=== PATIENT | female | born 1950 | race Caucasian/White ===

== ENCOUNTER 2017-03-19 13:00 | Inpatient (IN) | payer OTHER ==
--- NOTE | 2017-03-11 21:19 | HP ---
HISTORY AND PHYSICAL: DATE OF SURGERY: 03/21/17 PROCEDURE: Left total knee arthroplasty. CHIEF COMPLAINT: Left knee pain. HISTORY OF PRESENT ILLNESS: Ms. Torres is a 66-year-old female with complaints of left knee pain. She has failed conservative management and has elected to proceed with a left total knee arthroplasty. The surgery is scheduled for 03/21/[address] Mead. PAST MEDICAL HISTORY: 1. Hypothyroidism. 2. Asthma. 3. Rheumatoid arthritis. 4. Sleep apnea. 5. Depression. PAST SURGICAL HISTORY: 1. Cardiac ablation. 2. Bladder suspension. 3. Bilateral total hip arthroplasties. 4. Bunionectomy. 5. Hammer toe repair. 6. Tonsillectomy. 7. Adenoidectomy. 8. Left ankle ORIF. 9. Varicose vein surgery of the bilateral lower extremities. CURRENT MEDICATIONS: 1. Iron. 2. Advair. 3. Levothyroxine. 4. Lexapro. 5. Calcium. 6. Vitamin D. 7. Melatonin. 8. Multivitamin. 9. [place]-3. ALLERGIES: SULFA, CIPRO and EFFEXOR. FAMILY HISTORY: Diabetes, heart disease, liver cancer and asthma. SOCIAL HISTORY: She is a 66-year-old female. She lives with her partner. She is a former smoker. She denies use of drugs. REVIEW OF SYSTEMS: A complete 14-point review of systems was reviewed with the patient. All is negative or noncontributory. PHYSICAL EXAMINATION GENERAL: She is well developed, well nourished. She is in no acute distress. VITAL SIGNS: She stands 5 feet 10 inches tall, weighs 230 pounds. Her blood pressure is 110/64, heart rate of 68. HEENT: She is normocephalic and atraumatic. NECK: Supple. No palpable lymph nodes. Trachea is midline. CARDIO: Regular rate and rhythm. Strong S1 and S2. No murmurs, gallops, or rubs. No peripheral edema. PULMONARY: Clear to auscultation bilaterally. ABDOMEN: Soft, nontender and nondistended. NEUROLOGICAL: She is alert and oriented x3. MUSCULOSKELETAL: Left lower extremity, skin is intact. There is a mild to moderate joint effusion. She has tenderness over the medial and lateral joint line. Her lower extremity muscle group strengths are intact at 5/5. She has 2 + dorsalis pedis pulses. She walks with a slightly antalgic type gait favoring her left leg. IMPRESSION: Ms. Torres is a 66-year-old female with complaints of left knee pain secondary to advanced osteoarthritis. She has failed conservative management and has elected to proceed with a left total knee arthroplasty which is scheduled for 03/21/[address] Mead discussed the risks and the benefits of the surgery at today's visit and all of her questions were answered. Coumadin, Percocet as well as Senna Plus were sent to her pharmacy for postoperative pain control and DVT prophylaxis. She will see Dr. Mead back 10 to 14 days after the surgery. ANNIE SOLORIO [id number]/CPS #: [id number] MTDD
[2017-03-21] MEDS ORDERED: fentaNYL* 50 MCG/ML 2 ML VIAL (100 MCG VIAL) IV PRN (05:39)
[2017-03-21] MEDS ORDERED: PROCHLORPERAZINE INJ 5 MG/ML 2 ML VIAL IV PRN (05:39)
[2017-03-21] MEDS ORDERED: Buffered Lidocaine 1% SYR 3ML* 3 ML/SYR SYRINGE INTRADERM ONE (06:00)
[2017-03-21] MEDS ORDERED: Scopolamine 1.5 mg* PATCH TRANSDERM ONE (06:00)
[2017-03-21] MEDS ORDERED: Famotidine IV* 10 MG/ML 2 ML (20 mg) IV ONE (06:00)
[2017-03-21] MEDS ORDERED: Gabapentin CAP(*) 300 MG PO ONE (06:00)
[2017-03-21] MEDS ORDERED: Scopolamine 1.5 mg* PATCH ONE (07:25)
[2017-03-21] MEDS ORDERED: Famotidine IV* 10 MG/ML 2 ML (20 mg) ONE (07:25)
[2017-03-21] MEDS ORDERED: ceFAZolin 2 GM PREMIX(*) 2 GM/50 ML BAG IVPB ONE (07:25)
[2017-03-21] MEDS ORDERED: Gabapentin CAP(*) 300 MG ONE (07:25)
[2017-03-21] MEDS ORDERED: fentaNYL* 50 MCG/ML 2 ML VIAL (100 MCG VIAL) ONE (08:08)
[2017-03-21] MEDS ORDERED: Midazolam* 1 MG/ML 5 ML VIAL (5 MG) ONE ×2 (08:09→08:48)
[2017-03-21] MEDS ORDERED: KETAMINE HCL* 50 MG/ML 10 ML VIAL ONE (08:09)
[2017-03-21] MEDS ORDERED: Morphine INJ* 10 MG/ML 1 ML SYRINGE ONE ×3 (09:28→11:48)
[2017-03-21] MEDS ORDERED: Bupivacaine 0.5% SDV PF* 30 ML VIAL ONE ×2 (10:37→10:57)
[2017-03-21] MEDS ORDERED: Propofol* 500 MG/50 ML BTL ONE (10:57)
[2017-03-21] MEDS ORDERED: Dexamethasone IV* 4 MG/ML 1 ML (4 MG) ONE (10:57)
[2017-03-21] MEDS ORDERED: Ondansetron INJ* 2 MG/ML VIAL ONE (10:57)
[2017-03-21] MEDS ORDERED: Lidocaine 2% PF * 5 ML VIAL ONE (10:57)
[2017-03-21] MEDS ORDERED: Phenylephrine INJ* 10 MG/ML 1 ML VIAL (10 MG) ONE (10:57)
[2017-03-21] MEDS ORDERED: Propofol* 10 MG/ML 20 ML BTL IV PUSH ONE (10:57)
[2017-03-21] MEDS ORDERED: Acetaminophen TAB* 325 MG PO PRN (11:29)
[2017-03-21] MEDS ORDERED: oxyCODONE/Acetamin 5/325 MG* TAB PO PRN (11:29)
[2017-03-21] MEDS ORDERED: Morphine INJ* 2 MG/ML 1 ML SYRINGE IV PRN (11:29)
[2017-03-21] MEDS ORDERED: diPHENhydraMINE IV* 50 MG/ML 1 ml VIAL (BENADRYL) IV PRN (11:29)
[2017-03-21] MEDS ORDERED: Bisacodyl SUPP* 10 MG SUPP PR PRN (11:29)
[2017-03-21] MEDS ORDERED: Ondansetron TAB* 4 MG PO PRN (11:29)
[2017-03-21] MEDS ORDERED: Polyethylene Glycol 3350* 17 GM PACKET PO PRN (11:29)
[2017-03-21] MEDS ORDERED: Albuterol 2.5 MG/3 ML NEB.SOL* (0.083%) INH PRN (11:48)
[2017-03-21] MEDS: Morphine INJ* 2 MG/ML 1 ML SYRINGE IV PRN ×4 (11:50→12:45)
--- NOTE | 2017-03-21 13:22 | CONS ---
CONSULTATION REPORT: DATE OF CONSULT: 03/21/17 PRIMARY CARE PROVIDER: Dr. Campbell. ATTENDING PHYSICIAN WHILE IN THE HOSPITAL: Tha Church MD (report dictated by Trung Spencer NP). REQUESTING PHYSICIAN FOR CONSULT: Dr. Mead. REASON FOR MEDICAL CONSULTATION: Medical management of comorbid medical problems. HISTORY OF PRESENT ILLNESS: I refer you to Dr. Mead's H and P for further details. In short, Ms. Torres is a 66-year-old female patient who presents with history of hypothyroidism, asthma, rheumatoid arthritis, GERARDO, and depression. She has been dealing with left knee pain for some time failing conservative therapy, she elected to proceed with left total knee arthroplasty which she underwent today. She was evaluated in the PACU. She said she is feeling well. She says she is having a fair amount of pain in her left knee. She denies having any chest pain or any shortness of breath. She denies having any abdominal pain. She denies having any shortness of breath. She says she feels tired and drowsy but denies having any lightheadedness or any feelings she is going to pass out. She again carries a history of the asthma, GERARDO, rheumatoid arthritis, hypothyroidism, depression. We were asked to evaluate in consult. PAST MEDICAL HISTORY: Significant for: 1. Hypothyroidism. 2. Asthma. 3. Rheumatoid arthritis. 4. GERARDO. 5. Depression. SURGICAL HISTORY: 1. She has had a cardiac ablation for PVC in 2016. 2. Bladder suspension. 3. Bilateral total hip arthroplasty. 4. Bunionectomy. 5. Hammer toe repair. 6. Tonsillectomy. 7. Left ankle ORIF. 8. Varicose vein stripping. HOME MEDICATIONS: According to the preop list include: 1. Percocet 1 tablet every 3 hours as needed. 2. Multivitamin 1 tablet daily. 3. Myrbetriq 1 tablet p.o. q. p.m. 4. Meloxicam 1 tablet p.o. b.i.d. 5. Melatonin 30 mg at bedtime. 6. Synthroid 100 mcg at bedtime. 7. Lactobacillus 1 capsule p.o. b.i.d. 8. Advair 1 puff inhaled b.i.d. 9. Ferrous sulfate 1 tablet p.o. b.i.d. 10. Lexapro 20 mg p.o. q.p.m. 11. Gravel Switch-3 complex 1 capsule p.o. q.p.m. 12. Calcium with vitamin D 1 tablet p.o. q.a.m. 13. Aspirin 81 mg daily. ALLERGIES TO MEDICATIONS: Include SULFA, CIPRO, and EFFEXOR. FAMILY HISTORY: Reviewed, essentially noncontributory. SOCIAL HISTORY: She does not smoke. She does not drink. She lives alone. Surrogate decision maker is her partner and . REVIEW OF SYSTEMS: There is no documented fever. She denied having any significant weight change. There is no double vision. She denies having any ear discharge. There was no rhinorrhea. No sore throat. No thyroid enlargement. Denies having any chest pain. There is no orthopnea. There is no nocturnal dyspnea. No abdominal pain. No nausea. No vomiting. No dysuria. No frequency. No seizure. No loss of consciousness. No pruritus. No skin ulcerations. Review of 14 systems completed, all others negative. PHYSICAL EXAMINATION: Vital Signs: Blood pressure 109/59 with a pulse of 69, respirations 16, O2 sat 92% on 4 L, temperature was 97.9. General: At this time, Ms. Torres is a 66-year-old female patient. She was evaluated in the PACU. She appears to be well-nourished, well-developed. She does not appear to be in any acute distress. HEENT: Head is atraumatic, normocephalic. Eyes: EOMs are intact. Sclerae were anicteric. Neck supple. Pupils reactive to light. Throat: Oral mucosa appeared to be moist. No oropharyngeal erythema. Heart: Sounds S1 and S2. Regular rate and rhythm. No murmurs, rubs, or gallops. Lungs: Clear to auscultation bilaterally. No wheezes, rales, or rhonchi. Abdomen: Soft, flat and nontender. Bowel sounds are hypoactive. Extremities: Pulses are 2+ throughout. Distal CSM checks were intact. She moves the upper extremities with 5/5 strength. The left lower extremity is Baljeet bandaged. There is Hemovac intact. She has limited range of motion since this is the operative leg. Neurologically, she is drowsy on exam but she awakens to her name. She follows commands. Her lead recreation assistant are equal. Tongue is midline. No facial drooping. Her speech is clear. No gross focal deficits. Her skin is intact with the exception of left knee. She has an incision covered with an Baljeet dressing. Hemovac intact with no drainage noted. DIAGNOSTIC STUDIES/LAB DATA: The labs preoperatively reveal WBC 6.3, RBC of 4.62, hemoglobin 12.6, hematocrit 38, platelet count of 253. INR was 1.01. Sodium was 136, potassium 4.4, chloride 101, CO2 30, BUN 18, creatinine 0.69, glucose 86. Urine obtained preop showed positive nitrites, 2+ leukocyte esterase , 2+ WBC. Microbiology grew out Klebsiella pneumoniae. Old medical records were reviewed. There was a preop EKG which shows a normal sinus rhythm at a rate of 68. No ST elevation or T-wave inversions. Chest x-ray back in October which showed no active cardiopulmonary disease. ASSESSMENT AND PLAN: Ms. Torres is a 66-year-old female patient coming into the orthopedic services today for an elective left total knee. The hospitalist service was asked to evaluate in consult for medical management of her medical problems. Recommendation at this point are: 1. Status post left total knee replacement. I will defer the management of this to Dr. Mead and her team. 2. Hypothyroidism. Continue Synthroid. 3. Asthma. Continue her Advair p.r.n. Nebulizers have been ordered. 4. Obstructive sleep apnea. Reported 24-hour continuous pulse ox after surgery and then we will continue her BiPAP. 5. Depression. Continue meds as described. 6. Rheumatoid arthritis. Follow with her outpatient provider and Dr. Flores. 7. DVT prophylaxis per the primary team. 8. Preoperative abnormal UA. She did not give any symptoms to report dysuria or frequency. We can monitor for any of these symptoms while she is here postop. If she develops any we could obviously start her on antibiotics, but at this point we will just monitor her. 9. Code status. Full code. 10. Fluids, electrolytes and nutrition. I would recommend a regular diet. TIME SPENT: Time spent on this consult was 60 minutes, greater than half time spent with [id number] with the patient obtaining my history and physical, the other half of the time spent going over the plan of care with the patient and implementing the plan of care. I discussed the plan of care with my attending, Dr. Church, who is in agreement. TRUNG SPENCER NP CC: Dr. Campbell; Dr. Mead * [id number]/CPS #: [id number] [facility]ITAL[facility]
[2017-03-21] MEDS ORDERED: Morphine INJ* 4 MG/ML 1 ML SYRINGE ONE (13:50)
[2017-03-21] MEDS: oxyCODONE/Acetamin 5/325 MG* TAB PO PRN ×2 (14:56→19:30)
[2017-03-21] MEDS ORDERED: Warfarin TAB(*) 6 MG PO ONE (17:00)
[2017-03-21] MEDS: PTO: Mirabegron (NF) 50 MG TAB PO SCH (17:45)
[2017-03-21] MEDS: ceFAZolin 1 GM in Dextrose (*) 1 GM/50 ML BAG IVPB SCH (17:45)
[2017-03-21] MEDS: CMC:Escitalopram (NF) 10 MG TAB PO SCH (17:46)
[2017-03-21] MEDS ORDERED: Ferrous Sulfate TAB* 325 MG PO SCH (21:00)
[2017-03-21] MEDS: Magnesium Hydroxide LIQ* 30 ML UDC PO PRN (21:20)
[2017-03-21] MEDS: Docusate CAP* 100 MG PO SCH (21:20)
[2017-03-21] MEDS: SALMET INH SCH (21:27)
[2017-03-21] MEDS: FLUTICAS INH SCH (21:27)
[2017-03-21] MEDS: MDI INH SCH (21:27)
[2017-03-21] MEDS: oxyCODONE TAB* 5 MG TAB PO PRN (22:32)
--- NOTE | 2017-03-22 00:48 | OP ---
DATE OF OPERATION: 03/21/17 - ROOM #342 DATE OF : 54 SURGEON: Rachel Mead MD. ACCOUNTS PAYABLE REPRESENTATIVE: ANNIE Headley. Ms. Brown was present throughout the entire procedure and was utilized throughout the entire procedure for preparation, retraction, manipulation of the leg, and wound closure. ANESTHESIOLOGIST: Dr. Borrero. ANESTHESIA: Spinal with adductor nerve block. PRE-OP DIAGNOSIS: Severe end-stage degenerative osteoarthritis of the left knee joint with valgus deformity. POST-OP DIAGNOSIS: Severe end-stage degenerative osteoarthritis of the left knee joint with valgus deformity. OPERATIVE PROCEDURE: Left total knee arthroplasty. TOURNIQUET TIME: 48 minutes. COMPLICATIONS: None. ESTIMATED BLOOD LOSS: 200 cc. SPECIMEN: Bone and cartilage from the left knee joint, sent to pathology. HARDWARE USED: This is Epps [employer] Nephew cemented total knee hardware. Two packages of Simplex bone cement were used. For the femur, a size 7 left femoral component. For the tibia, a size 5 tibial base plate, a 9-mm posterior stabilized articular insert size 5-6, and a 35-mm 3-peg all-poly patella. BRIEF HISTORY/INDICATION: Ms. Torres is a 66-year-old female with 6 months of increasingly severe left knee pain. She failed conservative treatment with antiinflammatories, pain medications, brace wear and intraarticular steroid injections. Radiographs showed severe end-stage arthritis with valgus deformity and [id number] contact in the lateral compartment. Due to failure of conservative treatment, the patient elected to have left total knee arthroplasty. Informed consent was obtained from the patient. She understood the risks of the procedure included, but were not limited to bleeding, infection, damage to nearby structures, continued pain, need for further surgery, intraoperative fracture, nerve palsy, hardware failure or loosening, stiffness or loss of motion, stroke, heart attack, blood clot, and . She wished to proceed. INTRAOPERATIVE FINDINGS: The patient was noted to have complete loss of cartilage in the lateral and patellofemoral compartments. She had a severely hypoplastic lateral femoral condyle. Preop valgus alignment was approaching 15 degrees. Postoperatively, this was corrected at 3 to 5 degrees of anatomic valgus. DESCRIPTION OF PROCEDURE: Ms. Torres was identified in the preanesthesia unit. Her left lower extremity was marked as the correct operative site. Informed consent was signed and placed in the chart. The patient was taken to the operating room and placed under spinal anesthesia with an adductor nerve block. A Shah catheter was placed. The tourniquet was placed on the left thigh. Left lower extremity was prepped and draped in the usual sterile fashion. Appropriate preoperative time-out was made to correctly identify the patient's side and site. Appropriate perioperative antibiotics were given within 1 hour of incision. Tourniquet was inflated and total tourniquet time for this procedure was 48 minutes. A 14 cm midline incision was made with a 10-blade and carried down to the extensor mechanism. A new 10 blade was used to make a standard medial parapatellar arthrotomy. The patella was subluxed laterally. Electrocautery was used to subperiosteally elevate soft tissue off the superomedial tibia to the mid sagittal plane. The medial osteophytes were carefully removed. The tibia was flexed up. Anterior horn of the lateral meniscus and ACL was sharply released. A drill was used to enter the distal femur. Intramedullary distal femoral cutting guide was pinned on the distal femur. Lateral femoral condylar hypoplasia was noted and accounted for. Oscillating saw was used to make the distal femoral cut. Next the external rotation guide was carefully pinned on the distal femur. The distal femur was sized to a size 7. Size 7 multi- cutting jig was pinned on the distal femur. The oscillating saw to used to make the appropriate 4 chamfer cuts. Any bony fragments were carefully removed. The PCL was completely released. Tibia was subluxed anteriorly and the extramedullary tibial cutting guide was pinned on the proximal tibia. Oscillating saw was used to make the appropriate proximal tibial cut perpendicular to the mechanical axis of the tibia. The tibial bone was carefully removed. The knee was brought out into full extension. The spacer block had excellent fit. Medial and lateral ligaments were well balanced. Flexion and extension gaps were well balanced. The knee was flexed up. The lamina child psychiatrist was placed both medially and laterally. Any remaining meniscus was carefully removed using electrocautery. Any posterior osteophytes were removed using a curved osteotome and curette. Tibial tray and drop krissy were placed to once again confirm a satisfactory proximal tibial cut. This was confirmed. A size 7 left femoral trial was impacted on to the distal femur and noted to have good fit. The box for the posterior stabilized implant was prepared using a reamer and box cut osteotome. Trial size 5 tibial base plate and 9 mm insert trial were placed. The knee was taken through range of motion and noted to have full extension to 125 degrees of flexion. There was good patellofemoral tracking. The patella was everted. A 7 mm of patellar bone and cartilage was carefully removed from the patella. The patella was sized to a size 35. A size 35 patellar guide was used to drill the 3 peg holes. A size 35, 7.5 thickness trial was placed and the knee was taken through a range of motion. There was satisfactory patellofemoral tracking. All trials were carefully removed. The tibia was subluxed anteriorly and sized to a size 5. Proximal tibia was prepared using a size 5 keel punch. All bony cut surfaces were copiously irrigated with sterile saline and dried. The final implants were cemented into place starting with the tibia followed by the femur and last the patella. A 9 mm insert trial was placed while the knee was brought out into full extension. The cement was allowed to slowly cure and tourniquet was turned down at 48 minutes. The knee was copiously irrigated with sterile saline. Once the cement had fully cured, the insert trial was removed. Any excess cement was carefully removed from around the implants and capsule. Electrocautery was used to obtain meticulous hemostasis. The knee was once again copiously irrigated with sterile saline. The extensor mechanism was closed using interrupted #1 Vicryl over a medium Hemovac drain. The rest of the incision was closed in a layered fashion using 0 and 2-0 Vicryl. Skin was closed using running 3-0 nylon suture. Sterile Xeroform, 4x4' s, and Webril were used to cover the incision. Baljeet wrap and cold packs were placed over this. The patient's anesthesia was reversed without difficulty. She was taken to the PACU in stable condition. Intended weightbearing will be weightbearing as tolerated. Intended DVT prophylaxis will be Coumadin with a Lovenox bridge. [id number]/[facility] #: [id number] SONDRA
[2017-03-22] MEDS: ceFAZolin 1 GM in Dextrose (*) 1 GM/50 ML BAG IVPB SCH ×2 (02:03→08:49)
[2017-03-22] MEDS: oxyCODONE/Acetamin 5/325 MG* TAB PO PRN ×5 (04:07→18:45)
[2017-03-22] MEDS: Levothyroxine TAB* 100 MCG TAB PO SCH (05:24)
[2017-03-22 06:00] LABS: Hematocrit 30 % (35-47); Hemoglobin 9.7 g/dl (12.0-16.0)
[2017-03-22 06:14] LABS: BUN/Creatinine Ratio 18.3 (8-20); Calcium 8.9 mg/dL (8.6-10.3); EGFR African American 129.4 (>60); EGFR Non-African American 100.6 (>60); Potassium 4.1 mmol/L (3.5-5.0)
[2017-03-22] MEDS: oxyCODONE SR TAB(*) 10 MG TAB.SR PO SCH ×2 (08:09→21:40)
[2017-03-22] MEDS: Docusate CAP* 100 MG PO SCH ×2 (08:09→21:41)
[2017-03-22] MEDS: Enoxaparin(*) 30 MG/0.3 ML SYR SUBCUT SCH (08:10)
[2017-03-22] MEDS: FLUTICAS INH SCH ×2 (08:11→21:42)
[2017-03-22] MEDS: MDI INH SCH ×2 (08:11→21:42)
[2017-03-22] MEDS: SALMET INH SCH ×2 (08:11→21:42)
--- NOTE | 2017-03-22 09:22 | RAD ---
Indication: Left total knee replacement 2 views of left knee demonstrates bipolar knee replacement in place. The components appear to be in satisfactory alignment. Drainage catheter in place. IMPRESSION: Left knee replacement in satisfactory position.
--- NOTE | 2017-03-22 09:54 | PN ---
Progress Note - Progress Note SOAP: Subjective: 66 y/o female s/p L TKA by DR. Mead 03/22/2017. Patient reports feeling well overall, working with PT, very motivated. Pain controlled with medications, feeling light headed intermittently. VSS, afebrile. Objective: General- Well appearing, NAD AO MSK- SUrg dressing intact, hemovac removed by Dr. Mead this AM, + DF/PF L LE, PT 2+, minimal edema L LE. intact to light touch Assessment: 66 y/o female s/p L TKA by DR. Mead 03/22/2017. Plan: - Continue current pain regimen - Continue PT/ OT - Lovenox, coumadin- 8mg tonight Vital Signs Temp 98.2 F 03/22/17 07:37 Pulse 76 03/22/17 07:37 Resp 16 03/22/17 08:56 BP 130/58 03/22/17 07:37 Pulse Ox 100 03/22/17 08:56 Intake & Output 03/21/17 03/22/17 03/22/17 18:59 06:59 18:59 Intake Total 1730 1433 Output Total 1275 2150 Balance 455 -717 Weight 235 lb Intake: IV Fluids 1250 908 LR 1200 908 NS 50ML, Cefazolin 2G 50 Oral 480 525 Output: Urine 0 Shah 1275 2150 Other: Estimated Blood Loss <100 ML Comment Laboratory Results - last 24 hr 03/22/17 03/22/17 03/22/17 05:47 05:47 05:47 Hgb 9.7 L Hct 30 L INR (Anticoag Therapy) 1.08 Sodium 134 Potassium 4.1 Chloride 100 L Carbon Dioxide 31 Anion Gap 3 BUN 11 Creatinine 0.60 Est GFR ( Amer) 129.4 Est GFR (Non-Af Amer) 100.6 BUN/Creatinine Ratio 18.3 Glucose 130 H Calcium 8.9 Active Medications Generic Name Dose Route Start Last Admin Trade Name Freq PRN Reason Stop Dose Admin Acetaminophen 650 mg 03/21/17 11:29 Tylenol Tab* PO Q4H PRN PAIN OR TEMPERATURE Albuterol 2.5 mg 03/21/17 11:48 Ventolin 2.5 Mg/3 Ml Neb.Trish* INH Q2H PRN SOB/WHEEZING Bisacodyl 10 mg 03/21/17 11:29 Dulcolax Supp* [place] DAILY PRN constipation Diphenhydramine HCl 12.5 mg 03/21/17 11:29 Benadryl Iv* IV Q6H PRN PRURITIS Docusate Sodium 100 mg 03/21/17 21:00 03/22/17 08:09 Colace Cap* PO 100 mg BID MAGGI Administration Enoxaparin Sodium 30 mg 03/22/17 08:00 03/22/17 08:10 Lovenox(*) SUBCUT 30 mg Q24H MAGGI Administration Escitalopram Oxalate 20 mg 03/21/17 18:00 03/21/17 17:46 Lexapro (Nf) PO 20 mg QPM MAGGI Administration Lactated Ringer's 1,000 mls @ 100 mls/hr 03/21/17 12:00 03/21/17 23:06 Lactated Ringers 1000 Ml Bag* IV 100 mls/hr PER RATE MAGGI Administration Lactulose 30 ml 03/21/17 11:29 Lactulose* PO Q6H PRN constipation Levothyroxine Sodium 100 mcg 03/22/17 06:00 03/22/17 05:24 Synthroid Tab* PO 100 mcg 0600 MAGGI Administration Magnesium Hydroxide 30 ml 03/21/17 11:29 03/21/17 21:20 Milk Of Magnesia Liq* PO 30 ml Q6H PRN Administration constipation Mirabegron 50 mg 03/21/17 18:00 03/21/17 17:45 Myrbetriq (Nf) PO 50 mg QPM MAGGI Administration Morphine Sulfate 2 mg 03/21/17 11:29 Morphine Inj (Syringe)* IV Q2H PRN PAIN Ondansetron HCl 4 mg 03/21/17 11:29 Zofran Tab* PO Q6H PRN NAUSEA Oxycodone HCl 10 mg 03/21/17 11:29 03/21/17 22:32 Roxycodone Tab* PO 10 mg Q4H PRN Administration SEVERE PAIN Oxycodone HCl 10 mg 03/22/17 09:00 03/22/17 08:09 Oxycontin(*) PO 10 mg Q12HR MAGGI Administration Oxycodone/Acetaminophen 1 tab 03/21/17 11:29 Percocet 5/325 Tab* PO Q3H PRN PAIN - MODERATE Oxycodone/Acetaminophen 2 tab 03/21/17 11:29 03/22/17 08:09 Percocet 5/325 Tab* PO 2 tab Q3H PRN Administration PAIN - MODERATE Pharmacy Profile Note 1 note 03/24/17 06:00 Scopolomine Patch Remove* PATCH OFF 03/24/17 06:01 ONCE ONE Polyethylene Glycol/Electrolytes 17 gm 03/21/17 11:29 Miralax* PO DAILY PRN Constipation Fluticasone/Salmeterol 1 puff 03/21/17 21:00 03/22/17 08:11 Advair Hfa 115/21 (Nf) INH 1 puff BID MAGGI Administration Protocol Warfarin Sodium 8 mg 03/22/17 17:00 Coumadin Tab(*) PO 03/22/17 17:01 ONCE@1700 ONE Protocol -
--- NOTE | 2017-03-22 11:48 | PN ---
Subjective Date of Service: 03/22/17 Interval History: This is a 66 yo female with asthma, RA, hypothyroidism, GERARDO and depression who is s/p L TKA by Dr Mead yesterday. Hospitalists are co-managing. Patient offers no acute complaints this am. No SOB, slight cough. No abd pain, n/v. Pain is well controlled. Objective Active Medications: Acetaminophen (Tylenol Tab*) 650 mg PO Q4H PRN PRN Reason: PAIN OR TEMPERATURE Albuterol (Ventolin 2.5 Mg/3 Ml Neb.Trish*) 2.5 mg INH Q2H PRN PRN Reason: SOB/WHEEZING Bisacodyl (Dulcolax Supp*) 10 mg ME DAILY PRN PRN Reason: constipation Diphenhydramine HCl (Benadryl Iv*) 12.5 mg IV Q6H PRN PRN Reason: PRURITIS Docusate Sodium (Colace Cap*) 100 mg PO BID [facility] Last Admin: 03/22/17 08:09 Dose: 100 mg Enoxaparin Sodium (Lovenox(*)) 30 mg SUBCUT Q24H [facility] Last Admin: 03/22/17 08:10 Dose: 30 mg Escitalopram Oxalate (Lexapro (Nf)) 20 mg PO QPM [facility] Last Admin: 03/21/17 17:46 Dose: 20 mg Lactated Ringer's (Lactated Ringers 1000 Ml Bag*) 1,000 mls @ 100 mls/hr IV PER RATE [facility] Last Admin: 03/21/17 23:06 Dose: 100 mls/hr Lactulose (Lactulose*) 30 ml PO Q6H PRN PRN Reason: constipation Levothyroxine Sodium (Synthroid Tab*) 100 mcg PO 0600 [facility] Last Admin: 03/22/17 05:24 Dose: 100 mcg Magnesium Hydroxide (Milk Of Magnesia Liq*) 30 ml PO Q6H PRN PRN Reason: constipation Last Admin: 03/21/17 21:20 Dose: 30 ml Mirabegron (Myrbetriq (Nf)) 50 mg PO QPM [facility] Last Admin: 03/21/17 17:45 Dose: 50 mg Morphine Sulfate (Morphine Inj (Syringe)*) 2 mg IV Q2H PRN PRN Reason: PAIN Ondansetron HCl (Zofran Tab*) 4 mg PO Q6H PRN PRN Reason: NAUSEA Oxycodone HCl (Roxycodone Tab*) 10 mg PO Q4H PRN PRN Reason: SEVERE PAIN Last Admin: 03/21/17 22:32 Dose: 10 mg Oxycodone HCl (Oxycontin(*)) 10 mg PO Q12HR [facility] Last Admin: 03/22/17 08:09 Dose: 10 mg Oxycodone/Acetaminophen (Percocet 5/325 Tab*) 1 tab PO Q3H PRN PRN Reason: PAIN - MODERATE Oxycodone/Acetaminophen (Percocet 5/325 Tab*) 2 tab PO Q3H PRN PRN Reason: PAIN - MODERATE Last Admin: 03/22/17 11:10 Dose: 2 tab Pharmacy Profile Note (Scopolomine Patch Remove*) 1 note PATCH OFF ONCE ONE Stop: 03/24/17 06:01 Polyethylene Glycol/Electrolytes (Miralax*) 17 gm PO DAILY PRN PRN Reason: Constipation Fluticasone/Salmeterol (Advair Hfa 115/21 (Nf)) 1 puff INH BID [facility] PRN Reason: Protocol Last Admin: 03/22/17 08:11 Dose: 1 puff Warfarin Sodium (Coumadin Tab(*)) 8 mg PO ONCE@1700 ONE PRN Reason: Protocol Stop: 03/22/17 17:01 Vital Signs: Temp Pulse Resp BP Pulse Ox 98.2 F 76 16 130/58 100 03/22/17 07:37 03/22/17 07:37 03/22/17 11:10 03/22/17 07:37 03/22/17 08:56 Oxygen Devices in Use Now: None Appearance: Well appearing female in NAD Respiratory: Symmetrical Chest Expansion and Respiratory Effort, - - few rales at L lung base Cardiovascular: NL Sounds; No Murmurs; No JVD, RRR Abdominal: NL Sounds; No Tenderness; No Distention Extremities: No Edema Skin: No Rash or Ulcers Neurological: Alert and Oriented x 3 Result Diagrams: 03/22/17 05:47 03/22/17 05:47 Assess/Plan/Problems-Billing Assessment: This is a 66 yo female with asthma, alpha 1 antitripsyn deficiency and associated bronchiectasis, hypothyroidism, RA, GERARDO and depression who is s/p elective L TKA. Hospitalist group co-managing - Patient Problems (1) Status post total left knee replacement Comment: POD #1 Management per ortho (2) Asthma Comment: No acute exacerbation With chronic bronchiectasis and alpha 1 antitrypsin deficiency Cont home inhaled meds (3) Rheumatoid arthritis Comment: No chronic immunomodulatory meds (4) GERARDO (obstructive sleep apnea) Comment: Compliant with BiPAP (5) Depression Comment: Cont lexapro Stable (6) Hypothyroidism Comment: Cont levothyroxine (7) Full code status (8) DVT prophylaxis Comment: Lovenox bridge to Coumadin per ortho Status and Disposition: Inpatient. Dispo per ortho. Hospitalist will cont to follow along
[2017-03-22] MEDS ORDERED: Warfarin TAB(*) 4 MG PO ONE (17:00)
[2017-03-22] MEDS: CMC:Escitalopram (NF) 10 MG TAB PO SCH (18:15)
[2017-03-22] MEDS: PTO: Mirabegron (NF) 50 MG TAB PO SCH (18:17)
[2017-03-22] MEDS: Magnesium Hydroxide LIQ* 30 ML UDC PO PRN (21:44)
[2017-03-23] MEDS: oxyCODONE/Acetamin 5/325 MG* TAB PO PRN ×5 (03:46→18:24)
[2017-03-23] MEDS: Levothyroxine TAB* 100 MCG TAB PO SCH (05:39)
[2017-03-23 05:56] LABS: Hematocrit 28 % (35-47); Hemoglobin 8.9 g/dl (12.0-16.0); Mean Platelet Volume 8 um3 (7.4-10.4)
[2017-03-23] MEDS: oxyCODONE SR TAB(*) 10 MG TAB.SR PO SCH ×2 (08:00→21:06)
[2017-03-23] MEDS: Docusate CAP* 100 MG PO SCH ×2 (08:00→21:07)
[2017-03-23] MEDS: FLUTICAS INH SCH ×2 (08:00→21:09)
[2017-03-23] MEDS: SALMET INH SCH ×2 (08:00→21:09)
[2017-03-23] MEDS: MDI INH SCH ×2 (08:00→21:09)
[2017-03-23] MEDS: Enoxaparin(*) 30 MG/0.3 ML SYR SUBCUT SCH (08:01)
--- NOTE | 2017-03-23 09:04 | PN ---
Progress Note - Progress Note SOAP: Subjective: Pt. is alert, twisted her knee last night and has increased pain today. Objective: LLE - dressing changed, inc c/d/i. distally nvi. min swelling. Vital Signs: Temp Pulse Resp BP Pulse Ox 98.3 F 88 16 123/59 99 03/23/17 07:54 03/23/17 07:54 03/23/17 08:10 03/23/17 07:54 03/23/17 08:10 Laboratory Results - last 24 hr 03/23/17 03/23/17 05:14 05:14 Hgb 8.9 L Hct 28 L Plt Count 192 MPV 8 INR (Anticoag Therapy) 1.33 H Assessment: 66 yo F pod 2 s/p LTKA Plan: wbat lle pt/ot 8 mg coumadin with lovenox bridge plan d/c to home tomorrow am with vns
--- NOTE | 2017-03-23 13:29 | PN ---
Subjective Date of Service: 03/23/17 Interval History: Patient twisted her knee yesterday and has been having increased pain since that time. She reports no dyspnea or cough. No CP or abd pain, n/v. Objective Active Medications: Acetaminophen (Tylenol Tab*) 650 mg PO Q4H PRN PRN Reason: PAIN OR TEMPERATURE Albuterol (Ventolin 2.5 Mg/3 Ml Neb.Trish*) 2.5 mg INH Q2H PRN PRN Reason: SOB/WHEEZING Bisacodyl (Dulcolax Supp*) 10 mg [place] DAILY PRN PRN Reason: constipation Diphenhydramine HCl (Benadryl Iv*) 12.5 mg IV Q6H PRN PRN Reason: PRURITIS Docusate Sodium (Colace Cap*) 100 mg PO BID [facility] Last Admin: 03/23/17 08:00 Dose: 100 mg Enoxaparin Sodium (Lovenox(*)) 30 mg SUBCUT Q24H [facility] Last Admin: 03/23/17 08:01 Dose: 30 mg Escitalopram Oxalate (Lexapro (Nf)) 20 mg PO QPM [facility] Last Admin: 03/22/17 18:15 Dose: 20 mg Lactated Ringer's (Lactated Ringers 1000 Ml Bag*) 1,000 mls @ 100 mls/hr IV PER RATE [facility] Last Admin: 03/21/17 23:06 Dose: 100 mls/hr Lactulose (Lactulose*) 30 ml PO Q6H PRN PRN Reason: constipation Levothyroxine Sodium (Synthroid Tab*) 100 mcg PO 0600 [facility] Last Admin: 03/23/17 05:39 Dose: 100 mcg Magnesium Hydroxide (Milk Of Magnesia Liq*) 30 ml PO Q6H PRN PRN Reason: constipation Last Admin: 03/22/17 21:44 Dose: 30 ml Mirabegron (Myrbetriq (Nf)) 50 mg PO QPM [facility] Last Admin: 03/22/17 18:17 Dose: 50 mg Morphine Sulfate (Morphine Inj (Syringe)*) 2 mg IV Q2H PRN PRN Reason: PAIN Last Admin: 03/22/17 16:40 Dose: 2 mg Ondansetron HCl (Zofran Tab*) 4 mg PO Q6H PRN PRN Reason: NAUSEA Oxycodone HCl (Roxycodone Tab*) 10 mg PO Q4H PRN PRN Reason: SEVERE PAIN Last Admin: 03/21/17 22:32 Dose: 10 mg Oxycodone HCl (Oxycontin(*)) 10 mg PO Q12HR [facility] Last Admin: 03/23/17 08:00 Dose: 10 mg Oxycodone/Acetaminophen (Percocet 5/325 Tab*) 1 tab PO Q3H PRN PRN Reason: PAIN - MODERATE Oxycodone/Acetaminophen (Percocet 5/325 Tab*) 2 tab PO Q3H PRN PRN Reason: PAIN - MODERATE Last Admin: 03/23/17 11:03 Dose: 2 tab Pharmacy Profile Note (Scopolomine Patch Remove*) 1 note PATCH OFF ONCE ONE Stop: 03/24/17 06:01 Polyethylene Glycol/Electrolytes (Miralax*) 17 gm PO DAILY PRN PRN Reason: Constipation Fluticasone/Salmeterol (Advair Hfa 115/21 (Nf)) 1 puff INH BID [facility] PRN Reason: Protocol Last Admin: 03/23/17 08:00 Dose: 1 puff Warfarin Sodium (Coumadin Tab(*)) 8 mg PO ONCE@1700 ONE PRN Reason: Protocol Stop: 03/23/17 17:01 Vital Signs: Temp Pulse Resp BP Pulse Ox 98.2 F 91 16 106/53 93 03/23/17 12:12 03/23/17 12:12 03/23/17 12:12 03/23/17 12:12 03/23/17 12:12 Oxygen Devices in Use Now: None Appearance: Well appearing, sitting, eating lunch. In NAD Neurological: Alert and Oriented x 3 Result Diagrams: 03/23/17 05:14 03/22/17 05:47 Assess/Plan/Problems-Billing Assessment: This is a 66 yo female with asthma, alpha 1 antitripsyn deficiency and associated bronchiectasis, hypothyroidism, RA, GERARDO and depression who is s/p elective L TKA. Hospitalist group co-managing - Patient Problems (1) Status post total left knee replacement Comment: POD #2 Management per ortho (2) Asthma Comment: No acute exacerbation With chronic bronchiectasis and alpha 1 antitrypsin deficiency Cont home inhaled meds (3) Rheumatoid arthritis Comment: No chronic immunomodulatory meds (4) GERARDO (obstructive sleep apnea) Comment: Compliant with BiPAP (5) Depression Comment: Cont lexapro Stable (6) Hypothyroidism Comment: Cont levothyroxine (7) Full code status (8) DVT prophylaxis Comment: Lovenox bridge to Coumadin per ortho Status and Disposition: Inpatient. Dispo per ortho. Hospitalist will cont to follow along
[2017-03-23] MEDS ORDERED: Warfarin TAB(*) 4 MG PO ONE (17:00)
[2017-03-23] MEDS: CMC:Escitalopram (NF) 10 MG TAB PO SCH (18:23)
[2017-03-23] MEDS: PTO: Mirabegron (NF) 50 MG TAB PO SCH (18:23)
[2017-03-23] MEDS: guaiFENesin ER TAB 600 MG PO SCH (21:07)
[2017-03-23] MEDS: oxyCODONE TAB* 5 MG TAB PO PRN (23:02)
[2017-03-24] MEDS: Levothyroxine TAB* 100 MCG TAB PO SCH (05:48)
[2017-03-24] MEDS: oxyCODONE/Acetamin 5/325 MG* TAB PO PRN ×2 (05:48→10:40)
[2017-03-24 05:57] LABS: Hematocrit 25 % (35-47); Hemoglobin 8.2 g/dl (12.0-16.0)
[2017-03-24] MEDS ORDERED: Scopolomine PATCH Remove* 1 NOTE MISC PATCH OFF ONE (06:00)
[2017-03-24] MEDS: Docusate CAP* 100 MG PO SCH (08:37)
[2017-03-24] MEDS: guaiFENesin ER TAB 600 MG PO SCH (08:38)
[2017-03-24] MEDS: oxyCODONE TAB* 5 MG TAB PO PRN ×2 (08:38→13:08)
[2017-03-24] MEDS: oxyCODONE SR TAB(*) 10 MG TAB.SR PO SCH (08:39)
[2017-03-24] MEDS: FLUTICAS INH SCH (08:40)
[2017-03-24] MEDS: MDI INH SCH (08:40)
[2017-03-24] MEDS: SALMET INH SCH (08:40)
[2017-03-24] MEDS: Enoxaparin(*) 30 MG/0.3 ML SYR SUBCUT SCH (08:41)
--- NOTE | 2017-03-24 09:12 | PN ---
Progress Note - Progress Note SOAP: Subjective: Pt is doing well with therapy. Pain is controlled with oxycontin and percocet. Has had a BM. Denies CP, SOB, F/C or N/T. VSS overnight. Objective: PE- 66 y/o F NAD, A&O x 3 LLE- dressing changed, inc c/d/i no signs of infection, +PF/DF ankle, calf soft nontender, +2 DP pulse, sensation intact Vital Signs Temp Pulse Resp BP Pulse Ox 98.3 F 81 16 122/58 100 03/24/17 07:32 03/24/17 07:32 03/24/17 08:39 03/24/17 07:32 03/24/17 07:32 Laboratory Results - last 24 hr 03/24/17 03/24/17 05:34 05:34 Hgb 8.2 L Hct 25 L INR (Anticoag Therapy) 2.04 H Assessment: POD 3 Left TKA Plan: DC to home with VNS today WBAT LLE- Cont PT Cont Coumadin, colace, oxycontin and percocet F/U 10-14 days post op
[2017-03-24 12:11] VITALS: BP 143/62
--- NOTE | 2017-03-24 14:04 | PN ---
Subjective Date of Service: 03/24/17 Interval History: Patient is being discharged to home today. She offers no acute complaints. She developed a cough yesterday, but it has improved today with a couple doses of Mucinex. Objective Active Medications: Acetaminophen (Tylenol Tab*) 650 mg PO Q4H PRN PRN Reason: PAIN OR TEMPERATURE Albuterol (Ventolin 2.5 Mg/3 Ml Neb.Trish*) 2.5 mg INH Q2H PRN PRN Reason: SOB/WHEEZING Bisacodyl (Dulcolax Supp*) 10 mg [place] DAILY PRN PRN Reason: constipation Diphenhydramine HCl (Benadryl Iv*) 12.5 mg IV Q6H PRN PRN Reason: PRURITIS Docusate Sodium (Colace Cap*) 100 mg PO BID [facility] Last Admin: 03/24/17 08:37 Dose: 100 mg Enoxaparin Sodium (Lovenox(*)) 30 mg SUBCUT Q24H [facility] Last Admin: 03/24/17 08:41 Dose: 30 mg Escitalopram Oxalate (Lexapro (Nf)) 20 mg PO QPM [facility] Last Admin: 03/23/17 18:23 Dose: 20 mg Guaifenesin (Mucinex*) 1,200 mg PO BID [facility] Last Admin: 03/24/17 08:38 Dose: 1,200 mg Lactulose (Lactulose*) 30 ml PO Q6H PRN PRN Reason: constipation Levothyroxine Sodium (Synthroid Tab*) 100 mcg PO 0600 [facility] Last Admin: 03/24/17 05:48 Dose: 100 mcg Magnesium Hydroxide (Milk Of Magnesia Liq*) 30 ml PO Q6H PRN PRN Reason: constipation Last Admin: 03/22/17 21:44 Dose: 30 ml Mirabegron (Myrbetriq (Nf)) 50 mg PO QPM [facility] Last Admin: 03/23/17 18:23 Dose: 50 mg Morphine Sulfate (Morphine Inj (Syringe)*) 2 mg IV Q2H PRN PRN Reason: PAIN Last Admin: 03/22/17 16:40 Dose: 2 mg Ondansetron HCl (Zofran Tab*) 4 mg PO Q6H PRN PRN Reason: NAUSEA Oxycodone HCl (Roxycodone Tab*) 10 mg PO Q4H PRN PRN Reason: SEVERE PAIN Last Admin: 03/24/17 13:08 Dose: 10 mg Oxycodone HCl (Oxycontin(*)) 10 mg PO Q12HR [facility] Last Admin: 03/24/17 08:39 Dose: 10 mg Oxycodone/Acetaminophen (Percocet 5/325 Tab*) 1 tab PO Q3H PRN PRN Reason: PAIN - MODERATE Oxycodone/Acetaminophen (Percocet 5/325 Tab*) 2 tab PO Q3H PRN PRN Reason: PAIN - MODERATE Last Admin: 03/24/17 10:40 Dose: 2 tab Polyethylene Glycol/Electrolytes (Miralax*) 17 gm PO DAILY PRN PRN Reason: Constipation Fluticasone/Salmeterol (Advair Hfa 115/21 (Nf)) 1 puff INH BID [facility] PRN Reason: Protocol Last Admin: 03/24/17 08:40 Dose: 1 puff Vital Signs: Temp Pulse Resp BP Pulse Ox 98.6 F 75 16 143/62 91 03/24/17 12:03 03/24/17 12:03 03/24/17 13:08 03/24/17 12:03 03/24/17 12:03 Oxygen Devices in Use Now: None Appearance: Well appearing in NAD Respiratory: Symmetrical Chest Expansion and Respiratory Effort, - - few crackles in L lung base, unchanged from prior Cardiovascular: RRR Extremities: No Edema Skin: No Rash or Ulcers Neurological: Alert and Oriented x 3 Result Diagrams: 03/24/17 05:34 03/22/17 05:47 Assess/Plan/Problems-Billing Assessment: This is a 66 yo female with asthma, alpha 1 antitripsyn deficiency and associated bronchiectasis, hypothyroidism, RA, GERARDO and depression who is s/p elective L TKA. Hospitalist group co-managing - Patient Problems (1) Status post total left knee replacement Comment: POD #3 Discharge per ortho (2) Asthma Comment: No acute exacerbation With chronic bronchiectasis and alpha 1 antitrypsin deficiency Cont home inhaled meds (3) Rheumatoid arthritis Comment: No chronic immunomodulatory meds (4) GERARDO (obstructive sleep apnea) Comment: Compliant with BiPAP (5) Depression Comment: Cont lexapro Stable (6) Hypothyroidism Comment: Cont levothyroxine (7) Full code status (8) DVT prophylaxis Comment: Coumadin, INR therapeutic Status and Disposition: Discharge per ortho today. No acute medical concerns during hospital stay, resume typical home medications
--- NOTE | 2017-03-24 21:44 | DS ---
DISCHARGE SUMMARY: DATE OF ADMISSION: 03/21/17 DATE OF DISCHARGE: 03/24/17 ATTENDING PROVIDER: Rachel Mead MD (DICTATED BY ANNIE FOSTER) ADMITTING DIAGNOSIS: Status post left total knee arthroplasty due to left knee severe osteoarthritis. SECONDARY DIAGNOSES: 1. Hypothyroidism. 2. Asthma. 3. Rheumatoid arthritis. 4. Sleep apnea. 5. Depression. CONSULTATIONS: 1. Medicine. 2. Physical Therapy. 3. Occupational Therapy. HISTORY OF PRESENT ILLNESS: Ms. Torres is a 66-year-old female with ongoing left knee pain due to severe osteoarthritis. She has failed conservative measures, and therefore elected to go a left total knee arthroplasty with Dr. Mead on 03/21/17. HOSPITAL COURSE: Ms. Torres was admitted to [facility] on . She underwent a left total knee arthroplasty. Postoperatively, she recovered on the short-stay surgical unit. Postop day 1, the Shah was removed , she was able to urinate on her own. She was advanced to a regular diet without difficulty and pain was controlled with oral Percocet and she was restarted on her home medications. Labs and vitals remained stable. She was able to bear weight as tolerated on the left lower extremity. She advanced appropriately with physical therapy and occupational therapy. Her DVT prophylaxis was managed with Lovenox and Coumadin until she reached a therapeutic INR. INR on 03/22/17 was 1.08, on 03/23/17 was 1.33, and on was 2.04. She was given 6 mg of warfarin on 03/21/17, 8 mg on 03/22/17, and 8 mg on 03/23/17. By postop day 3, she was orthopedically and medically stable for discharge to home with VNS services. PHYSICAL EXAMINATION: General: A 66-year-old well-developed, well-nourished female, in no acute distress. Alert and oriented x3. Appropriate mood and affect. Left lower extremity dressing was changed. The incision was clean, dry , and intact with no signs of infection. She is able to dorsiflex and plantarflex at the ankle. Calves soft and nontender. +2 dorsalis pedis pulse. Sensation is intact to light touch distally. DISCHARGE CONDITION: Stable. DISCHARGE MEDICATIONS: Home medications continued on discharge to include: 1. Multivitamin 1 tab by mouth every morning. 2. Levothyroxine 100 mcg 1 by mouth at bedtime. 3. Melatonin 10 mg to 30 mg by mouth at bedtime. 4. Advair HFA 115/21 one puff by mouth twice a day. 5. Lexapro 20 mg by mouth every evening. 6. [place]-3 complex 1 cap by mouth daily. 7. Percocet 1 tab by mouth every 3 hours as needed for pain. 8. Myrbetriq 50 mg 1 tab by mouth every night. 9. Meloxicam 7.5 mg 1 tab by mouth twice a day. 10. Ferrous sulfate 325 mg 1 tab by mouth twice a day. 11. Calcium with vitamin D 600/200 one tab by mouth every morning. 12. Aspirin 81 mg 1 by mouth every morning. 13. Lactobacillus 1 cap by mouth twice a day. 14. Docusate 100 mg cap by mouth 2 to 3 times a day. New medications on discharge to include: 1. Colace 100 mg by mouth 2 to 3 times a day for constipation. 2. Coumadin 2 mg tablet, take as directed. 3. OxyContin 10 mg by mouth every 12 hours. 4. Percocet 5/325 one to two tabs every 4 to 6 hours as needed for pain. DISCHARGE INSTRUCTIONS: The patient should eat a diet high in fiber to prevent constipation and drink a lot of fluids. She may shower 4 days after surgery. She should not submerge the wound in water. She should keep the sutures intact until postop visit. She may be dressed with gauze and an Baljeet bandage. She is weightbearing as tolerated on the left lower extremity. She will continue physical therapy. Visiting home nurses will do wound check. She should continue Coumadin for 1 month. Coumadin dose on 03/24/17, hold and redraw on . She will continue Percocet and OxyContin for the pain. She should not take aspirin, naproxen, meloxicam, or ibuprofen while on the Coumadin. She will require antibiotics prior to any dental work in the future. She should call the office if she develops chest pain, fever greater than 101.5, shortness of breath, or calf pain or tenderness. She will follow up with Dr. Mead 10 to 14 days after surgery. TONYA STARK, ANNIE [id number]/[facility] #: [id number] [facility] HOSPITALRema
== END 2017-03-24 14:15 | disposition home health service (06) | DRG 302 ==
LOC: AA 03-21 06:59 → SSU 03-21 11:29
PROVIDERS: ADMIT Orthopaedic Surgery Adult Reconstructive Orthopaedic Surgery; ATTEND Orthopaedic Surgery Adult Reconstructive Orthopaedic Surgery
PROC: 0SRD0J9 Replacement of Left Knee Joint with Synthetic Substitute, Cemented, Open Approach (ICD-10-PCS; principal; 2017-03-21 08:15)
DX: M17.12 Unilateral primary osteoarthritis, left knee (principal); M06.9 Rheumatoid arthritis, unspecified; F32.9 Major depressive disorder, single episode, unspecified; E03.9 Hypothyroidism, unspecified; G47.33 Obstructive sleep apnea (adult) (pediatric); J45.909 Unspecified asthma, uncomplicated; M25.762 Osteophyte, left knee; Z96.643 Presence of artificial hip joint, bilateral; Z79.899 Other long term (current) drug therapy; Z88.2 Allergy status to sulfonamides; Z88.8 Allergy status to other drugs, medicaments and biological substances; Z83.3 Family history of diabetes mellitus; Z82.49 Family history of ischemic heart disease and other diseases of the circulatory system; Z80.0 Family history of malignant neoplasm of digestive organs; Z82.5 Family history of asthma and other chronic lower respiratory diseases; Z87.891 Personal history of nicotine dependence
CPT/HCPCS: 36415; 80048; 85014; 85018; 85049; 85610; 88305; 88311; 94760; A9270-GY; C1776; J0690; J1100; J1650; J2250; J2270; J2405; J2704; J3010

== ENCOUNTER 2017-09-01 17:09 | Emergency (ER) | payer OTHER ==
[2017-09-01 17:46] VITALS: BP 126/68
[2017-09-01] MEDS ORDERED: DOXYcycline CAP(*) 100 MG PO ONE (17:53)
[2017-09-01] MEDS ORDERED: Tetan/Diph/Pertus SYR(Tdap)* 0.5 ML SYR(BOOSTRIX) use SYR IM ONE (17:53)
[2017-09-01] MEDS ORDERED: Benzoin Compound STICK TOPICAL ONE (17:54)
--- NOTE | 2017-09-01 18:28 | UC ---
General HPI - HPI Summary HPI Summary: 1) TICK FOUND ON RIGHT NECK, REMOVED PRIOR TO ARRIVAL. 2) YESTERDAY HAD LACERATION OF LEFT SECOND FINGER, CUT WITH KNIFE WHILE COOKING. PUT ON PRESSURE DRESSING. BLEEDING CONTROLLED PRIOR TO ARRIVAL. WOULD LIKE TETANUS SHOT. - History of Current Complaint Chief Complaint: SHOAIBkin Stated Complaint: TICK BITE Time Seen by Provider: 09/01/17 17:25 Hx Obtained From: Patient Onset/Duration: Sudden Onset, Lasting Days Onset Severity: Mild Current Severity: Mild Associated Signs & Symptoms: Negative: Dizziness, Fever, Headache, Syncope - Allergy/Home Medications Allergies/Adverse Reactions: Allergies Allergy/AdvReac Type Severity Reaction Status Date / Time Venlafaxine [From Effexor] Allergy Severe suicidal Verified 09/01/17 17:32 Ciprofloxacin Allergy Unknown oral rash, Verified 09/01/17 17:32 shortness of breath Sulfa Antibiotics Allergy Hives, Verified 09/01/17 17:32 shortness of breath seasonal Allergy Mild Congestion Uncoded 09/01/17 17:32 Home Medications: Home Medications Escitalopram (NF) [Lexapro 20 mg (NF)] 1 tab PO BEDTIME 09/01/17 [History Confirmed 09/01/17] Fluticas/Salmet 115/21 HFA(NF) [Advair HFA 115/21 (NF)] 1 puff BOTH NARES BID [History Confirmed 09/01/17] Guaifenesin [Eql Mucus-ER Maximum Stre] 1 tab PO BID PRN 09/01/17 [History Confirmed 09/01/17] Hydroxychloroquine TAB* [Plaquenil TAB*] 1 tab PO BEDTIME 09/01/17 [History Confirmed 09/01/17] Oxybutynin XL TAB* [Ditropan XL TAB*] 3 tab PO QPM 09/01/17 [History Confirmed 09/01/17] PMH/Surg Hx/FS Hx/Imm Hx Previously Healthy: Yes - Surgical History Surgical History: Yes Surgery Procedure, Year, and Place: RIGHT HIP REPLACEMENT. LEFT ANKLE ORIF. T& A - Family History Known Family History: Negative: Blood Disorder - Social History Occupation: Retired Lives: With Family Alcohol Use: Occasionally Alcohol Amount: 1-2 DRINKS A MONTH AT MOST Substance Use Type: None Smoking Status (MU): Former Smoker Amount Used/How Often: 1PPD FOR SEVEN YEARS Have You Smoked in the Last Year: No When Did the Patient Quit Smoking/Using Tobacco: 30 YRS AGO - Immunization History Most Recent Influenza Vaccination: 08/18/15 Most Recent Tetanus Shot: Unknown Most Recent Pneumonia Vaccination: 2010 Review of Systems Constitutional: Negative Skin: Rash - RIGHT NECK ERYTHEMA, Other - LACERATION LEFT SECOND FINGER Eyes: Negative ENT: Negative Respiratory: Negative Cardiovascular: Negative Gastrointestinal: Negative Genitourinary: Negative Motor: Negative Neurovascular: Negative Musculoskeletal: Negative Neurological: Negative Psychological: Negative Is Patient Immunocompromised?: No All Other Systems Reviewed And Are Negative: Yes Physical Exam Triage Information Reviewed: Yes Appearance: Well-Appearing, No Pain Distress, Well-Nourished Vital Signs: Initial Vital Signs Temp 98.4 F 09/01/17 17:40 Pulse 80 09/01/17 17:40 Resp 16 09/01/17 17:40 BP 126/68 09/01/17 17:40 Pulse Ox 97 09/01/17 17:40 Vital Signs Reviewed: Yes Eye Exam: Normal ENT Exam: Normal ENT: Positive: Normal ENT inspection Dental Exam: Normal Neck exam: Normal Neck: Positive: Supple, Nontender, No Lymphadenopathy Respiratory Exam: Normal Respiratory: Positive: Chest non-tender, Lungs clear, Normal breath sounds, No respiratory distress Cardiovascular Exam: Normal Cardiovascular: Positive: RRR, No Murmur, Pulses Normal, Brisk Capillary Refill Musculoskeletal Exam: Normal Musculoskeletal: Positive: Strength Intact, ROM Intact Neurological Exam: Normal Psychological Exam: Normal Skin: Positive: rashes - 0.3 CM X 0.3 CM ERYTHEMATOUS AREA RIGHT POSTERIOR SUPERIOR NECK, Other - LACERATION >24HOURS OLD DISTAL LEFT SECOND FINGER 1CM X 0.5 CM REPAIRED WITH STERISTRIPS Course/Dx - Differential Dx - Multi-Symptom Differential Diagnoses: Metabolic Abnormality, Sepsis Provider Diagnoses: TICK BITE PROPHYLAXIS; LACERATION >24 HOURS LEFT DISTAL SECOND FINGER, NO CLOSURE Discharge - Discharge Plan Condition: Stable Disposition: HOME Patient Education Materials: Tick Bite (ED), Steristrips (ED), Laceration Without Closure (ED) Referrals: Lew Campbell MD [Primary Care Provider] - Additional Instructions: TETANUS SHOT (TdAP) GIVEN 09/01/17 Images Front/Back of Body, Lg ([place]): 1 - 0.3 CM X 0.3 CM ERYTHEMATOUS AREA RIGHT POSTERIOR SUPERIOR NECK
== END 2017-09-01 18:35 | disposition home or self-care (01) ==
LOC: UCEAST 17:09
DX: S61.211A Laceration without foreign body of left index finger without damage to nail, initial encounter (principal); Y92.9 Unspecified place or not applicable; W26.0XXA Contact with knife, initial encounter; Y93.G3 Activity, cooking and baking; Z87.891 Personal history of nicotine dependence
CPT/HCPCS: 90471; 90715; 99212; A9270-GY; G0463

== ENCOUNTER 2017-10-17 14:24 | Inpatient (IN) | payer MEDICARE, OTHER ==
[2017-10-17 18:06] LABS: ABS Basophils 0 10^3/ul (0-0.2); ABS Eosinophils 0 10^3/ul (0-0.6); ABS Lymphocytes 0.8 10^3/ul (1.0-4.8); ABS Monocytes 0.4 10^3/ul (0-0.8); ABS Neutrophils 8.9 10^3/ul (1.5-7.7); ABS Nucleated RBC 0 10^3/ul; Eosinophil % 0.2 % (0-6); Hematocrit 37 % (35-47); Hemoglobin 11.9 g/dl (12.0-16.0); Lymphocyte % 8.2 % (25-47); Mean Corpuscular HGB Conc 33 g/dl (31-36); Mean Corpuscular Hemoglobin 27 pg (27-31); Mean Corpuscular Volume 84 fL (80-97); Mean Platelet Volume 8 um3 (7.4-10.4); Nucleated Red Blood Cells % 0; Platelet Count 292 10^3/ul (150-450); Red Blood Count 4.34 10^6/ul (4.0-5.4); Red Cell Distribution Width 18 % (10.5-15); White Blood Count 10.2 10^3/ul (3.5-10.8)
--- NOTE | 2017-10-17 18:10 | RAD ---
INDICATION: Cough COMPARISON: None TECHNIQUE: PA and lateral dual-energy views were obtained. FINDINGS: Bones/Soft Tissues: There are no acute bony findings. Cardiomediastinal: The cardiomediastinal silhouette is normal. Lungs: There is a small left basilar infiltrate. The remaining lung singh are clear. Pleura: There are no pleural effusions. Other: None IMPRESSION: SMALL LEFT BASILAR INFILTRATE.
[2017-10-17 18:24] LABS: EGFR Non-African American 66.2 (>60)
[2017-10-17] MEDS ORDERED: Meropenem 1 GM PREMIX(*) 1 GM/50 ML BAG IV ONE (19:40)
[2017-10-17] MEDS ORDERED: Albuterol/Ipratropium NEB.SOL* Albuterol 2.5 MG/Ipratropium 0.5 MG 3 ML INH ONE (19:41)
[2017-10-17] MEDS ORDERED: methylPREDNISolone 125 MG* 2 ML VIAL IV ONE (19:42)
[2017-10-17 19:44] LABS: Urine Appearance Cloudy; Urine Blood 1+ (Negative); Urine Color Yellow; Urine Ketones Negative (Negative); Urine Protein Negative (Negative); Urine Specific Gravity 1.005 (1.010-1.030); Urine Urobilinogen Negative (Negative)
[2017-10-17] MEDS ORDERED: Iodixanol* (CONTRAST) 320 MG/ML 100 ML SDV IV ONE (20:22)
[2017-10-17] MEDS ORDERED: Acetaminophen TAB* 325 MG PO PRN (20:39)
[2017-10-17] MEDS ORDERED: guaiFENesin ER TAB 600 MG PO PRN (20:44)
[2017-10-17] MEDS ORDERED: NS 0.9% 1000 ML* 1,000 ML IV SCH (20:45)
[2017-10-17] MEDS ORDERED: Mometasone/Formoter 200/5 MDI INH SCH (21:00)
--- NOTE | 2017-10-17 21:03 | RAD ---
INDICATION: Chest pain. Short of breath. Evaluate for pulmonary embolus. COMPARISON: Chest x-ray same date; CTA chest August 19, 2015 TECHNIQUE: Axial source images were obtained from the thoracic inlet to the hemidiaphragms following administration of 79 mL [address] angiographic technique was utilized. Coronal and sagittal reconstructed images were acquired. CHEST FINDINGS: Neck/thyroid: The visualized neck to include the thyroid appear normal. Chest wall: There are no acute abnormalities of the bony thorax or chest wall. There is spondylitic change of the thoracic spine with a lower thoracic compression deformity which appears unchanged. There is no supraclavicular, infraclavicular, or axillary lymphadenopathy. Lungs : There is a new, 1 cm left upper lobe nodule. The nodule is mildly irregular and is suspicious for bronchogenic carcinoma there are no additional discrete parenchymal nodules There there are emphysematous changes with bronchiectasis in left lung base now with extensive consolidative change. The chronicity is uncertain but this is progressive relative to the 2015 CT study. There are no endobronchial lesions. Cardiomediastinal structures: There is no CT evidence of acute pulmonary embolic disease. The heart is normal in size. There is no pericardial effusion. There is no evidence of aortic aneurysm or dissection. There is no mediastinal or hilar adenopathy. The esophagus appears normal. Pleura : There are no pleural-based masses or effusions. Other: None. IMPRESSION: 1. No CT evidence of acute pulmonary embolic disease. 2. Progressive interstitial fibrosis left lung base now with increased consolidation. Suggest follow-up. 3. New, 1 cm left upper lobe nodule worrisome for bronchogenic carcinoma.
[2017-10-18] MEDS: Oxybutynin XL TAB* 5 MG PO SCH ×2 (00:17→21:51)
[2017-10-18] MEDS: Hydroxychloroquine TAB* 200 MG PO SCH ×3 (00:17→21:50)
[2017-10-18] MEDS: CMCS:Meloxicam(NF) 7.5 MG TAB PO SCH ×3 (00:17→21:49)
[2017-10-18] MEDS: clonazePAM TAB(*) 0.5 MG PO PRN ×2 (00:18→22:00)
[2017-10-18] MEDS: Levothyroxine TAB* 100 MCG TAB PO SCH ×2 (00:18→21:48)
[2017-10-18] MEDS: CMCS:Escitalopram (NF) 10 MG TAB PO SCH ×2 (00:18→21:48)
[2017-10-18] MEDS: Heparin VIAL(*) 5000 UNITS/ML VIAL (FIVE THOUSAND) SUBCUT SCH ×4 (00:22→21:53)
--- NOTE | 2017-10-18 00:29 | HP ---
Cc: Dr. Campbell; Dr. Flores; Dr. Ocampo; Dr. Jacinto * HISTORY AND PHYSICAL: DATE OF ADMISSION: 10/17/17 PRIMARY CARE PROVIDER: Dr. Campbell. SOUNDING DEVICE OPERATOR: Dr. Flores. FLIGHT MECHANIC: Dr. Jacinto. HOOP PUNCH OPERATOR HELPER: Dr. Ocampo. CHIEF COMPLAINT: Coughing up green. HISTORY OF PRESENT ILLNESS: Carlee Torres is a 67-year-old female with history of recently diagnosed bronchiectasis, but longstanding history of asthma as well as rheumatoid arthritis who had been under the care of Dr. Ocampo for her bronchiectasis exacerbation for the past 6 weeks. The patient stated that she was on 3 antibiotics overall in the past 6 weeks. Originally she was on Levaquin for a couple of weeks, then on another antibiotic the name she forgot, and then, she was even just on doxycycline 4 days ago. Despite all the antibiotics, she continues to have progressive green sputum production. She stated that she got 250 mL in 24 hours yesterday. She also had been coughing very frequently, has generalized fatigue and malaise. She also stated that her exercise tolerance had been decreasing dramatically due to not feeling well. After discussing it with Dr. Ocampo on 10/14/17 during a followup visit, the patient was advised to come to the emergency department today if her symptoms continued to progress, which she did. Dr. Ocampo discussed the case with Dr. Montoya from the emergency department and recommended for the patient to be admitted to the hospital and treated with IV meropenem, Solu-Medrol, and hypertonic saline nebulizers. PAST MEDICAL HISTORY: 1. History of rheumatoid arthritis. The patient had been on meloxicam for a long period of time and just within the past 6 weeks she was started on Plaquenil by Dr. Flores. 2. History of obstructive sleep apnea, on BiPAP, but not oxygen. 3. History of COPD, not oxygen dependent. 4. History of autoimmune hepatitis. 5. History of atrial fibrillation, status post ablation with no recurrence. 6. History of recent diagnosis of bronchiectasis with bronchiectasis exacerbation. 7. History of hypothyroidism. 8. History of asthma. 9. History of obesity. 10. History of rotator cuff problems in one of her shoulders. 11. History of depression. 12. 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 13. History of rib fractures. 14. History of status post knee replacement on the left and bilateral hip replacements. 15. History of left ankle ORIF. 16. History of cardiac ablation as mentioned above for atrial fibrillation. 17. History of bunionectomy. 18. History of hammertoe repair. 19. History of tonsillectomy. 20. Varicose vein stripping. MEDICATIONS: Include: 1. Ditropan XL 15 mg daily. 2. Levothyroxine 100 mcg daily. 3. Probiotic 1 capsule b.i.d. 4. [employer] nutritional supplements 1 kit b.i.d. 5. Calcium carbonate with vitamin D 1200 mg 1 chewable b.i.d. 6. Lexapro 20 mg daily. 7. Multivitamin 1 tablet daily. 8. Melatonin 16 mg at bedtime. 9. [place]-3 fatty acids 1 capsule daily. 10. Aspirin 81 mg daily. 11. Meloxicam 7.5 mg b.i.d. 12. Plaquenil 200 mg b.i.d. 13. Amoxicillin 2 g once prior to dental procedures. 14. Guaifenesin ER 1200 mg b.i.d. and 400 mg b.i.d. p.r.n. 15. Advair 230/21 one puff inhalation b.i.d. 16. Albuterol inhaler 1 inhalation every 6 hours p.r.n. 17. Sodium chloride, hypertonic 3.5% b.i.d. via nebulizer. 18. Doxycycline 100 mg b.i.d. 19. Prednisone 10 mg daily, which was started 4 days ago. ALLERGIES: SULFA, CIPRO, EFFEXOR. FAMILY HISTORY: Positive for father with history of CVA, due to sudden cardiac . Mother with history of rheumatoid arthritis, due to sudden cardiac . One sister with diabetes. SOCIAL HISTORY: The patient lives with her . Her is also her healthcare proxy. 's name is Rema Castañeda. The patient has history of smoking for 8 years less than 1 pack per day and quit smoking over 25 years ago. She drinks alcohol rarely. She denies any drug use. REVIEW OF SYSTEMS: Please see history of present illness. The patient stated that she used to work out on a daily basis, but for the past couple of weeks, it had been difficult for her. She had been working in her backyard but that has been limited due to her exercise tolerance in the past week. She had been coughing green sputum for the past 6 weeks and had gotten more pronounced recently. She also complains of generalized weakness. Her appetite had been good though. She denies any fevers. She has not had any problems with her bowel or bladder. All the remaining 14 systems were reviewed with the patient and were otherwise negative. PHYSICAL EXAMINATION GENERAL: The patient is a 67-year-old female who is in no acute distress. Alert and awake and oriented x3. VITAL SIGNS: Blood pressure of 119/64, heart rate of 68 and regular, respiratory rate 16, oxygen saturation 99% on room air. Temperature of 97.0. HEENT: Head: Atraumatic, normocephalic. Eyes: Pupils equal, round, and reactive to light and accommodation. Oropharynx clear. Mucosa moist. NECK: Supple. No JVD. No bruits bilaterally. RESPIRATORY: The patient has coarse breath sounds about all bases with crackles at right lung. CARDIOVASCULAR: Regular rate and rhythm. No murmur. ABDOMEN: Soft and nontender. Bowel sounds present in all 4 quadrants. EXTREMITIES: There is no edema. Pulses +2 bilaterally. There is no clubbing, cyanosis. NEUROLOGIC: Speech clear. Cranial nerves II through XII grossly intact. Motor strength is 5/5 bilaterally. SKIN: On evaluation of the skin, no ecchymotic area of rashes noted. Varicosities noted in bilateral lower extremities. PSYCHIATRIC EVALUATION: Pleasant, cooperative with the evaluation, oriented x3 with no evidence of anxiety and depression. LABORATORY DATA AND DIAGNOSTIC STUDIES: The patient's CT angiogram of the chest obtained today showed no CT evidence of acute pulmonary embolism disease, progressive interstitial fibrosis at the left lung base, now with increased consolidation, suggest followup. New 1 cm left upper lobe nodule, "worrisome for bronchogenic carcinoma." The patient's laboratory values showed a white blood cell count of 10.2, hemoglobin 11.9, hematocrit 37, platelets 292. D-dimer was 494. PTT of 31, INR of 1.0. Sodium was 136, potassium 4.4, chloride 102, carbon dioxide 28, BUN is 18, creatinine is 0.86. Liver function tests were unremarkable. Alkaline phosphatase elevated at 185, which is chronic in this patient. C-reactive protein 8.6. TSH 1.26. The patient's EKG showed normal sinus rhythm with a heart rate of 64 beats per minute with normal axis. ASSESSMENT AND PLAN: 1. Bronchiectasis exacerbation. The patient is going to be placed on meropenem. Cultures are going to be obtained of patient's sputum. Patient is also going to be placed on hypertonic saline and Solu-Medrol. Dr. Ocampo will see patient in consultation. That was requested by the ED physician. 2. In regards to the patient's chronic obstructive pulmonary disease, it does not appear to be in exacerbation at this point. I will continue DuoNeb on a p.r.n. basis as well as patient's Advair from home. 3. For depression, her Lexapro is going to be continued. 4. Patient's elevated D-dimer is most likely due to ongoing infection. She also appears to have progressive interstitial fibrosis in left lung base with increased consolidation due to likely community-acquired pneumonia. The patient has history of pseudomonas infections in the past and she is going to be treated with meropenem as mentioned above. CT angiogram was negative for PE , was positive for 1 cm left upper lobe nodule "worrisome for bronchogenic carcinoma" and the patient is going to be notified about that finding and Dr. Ocampo will see patient for followup in regards to that. 5. For her rheumatoid arthritis, for the time being, Plaquenil is going to be continued. The patient does not really see positive effects from Plaquenil and it could cause the patient to be susceptible for more infections at this point. I will not stop Plaquenil at this point, but it may be considered in the future by Dr. Ocampo to do so. 6. For patient's obstructive sleep apnea, patient's BiPAP is going to be continued from home. 7. For DVT prophylaxis, she is going to be placed on heparin subcutaneously. 8. The patient's code status is full and her healthcare proxy is her . TIME SPENT: Approximately 72 minutes was spent on admission of this patient, more than half that time was spent [id number] with the patient doing the interview and physical exam. [id number]/[facility] #: [id number] SONDRA
[2017-10-18] MEDS: Sodium Chloride(INHALANT) 3%* 4 ML NEB.SOLN INH SCH ×4 (01:17→21:11)
[2017-10-18] MEDS: methylPREDNISolone SOD 40 MG* 1 ML VIAL IV SCH ×2 (03:58→12:32)
--- NOTE | 2017-10-18 08:38 | PN ---
Progress Note - Progress Note Date of Service: 10/18/17 Note: Feels better, less sputum. No chills or sweats.
[2017-10-18] MEDS: Aspirin EC Low Dose* 81 MG TAB.EC PO SCH (08:41)
[2017-10-18] MEDS: Meropenem(*) 2 GM in NS 0.9% 100 ML* 100 ML IVPB SCH ×2 (08:41→20:20)
--- NOTE | 2017-10-18 08:46 | PN ---
Subjective Date of Service: 10/18/17 Interval History: Feels better, less sputum. No chills or sweats. Objective Active Medications: Acetaminophen (Tylenol Tab*) 650 mg PO Q4H PRN PRN Reason: FEVER/PAIN Albuterol (Ventolin 2.5 Mg/3 Ml Neb.Trish*) 2.5 mg INH Q4H PRN PRN Reason: sob/wheezing Aspirin (Aspirin Ec Low Dose*) 81 mg PO QAM [facility] Clonazepam (Klonopin Tab(*)) 0.5 mg PO TID PRN PRN Reason: ANXIETY Last Admin: 10/18/17 00:18 Dose: 0.5 mg Escitalopram Oxalate (Lexapro (Nf)) 20 mg PO BEDTIME [facility] Last Admin: 10/18/17 00:18 Dose: 20 mg Guaifenesin (Mucinex*) 1,200 mg PO BID PRN PRN Reason: CONGESTION Heparin Sodium (Porcine) (Heparin Vial(*)) 5,000 units SUBCUT Q8HR [facility] Last Admin: 10/18/17 05:44 Dose: 5,000 units Hydroxychloroquine Sulfate (Plaquenil Tab*) 200 mg PO BID [facility] Last Admin: 10/18/17 00:17 Dose: Not Given Meropenem 2 gm/ Sodium (Chloride) 140 mls @ 280 mls/hr IVPB Q12H [facility] Levothyroxine Sodium (Synthroid Tab*) 100 mcg PO BEDTIME [facility] Last Admin: 10/18/17 00:18 Dose: 100 mcg Meloxicam (Mobic(Nf)) 7.5 mg PO BID [facility] Last Admin: 10/18/17 00:17 Dose: 7.5 mg Methylprednisolone Sodium Succinate (Solu-Medrol 40 Mg) 40 mg IV Q8H [facility] Stop: 10/18/17 14:00 Last Admin: 10/18/17 03:58 Dose: 40 mg Oxybutynin Chloride (Ditropan Xl Tab*) 15 mg PO BEDTIME [facility] Last Admin: 10/18/17 00:17 Dose: 15 mg Prednisone (Deltasone Tab*) 60 mg PO DAILY [facility] Fluticasone/Salmeterol (Advair Hfa 23o/21 (Nf)) 1 puff INH BID [facility] PRN Reason: Protocol Sodium Chloride (Sodium Chloride(Inhalant) 3%*) 3 ml INH [id number] AWAKE [facility] Last Admin: 10/18/17 01:17 Dose: Not Given Vital Signs 10/17/17 10/17/17 10/17/17 20:00 20:07 20:21 Temperature Pulse Rate 73 64 68 Respiratory 16 Rate Blood Pressure 119/64 (mmHg) O2 Sat by Pulse 94 95 99 Oximetry 10/17/17 10/17/17 10/17/17 20:30 21:33 21:43 Temperature 97.5 F 97.5 F Pulse Rate 71 70 72 Respiratory 16 Rate Blood Pressure 129/62 135/64 135/64 (mmHg) O2 Sat by Pulse 93 99 99 Oximetry 10/17/17 10/18/17 10/18/17 23:35 00:18 03:44 Temperature Pulse Rate 77 Respiratory 16 16 16 Rate Blood Pressure 120/68 (mmHg) O2 Sat by Pulse 94 Oximetry 10/18/17 04:22 Temperature 97.2 F Pulse Rate 62 Respiratory 16 Rate Blood Pressure 121/65 (mmHg) O2 Sat by Pulse 99 Oximetry Oxygen Devices in Use Now: None Appearance: Alert, sitting on the edge of her bed. In good spirits. Looks comfortable. Eyes: No Scleral Icterus Neck: NL Appearance and Movements; NL JVP, No Thyroid Enlargement, Masses Respiratory: Symmetrical Chest Expansion and Respiratory Effort, Clear to Percussion, - - Sl reduced air movement BL. No rales or rhonchi. Cardiovascular: NL Sounds; No Murmurs; No JVD, RRR, No Edema, - Extremities: No Edema, No Clubbing, Cyanosis, - Skin: No Rash or Ulcers, No Nodules or Sclerosis, - Neurological: Alert and Oriented x 3, NL Sensation Result Diagrams: 10/17/17 17:52 10/17/17 17:52 Assess/Plan/Problems-Billing Assessment: - Patient Problems (1) Bronchiectasis Current Visit: Yes Status: Acute Code(s): J47.9 - BRONCHIECTASIS, UNCOMPLICATED SNOMED Code(s): 55918470 Comment: LL base with consolidation, noted on CTA 10/17/17. Continue meropenem. Prednisone taper, start 10/19. (2) Lung nodule Current Visit: Yes Status: Acute Code(s): R91.1 - SOLITARY PULMONARY NODULE SNOMED Code(s): 335748863 Comment: NALDO [address] Ocampo to evaluate. (3) Rheumatoid arthritis Current Visit: No Status: Acute Code(s): M06.9 - RHEUMATOID ARTHRITIS, UNSPECIFIED SNOMED Code(s): 26057837 Comment: Continue hydroxychloroquine. (4) Hypothyroidism Current Visit: No Status: Chronic Code(s): E03.9 - HYPOTHYROIDISM, UNSPECIFIED SNOMED Code(s): 61089875 Comment: TSH wnl 10/17/17. Cont levothyroxine.
[2017-10-18] MEDS: PTO:Fluticas/Salmet 230/21 HFA(NF) MDI INH SCH ×2 (08:47→21:09)
[2017-10-18] MEDS ORDERED: LACTOBACILLUS PO SCH (21:00)
--- NOTE | 2017-10-18 21:38 | CONS ---
PULMONARY CONSULTATION REPORT: DATE OF CONSULT: 10/18/17 REQUESTING PHYSICIAN: Dr. Michelle Ma. REASON FOR CONSULT: Evaluation of bronchiectasis exacerbation. HISTORY OF PRESENT ILLNESS: The patient is a 67-year-old female known to me from recent outpatient evaluation. She has history of bronchiectasis, rheumatoid arthritis, IgG deficiency. The patient has been having recurrent episodes of bronchitis exacerbation in the past. The patient recently was treated with outpatient antibiotics, was treated with Levaquin followed by doxycycline. The patient had sputum cultures that grew pseudomonas. Chest x- ray as outpatient did not reveal any pneumonia. The patient's symptoms failed to improve with outpatient antibiotics and she presented to the emergency room for further evaluation. The patient reports significant amounts of green phlegm. The patient denies hemoptysis. The patient reports shortness of breath and wheezing. The patient denies fevers or chills. She was recently started on hydroxychloroquine for her rheumatoid arthritis. The patient was found to have left shift on lab analysis. The patient's sputum culture was sent. The patient was hemodynamically stable. She was admitted for IV antibiotic administration. The patient was started on IV meropenem, Solu-Medrol , hypertonic saline, and bronchodilators. The patient seen and examined at bedside this morning. The patient reports slight improvement in cough and sputum production; however, still continues to have the green sticky phlegm. PAST MEDICAL/SURGICAL HISTORY: 1. Rheumatoid arthritis, on Plaquenil. 2. Obstructive sleep apnea, on BiPAP. 3. COPD. 4. Bronchiectasis. 5. Autoimmune hepatitis. 6. Atrial fibrillation, status post ablation. 7. Hypothyroidism. 8. Asthma. 9. Obesity. 10. Rotator cuff problem. 11. Depression. 12. 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 13. Rib fractures. 14. Status post right knee replacement and bilateral hip replacement. 15. Left ankle ORIF. 16. Cardiac ablation for atrial fibrillation. 17. Bunionectomy. 18. Hammertoe repair. 19. Tonsillectomy. 20. Varicose vein stripping. MEDICATIONS: At home: 1. Ditropan. 2. Levothyroxine. 3. Probiotic. 4. Calcium carbonate. 5. Lexapro. 6. Multivitamin. 7. Melatonin. 8. [place]-3. 9. Aspirin. 10. Meloxicam. 11. Plaquenil. 12. Amoxicillin. 13. Guaifenesin. 14. Advair. 15. Albuterol. 16. Sodium chloride. 17. Doxycycline. 18. Prednisone. ALLERGIES: SULFA, CIPRO, EFFEXOR. FAMILY HISTORY: Father with CVA, with sudden cardiac and mother with rheumatoid arthritis. SOCIAL HISTORY: The patient lives at home with her . The patient is a former smoker, smoked for 8 years, less than 1 pack per day, quit 25 years ago. Drinks alcohol rarely. Denies drug abuse. REVIEW OF SYSTEMS: All 14 systems reviewed and as per HPI. PHYSICAL EXAM: The patient in bed, in no apparent distress. Vital Signs: Temperature 97.2, pulse 62 beats per minute, respiratory rate 16 per minute, O2 sat 99% on room air, blood pressure 121/65. HEENT: Pupils equal, reactive to light, mucous membranes moist. Respiratory: Good air entry bilaterally, crackles at bases, left greater than right. Cardiovascular: S1, S2 present, regular. Abdomen: Soft, nontender, nondistended, bowel sounds present. Extremities: Normal range of motion. Neurologic: No focal deficits. Skin: No rash or bruises. DIAGNOSTIC STUDIES/LAB DATA: WBC count of 10.2, hemoglobin 11.9, hematocrit 37 , platelet count 292. Sodium 136, potassium 4.4, chloride 102, bicarb 28, BUN 18, creatinine 0.86, glucose 180, lactic acid 0.7. CRP slightly elevated at 8.62. BNP within normal limits. UA is positive. Chest x-ray was personally reviewed by me. Evidence of left lower lobe airspace disease. CTA of the chest was personally reviewed by me - no evidence of filling defects of pulmonary arteries. The patient noted to have left lower lobe bronchiectasis and consolidation consistent with pneumonia. The patient also noted to have 1-cm nodule in left upper lobe, which was not seen on prior CT from 2015. IMPRESSION AND RECOMMENDATIONS: 67-year-old female with history of bronchiectasis, chronic obstructive pulmonary disease with rheumatoid arthritis , immunodeficiency with recurrent infections, recently being treated for urinary tract infection with acute bronchiectasis exacerbation and Pseudomonas pneumonia. 1. Acute bronchiectasis exacerbation. 2. Pseudomonas pneumonia, multidrug resistance. The patient started on meropenem. Recent sputum culture shows susceptibility to meropenem. Will continue with hypertonic saline nebulizations and also continue with bronchodilators. Continue with Advair. Continue with steroids to lower the inflammation. Will probably discontinue Plaquenil as she is already on prednisone for coverage for rheumatoid arthritis. New left upper lobe nodule, malignant versus inflammatory versus infectious. Given recurrent infectious and underlying inflammatory process, will monitor with repeat CT scan in 6 weeks. If nodule persists or increases in size, will schedule for CT-guided biopsy. The patient was counseled regarding findings and sputum results. Will continue with meropenem for next 3 to 4 days and we will probably discharge the patient on Levaquin. She was previously treated with Levaquin without improvement. [id number]/[facility] #: [id number] MTDD
[2017-10-18] MEDS: Lactobacillus Acidophilu (GG)* 1 CAP CAP PO SCH (21:51)
[2017-10-19] MEDS: Albuterol 2.5 MG/3 ML NEB.SOL* (0.083%) INH PRN ×2 (02:54→13:27)
[2017-10-19] MEDS: Sodium Chloride(INHALANT) 3%* 4 ML NEB.SOLN INH SCH ×4 (03:12→19:55)
[2017-10-19] MEDS: Heparin VIAL(*) 5000 UNITS/ML VIAL (FIVE THOUSAND) SUBCUT SCH ×3 (06:15→20:32)
[2017-10-19] MEDS: Hydroxychloroquine TAB* 200 MG PO SCH ×2 (08:22→20:36)
[2017-10-19] MEDS: Meropenem(*) 2 GM in NS 0.9% 100 ML* 100 ML IVPB SCH ×2 (08:24→20:26)
[2017-10-19] MEDS: PTO:Fluticas/Salmet 230/21 HFA(NF) MDI INH SCH ×2 (08:39→20:01)
[2017-10-19] MEDS ORDERED: predniSONE TAB* 20 MG PO SCH (09:00)
[2017-10-19] MEDS: Aspirin EC Low Dose* 81 MG TAB.EC PO SCH (09:12)
[2017-10-19] MEDS: CMCS:Meloxicam(NF) 7.5 MG TAB PO SCH ×2 (09:13→20:33)
[2017-10-19] MEDS: Lactobacillus Acidophilu (GG)* 1 CAP CAP PO SCH ×2 (09:13→20:34)
--- NOTE | 2017-10-19 11:16 | PN ---
Subjective Date of Service: 10/19/17 Interval History: Still some thick green sputum. Less SOB. No bowel c/o. Good appetite. Objective Active Medications: Acetaminophen (Tylenol Tab*) 650 mg PO Q4H PRN PRN Reason: FEVER/PAIN Albuterol (Ventolin 2.5 Mg/3 Ml Neb.Trish*) 2.5 mg INH Q4H PRN PRN Reason: sob/wheezing Last Admin: 10/19/17 02:54 Dose: 2.5 mg Albuterol (Ventolin 2.5 Mg/3 Ml Neb.Trish*) 2.5 mg INH Q6H PRN PRN Reason: SOB/WHEEZING Aspirin (Aspirin Ec Low Dose*) 81 mg PO QAM [facility] Last Admin: 10/19/17 09:12 Dose: 81 mg Clonazepam (Klonopin Tab(*)) 0.5 mg PO TID PRN PRN Reason: ANXIETY Last Admin: 10/18/17 22:00 Dose: 0.5 mg Escitalopram Oxalate (Lexapro (Nf)) 20 mg PO BEDTIME [facility] Last Admin: 10/18/17 21:48 Dose: 20 mg Guaifenesin (Mucinex*) 1,200 mg PO BID [facility] Heparin Sodium (Porcine) (Heparin Vial(*)) 5,000 units SUBCUT Q8HR [facility] Last Admin: 10/19/17 06:15 Dose: 5,000 units Hydroxychloroquine Sulfate (Plaquenil Tab*) 200 mg PO BID [facility] Last Admin: 10/19/17 08:22 Dose: Not Given Meropenem 2 gm/ Sodium (Chloride) 140 mls @ 280 mls/hr IVPB Q12H [facility] Last Admin: 10/19/17 08:24 Dose: 280 mls/hr Lactobacillus Rhamnosus (Culturelle*) 1 cap PO BID [facility] Last Admin: 10/19/17 09:13 Dose: 1 cap Levothyroxine Sodium (Synthroid Tab*) 100 mcg PO BEDTIME [facility] Last Admin: 10/18/17 21:48 Dose: 100 mcg Meloxicam (Mobic(Nf)) 7.5 mg PO BID [facility] Last Admin: 10/19/17 09:13 Dose: 7.5 mg Oxybutynin Chloride (Ditropan Xl Tab*) 15 mg PO BEDTIME [facility] Last Admin: 10/18/17 21:51 Dose: 15 mg Prednisone (Deltasone Tab*) 60 mg PO DAILY [facility] Last Admin: 10/19/17 09:12 Dose: 60 mg Fluticasone/Salmeterol (Advair Hfa 23o/21 (Nf)) 1 puff INH BID [facility] PRN Reason: Protocol Last Admin: 10/19/17 08:39 Dose: 1 puff Sodium Chloride (Sodium Chloride(Inhalant) 3%*) 3 ml INH [id number] AWAKE [facility] Last Admin: 10/19/17 08:40 Dose: 1 % Vital Signs 10/18/17 10/18/17 10/18/17 13:32 15:33 19:38 Temperature 97.4 F 98.0 F Pulse Rate 80 74 77 Respiratory 17 17 Rate Blood Pressure 131/58 136/67 (mmHg) O2 Sat by Pulse 99 97 Oximetry 10/18/17 10/18/17 10/18/17 20:25 22:00 23:34 Temperature Pulse Rate 70 Respiratory 20 20 16 Rate Blood Pressure 102/54 (mmHg) O2 Sat by Pulse 98 Oximetry 10/19/17 10/19/17 10/19/17 03:53 03:58 07:39 Temperature 97.5 F Pulse Rate 72 70 Respiratory 16 16 18 Rate Blood Pressure 111/51 113/60 (mmHg) O2 Sat by Pulse 95 99 Oximetry 10/19/17 08:00 Temperature Pulse Rate Respiratory 18 Rate Blood Pressure (mmHg) O2 Sat by Pulse Oximetry Oxygen Devices in Use Now: None Appearance: Alert, in a chair. In good spirits, Looks comfortable. Eyes: No Scleral Icterus Respiratory: Symmetrical Chest Expansion and Respiratory Effort, Clear to Auscultation, Clear to Percussion Cardiovascular: NL Sounds; No Murmurs; No JVD, RRR, No Edema, - Extremities: No Edema, No Clubbing, Cyanosis, - Skin: No Rash or Ulcers, No Nodules or Sclerosis, - Neurological: Alert and Oriented x 3, NL Sensation Result Diagrams: 10/17/17 17:52 10/17/17 17:52 Assess/Plan/Problems-Billing Assessment: - Patient Problems (1) Bronchiectasis Current Visit: Yes Status: Acute Code(s): J47.9 - BRONCHIECTASIS, UNCOMPLICATED SNOMED Code(s): 37235933 Comment: LL base with consolidation, noted on CTA 10/17/17. Continue meropenem. Prednisone taper, started 10/19. Change guaifenesin ER to scheduled. (2) Lung nodule Current Visit: Yes Status: Acute Code(s): R91.1 - SOLITARY PULMONARY NODULE SNOMED Code(s): 109293766 Comment: NALDO [address] Ocampo recommends repeat CT in 6 weeks. (3) Rheumatoid arthritis Current Visit: No Status: Acute Code(s): M06.9 - RHEUMATOID ARTHRITIS, UNSPECIFIED SNOMED Code(s): 59974591 Comment: Continue hydroxychloroquine. (4) Hypothyroidism Current Visit: No Status: Chronic Code(s): E03.9 - HYPOTHYROIDISM, UNSPECIFIED SNOMED Code(s): 56221466 Comment: TSH wnl 10/17/17. Cont levothyroxine.
[2017-10-19] MEDS ORDERED: guaiFENesin ER TAB 600 MG ONE (15:15)
[2017-10-19] MEDS: guaiFENesin ER TAB 600 MG PO SCH ×2 (15:19→20:34)
[2017-10-19] MEDS ORDERED: guaiFENesin ER TAB 600 MG PO ONE (16:00)
[2017-10-19] MEDS: Oxybutynin XL TAB* 5 MG PO SCH (20:33)
[2017-10-19] MEDS: Levothyroxine TAB* 100 MCG TAB PO SCH (20:34)
[2017-10-19] MEDS: CMCS:Escitalopram (NF) 10 MG TAB PO SCH (20:34)
[2017-10-20] MEDS: Albuterol 2.5 MG/3 ML NEB.SOL* (0.083%) INH PRN ×2 (00:23→13:28)
[2017-10-20] MEDS: Sodium Chloride(INHALANT) 3%* 4 ML NEB.SOLN INH SCH ×4 (00:25→19:23)
[2017-10-20] MEDS: Heparin VIAL(*) 5000 UNITS/ML VIAL (FIVE THOUSAND) SUBCUT SCH ×3 (05:33→21:55)
[2017-10-20] MEDS: clonazePAM TAB(*) 0.5 MG PO PRN ×2 (05:40→21:57)
[2017-10-20] MEDS: PTO:Fluticas/Salmet 230/21 HFA(NF) MDI INH SCH ×2 (07:38→19:24)
[2017-10-20] MEDS: Meropenem(*) 2 GM in NS 0.9% 100 ML* 100 ML IVPB SCH ×2 (08:21→19:53)
[2017-10-20] MEDS: Hydroxychloroquine TAB* 200 MG PO SCH (08:43)
[2017-10-20] MEDS ORDERED: predniSONE TAB* 50 MG PO SCH (09:00)
[2017-10-20] MEDS: guaiFENesin ER TAB 600 MG PO SCH ×2 (09:12→21:57)
[2017-10-20] MEDS: CMCS:Meloxicam(NF) 7.5 MG TAB PO SCH ×2 (09:13→21:56)
[2017-10-20] MEDS: Aspirin EC Low Dose* 81 MG TAB.EC PO SCH (09:13)
[2017-10-20] MEDS: Lactobacillus Acidophilu (GG)* 1 CAP CAP PO SCH ×2 (09:13→21:56)
--- NOTE | 2017-10-20 13:52 | PN ---
Subjective Date of Service: 10/20/17 Interval History: Slowly improving. Less cough, less SOB. Still some green sputum but amount slowly decreasing. No bowel c/o. Appetite OK. Objective Active Medications: Acetaminophen (Tylenol Tab*) 650 mg PO Q4H PRN PRN Reason: FEVER/PAIN Albuterol (Ventolin 2.5 Mg/3 Ml Neb.Trish*) 2.5 mg INH Q4H PRN PRN Reason: sob/wheezing Last Admin: 10/20/17 13:28 Dose: 2.5 mg Albuterol (Ventolin 2.5 Mg/3 Ml Neb.Trish*) 2.5 mg INH Q6H PRN PRN Reason: SOB/WHEEZING Aspirin (Aspirin Ec Low Dose*) 81 mg PO QAM [facility] Last Admin: 10/20/17 09:13 Dose: 81 mg Clonazepam (Klonopin Tab(*)) 0.5 mg PO TID PRN PRN Reason: ANXIETY Last Admin: 10/20/17 05:40 Dose: 0.5 mg Escitalopram Oxalate (Lexapro (Nf)) 20 mg PO BEDTIME [facility] Last Admin: 10/19/17 20:34 Dose: 20 mg Guaifenesin (Mucinex*) 1,200 mg PO BID [facility] Last Admin: 10/20/17 09:12 Dose: 1,200 mg Heparin Sodium (Porcine) (Heparin Vial(*)) 5,000 units SUBCUT Q8HR [facility] Last Admin: 10/20/17 05:33 Dose: 5,000 units Hydroxychloroquine Sulfate (Plaquenil Tab*) 200 mg PO BID [facility] Last Admin: 10/20/17 08:43 Dose: Not Given Meropenem 2 gm/ Sodium (Chloride) 140 mls @ 280 mls/hr IVPB Q12H [facility] Last Admin: 10/20/17 08:21 Dose: 280 mls/hr Lactobacillus Rhamnosus (Culturelle*) 1 cap PO BID [facility] Last Admin: 10/20/17 09:13 Dose: 1 cap Levothyroxine Sodium (Synthroid Tab*) 100 mcg PO BEDTIME [facility] Last Admin: 10/19/17 20:34 Dose: 100 mcg Meloxicam (Mobic(Nf)) 7.5 mg PO BID [facility] Last Admin: 10/20/17 09:13 Dose: 7.5 mg Oxybutynin Chloride (Ditropan Xl Tab*) 15 mg PO BEDTIME [facility] Last Admin: 10/19/17 20:33 Dose: 15 mg Prednisone (Deltasone Tab*) 40 mg PO DAILY [facility] Fluticasone/Salmeterol (Advair Hfa o/21 (Nf)) 1 puff INH BID [facility] PRN Reason: Protocol Last Admin: 10/20/17 07:38 Dose: 1 puff Sodium Chloride (Sodium Chloride(Inhalant) 3%*) 3 ml INH [id number] AWAKE [facility] Last Admin: 10/20/17 13:29 Dose: Not Given Vital Signs 10/19/17 10/19/17 10/19/17 16:06 19:57 20:00 Temperature 97.4 F Pulse Rate 73 63 Respiratory 18 18 18 Rate Blood Pressure 113/54 (mmHg) O2 Sat by Pulse 96 99 Oximetry 10/19/17 10/20/17 10/20/17 20:17 00:25 00:27 Temperature 98.5 F 97.7 F Pulse Rate 62 65 84 Respiratory 18 18 18 Rate Blood Pressure 135/58 112/57 (mmHg) O2 Sat by Pulse 91 96 96 Oximetry 10/20/17 10/20/17 10/20/17 05:40 07:38 07:41 Temperature 97.7 F Pulse Rate 68 78 Respiratory 16 18 14 Rate Blood Pressure 133/70 (mmHg) O2 Sat by Pulse 100 98 Oximetry 10/20/17 10/20/17 10/20/17 08:00 08:25 13:30 Temperature Pulse Rate 86 Respiratory 16 18 14 Rate Blood Pressure (mmHg) O2 Sat by Pulse 97 Oximetry Oxygen Devices in Use Now: Nasal Cannula Appearance: Alert, sitting up in bed. In good spirits. One short spell of nonproductive cough during my visit, otherwise looks comfortable. Eyes: No Scleral Icterus Neck: NL Appearance and Movements; NL JVP, No Thyroid Enlargement, Masses Respiratory: Symmetrical Chest Expansion and Respiratory Effort, Clear to Auscultation, Clear to Percussion Cardiovascular: NL Sounds; No Murmurs; No JVD, RRR, No Edema, - Extremities: No Edema, No Clubbing, Cyanosis, - Skin: No Rash or Ulcers, No Nodules or Sclerosis, - Neurological: Alert and Oriented x 3, NL Sensation Result Diagrams: 10/17/17 17:52 10/17/17 17:52 Assess/Plan/Problems-Billing Assessment: - Patient Problems (1) Bronchiectasis Current Visit: Yes Status: Acute Code(s): J47.9 - BRONCHIECTASIS, UNCOMPLICATED SNOMED Code(s): 26870747 Comment: LL base with consolidation, noted on CTA 10/17/17. Continue meropenem. Prednisone taper, started 10/19. Change guaifenesin ER to scheduled. Note both urine and sputum P. aeruginosa are sens to meropenem. (2) Lung nodule Current Visit: Yes Status: Acute Code(s): R91.1 - SOLITARY PULMONARY NODULE SNOMED Code(s): 876094921 Comment: NALDO 1 cm nodule, ? infectious vs neoplastic. Dr. Ocampo recommends repeat CT in 6 weeks. (3) Rheumatoid arthritis Current Visit: No Status: Acute Code(s): M06.9 - RHEUMATOID ARTHRITIS, UNSPECIFIED SNOMED Code(s): 32470379 Comment: Continue hydroxychloroquine. (4) Hypothyroidism Current Visit: No Status: Chronic Code(s): E03.9 - HYPOTHYROIDISM, UNSPECIFIED SNOMED Code(s): 22810375 Comment: TSH wnl 10/17/17. Cont levothyroxine.
[2017-10-20] MEDS: CMCS:Escitalopram (NF) 10 MG TAB PO SCH (21:56)
[2017-10-20] MEDS: Oxybutynin XL TAB* 5 MG PO SCH (21:56)
[2017-10-20] MEDS: Levothyroxine TAB* 100 MCG TAB PO SCH (21:58)
[2017-10-21] MEDS: Sodium Chloride(INHALANT) 3%* 4 ML NEB.SOLN INH SCH ×4 (01:44→20:09)
[2017-10-21] MEDS: Heparin VIAL(*) 5000 UNITS/ML VIAL (FIVE THOUSAND) SUBCUT SCH ×3 (07:22→21:18)
[2017-10-21] MEDS: Albuterol 2.5 MG/3 ML NEB.SOL* (0.083%) INH PRN ×2 (08:03→20:32)
[2017-10-21] MEDS: PTO:Fluticas/Salmet 230/21 HFA(NF) MDI INH SCH ×2 (08:06→20:37)
[2017-10-21] MEDS: CMCS:Meloxicam(NF) 7.5 MG TAB PO SCH ×2 (08:34→21:17)
[2017-10-21] MEDS: predniSONE TAB* 20 MG PO SCH (08:34)
[2017-10-21] MEDS: Meropenem(*) 2 GM in NS 0.9% 100 ML* 100 ML IVPB SCH ×2 (08:34→20:33)
[2017-10-21] MEDS: Lactobacillus Acidophilu (GG)* 1 CAP CAP PO SCH ×2 (08:34→21:17)
[2017-10-21] MEDS: Aspirin EC Low Dose* 81 MG TAB.EC PO SCH (08:34)
[2017-10-21] MEDS: guaiFENesin ER TAB 600 MG PO SCH ×2 (08:34→21:17)
--- NOTE | 2017-10-21 19:33 | PN ---
Progress Note - Progress Note Date of Service: 10/21/17 - Pulm f/u note Note: Pt seen and examined at bedside. Pt reports slight improvement in cough. Cough didnot wake her up at night. Active Medications Generic Name Dose Route Start Last Admin Trade Name Freq PRN Reason Stop Dose Admin Acetaminophen 650 mg 10/17/17 20:39 Tylenol Tab* PO Q4H PRN FEVER/PAIN Albuterol 2.5 mg 10/17/17 20:39 10/21/17 08:03 Ventolin 2.5 Mg/3 Ml Neb.Trish* INH 2.5 mg Q4H PRN Administration sob/wheezing Albuterol 2.5 mg 10/18/17 15:15 Ventolin 2.5 Mg/3 Ml Neb.Trish* INH Q6H PRN SOB/WHEEZING Aspirin 81 mg 10/18/17 09:00 10/21/17 08:34 Aspirin Ec Low Dose* PO 81 mg QAM [facility] Administration Clonazepam 0.5 mg 10/17/17 21:03 10/20/17 21:57 Klonopin Tab(*) PO 0.5 mg TID PRN Administration ANXIETY Escitalopram Oxalate 20 mg 10/17/17 23:45 10/20/17 21:56 Lexapro (Nf) PO 20 mg BEDTIME [facility] Administration Guaifenesin 1,200 mg 10/19/17 21:00 10/21/17 08:34 Mucinex* PO 1,200 mg BID [facility] Administration Heparin Sodium (Porcine) 5,000 units 10/17/17 22:00 10/21/17 14:53 Heparin Vial(*) SUBCUT 5,000 units Q8HR [facility] Administration Meropenem 2 gm/ Sodium 140 mls @ 280 mls/hr 10/18/17 08:00 10/21/17 08:34 Chloride IVPB 280 mls/hr Q12H [facility] Administration Lactobacillus Rhamnosus 1 cap 10/18/17 21:00 10/21/17 08:34 Culturelle* PO 1 cap BID [facility] Administration Levothyroxine Sodium 100 mcg 10/17/17 21:00 10/20/17 21:58 Synthroid Tab* PO 100 mcg BEDTIME [facility] Administration Meloxicam 7.5 mg 10/17/17 21:00 10/21/17 08:34 Mobic(Nf) PO 7.5 mg BID [facility] Administration Oxybutynin Chloride 15 mg 10/17/17 23:45 10/20/17 21:56 Ditropan Xl Tab* PO 15 mg BEDTIME [facility] Administration Prednisone 40 mg 10/20/17 13:35 10/21/17 08:34 Deltasone Tab* PO 40 mg DAILY [facility] Administration Fluticasone/Salmeterol 1 puff 10/18/17 01:08 10/21/17 08:06 Advair Hfa 23o/21 (Nf) INH 1 puff BID [facility] Administration Protocol Sodium Chloride 3 ml 10/18/17 01:00 10/21/17 13:40 Sodium Chloride(Inhalant) 3%* INH 3 % [id number] AWAKE [facility] Administration Vital Signs Temp Pulse Resp BP Pulse Ox 99.0 F 77 16 118/68 94 10/21/17 15:26 10/21/17 15:26 10/21/17 15:26 10/21/17 15:26 10/21/17 15:26 O/E: Pt in NAD, alert, awake HEENT: PERRLA, No JVD Lungs: Good a/e b/l, crackles at bases CVS: S1, S2+ Abd: Sof, BS+ Ext: NO edema Skin: NO rash or bruise Neuro: No focal defecits Sputum cx: Pseudomonas aeurugnosa CT chest: Air space opacities with dense consolidations in LL, nodular opacity in NALDO, new compared to prior CT chest from 2014, no signficant lymphadenopathy , bronchectasis at bases, Left >Rt I/R: 67 y o f with RA, bronchiectaiss, frequent bronchitis, IgG def a/w worsening SOB, cough productive of green phleghm after failing out pt therapy for Pseumnas PNA currently on Meropenem with improvement in sx Will c/w IV abx as pt has few allergies to abx and failed out pt therapy Pt also with UTI sec to Pseudomonas c/w Meropenem atleast to complete 7 day course, if improved clincally by then willl d/c to complete another 7 days of Levaquin c/w bronchodilators, nebulized salne, flutter valve
--- NOTE | 2017-10-21 19:46 | PN ---
Subjective Date of Service: 10/21/17 Interval History: Patient without complaints today Objective Active Medications: Acetaminophen (Tylenol Tab*) 650 mg PO Q4H PRN PRN Reason: FEVER/PAIN Albuterol (Ventolin 2.5 Mg/3 Ml Neb.Trish*) 2.5 mg INH Q4H PRN PRN Reason: sob/wheezing Last Admin: 10/21/17 08:03 Dose: 2.5 mg Albuterol (Ventolin 2.5 Mg/3 Ml Neb.Trish*) 2.5 mg INH Q6H PRN PRN Reason: SOB/WHEEZING Aspirin (Aspirin Ec Low Dose*) 81 mg PO QAM [facility] Last Admin: 10/21/17 08:34 Dose: 81 mg Clonazepam (Klonopin Tab(*)) 0.5 mg PO TID PRN PRN Reason: ANXIETY Last Admin: 10/20/17 21:57 Dose: 0.5 mg Escitalopram Oxalate (Lexapro (Nf)) 20 mg PO BEDTIME [facility] Last Admin: 10/20/17 21:56 Dose: 20 mg Guaifenesin (Mucinex*) 1,200 mg PO BID [facility] Last Admin: 10/21/17 08:34 Dose: 1,200 mg Heparin Sodium (Porcine) (Heparin Vial(*)) 5,000 units SUBCUT Q8HR [facility] Last Admin: 10/21/17 14:53 Dose: 5,000 units Meropenem 2 gm/ Sodium (Chloride) 140 mls @ 280 mls/hr IVPB Q12H [facility] Last Admin: 10/21/17 08:34 Dose: 280 mls/hr Lactobacillus Rhamnosus (Culturelle*) 1 cap PO BID [facility] Last Admin: 10/21/17 08:34 Dose: 1 cap Levothyroxine Sodium (Synthroid Tab*) 100 mcg PO BEDTIME [facility] Last Admin: 10/20/17 21:58 Dose: 100 mcg Meloxicam (Mobic(Nf)) 7.5 mg PO BID [facility] Last Admin: 10/21/17 08:34 Dose: 7.5 mg Oxybutynin Chloride (Ditropan Xl Tab*) 15 mg PO BEDTIME [facility] Last Admin: 10/20/17 21:56 Dose: 15 mg Prednisone (Deltasone Tab*) 40 mg PO DAILY [facility] Last Admin: 10/21/17 08:34 Dose: 40 mg Fluticasone/Salmeterol (Advair Hfa 23o/21 (Nf)) 1 puff INH BID [facility] PRN Reason: Protocol Last Admin: 10/21/17 08:06 Dose: 1 puff Sodium Chloride (Sodium Chloride(Inhalant) 3%*) 3 ml INH [id number] AWAKE [facility] Last Admin: 10/21/17 13:40 Dose: 3 % Vital Signs 10/20/17 10/20/17 10/20/17 19:59 21:57 21:59 Temperature 97.7 F Pulse Rate 75 Respiratory 16 16 Rate Blood Pressure 98/46 127/61 (mmHg) O2 Sat by Pulse 95 Oximetry 10/20/17 10/20/17 10/21/17 22:49 22:50 01:03 Temperature Pulse Rate 53 Respiratory 16 16 17 Rate Blood Pressure 146/84 (mmHg) O2 Sat by Pulse 99 Oximetry 10/21/17 10/21/17 10/21/17 03:43 07:22 08:00 Temperature 97.3 F Pulse Rate 59 Respiratory 18 16 Rate Blood Pressure 130/74 (mmHg) O2 Sat by Pulse 100 Oximetry 10/21/17 10/21/17 10/21/17 08:10 11:43 13:42 Temperature 98.7 F Pulse Rate 61 62 76 Respiratory 16 16 Rate Blood Pressure 115/52 (mmHg) O2 Sat by Pulse 98 95 95 Oximetry 10/21/17 15:26 Temperature 99.0 F Pulse Rate 77 Respiratory 16 Rate Blood Pressure 118/68 (mmHg) O2 Sat by Pulse 94 Oximetry Oxygen Devices in Use Now: None Appearance: WD/WN woman sitting up in bed in NAD Ears/Nose/Mouth/Throat: NL Teeth, Lips, Gums Neck: No Thyroid Enlargement, Masses Respiratory: Clear to Auscultation Cardiovascular: - - S1S2 edwin Abdominal: NL Sounds; No Tenderness; No Distention, No Hepatosplenomegaly Lymphatic: No Cervical Adenopathy Skin: No Rash or Ulcers Neurological: Alert and Oriented x 3 Result Diagrams: 10/17/17 17:52 10/17/17 17:52 Assess/Plan/Problems-Billing Assessment: - Patient Problems (1) Pseudomonas pneumonia Current Visit: Yes Status: Acute Comment: Doing better. Needs 7 days of meropenem. Finish on . (2) Lung nodule Current Visit: Yes Status: Acute Code(s): R91.1 - SOLITARY PULMONARY NODULE SNOMED Code(s): 148679758 Comment: NALDO 1 cm nodule, ? infectious vs neoplastic. Dr. Ocampo recommends repeat CT in 6 weeks. (3) Rheumatoid arthritis Current Visit: No Status: Acute Code(s): M06.9 - RHEUMATOID ARTHRITIS, UNSPECIFIED SNOMED Code(s): 04054843 Comment: No current issuesl. Continue hydroxychloroquine. (4) Hypothyroidism Current Visit: No Status: Chronic Code(s): E03.9 - HYPOTHYROIDISM, UNSPECIFIED SNOMED Code(s): 83032441 Comment: Stable. Cont levothyroxine. (5) DVT prophylaxis Current Visit: Yes Status: Acute Code(s): RHI1762 - SNOMED Code(s): 749005808 Comment: Heparin sub q
[2017-10-21] MEDS: Oxybutynin XL TAB* 5 MG PO SCH (21:16)
[2017-10-21] MEDS: Levothyroxine TAB* 100 MCG TAB PO SCH (21:17)
[2017-10-21] MEDS: CMCS:Escitalopram (NF) 10 MG TAB PO SCH (21:17)
[2017-10-21] MEDS: clonazePAM TAB(*) 0.5 MG PO PRN (21:18)
[2017-10-22] MEDS: Sodium Chloride(INHALANT) 3%* 4 ML NEB.SOLN INH SCH ×4 (01:07→21:54)
[2017-10-22] MEDS: Heparin VIAL(*) 5000 UNITS/ML VIAL (FIVE THOUSAND) SUBCUT SCH ×3 (07:18→21:28)
[2017-10-22] MEDS: PTO:Fluticas/Salmet 230/21 HFA(NF) MDI INH SCH ×2 (08:12→21:06)
[2017-10-22] MEDS: CMCS:Meloxicam(NF) 7.5 MG TAB PO SCH ×2 (08:39→21:27)
[2017-10-22] MEDS: Meropenem(*) 2 GM in NS 0.9% 100 ML* 100 ML IVPB SCH ×2 (08:39→20:17)
[2017-10-22] MEDS: Lactobacillus Acidophilu (GG)* 1 CAP CAP PO SCH ×2 (08:39→21:28)
[2017-10-22] MEDS: predniSONE TAB* 20 MG PO SCH (08:39)
[2017-10-22] MEDS: Aspirin EC Low Dose* 81 MG TAB.EC PO SCH (08:39)
[2017-10-22] MEDS: guaiFENesin ER TAB 600 MG PO SCH ×2 (08:39→21:28)
[2017-10-22] MEDS: Albuterol 2.5 MG/3 ML NEB.SOL* (0.083%) INH PRN ×2 (12:26→21:02)
--- NOTE | 2017-10-22 16:18 | PN ---
Subjective Date of Service: 10/22/17 Interval History: Patient without complaints today. Objective Active Medications: Acetaminophen (Tylenol Tab*) 650 mg PO Q4H PRN PRN Reason: FEVER/PAIN Albuterol (Ventolin 2.5 Mg/3 Ml Neb.Trish*) 2.5 mg INH Q4H PRN PRN Reason: sob/wheezing Last Admin: 10/22/17 12:26 Dose: 2.5 mg Albuterol (Ventolin 2.5 Mg/3 Ml Neb.Trish*) 2.5 mg INH Q6H PRN PRN Reason: SOB/WHEEZING Aspirin (Aspirin Ec Low Dose*) 81 mg PO QAM [facility] Last Admin: 10/22/17 08:39 Dose: 81 mg Clonazepam (Klonopin Tab(*)) 0.5 mg PO TID PRN PRN Reason: ANXIETY Last Admin: 10/21/17 21:18 Dose: 0.5 mg Escitalopram Oxalate (Lexapro (Nf)) 20 mg PO BEDTIME [facility] Last Admin: 10/21/17 21:17 Dose: 20 mg Guaifenesin (Mucinex*) 1,200 mg PO BID [facility] Last Admin: 10/22/17 08:39 Dose: 1,200 mg Heparin Sodium (Porcine) (Heparin Vial(*)) 5,000 units SUBCUT Q8HR [facility] Last Admin: 10/22/17 15:24 Dose: 5,000 units Meropenem 2 gm/ Sodium (Chloride) 140 mls @ 280 mls/hr IVPB Q12H [facility] Last Admin: 10/22/17 08:39 Dose: 280 mls/hr Lactobacillus Rhamnosus (Culturelle*) 1 cap PO BID [facility] Last Admin: 10/22/17 08:39 Dose: 1 cap Levothyroxine Sodium (Synthroid Tab*) 100 mcg PO BEDTIME [facility] Last Admin: 10/21/17 21:17 Dose: 100 mcg Meloxicam (Mobic(Nf)) 7.5 mg PO BID [facility] Last Admin: 10/22/17 08:39 Dose: 7.5 mg Oxybutynin Chloride (Ditropan Xl Tab*) 15 mg PO BEDTIME [facility] Last Admin: 10/21/17 21:16 Dose: 15 mg Prednisone (Deltasone Tab*) 40 mg PO DAILY [facility] Last Admin: 10/22/17 08:39 Dose: 40 mg Fluticasone/Salmeterol (Advair Hfa 23o/21 (Nf)) 1 puff INH BID [facility] PRN Reason: Protocol Last Admin: 10/22/17 08:12 Dose: 1 puff Sodium Chloride (Sodium Chloride(Inhalant) 3%*) 3 ml INH [id number] AWAKE [facility] Last Admin: 10/22/17 12:20 Dose: Not Given Vital Signs - 8 hr 10/22/17 10/22/17 10/22/17 08:17 08:49 11:54 Temperature 98.8 F 98.5 F Pulse Rate 67 78 72 Respiratory 14 16 16 Rate Blood Pressure 132/67 121/57 (mmHg) O2 Sat by Pulse 98 95 96 Oximetry Oxygen Devices in Use Now: None Appearance: WD/WN woman sitting up in her bed in NAD Eyes: No Scleral Icterus Ears/Nose/Mouth/Throat: Clear Oropharnyx, Mucous Membranes Moist Neck: No Thyroid Enlargement, Masses Respiratory: Clear to Auscultation Cardiovascular: - - S1S2 edwin Abdominal: NL Sounds; No Tenderness; No Distention, No Hepatosplenomegaly Lymphatic: No Cervical Adenopathy Extremities: No Clubbing, Cyanosis Skin: No Rash or Ulcers Neurological: Alert and Oriented x 3 Result Diagrams: 10/17/17 17:52 10/17/17 17:52 Assess/Plan/Problems-Billing Assessment: - Patient Problems (1) Pseudomonas pneumonia Current Visit: Yes Status: Acute Comment: Doing better. Day 5/7 of meropenem. Finish on . (2) Lung nodule Current Visit: Yes Status: Acute Code(s): R91.1 - SOLITARY PULMONARY NODULE SNOMED Code(s): 706225907 Comment: NALDO 1 cm nodule, uncertain etiology. Dr. Ocampo recommends repeat CT in 6 weeks. (3) Rheumatoid arthritis Current Visit: No Status: Acute Code(s): M06.9 - RHEUMATOID ARTHRITIS, UNSPECIFIED SNOMED Code(s): 00682203 Comment: No current issues. No complaints. Continue hydroxychloroquine. (4) Hypothyroidism Current Visit: No Status: Chronic Code(s): E03.9 - HYPOTHYROIDISM, UNSPECIFIED SNOMED Code(s): 86942962 Comment: Stable. Cont levothyroxine. (5) DVT prophylaxis Current Visit: Yes Status: Acute Code(s): LVN5056 - SNOMED Code(s): 730189470 Comment: Heparin sub q
--- NOTE | 2017-10-22 19:15 | PN ---
Progress Note - Progress Note Date of Service: 10/22/17 - Pulm f/u note Note: Pt seen and examined at bedside. Pt reports improvement in cough and phleghm. Phleghm is still green, less in amounts Active Medications Generic Name Dose Route Start Last Admin Trade Name Freq PRN Reason Stop Dose Admin Acetaminophen 650 mg 10/17/17 20:39 Tylenol Tab* PO Q4H PRN FEVER/PAIN Albuterol 2.5 mg 10/17/17 20:39 10/22/17 12:26 Ventolin 2.5 Mg/3 Ml Neb.Trish* INH 2.5 mg Q4H PRN Administration sob/wheezing Albuterol 2.5 mg 10/18/17 15:15 Ventolin 2.5 Mg/3 Ml Neb.Trish* INH Q6H PRN SOB/WHEEZING Aspirin 81 mg 10/18/17 09:00 10/22/17 08:39 Aspirin Ec Low Dose* PO 81 mg QAM [facility] Administration Clonazepam 0.5 mg 10/17/17 21:03 10/21/17 21:18 Klonopin Tab(*) PO 0.5 mg TID PRN Administration ANXIETY Escitalopram Oxalate 20 mg 10/17/17 23:45 10/21/17 21:17 Lexapro (Nf) PO 20 mg BEDTIME [facility] Administration Guaifenesin 1,200 mg 10/19/17 21:00 10/22/17 08:39 Mucinex* PO 1,200 mg BID [facility] Administration Heparin Sodium (Porcine) 5,000 units 10/17/17 22:00 10/22/17 15:24 Heparin Vial(*) SUBCUT 5,000 units Q8HR [facility] Administration Meropenem 2 gm/ Sodium 140 mls @ 280 mls/hr 10/18/17 08:00 10/22/17 08:39 Chloride IVPB 280 mls/hr Q12H [facility] Administration Lactobacillus Rhamnosus 1 cap 10/18/17 21:00 10/22/17 08:39 Culturelle* PO 1 cap BID [facility] Administration Levothyroxine Sodium 100 mcg 10/17/17 21:00 10/21/17 21:17 Synthroid Tab* PO 100 mcg BEDTIME [facility] Administration Meloxicam 7.5 mg 10/17/17 21:00 10/22/17 08:39 Mobic(Nf) PO 7.5 mg BID [facility] Administration Oxybutynin Chloride 15 mg 10/17/17 23:45 10/21/17 21:16 Ditropan Xl Tab* PO 15 mg BEDTIME [facility] Administration Prednisone 40 mg 10/20/17 13:35 10/22/17 08:39 Deltasone Tab* PO 40 mg DAILY [facility] Administration Fluticasone/Salmeterol 1 puff 10/18/17 01:08 10/22/17 08:12 Advair Hfa 23o/21 (Nf) INH 1 puff BID [facility] Administration Protocol Sodium Chloride 3 ml 10/18/17 01:00 10/22/17 12:20 Sodium Chloride(Inhalant) 3%* INH Not Given [id number] AWAKE [facility] Vital Signs Temp Pulse Resp BP Pulse Ox 98.1 F 80 16 121/67 97 10/22/17 15:37 10/22/17 15:37 10/22/17 15:37 10/22/17 15:37 10/22/17 15:37 O/E: Pt in NAD, alert, awake, orientedx3 HEENT: PERRLA, No JVD Lungs: Good a/e b/l, crackles at bases, no wheeze CVS: S1, S2+, regular Abd: Sof, BS+, NT, ND Ext: NO edema, Normal ROM Skin: NO rash or bruise Neuro: No focal defecits Labs: No new labs Sputum cx: Pseudomonas aeurugnosa Urine cx: Pseudomonas aeurugnosa CT chest: Air space opacities with dense consolidations in LL, nodular opacity in NALDO, new compared to prior CT chest from 2015, no signficant lymphadenopathy , bronchectasis at bases, Left >Rt I/R: 67 y o f with RA, bronchiectaiss, frequent bronchitis, IgG def a/w worsening SOB, cough productive of green phleghm after failing out pt therapy for Pseumnas PNA currently on Meropenem with improvement in sx Will c/w IV abx as pt has few allergies to abx and failed out pt therapy Pt also with UTI sec to Pseudomonas c/w Meropenem atleast to complete 7 day course, will complete by , if improved clincally by then willl d/c to complete another 7 days of Levaquin Probiotics while on abx c/w bronchodilators, nebulized salne Pt compliant with flutter valve
[2017-10-22] MEDS: Levothyroxine TAB* 100 MCG TAB PO SCH (21:27)
[2017-10-22] MEDS: CMCS:Escitalopram (NF) 10 MG TAB PO SCH (21:27)
[2017-10-22] MEDS: Oxybutynin XL TAB* 5 MG PO SCH (21:28)
[2017-10-22] MEDS: clonazePAM TAB(*) 0.5 MG PO PRN (21:28)
[2017-10-23] MEDS: Sodium Chloride(INHALANT) 3%* 4 ML NEB.SOLN INH SCH ×4 (00:48→20:34)
[2017-10-23] MEDS: Heparin VIAL(*) 5000 UNITS/ML VIAL (FIVE THOUSAND) SUBCUT SCH ×3 (06:26→22:04)
[2017-10-23] MEDS: Albuterol 2.5 MG/3 ML NEB.SOL* (0.083%) INH PRN ×3 (07:24→20:32)
[2017-10-23] MEDS: PTO:Fluticas/Salmet 230/21 HFA(NF) MDI INH SCH ×2 (07:24→20:34)
[2017-10-23] MEDS: Meropenem(*) 2 GM in NS 0.9% 100 ML* 100 ML IVPB SCH ×2 (09:02→20:19)
[2017-10-23] MEDS: Lactobacillus Acidophilu (GG)* 1 CAP CAP PO SCH ×2 (09:03→20:18)
[2017-10-23] MEDS: predniSONE TAB* 20 MG PO SCH (09:03)
[2017-10-23] MEDS: Aspirin EC Low Dose* 81 MG TAB.EC PO SCH (09:03)
[2017-10-23] MEDS: CMCS:Meloxicam(NF) 7.5 MG TAB PO SCH ×2 (09:04→20:18)
[2017-10-23] MEDS: guaiFENesin ER TAB 600 MG PO SCH ×2 (09:06→20:18)
[2017-10-23 12:17] LABS: ABS Basophils 0 10^3/ul (0-0.2); ABS Eosinophils 0 10^3/ul (0-0.6); ABS Lymphocytes 1.1 10^3/ul (1.0-4.8); ABS Monocytes 0.3 10^3/ul (0-0.8); ABS Neutrophils 11.6 10^3/ul (1.5-7.7); ABS Nucleated RBC 0 10^3/ul; Eosinophil % 0.3 % (0-6); Hematocrit 37 % (35-47); Hemoglobin 11.7 g/dl (12.0-16.0); Lymphocyte % 8.3 % (25-47); Mean Corpuscular HGB Conc 31 g/dl (31-36); Mean Corpuscular Hemoglobin 27 pg (27-31); Mean Corpuscular Volume 85 fL (80-97); Mean Platelet Volume 8 um3 (7.4-10.4); Nucleated Red Blood Cells % 0; Platelet Count 307 10^3/ul (150-450); Red Cell Distribution Width 18 % (10.5-15); White Blood Count 13.1 10^3/ul (3.5-10.8)
[2017-10-23 12:28] LABS: EGFR Non-African American 67.1 (>60)
--- NOTE | 2017-10-23 14:11 | PN ---
Progress Note - Progress Note Date of Service: 10/23/17 - Pulm f/u note Note: Pt seen and examined at bedside. Pt rpeorts cough and phleghm is less in amounts however still feels tired and run down. She is also concerned that phleghm is still green and thick. Using flutter device and is able to expectorate the phleghm. Active Medications Generic Name Dose Route Start Last Admin Trade Name Freq PRN Reason Stop Dose Admin Acetaminophen 650 mg 10/17/17 20:39 Tylenol Tab* PO Q4H PRN FEVER/PAIN Acetylcysteine 400 mg 10/23/17 13:12 Mucomyst Inhalation Trish* INH Q4H PRN CONGESTION Albuterol 2.5 mg 10/18/17 15:15 Ventolin 2.5 Mg/3 Ml Neb.Trish* INH Q6H PRN SOB/WHEEZING Aspirin 81 mg 10/18/17 09:00 10/23/17 09:03 Aspirin Ec Low Dose* PO 81 mg QAM [facility] Administration Clonazepam 0.5 mg 10/17/17 21:03 10/22/17 21:28 Klonopin Tab(*) PO 0.5 mg TID PRN Administration ANXIETY Escitalopram Oxalate 20 mg 10/17/17 23:45 10/22/17 21:27 Lexapro (Nf) PO 20 mg BEDTIME [facility] Administration Guaifenesin 1,200 mg 10/19/17 21:00 10/23/17 09:06 Mucinex* PO 1,200 mg BID [facility] Administration Heparin Sodium (Porcine) 5,000 units 10/17/17 22:00 10/23/17 06:26 Heparin Vial(*) SUBCUT 5,000 units Q8HR [facility] Administration Meropenem 2 gm/ Sodium 140 mls @ 280 mls/hr 10/18/17 08:00 10/23/17 09:02 Chloride IVPB 280 mls/hr Q12H [facility] Administration Lactobacillus Rhamnosus 1 cap 10/18/17 21:00 10/23/17 09:03 Culturelle* PO 1 cap BID [facility] Administration Levothyroxine Sodium 100 mcg 10/17/17 21:00 10/22/17 21:27 Synthroid Tab* PO 100 mcg BEDTIME [facility] Administration Meloxicam 7.5 mg 10/17/17 21:00 10/23/17 09:04 Mobic(Nf) PO 7.5 mg BID [facility] Administration Oxybutynin Chloride 15 mg 10/17/17 23:45 10/22/17 21:28 Ditropan Xl Tab* PO 15 mg BEDTIME [facility] Administration Prednisone 40 mg 10/20/17 13:35 10/23/17 09:03 Deltasone Tab* PO 40 mg DAILY [facility] Administration Fluticasone/Salmeterol 1 puff 10/18/17 01:08 10/23/17 07:24 Advair Hfa 23o/21 (Nf) INH 1 puff BID [facility] Administration Protocol Sodium Chloride 3 ml 10/18/17 01:00 10/23/17 12:16 Sodium Chloride(Inhalant) 3%* INH 3 % [id number] AWAKE [facility] Administration Vital Signs Temp Pulse Resp BP Pulse Ox 98.0 F 80 16 134/65 99 10/23/17 08:02 10/23/17 08:02 10/23/17 08:02 10/23/17 08:02 10/23/17 08:02 O/E: Pt in NAD, alert, awake, orientedx3 HEENT: PERRLA, No JVD Lungs: Good a/e b/l, crackles at bases, no wheeze CVS: S1, S2+, regular Abd: Sof, BS+, NT, ND Ext: NO edema, Normal ROM Skin: NO rash or bruise Neuro: No focal defecits Laboratory Results - last 24 hr 10/23/17 10/23/17 12:01 12:01 WBC 13.1 H RBC 4.40 Hgb 11.7 L Hct 37 MCV 85 MCH 27 MCHC 31 RDW 18 H Plt Count 307 MPV 8 Neut % (Auto) 88.5 H Lymph % (Auto) 8.3 L Chase % (Auto) 2.7 Eos % (Auto) 0.3 Baso % (Auto) 0.2 Absolute Neuts (auto) 11.6 H Absolute Lymphs (auto) 1.1 Absolute Monos (auto) 0.3 Absolute Eos (auto) 0 Absolute Basos (auto) 0 Absolute Nucleated RBC 0 Nucleated RBC % 0 Sodium 135 Potassium 4.5 Chloride 102 Carbon Dioxide 29 Anion Gap 4 BUN 21 Creatinine 0.85 Est GFR ( Amer) 86.3 Est GFR (Non-Af Amer) 67.1 BUN/Creatinine Ratio 24.7 H Glucose 120 H Calcium 10.0 C-React Prot High Sens 1.16 Sputum cx: Pseudomonas aeurugnosa Urine cx: Pseudomonas aeurugnosa CT chest: Air space opacities with dense consolidations in LL, nodular opacity in NALDO, new compared to prior CT chest from 2015, no signficant lymphadenopathy , bronchectasis at bases, Left >Rt I/R: 67 y o f with RA, bronchiectaiss, frequent bronchitis, IgG def a/w worsening SOB, cough productive of green phleghm after failing out pt therapy for Pse[place] PNA currently on Meropenem with slow improvement in sx Will c/w IV abx as pt has few allergies to abx and failed out pt therapy Pt also with UTI sec to Pseudomonas She has h/o recurrent UTIs has been on multiple courses of antibiotics c/w Meropenem atleast to complete 7 day course, will complete by , if improved clincally by then willl d/c to complete another 7 days of Levaquin Probiotics while on abx Recommend ID consultation given recurrent UTI, PNA/bronchiectasis c/w bronchodilators, nebulized salne Can try mucomyst if phleghm continues to remain thick Pt compliant with flutter valve D/w Delbert José
[2017-10-23] MEDS ORDERED: Senna TAB PO PRN (16:37)
[2017-10-23] MEDS: Acetylcysteine INHALATION SOL* 200 MG/ML NEB.SOLN 10 ML INH PRN ×2 (16:38→20:34)
--- NOTE | 2017-10-23 17:55 | PN ---
Subjective Date of Service: 10/23/17 Interval History: Patient complains of general malaise and continued cough with production of thick green sputum. Patient complains of moderate difficulty with constipation. No SOB, CP, N/V, Abdominal pain, Diarrhea, dysuria, dizziness, SUMNER or other pain. Patient wants to "try everything" while in the hospital to help her get better faster. Family History: Unchanged from Admission Social History: Unchanged from Admission Past Medical History: Unchanged from Admission Objective Active Medications: Acetaminophen (Tylenol Tab*) 650 mg PO Q4H PRN PRN Reason: FEVER/PAIN Acetylcysteine (Mucomyst Inhalation Trish*) 400 mg INH Q4H PRN PRN Reason: CONGESTION Last Admin: 10/23/17 16:38 Dose: 400 mg Albuterol (Ventolin 2.5 Mg/3 Ml Neb.Trish*) 2.5 mg INH Q6H PRN PRN Reason: SOB/WHEEZING Last Admin: 10/23/17 16:38 Dose: 2.5 mg Aspirin (Aspirin Ec Low Dose*) 81 mg PO QAM [facility] Last Admin: 10/23/17 09:03 Dose: 81 mg Clonazepam (Klonopin Tab(*)) 0.5 mg PO TID PRN PRN Reason: ANXIETY Last Admin: 10/22/17 21:28 Dose: 0.5 mg Docusate Sodium (Colace Cap*) 100 mg PO BID PRN PRN Reason: CONSTIPATION Escitalopram Oxalate (Lexapro (Nf)) 20 mg PO BEDTIME [facility] Last Admin: 10/22/17 21:27 Dose: 20 mg Guaifenesin (Mucinex*) 1,200 mg PO BID [facility] Last Admin: 10/23/17 09:06 Dose: 1,200 mg Heparin Sodium (Porcine) (Heparin Vial(*)) 5,000 units SUBCUT Q8HR [facility] Last Admin: 10/23/17 14:31 Dose: 5,000 units Meropenem 2 gm/ Sodium (Chloride) 140 mls @ 280 mls/hr IVPB Q12H [facility] Last Admin: 10/23/17 09:02 Dose: 280 mls/hr Lactobacillus Rhamnosus (Culturelle*) 1 cap PO BID [facility] Last Admin: 10/23/17 09:03 Dose: 1 cap Levothyroxine Sodium (Synthroid Tab*) 100 mcg PO BEDTIME [facility] Last Admin: 10/22/17 21:27 Dose: 100 mcg Meloxicam (Mobic(Nf)) 7.5 mg PO BID [facility] Last Admin: 10/23/17 09:04 Dose: 7.5 mg Oxybutynin Chloride (Ditropan Xl Tab*) 15 mg PO BEDTIME MAGGI Last Admin: 10/22/17 21:28 Dose: 15 mg Prednisone (Deltasone Tab*) 40 mg PO DAILY [facility] Last Admin: 10/23/17 09:03 Dose: 40 mg Fluticasone/Salmeterol (Advair Hfa o (Nf)) 1 puff INH BID MAGGI PRN Reason: Protocol Last Admin: 10/23/17 07:24 Dose: 1 puff Senna (Senokot Tab*) 1 tab PO DAILY PRN PRN Reason: CONSTIPATION Sodium Chloride (Sodium Chloride(Inhalant) 3%*) 3 ml INH [id number] AWAKE [facility] Last Admin: 10/23/17 12:16 Dose: 3 % Vital Signs - 8 hr 10/23/17 10/23/17 15:58 16:42 Temperature 99 F Pulse Rate 74 71 Respiratory 16 16 Rate Blood Pressure 116/61 (mmHg) O2 Sat by Pulse 94 98 Oximetry Oxygen Devices in Use Now: None Appearance: Patient is a 67yo female who appears stated age and is sitting in the bed in [facility]. Eyes: No Scleral Icterus, PERRLA Ears/Nose/Mouth/Throat: NL Teeth, Lips, Gums, Clear Oropharnyx, Mucous Membranes Moist Neck: NL Appearance and Movements; NL JVP, Trachea Midline Respiratory: Symmetrical Chest Expansion and Respiratory Effort, - - Very course rhonchi in all lung singh. Cardiovascular: NL Sounds; No Murmurs; No JVD, RRR, No Edema Abdominal: NL Sounds; No Tenderness; No Distention, No Hepatosplenomegaly Lymphatic: No Cervical Adenopathy Extremities: No Edema, No Clubbing, Cyanosis Skin: No Rash or Ulcers, No Nodules or Sclerosis Neurological: Alert and Oriented x 3, NL Sensation, NL Gait, NL Muscle Strength and Tone, - - CN II-XII Result Diagrams: 10/23/17 12:01 10/23/17 12:01 Assess/Plan/Problems-Billing Assessment: Patient is a 67yo female with a PMH significant for COPD, Bronchiectasis, Recurrent UTI, Quiescent RA and autoimmune hepatitis who presents with bronchiectasis exacerbation due to pseudomonas and a pseudomonas UTI. Patient is admitted in [facility] on day 6. - Patient Problems (1) Bronchiectasis Current Visit: Yes Status: Acute Code(s): J47.9 - BRONCHIECTASIS, UNCOMPLICATED SNOMED Code(s): 60710903 Comment: Appreciate pulmonology consult. LL base with consolidation, noted on CTA 10/17/17. Continue meropenem day 04/24. Prednisone taper, started 10/19. Guaifenisin, albuterol, hypertonic saline and mucomyst inhaled ordered. Both urine and lung pseudomonas sensitive to meropenum and levaquin. PLan for D/C on levaquin after 7 days of meropenum. On probiotic (2) History of chronic urinary tract infection Current Visit: No Status: Chronic Code(s): Z87.440 - PERSONAL HISTORY OF URINARY (TRACT) INFECTIONS SNOMED Code(s): 015682359 Comment: History of multiple UTIs, previously on suppressive therapy. ID consult pending. Current pseudomonas UTI sensitive to meropenum and levaquin. (3) COPD (chronic obstructive pulmonary disease) Current Visit: No Status: Chronic Code(s): J44.9 - CHRONIC OBSTRUCTIVE PULMONARY DISEASE, UNSPECIFIED SNOMED Code(s): 30876682 Comment: stable. follows with Dr. Ocampo as outpt. continue mucinex, home inhalers (4) GERARDO (obstructive sleep apnea) Current Visit: No Status: Acute Code(s): G47.33 - OBSTRUCTIVE SLEEP APNEA ( ADULT) (PEDIATRIC) SNOMED Code(s): 18299942 Comment: Compliant with BiPAP (5) Lung nodule Current Visit: Yes Status: Acute Code(s): R91.1 - SOLITARY PULMONARY NODULE SNOMED Code(s): 048336554 Comment: NALDO 1 cm nodule, uncertain etiology. Dr. Ocampo recommends repeat CT in 6 weeks. (6) Rheumatoid arthritis Current Visit: No Status: Acute Code(s): M06.9 - RHEUMATOID ARTHRITIS, UNSPECIFIED SNOMED Code(s): 88210352 Comment: Held plaquenil due to concerns for exacerbation of bronchiectasis. On no other DMARD. Pain controlled with Mobic. Follow up with rhematology outpatient. (7) Depression Current Visit: No Status: Acute Code(s): F32.9 - MAJOR DEPRESSIVE DISORDER, SINGLE EPISODE, UNSPECIFIED SNOMED Code(s): 21299607 Comment: Cont lexapro Stable (8) DVT prophylaxis Current Visit: Yes Status: Acute Code(s): QET2524 - SNOMED Code(s): 477923445 Comment: Heparin sub q (9) Full code status Current Visit: No Status: Acute Code(s): Z78.9 - OTHER SPECIFIED HEALTH STATUS SNOMED Code(s): 626246775 Status and Disposition: Patient is admitted inpatient and will hopefully be D/C'd tomorrow after last dose of meropenum.
[2017-10-23] MEDS: CMCS:Escitalopram (NF) 10 MG TAB PO SCH (20:17)
[2017-10-23] MEDS: Docusate CAP* 100 MG PO PRN (20:17)
[2017-10-23] MEDS: Oxybutynin XL TAB* 5 MG PO SCH (20:18)
[2017-10-23] MEDS: Levothyroxine TAB* 100 MCG TAB PO SCH (20:18)
[2017-10-23] MEDS: clonazePAM TAB(*) 0.5 MG PO PRN (20:19)
[2017-10-24] MEDS: Acetylcysteine INHALATION SOL* 200 MG/ML NEB.SOLN 10 ML INH PRN ×4 (01:40→20:49)
[2017-10-24] MEDS: Albuterol 2.5 MG/3 ML NEB.SOL* (0.083%) INH PRN ×4 (01:40→20:05)
[2017-10-24] MEDS: Sodium Chloride(INHALANT) 3%* 4 ML NEB.SOLN INH SCH ×4 (01:40→20:49)
[2017-10-24] MEDS: clonazePAM TAB(*) 0.5 MG PO PRN ×2 (02:27→21:13)
[2017-10-24] MEDS: Heparin VIAL(*) 5000 UNITS/ML VIAL (FIVE THOUSAND) SUBCUT SCH ×3 (05:44→21:19)
[2017-10-24] MEDS: PTO:Fluticas/Salmet 230/21 HFA(NF) MDI INH SCH ×2 (07:55→19:59)
--- NOTE | 2017-10-24 08:52 | PN ---
Subjective Date of Service: 10/24/17 Interval History: Patient states that the Mucomyst helped significantly with clearing sputum. Sputum still green without improvement. Patient has once episode of dizziness while walking around for a while. O2 sat normal, BP not checked. Patient denies F/C, Abdominal pain, diarrhea, constipation, N/V, Dysuria, or other pain. Family History: Unchanged from Admission Social History: Unchanged from Admission Past Medical History: Findings - Patient is heterozygous for alpha-antitrypsin deficiency. Objective Active Medications: Acetaminophen (Tylenol Tab*) 650 mg PO Q4H PRN PRN Reason: FEVER/PAIN Acetylcysteine (Mucomyst Inhalation Trish*) 400 mg INH Q4H PRN PRN Reason: CONGESTION Last Admin: 10/24/17 07:54 Dose: 400 mg Albuterol (Ventolin 2.5 Mg/3 Ml Neb.Trish*) 2.5 mg INH Q6H PRN PRN Reason: SOB/WHEEZING Last Admin: 10/24/17 07:54 Dose: 2.5 mg Aspirin (Aspirin Ec Low Dose*) 81 mg PO QAM [facility] Last Admin: 10/23/17 09:03 Dose: 81 mg Clonazepam (Klonopin Tab(*)) 0.5 mg PO TID PRN PRN Reason: ANXIETY Last Admin: 10/24/17 02:27 Dose: 0.5 mg Docusate Sodium (Colace Cap*) 100 mg PO BID PRN PRN Reason: CONSTIPATION Last Admin: 10/23/17 20:17 Dose: 100 mg Escitalopram Oxalate (Lexapro (Nf)) 20 mg PO BEDTIME [facility] Last Admin: 10/23/17 20:17 Dose: 20 mg Guaifenesin (Mucinex*) 1,200 mg PO BID [facility] Last Admin: 10/23/17 20:18 Dose: 1,200 mg Heparin Sodium (Porcine) (Heparin Vial(*)) 5,000 units SUBCUT Q8HR [facility] Last Admin: 10/24/17 05:44 Dose: 5,000 units Meropenem 2 gm/ Sodium (Chloride) 140 mls @ 280 mls/hr IVPB Q12H [facility] Last Admin: 10/23/17 20:19 Dose: 280 mls/hr Lactobacillus Rhamnosus (Culturelle*) 1 cap PO BID [facility] Last Admin: 12/06/17 20:18 Dose: 1 cap Levothyroxine Sodium (Synthroid Tab*) 100 mcg PO BEDTIME [facility] Last Admin: 10/23/17 20:18 Dose: 100 mcg Meloxicam (Mobic(Nf)) 7.5 mg PO BID [facility] Last Admin: 10/23/17 20:18 Dose: 7.5 mg Oxybutynin Chloride (Ditropan Xl Tab*) 15 mg PO BEDTIME MAGGI Last Admin: 10/23/17 20:18 Dose: 15 mg Prednisone (Deltasone Tab*) 40 mg PO DAILY [facility] Last Admin: 10/23/17 09:03 Dose: 40 mg Fluticasone/Salmeterol (Advair Hfa 23o/21 (Nf)) 1 puff INH BID [facility] PRN Reason: Protocol Last Admin: 10/24/17 07:55 Dose: 1 puff Senna (Senokot Tab*) 1 tab PO DAILY PRN PRN Reason: CONSTIPATION Sodium Chloride (Sodium Chloride(Inhalant) 3%*) 3 ml INH [id number] AWAKE [facility] Last Admin: 10/24/17 07:57 Dose: Not Given Vital Signs - 8 hr 10/24/17 10/24/17 10/24/17 01:41 02:27 03:23 Pulse Rate 70 78 Respiratory 16 18 16 Rate Blood Pressure 109/56 (mmHg) O2 Sat by Pulse 99 99 Oximetry 10/24/17 10/24/17 05:46 07:58 Pulse Rate 76 Respiratory 16 14 Rate Blood Pressure (mmHg) O2 Sat by Pulse 98 Oximetry Oxygen Devices in Use Now: None Appearance: Patient is a 67yo female who appears stated age and is sitting in the bed in [facility]. Eyes: No Scleral Icterus, PERRLA Ears/Nose/Mouth/Throat: NL Teeth, Lips, Gums, Clear Oropharnyx, Mucous Membranes Moist, - - Patient had plaques on roof of mouth yesterday that have resolved today. Neck: NL Appearance and Movements; NL JVP, Trachea Midline Respiratory: Symmetrical Chest Expansion and Respiratory Effort, - - Course rhonchi, improved from previous exam. Cardiovascular: NL Sounds; No Murmurs; No JVD, RRR, No Edema Abdominal: NL Sounds; No Tenderness; No Distention, No Hepatosplenomegaly Lymphatic: No Cervical Adenopathy Extremities: No Edema, No Clubbing, Cyanosis Skin: No Rash or Ulcers, No Nodules or Sclerosis Neurological: Alert and Oriented x 3, NL Sensation, NL Gait, NL Muscle Strength and Tone Result Diagrams: 10/23/17 12:01 10/23/17 12:01 Assess/Plan/Problems-Billing Assessment: Patient is a 67yo female with a PMH significant for COPD, Bronchiectasis, Recurrent UTI, Quiescent RA and autoimmune hepatitis who presents with bronchiectasis exacerbation due to pseudomonas and a pseudomonas UTI. [facility]. - Patient Problems (1) Bronchiectasis Current Visit: Yes Status: Acute Code(s): J47.9 - BRONCHIECTASIS, UNCOMPLICATED SNOMED Code(s): 44728397 Comment: Appreciate pulmonology and ID consult. LL base with consolidation, noted on CTA 10/17/17. Continue meropenem day 05/24. Prednisone taper decreased to 20mg PO daily started 10/19. Guaifenisin, albuterol, hypertonic saline and mucomyst inhaled ordered. with good effect. Concern for allergic bronchopulmonary aspergillosis. Started on empiric voriconazole 400mg Q12Hx2 and 200mg Q12H afterwards. Testing pending. Both urine and lung pseudomonas sensitive to meropenum and levaquin. PLan for D/C on levaquin after 7 days of meropenum. On probiotic (2) History of chronic urinary tract infection Current Visit: No Status: Chronic Code(s): Z87.440 - PERSONAL HISTORY OF URINARY (TRACT) INFECTIONS SNOMED Code(s): 284273764 Comment: History of multiple UTIs, previously on suppressive therapy. Current pseudomonas UTI sensitive to meropenum and levaquin. (3) COPD (chronic obstructive pulmonary disease) Current Visit: No Status: Chronic Code(s): J44.9 - CHRONIC OBSTRUCTIVE PULMONARY DISEASE, UNSPECIFIED SNOMED Code(s): 65146246 Comment: stable. follows with Dr. Ocampo as outpt. continue mucinex, home inhalers (4) GERARDO (obstructive sleep apnea) Current Visit: No Status: Acute Code(s): G47.33 - OBSTRUCTIVE SLEEP APNEA ( ADULT) (PEDIATRIC) SNOMED Code(s): 14584734 Comment: Compliant with BiPAP (5) Lung nodule Current Visit: Yes Status: Acute Code(s): R91.1 - SOLITARY PULMONARY NODULE SNOMED Code(s): 089388869 Comment: NALDO 1 cm nodule, uncertain etiology. Dr. Ocampo recommends repeat CT in 6 weeks. Could be due to fungal infection per ID. (6) Rheumatoid arthritis Current Visit: No Status: Acute Code(s): M06.9 - RHEUMATOID ARTHRITIS, UNSPECIFIED SNOMED Code(s): 56502227 Comment: Held plaquenil due to concerns for exacerbation of bronchiectasis. On no other DMARD. Pain controlled with Mobic. Follow up with rhematology outpatient. (7) Depression Current Visit: No Status: Acute Code(s): F32.9 - MAJOR DEPRESSIVE DISORDER, SINGLE EPISODE, UNSPECIFIED SNOMED Code(s): 29904968 Comment: Cont lexapro Stable (8) DVT prophylaxis Current Visit: Yes Status: Acute Code(s): [id number] - SNOMED Code(s): 655499102 Comment: Heparin sub q (9) Full code status Current Visit: No Status: Acute Code(s): Z78.9 - OTHER SPECIFIED HEALTH STATUS SNOMED Code(s): 919403016 Status and Disposition: Patient is admitted inpatient. Since no improvement, will continue to with inpatient treatment at this time.
[2017-10-24] MEDS: Meropenem(*) 2 GM in NS 0.9% 100 ML* 100 ML IVPB SCH ×2 (09:01→21:15)
[2017-10-24] MEDS: predniSONE TAB* 20 MG PO SCH (09:27)
[2017-10-24] MEDS: Lactobacillus Acidophilu (GG)* 1 CAP CAP PO SCH ×2 (09:28→21:08)
[2017-10-24] MEDS: guaiFENesin ER TAB 600 MG PO SCH ×2 (09:28→21:05)
[2017-10-24] MEDS: CMCS:Meloxicam(NF) 7.5 MG TAB PO SCH ×2 (09:28→21:06)
[2017-10-24] MEDS: Docusate CAP* 100 MG PO PRN (09:29)
[2017-10-24] MEDS: Aspirin EC Low Dose* 81 MG TAB.EC PO SCH (09:29)
--- NOTE | 2017-10-24 11:46 | CONS ---
CONSULTATION NOTE: DATE OF CONSULT: 10/24/17 REQUESTING PROVIDER: ANNIE Qureshi CONSULTING SERVICE: Infectious Disease. REASON FOR CONSULTATION: Productive cough, bronchiectasis. IMPRESSION: 1. Six to eight weeks of productive cough in the setting of recent diagnosis of bronchiectasis. Sputum samples 09/20/17 grew Aspergillus fumigatus, grew pseudomonas and 10/17/17 grew pseudomonas. She has had a week of meropenem without significant improvement in the cough symptoms. She has occasional wheeze given the presence of aspergillus, though I do not think she has an invasive pulmonary aspergillosis, I wonder if allergic bronchopulmonary aspergillosis may be part of the picture. I am less convinced that pseudomonas is the true pathogen for her as she has had appropriate therapy for it without significant improvement, though she may just need a longer course, which is planned with Levaquin. 2. Pulmonary nodule, question malignant versus infectious including fungal, cryptococcus or aspergillosis would be a consideration. 3. Rheumatoid arthritis. 4. Allergies to SULFA and CIPRO. 5. Chronic obstructive pulmonary disease. 6. Obstructive sleep apnea. RECOMMENDATIONS: 1. Will check an IgE level, cryptococcal antigen and procalcitonin. 2. She does not have any eosinophilia, but I will discuss the case with Dr. Ocampo and see if she would want to initiate an oral antifungal, which would be more of an empiric trial. I do not think there is an urgency to that, but if antibiotics do not improve anything, then that would be a consideration. HISTORY OF PRESENT ILLNESS: This is a 67-year-old woman with COPD, bronchiectasis, sleep apnea, admitted with cough, which has been persistent for a few weeks and is productive of greenish sputum. There is no hemoptysis. She does not have chest pain. She has some shortness of breath on exertion, not at rest. She has had a number of oral antibiotics over the last couple of weeks for various conditions including urinary tract infection and cough. She had Keflex, doxycycline, Levaquin without significant improvement, so she came to the hospital on 10/17/17 with worsening cough. She had a white count of 10, 000. Her CRP was 8. She was started on meropenem. Sputum did grow pseudomonas again which is sensitive to cefepime, Zosyn, meropenem, Levaquin, Cipro and gentamicin. She does not think she has had significant improvement despite meropenem and corticosteroids. Her CRP is decreased from 8 to 1, however, over the last week. She has had no fevers, chills, or sweats. She is eating okay and having a cinnamon roll this morning. PAST MEDICAL HISTORY: 1. COPD. 2. Bronchiectasis, recent diagnosis. 3. Atrial fibrillation. 4. Obstructive sleep apnea. 5. Rheumatoid arthritis, recent initiation of Plaquenil. 6. History of autoimmune hepatitis. 7. Atrial fibrillation. 8. Hypothyroidism. 9. Asthma. 10. Obesity. 11. Rotator cuff. 12. Depression. 13. Brendon-Schlatter. 14. Rib fracture. 15. Status post left knee arthroplasty and bilateral hip arthroplasty. 16. Status post left ankle open reduction internal fixation. 17. History of cardiac ablation for atrial fibrillation. 18. Status post bunionectomy. 19. Status post hammertoe repair. 20. Status post tonsillectomy. 21. Status post vein stripping. 22. 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 MEDICATIONS: 1. Tylenol. 2. Acetylcysteine inhalation. 3. Aspirin. 4. Clonazepam. 5. Celexa. 6. Guaifenesin. 7. Heparin subcutaneous injection. 8. Lactobacillus. 9. Levothyroxine. 10. Meloxicam. 11. Meropenem 2 g every 12 hours. 12. Oxybutynin. 13. Prednisone. 14. Senna. 15. Inhaled sodium chloride. ALLERGIES: SULFA, CIPRO, EFFEXOR. FAMILY HISTORY: Father due to cardiac arrest. Mother had rheumatoid arthritis due to cardiac arrest. Sister with diabetes. SOCIAL HISTORY: She lives with her in [place]. She is from [place], originally had lived in [place]. 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 Past smoker. REVIEW OF SYSTEMS: A 14-point review of systems was negative except as noted above. PHYSICAL EXAM: Vital Signs: Temperature 36.7, heart rate 70, respiratory rate 14, blood pressure 114/64, O2 sat 100% on room air. In general, she is awake and not in distress. Neurologic: She is oriented x3. Follows all commands. HEENT: There is no conjunctival hemorrhage. Lymph Nodes: There is no inguinal , axillary, or epitrochlear lymphadenopathy. Heart is regular rate and rhythm without murmurs, rubs, or gallops. Lungs: There are rhonchi at the left base. There is no wheeze or rale. Abdomen: Soft, nontender, nondistended. There are bowel sounds present. Skin: There are no rashes or splinter hemorrhages. Musculoskeletal: There is no spine tenderness to palpation. LABORATORY DATA: Creatinine 0.8, white blood cell count 13, hemoglobin 11, platelets 307,000. Urinalysis shows blood, leukocyte esterase. Urine culture grew pseudomonas on 10/17/17. Please see impressions and recommendations outlined above, which I have discussed with ANNIE Qureshi. Thank you for asking me to see Ms. Torres in consultation. [id number]/CPS #: [id number] MTDD
--- NOTE | 2017-10-24 12:07 | ED ---
Reza Guardado Benjamin, scribed for Delbert Montoya MD on 10/17/17 at 1932 . Respiratory - HPI Summary HPI Summary: 67yo female c/o having productive cough over 6 week period, despite trying various kinds of abx. Pt is coughing up green sputum and pt also reports fatigue and SOB. Denies any swelling in legs. Pt is currently on vibramycin and prednisone. Pt have taken Keflex and macrobid in the past for UTI, and also tried amoxicillin doxycycline, and Levaquin. Pt is still having her symptoms despite all that. Dr. Ocampo is her PCP. - History of Current Complaint Chief Complaint: EDUpperRespComplaint Stated Complaint: COUGH/SOB Time Seen by Provider: 10/17/17 17:43 Hx Obtained From: Patient Onset/Duration: Gradual Onset, Lasting Weeks - 6 weeks Timing: Constant Initial Severity: Mild Current Severity: Mild Pain Intensity: 0 Character: Cough (Productive) Sputum Amount: Large Sputum Color: Green, Rossi Aggravating Factor(s): Nothing Alleviating Factor(s): Nothing Associated Signs and Symptoms: Fever, SOB - Allergy/Home Medications Allergies/Adverse Reactions: Allergies Allergy/AdvReac Type Severity Reaction Status Date / Time Venlafaxine [From Effexor] Allergy Severe suicidal Verified 10/17/17 14:27 Ciprofloxacin Allergy Unknown oral rash, Verified 10/17/17 14:27 shortness of breath Sulfa Antibiotics Allergy Hives, Verified 10/17/17 14:27 shortness of breath seasonal Allergy Mild Congestion Uncoded 10/17/17 14:27 Home Medications: Home Medications Albuterol Sulfate 0.63 mg INH Q6HR PRN 10/17/17 [History Confirmed 10/17/17] Amoxicillin PO (*) [Amoxicillin 500 MG CAP*] 2,000 mg PO ONCE PRN 10/17/17 [ History Confirmed 10/17/17] Calcium Carbonate-Vitamin D W/ [Calcium 1200] 1 chw PO BID 10/17/17 [History Confirmed 10/17/17] DOXYcycline CAP(*) [DOXYcycline 100MG CAP(*)] 100 mg PO BID 10/17/17 [History Confirmed 10/17/17] Fluticas/Salmet 230/21 HFA(NF) [Advair HFA 23O/21 (NF)] 1 puff INH BID 10/17/17 [History Confirmed 10/17/17] Guaifenesin 400 mg PO BID PRN 10/17/17 [History Confirmed 10/17/17] Guaifenesin [Guaifenesin ER] 1,200 mg PO BID PRN 10/17/17 [History Confirmed ] Hydroxychloroquine TAB* [Plaquenil TAB*] 200 mg PO BID 10/17/17 [History Confirmed 10/17/17] Melatonin 60 mg PO BEDTIME 10/17/17 [History Confirmed 10/17/17] Meloxicam(NF) [Mobic(NF)] 7.5 mg PO BID 10/17/17 [History Confirmed 10/17/17] Nutritional Supplements [Wellness Essentials] 1 kit PO BID 10/17/17 [History Confirmed 10/17/17] [place]-3 Fatty Acids [[place] 3 500 500 mg] 1 cap PO DAILY 10/17/17 [History Confirmed 10/17/17] Oxybutynin XL TAB* [Ditropan XL TAB*] 15 mg PO DAILY 10/17/17 [History Confirmed 10/17/17] Sodium Chloride (Inhalant) [Hypersal] 3.5 % INH BID 10/17/17 [History Confirmed 10/17/17] predniSONE TAB* [Deltasone TAB*] 10 mg PO DAILY 10/17/17 [History Confirmed ] PMH/Surg Hx/FS Hx/Imm Hx Endocrine/Hematology History: Reports: Hx Thyroid Disease - HYPOTHYROIDISM Denies: Hx Diabetes, Hx Anemia Cardiovascular History: Reports: Hx Angina, Hx Peripheral Vascular Disease, Hx Syncope, Hx Valvular Heart Disease - "a couple of valve insufficiencies"., Other Cardiovascular Problems/Disorders - ablation for PVC's Denies: Hx Coronary Artery Disease, Hx Hypercholesterolemia, Hx Hypertension , Hx Myocardial Infarction Respiratory History: Reports: Hx Asthma, Hx Pneumonia, Hx Sleep Apnea, Other Respiratory Problems/Disorders - atelectasis - chronic Denies: Hx Chronic Obstructive Pulmonary Disease (COPD) GI History: Denies: Hx Jaundice, Hx Ulcer History: Reports: Other Problems/Disorders - E.COLI UTI Musculoskeletal History: Reports: Hx Arthritis - RA, OA, Other Musculoskeletal History - RIGHT HIP REPLACEMENT & ORIF LEFT ANKLE Denies: Hx Osteoporosis Sensory History: Reports: Hx Cataracts - mild, Hx Contacts or Glasses, Hx Hearing Aid - doesn't wear Denies: Hx Glaucoma Opthamlomology History: Reports: Hx Cataracts - mild, Hx Contacts or Glasses Denies: Hx Glaucoma Psychiatric History: Reports: Hx Anxiety, Hx Depression - Cancer History Hx Chemotherapy: No Hx Radiation Therapy: No - Surgical History Surgery Procedure, Year, and Place: RIGHT HIP REPLACEMENT. LEFT ANKLE ORIF. 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 NASAL SWAB Denies: Hx Clostridium Difficile, Hx Human Immunodeficiency Virus (HIV), Hx Shingles, Hx Tuberculosis, Hx Known/Suspected VRE, Hx Known/Suspected VRSA, History Other Infectious Disease, Traveled Outside the [place] in Last 30 Days - Family History Known Family History: Negative: Blood Disorder - Social History Alcohol Use: Occasionally Alcohol Amount: 1-2 DRINKS A MONTH AT MOST Substance Use Type: Reports: None Smoking Status (MU): Former Smoker Amount Used/How Often: 1PPD FOR SEVEN YEARS Have You Smoked in the Last Year: No Review of Systems Positive: Fever, Fatigue Eyes: Negative ENT: Negative Cardiovascular: Negative Positive: Shortness Of Breath, Cough - productive Gastrointestinal: Negative Genitourinary: Negative Musculoskeletal: Negative Skin: Negative Neurological: Negative Psychological: Normal All Other Systems Reviewed And Are Negative: Yes Physical Exam Triage Information Reviewed: Yes Vital Signs On Initial Exam: Initial Vitals Temp Pulse Resp BP Pulse Ox 97.4 F 79 16 127/82 95 10/17/17 14:28 10/17/17 14:28 10/17/17 14:28 10/17/17 14:28 10/17/17 14:28 Vital Signs Reviewed: Yes Appearance: Positive: Well-Appearing, Well-Nourished, Pain Distress - mild respiratory distress Skin: Positive: Warm, Skin Color Reflects Adequate Perfusion, Dry Head/Face: Positive: Normal Head/Face Inspection Eyes: Positive: EOMI, DYLAN ENT: Positive: Normal ENT inspection Neck: Positive: Supple, Nontender Respiratory/Lung Sounds: Positive: Clear to Auscultation, Breath Sounds Present , Rhonchi - bilateral Cardiovascular: Positive: RRR Abdomen Description: Positive: Nontender, Soft Bowel Sounds: Positive: Present Musculoskeletal: Positive: Strength/ROM Intact Neurological: Positive: Sensory/Motor Intact, Alert, Oriented to Person Place, Time Psychiatric: Positive: Affect/Mood Appropriate - [place] Coma Scale Coma Scale Total: 15 Diagnostics - Vital Signs Vital Signs Temp Pulse Resp BP Pulse Ox 10/17/17 18:02 67 20 96 10/17/17 18:00 129/73 10/17/17 17:55 95 10/17/17 17:30 64 11 122/80 94 10/17/17 17:22 65 94 10/17/17 17:20 119/68 10/17/17 15:54 97 F 83 18 127/65 93 10/17/17 14:28 97.4 F 79 16 127/82 95 - Laboratory Lab Results: Lab Results 10/17/17 10/17/17 10/17/17 Range/Units 17:52 17:52 17:52 WBC (3.5-10.8) 10^3/ul RBC (4.0-5.4) 10^6/ul Hgb (12.0-16.0) g/dl Hct (35-47) % MCV (80-97) fL MCH (27-31) pg MCHC (31-36) g/dl RDW (10.5-15) % Plt Count (150-450) 10^3/ul MPV (7.4-10.4) um3 Neut % (Auto) (38-83) % Lymph % (Auto) (25-47) % [place] % (Auto) (1-9) % Eos % (Auto) (0-6) % Baso % (Auto) (0-2) % Absolute Neuts (auto) (1.5-7.7) 10^3/ul Absolute Lymphs (auto) (1.0-4.8) 10^3/ul Absolute Monos (auto) (0-0.8) 10^3/ul Absolute Eos (auto) (0-0.6) 10^3/ul Absolute Basos (auto) (0-0.2) 10^3/ul Absolute Nucleated RBC 10^3/ul Nucleated RBC % INR (Anticoag Therapy) 1.00 (0.89-1.11) APTT 31.4 (26.0-36.3) seconds D-Dimer, Quantitative 494 H (Less Than 230) ng/mL Sodium 136 (133-145) mmol/L Potassium 4.4 (3.5-5.0) mmol/L Chloride 102 (101-111) mmol/L Carbon Dioxide 28 (22-32) mmol/L Anion Gap 6 (2-11) mmol/L BUN 18 (6-24) mg/dL Creatinine 0.86 (0.51-0.95) mg/dL Est GFR ( Amer) 85.2 (>60) Est GFR (Non-Af Amer) 66.2 (>60) BUN/Creatinine Ratio 20.9 H (8-20) Glucose 118 H (70-100) mg/dL Lactic Acid (0.5-2.0) mmol/L Calcium 10.0 (8.6-10.3) mg/dL Magnesium 2.1 (1.9-2.7) mg/dL Total Bilirubin 0.30 (0.2-1.0) mg/dL AST 18 (13-39) U/L ALT 19 (7-52) U/L Alkaline Phosphatase 185 H (34-104) U/L Total Creatine Kinase 44 (10-223) U/L CK-MB (CK-2) 2.0 (0.6-6.3) ng/mL Troponin I 0.01 (<0.04) ng/mL C-Reactive Protein 8.62 H (< 5.00) mg/L B-Natriuretic Peptide 50 ( - 100) pg/mL Total Protein 7.1 (6.4-8.9) g/dL Albumin 3.9 (3.2-5.2) g/dL Globulin 3.2 (2-4) g/dL Albumin/Globulin Ratio 1.2 (1-3) Lipase 26 (11.0-82.0) U/L TSH 1.26 (0.34-5.60) mcIU/mL 10/17/17 10/17/17 Range/Units 17:52 17:52 WBC 10.2 (3.5-10.8) 10^3/ul RBC 4.34 (4.0-5.4) 10^6/ul Hgb 11.9 L (12.0-16.0) g/dl Hct 37 (35-47) % MCV 84 (80-97) fL MCH 27 (27-31) pg MCHC 33 (31-36) g/dl RDW 18 H (10.5-15) % Plt Count 292 (150-450) 10^3/ul MPV 8 (7.4-10.4) um3 Neut % (Auto) 87.6 H (38-83) % Lymph % (Auto) 8.2 L (25-47) % [place] % (Auto) 3.7 (1-9) % Eos % (Auto) 0.2 (0-6) % Baso % (Auto) 0.3 (0-2) % Absolute Neuts (auto) 8.9 H (1.5-7.7) 10^3/ul Absolute Lymphs (auto) 0.8 L (1.0-4.8) 10^3/ul Absolute Monos (auto) 0.4 (0-0.8) 10^3/ul Absolute Eos (auto) 0 (0-0.6) 10^3/ul Absolute Basos (auto) 0 (0-0.2) 10^3/ul Absolute Nucleated RBC 0 10^3/ul Nucleated RBC % 0 INR (Anticoag Therapy) (0.89-1.11) APTT (26.0-36.3) seconds D-Dimer, Quantitative (Less Than 230) ng/mL Sodium (133-145) mmol/L Potassium (3.5-5.0) mmol/L Chloride (101-111) mmol/L Carbon Dioxide (22-32) mmol/L Anion Gap (2-11) mmol/L BUN (6-24) mg/dL Creatinine (0.51-0.95) mg/dL Est GFR ( Amer) (>60) Est GFR (Non-Af Amer) (>60) BUN/Creatinine Ratio (8-20) Glucose (70-100) mg/dL Lactic Acid 0.7 (0.5-2.0) mmol/L Calcium (8.6-10.3) mg/dL Magnesium (1.9-2.7) mg/dL Total Bilirubin (0.2-1.0) mg/dL AST (13-39) U/L ALT (7-52) U/L Alkaline Phosphatase (34-104) U/L Total Creatine Kinase (10-223) U/L CK-MB (CK-2) (0.6-6.3) ng/mL Troponin I (<0.04) ng/mL C-Reactive Protein (< 5.00) mg/L B-Natriuretic Peptide ( - 100) pg/mL Total Protein (6.4-8.9) g/dL Albumin (3.2-5.2) g/dL Globulin (2-4) g/dL Albumin/Globulin Ratio (1-3) Lipase (11.0-82.0) U/L TSH (0.34-5.60) mcIU/mL Result Diagrams: 10/17/17 17:52 10/17/17 17:52 Lab Statement: Any lab studies that have been ordered have been reviewed, and results considered in the medical decision making process. - Radiology CXR Xray Interpretation: Positive (See Comments) - IMPRESSION: SMALL LEFT BASILAR INFILTRATE. Radiology Interpretation Completed By: Radiologist - ED physician has reviewed this radiology report and agrees. - CT CTA Chest CT Interpretation: Positive (See Comments) - IMPRESSION: 1. No CT evidence of acute pulmonary embolic disease. 2. Progressive interstitial fibrosis left lung base now with increased consolidation. Suggest follow-up. 3. New, 1 cm left upper lobe nodule worrisome for bronchogenic carcinoma. CT Interpretation Completed By: Radiologist - ED physician has reviewed this radiology report and agrees - EKG 1999. Cardiac Rate: NL EKG Rhythm: Sinus Rhythm - 64bpm ST Segment: Normal Ectopy: None Disposition - Course Course Of Treatment: BP noted and advised to follow up with PCP. Allergies noted. Medications reviewed. Spoke to Dr. Ocampo (pt's PCP) at 1930 hour. - Diagnoses Provider Diagnoses: Pneumonia Discharge - Discharge Plan Condition: Stable Disposition: ADMITTED TO [facility] Referrals: Lew Campbell MD [Primary Care Provider] - The documentation as recorded by the Reza vasquez Benjamin accurately reflects the service I personally performed and the decisions made by me, Delbert Montoya MD.
[2017-10-24] MEDS: CMCS Voriconazole (NF) 50 MG TAB PO SCH (18:16)
--- NOTE | 2017-10-24 19:07 | PN ---
Progress Note - Progress Note Date of Service: 10/24/17 - Pulm f/u note Note: Pt seen and examined at bedside. Pt reports sputum is decreased in amounts however fatigue is not improved. Doesnot feel symptoms are returning to her baseline. Active Medications Generic Name Dose Route Start Last Admin Trade Name Freq PRN Reason Stop Dose Admin Acetaminophen 650 mg 10/17/17 20:39 Tylenol Tab* PO Q4H PRN FEVER/PAIN Acetylcysteine 400 mg 10/23/17 13:12 10/24/17 13:53 Mucomyst Inhalation Trish* INH 400 mg Q4H PRN Administration CONGESTION Albuterol 2.5 mg 10/18/17 15:15 10/24/17 13:54 Ventolin 2.5 Mg/3 Ml Neb.Trish* INH 2.5 mg Q6H PRN Administration SOB/WHEEZING Aspirin 81 mg 10/18/17 09:00 10/24/17 09:29 Aspirin Ec Low Dose* PO 81 mg QAM MAGGI Administration Clonazepam 0.5 mg 10/17/17 21:03 10/24/17 02:27 Klonopin Tab(*) PO 0.5 mg TID PRN Administration ANXIETY Docusate Sodium 100 mg 10/23/17 16:37 10/24/17 09:29 Colace Cap* PO 100 mg BID PRN Administration CONSTIPATION Escitalopram Oxalate 20 mg 10/17/17 23:45 10/23/17 20:17 Lexapro (Nf) PO 20 mg BEDTIME MAGGI Administration Guaifenesin 1,200 mg 10/19/17 21:00 10/24/17 09:28 Mucinex* PO 1,200 mg BID MAGGI Administration Heparin Sodium (Porcine) 5,000 units 10/17/17 22:00 10/24/17 15:17 Heparin Vial(*) SUBCUT 5,000 units Q8HR MAGGI Administration Meropenem 2 gm/ Sodium 140 mls @ 280 mls/hr 10/18/17 08:00 10/24/17 09:01 Chloride IVPB 10/24/17 22:00 280 mls/hr Q12H MAGGI Administration Lactobacillus Rhamnosus 1 cap 10/18/17 21:00 10/24/17 09:28 Culturelle* PO 1 cap BID MAGGI Administration Levofloxacin 750 mg 10/25/17 09:00 Levaquin Tab* PO DAILY MAGGI Levothyroxine Sodium 100 mcg 10/17/17 21:00 10/23/17 20:18 Synthroid Tab* PO 100 mcg BEDTIME MAGGI Administration Meloxicam 7.5 mg 10/17/17 21:00 10/24/17 09:28 Mobic(Nf) PO 7.5 mg BID MAGGI Administration Oxybutynin Chloride 15 mg 10/17/17 23:45 10/23/17 20:18 Ditropan Xl Tab* PO 15 mg BEDTIME MAGGI Administration Prednisone 40 mg 10/25/17 09:00 Deltasone Tab* PO DAILY [facility] Fluticasone/Salmeterol 1 puff 10/18/17 01:08 10/24/17 07:55 Advair Hfa 23o/21 (Nf) INH 1 puff BID MAGGI Administration Protocol Senna 1 tab 10/23/17 16:37 Senokot Tab* PO DAILY PRN CONSTIPATION Sodium Chloride 3 ml 10/18/17 01:00 10/24/17 13:56 Sodium Chloride(Inhalant) 3%* INH 3 % [id number] AWAKE MAGGI Administration Voriconazole 400 mg 10/24/17 18:00 10/24/17 18:16 Vfend (Nf) PO 10/25/17 06:01 400 mg Q12H MAGGI Administration Voriconazole 200 mg 10/25/17 18:00 Vfend (Nf) PO Q12H [facility]GI Vital Signs Temp Pulse Resp BP Pulse Ox 98.1 F 82 20 127/66 95 10/24/17 15:29 10/24/17 15:29 10/24/17 15:29 10/24/17 15:29 10/24/17 15:29 O/E: Pt in NAD, alert, awake, orientedx3 HEENT: PERRLA, No JVD Lungs: Good a/e b/l, crackles at bases, no wheeze CVS: S1, S2+, regular Abd: Sof, BS+, NT, ND Ext: NO edema, Normal ROM Skin: NO rash or bruise Neuro: No focal defecits Labs: No recent labs Sputum cx: Pseudomonas aeurugnosa Urine cx: Pseudomonas aeurugnosa CT chest: Air space opacities with dense consolidations in LL, nodular opacity in NALDO, new compared to prior CT chest from 2014, no signficant lymphadenopathy , bronchectasis at bases, Left >Rt I/R: 67 y o f with RA, bronchiectaiss, frequent bronchitis, IgG def a/w worsening SOB, cough productive of green phleghm after failing out pt therapy for Pseumnas PNA currently on Meropenem with slow improvement in sx Will c/w IV abx as pt has few allergies to abx and failed out pt therapy Pt also with UTI sec to Pseudomonas She has h/o recurrent UTIs has been on multiple courses of antibiotics c/w Meropenem atleast to complete 7 day course, will complete today, if improved clincally by then lisa d/c to complete another 7 days of Levaquin ID consult noted Agree with Dr Copeland recommendations- Pt has been on steroids recently, sputum recently positive for aspergillus likely airway colonization however given no signficant change in s inspite of Meropenem antifungals might be helpful c/w bronchodilators, nebulized salne Mucomyst is helping Pt compliant with flutter valve D/w Delbert José
[2017-10-24] MEDS: Levothyroxine TAB* 100 MCG TAB PO SCH (21:08)
[2017-10-24] MEDS: CMCS:Escitalopram (NF) 10 MG TAB PO SCH (21:14)
[2017-10-24] MEDS: Oxybutynin XL TAB* 5 MG PO SCH (21:39)
[2017-10-25] MEDS: Sodium Chloride(INHALANT) 3%* 4 ML NEB.SOLN INH SCH ×4 (01:34→20:33)
[2017-10-25] MEDS: Heparin VIAL(*) 5000 UNITS/ML VIAL (FIVE THOUSAND) SUBCUT SCH ×3 (06:51→22:02)
[2017-10-25] MEDS: CMCS Voriconazole (NF) 50 MG TAB PO SCH ×2 (07:12→17:20)
[2017-10-25] MEDS: Albuterol 2.5 MG/3 ML NEB.SOL* (0.083%) INH PRN ×3 (07:28→20:33)
[2017-10-25] MEDS: Acetylcysteine INHALATION SOL* 200 MG/ML NEB.SOLN 10 ML INH PRN ×2 (07:28→20:33)
[2017-10-25] MEDS: PTO:Fluticas/Salmet 230/21 HFA(NF) MDI INH SCH ×2 (07:39→20:33)
[2017-10-25] MEDS: Aspirin EC Low Dose* 81 MG TAB.EC PO SCH (08:18)
[2017-10-25] MEDS: CMCS:Meloxicam(NF) 7.5 MG TAB PO SCH ×2 (08:19→21:59)
[2017-10-25] MEDS: guaiFENesin ER TAB 600 MG PO SCH ×2 (08:19→22:00)
[2017-10-25] MEDS: predniSONE TAB* 20 MG PO SCH (08:19)
[2017-10-25] MEDS: Levofloxacin TAB* 750 MG PO SCH (08:19)
[2017-10-25] MEDS: Lactobacillus Acidophilu (GG)* 1 CAP CAP PO SCH ×2 (08:19→22:01)
[2017-10-25 08:27] LABS: ABS Basophils 0 10^3/ul (0-0.2); ABS Eosinophils 0.1 10^3/ul (0-0.6); ABS Monocytes 0.6 10^3/ul (0-0.8); ABS Neutrophils 4.8 10^3/ul (1.5-7.7); ABS Nucleated RBC 0 10^3/ul; Eosinophil % 0.9 % (0-6); Hematocrit 34 % (35-47); Hemoglobin 11.1 g/dl (12.0-16.0); Lymphocyte % 26.2 % (25-47); Mean Corpuscular HGB Conc 33 g/dl (31-36); Mean Corpuscular Hemoglobin 27 pg (27-31); Mean Corpuscular Volume 84 fL (80-97); Mean Platelet Volume 7 um3 (7.4-10.4); Nucleated Red Blood Cells % 0; Platelet Count 247 10^3/ul (150-450); Red Blood Count 4.05 10^6/ul (4.0-5.4); Red Cell Distribution Width 18 % (10.5-15); White Blood Count 7.5 10^3/ul (3.5-10.8)
[2017-10-25] MEDS ORDERED: predniSONE TAB* 20 MG PO SCH (09:00)
--- NOTE | 2017-10-25 10:04 | PN ---
Subjective Date of Service: 10/25/17 Interval History: This is a 67 yo female with bronchiectasis who has been treated for an exacerbation with corticosteroids and meropenem after Pseudomonas has been isolated from the sputum. She has completed 7d of meropenem with little improvement in symptoms. Started on voriconazole for possible aspergillosis. Yesterday, patient felt slightly lightheaded with ambulation. She has not been active yet this am. Reports mild dyspnea. Still has a productive cough, it is easier to mobilize her sputum with addition of Mucomyst. Family History: Unchanged from Admission Social History: Unchanged from Admission Past Medical History: Findings - Patient is heterozygous for alpha-antitrypsin deficiency. Objective Active Medications: Acetaminophen (Tylenol Tab*) 650 mg PO Q4H PRN PRN Reason: FEVER/PAIN Acetylcysteine (Mucomyst Inhalation Trish*) 400 mg INH Q4H PRN PRN Reason: CONGESTION Last Admin: 10/25/17 07:28 Dose: 400 mg Albuterol (Ventolin 2.5 Mg/3 Ml Neb.Trish*) 2.5 mg INH Q6H PRN PRN Reason: SOB/WHEEZING Last Admin: 10/25/17 07:28 Dose: 2.5 mg Aspirin (Aspirin Ec Low Dose*) 81 mg PO QAM MAGGI Last Admin: 10/25/17 08:18 Dose: 81 mg Clonazepam (Klonopin Tab(*)) 0.5 mg PO TID PRN PRN Reason: ANXIETY Last Admin: 10/24/17 21:13 Dose: 0.5 mg Docusate Sodium (Colace Cap*) 100 mg PO BID PRN PRN Reason: CONSTIPATION Last Admin: 10/24/17 09:29 Dose: 100 mg Escitalopram Oxalate (Lexapro (Nf)) 20 mg PO BEDTIME MAGGI Last Admin: 10/24/17 21:14 Dose: 20 mg Guaifenesin (Mucinex*) 1,200 mg PO BID [facility] Last Admin: 10/25/17 08:19 Dose: 1,200 mg Heparin Sodium (Porcine) (Heparin Vial(*)) 5,000 units SUBCUT Q8HR [facility] Last Admin: 10/25/17 06:51 Dose: 5,000 units Lactobacillus Rhamnosus (Culturelle*) 1 cap PO BID [facility] Last Admin: 10/25/17 08:19 Dose: 1 cap Levofloxacin (Levaquin Tab*) 750 mg PO DAILY [facility] Last Admin: 10/25/17 08:19 Dose: 750 mg Levothyroxine Sodium (Synthroid Tab*) 100 mcg PO BEDTIME [facility] Last Admin: 10/24/17 21:08 Dose: 100 mcg Meloxicam (Mobic(Nf)) 7.5 mg PO BID [facility] Last Admin: 10/25/17 08:19 Dose: 7.5 mg Oxybutynin Chloride (Ditropan Xl Tab*) 15 mg PO BEDTIME [facility] Last Admin: 10/24/17 21:39 Dose: 15 mg Prednisone (Deltasone Tab*) 40 mg PO DAILY [facility] Last Admin: 10/25/17 08:19 Dose: 40 mg Fluticasone/Salmeterol (Advair Hfa 23o/21 (Nf)) 1 puff INH BID [facility] PRN Reason: Protocol Last Admin: 10/25/17 07:39 Dose: 1 puff Senna (Senokot Tab*) 1 tab PO DAILY PRN PRN Reason: CONSTIPATION Sodium Chloride (Sodium Chloride(Inhalant) 3%*) 3 ml INH [id number] AWAKE [facility] Last Admin: 10/25/17 07:28 Dose: 3 % Voriconazole (Vfend (Nf)) 200 mg PO Q12H [facility] Vital Signs: Temp Pulse Resp BP Pulse Ox 98.0 F 72 14 109/45 99 10/25/17 08:26 10/25/17 08:26 10/25/17 08:26 10/25/17 08:26 10/25/17 08:26 Oxygen Devices in Use Now: None Appearance: Well appearing, in NAD Respiratory: Symmetrical Chest Expansion and Respiratory Effort, - - coarse breath sounds at lung bases bilaterally Cardiovascular: NL Sounds; No Murmurs; No JVD, RRR Abdominal: NL Sounds; No Tenderness; No Distention Extremities: No Edema Skin: No Rash or Ulcers Neurological: Alert and Oriented x 3 Result Diagrams: 10/25/17 08:13 10/25/17 08:13 Additional Lab and Data: . Assess/Plan/Problems-Billing Assessment: Patient is a 67yo female with a PMH significant for COPD, Bronchiectasis, recurrent UTI, RA and autoimmune hepatitis who presents with bronchiectasis exacerbation due to pseudomonas and a pseudomonas UTI. - Patient Problems (1) Bronchiectasis Comment: Appreciate pulmonology and ID consult. LL base with consolidation, noted on CTA 10/17/17. Completed 7 days of meropenem Started Levaquin for an additional 7d Cont prednisone 40 mg daily. 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 Started on empiric voriconazole 400mg Q12Hx2 and 200mg Q12H afterwards. Testing pending. Plan to dc to itraconazole per ID recommendations. Both urine and lung pseudomonas sensitive to meropenum and levaquin. On probiotic (2) Lung nodule Comment: NALDO 1 cm nodule, uncertain etiology. Dr. Ocampo recommends repeat CT in 6 weeks. Could be due to fungal infection per ID. (3) COPD (chronic obstructive pulmonary disease) Comment: stable. follows with Dr. Ocampo as outpt. continue mucinex, home inhalers (4) GERARDO (obstructive sleep apnea) Comment: Compliant with BiPAP (5) Rheumatoid arthritis Comment: Held plaquenil due to concerns for exacerbation of bronchiectasis. On no other DMARD. Pain controlled with Mobic. Follow up with rhematology outpatient. (6) Depression Comment: Cont lexapro Stable (7) DVT prophylaxis Comment: Heparin sub q (8) Full code status Status and Disposition: Patient is admitted inpatient. Anticipate likely dc tomorrow
--- NOTE | 2017-10-25 15:07 | PN ---
Progress Note - Progress Note Date of Service: 10/25/17 - Pulm f/u note Note: Pt seen and examined at bedside. Pt reports feeling better, mucomyst is helping to thin phleghm. Is hopeful to going home tomorrow Active Medications Generic Name Dose Route Start Last Admin Trade Name Freq PRN Reason Stop Dose Admin Acetaminophen 650 mg 10/17/17 20:39 10/25/17 10:16 Tylenol Tab* PO 650 mg Q4H PRN Administration FEVER/PAIN Acetylcysteine 400 mg 10/23/17 13:12 10/25/17 07:28 Mucomyst Inhalation Trish* INH 400 mg Q4H PRN Administration CONGESTION Albuterol 2.5 mg 10/18/17 15:15 10/25/17 13:11 Ventolin 2.5 Mg/3 Ml Neb.Trish* INH 2.5 mg Q6H PRN Administration SOB/WHEEZING Aspirin 81 mg 10/18/17 09:00 10/25/17 08:18 Aspirin Ec Low Dose* PO 81 mg QAM MAGGI Administration Clonazepam 0.5 mg 10/17/17 21:03 10/24/17 21:13 Klonopin Tab(*) PO 0.5 mg TID PRN Administration ANXIETY Docusate Sodium 100 mg 10/23/17 16:37 10/24/17 09:29 Colace Cap* PO 100 mg BID PRN Administration CONSTIPATION Escitalopram Oxalate 20 mg 10/17/17 23:45 10/24/17 21:14 Lexapro (Nf) PO 20 mg BEDTIME [facility] Administration Guaifenesin 1,200 mg 10/19/17 21:00 10/25/17 08:19 Mucinex* PO 1,200 mg BID [facility] Administration Heparin Sodium (Porcine) 5,000 units 10/17/17 22:00 10/25/17 14:08 Heparin Vial(*) SUBCUT 5,000 units Q8HR [facility] Administration Lactobacillus Rhamnosus 1 cap 10/18/17 21:00 10/25/17 08:19 Culturelle* PO 1 cap BID [facility] Administration Levofloxacin 750 mg 10/25/17 09:00 10/25/17 08:19 Levaquin Tab* PO 750 mg DAILY [facility] Administration Levothyroxine Sodium 100 mcg 10/17/17 21:00 10/24/17 21:08 Synthroid Tab* PO 100 mcg BEDTIME [facility] Administration Meloxicam 7.5 mg 10/17/17 21:00 10/25/17 08:19 Mobic(Nf) PO 7.5 mg BID [facility] Administration Oxybutynin Chloride 15 mg 10/17/17 23:45 10/24/17 21:39 Ditropan Xl Tab* PO 15 mg BEDTIME [facility]GI Administration Prednisone 40 mg 10/25/17 09:00 10/25/17 08:19 Deltasone Tab* PO 40 mg DAILY [facility] Administration Fluticasone/Salmeterol 1 puff 10/18/17 01:08 10/25/17 07:39 Advair Hfa 23o/21 (Nf) INH 1 puff BID [facility] Administration Protocol Senna 1 tab 10/23/17 16:37 Senokot Tab* PO DAILY PRN CONSTIPATION Sodium Chloride 3 ml 10/18/17 01:00 10/25/17 13:14 Sodium Chloride(Inhalant) 3%* INH 3 % [id number] AWAKE MAGGI Administration Voriconazole 200 mg 10/25/17 18:00 Vfend (Nf) PO Q12H [facility] Vital Signs Temp Pulse Resp BP Pulse Ox 98.9 F 78 16 131/61 98 10/25/17 11:54 10/25/17 13:20 10/25/17 11:54 10/25/17 11:54 10/25/17 13:20 O/E: Pt in NAD, alert, awake, orientedx3 HEENT: PERRLA, No JVD Lungs: Good a/e b/l, improved crackles at bases, no wheeze CVS: S1, S2+, regular, no murmer Abd: Sof, BS+, NT, ND Ext: NO edema, Normal ROM Skin: NO rash or bruise Neuro: No focal defecits Labs: No recent labs Sputum cx: Pseudomonas aeurugnosa Urine cx: Pseudomonas aeurugnosa CT chest: Air space opacities with dense consolidations in LL, nodular opacity in NALDO, new compared to prior CT chest from 2015, no signficant lymphadenopathy , bronchectasis at bases, Left >Rt I/R: 67 y o f with RA, bronchiectaiss, frequent bronchitis, IgG def a/w worsening SOB, cough productive of green phleghm after failing out pt therapy for Pseumnas PNA currently on Meropenem with slow improvement in sx Completed 7 day course of Meropenem and will be completing Levaquin for 7 days Started on antifungal yesterday c/w bronchodilators, nebulized salne Mucomyst is helping Pt compliant with flutter valve Lung nodule, likely inflammatory, will f/u with rpt CT chest in 6 weeks GERARDO on BiPAP, tried dream wear nasal mask last night, slept better Will f/u in 2-3 weeks in pulm clinic
[2017-10-25 17:16] LABS: Cryptococcus Antigen w/Titer Negative (Negative)
[2017-10-25] MEDS: clonazePAM TAB(*) 0.5 MG PO PRN (22:00)
[2017-10-25] MEDS: CMCS:Escitalopram (NF) 10 MG TAB PO SCH (22:00)
[2017-10-25] MEDS: Oxybutynin XL TAB* 5 MG PO SCH (22:00)
[2017-10-25] MEDS: Levothyroxine TAB* 100 MCG TAB PO SCH (22:02)
[2017-10-26] MEDS: Sodium Chloride(INHALANT) 3%* 4 ML NEB.SOLN INH SCH ×3 (00:41→13:45)
[2017-10-26] MEDS: Heparin VIAL(*) 5000 UNITS/ML VIAL (FIVE THOUSAND) SUBCUT SCH (06:50)
[2017-10-26] MEDS: CMCS Voriconazole (NF) 50 MG TAB PO SCH (06:50)
[2017-10-26] MEDS: Albuterol 2.5 MG/3 ML NEB.SOL* (0.083%) INH PRN (08:25)
[2017-10-26] MEDS: Acetylcysteine INHALATION SOL* 200 MG/ML NEB.SOLN 10 ML INH PRN (08:30)
[2017-10-26] MEDS: guaiFENesin ER TAB 600 MG PO SCH (08:49)
[2017-10-26] MEDS: Lactobacillus Acidophilu (GG)* 1 CAP CAP PO SCH (08:49)
[2017-10-26] MEDS: Aspirin EC Low Dose* 81 MG TAB.EC PO SCH (08:49)
[2017-10-26] MEDS: CMCS:Meloxicam(NF) 7.5 MG TAB PO SCH (08:49)
[2017-10-26] MEDS: Levofloxacin TAB* 750 MG PO SCH (08:50)
[2017-10-26] MEDS: predniSONE TAB* 20 MG PO SCH (08:50)
[2017-10-26] MEDS: PTO:Fluticas/Salmet 230/21 HFA(NF) MDI INH SCH (09:25)
[2017-10-26 10:50] VITALS: BP 120/57
--- NOTE | 2017-10-27 01:59 | DS ---
CC: Dr. Campbell; Dr. Ryan; Dr. Ocampo * DISCHARGE SUMMARY: DATE OF ADMISSION: 10/17/17 DATE OF DISCHARGE: 10/26/17 PRIMARY CARE PROVIDER: Dr. Campbell. PRIMARY TECHNOLOGY INTERN: Dr. Ocampo. INFECTIOUS DISEASE SPECIALIST: Dr. Ryan. DISCHARGING PROVIDER: ANNIE Martinez SUPERVISING PHYSICIAN: Dr. Digna Marrero * (DICTATED BY ANNIE MARTINEZ) PRIMARY DISCHARGE DIAGNOSES: 1. Bronchiectasis exacerbation with Pseudomonas isolated from the sputum with question of allergic bronchopulmonary aspergillosis. 2. Lung nodule - likely inflammatory in origin, but requires repeat imaging in approximately [address] scan. SECONDARY DISCHARGE DIAGNOSES: 1. Chronic obstructive pulmonary disease without acute exacerbation. 2. Obstructive sleep apnea, compliant with BiPAP. 3. Rheumatoid arthritis without active symptoms - Plaquenil held at this time. 4. Depression. DISCHARGE MEDICATIONS: 1. Mucomyst solution inhaled 400 mg every 4 hours as needed for congestion. 2. Nebulized albuterol every 6 hours as needed for shortness of breath or cough. 3. Aspirin 81 mg p.o. daily. 4. Calcium and vitamin D 1 tablet p.o. twice daily. 5. Lexapro 20 mg p.o. daily. 6. Advair 1 puff inhaled twice daily. 7. Guaifenesin 1200 mg p.o. twice daily. 8. Plaquenil - held until advised to resume by Dr. Ryan. 9. Itraconazole solution 200 mg p.o. twice daily x8 weeks. 10. Lactobacillus 1 capsule p.o. twice daily. 11. Levaquin 750 mg p.o. daily x6 days. 12. Levothyroxine 100 mcg p.o. at bedtime. 13. Melatonin 60 mg p.o. at bedtime. 14. Meloxicam 7.5 mg p.o. twice daily. 15. Multivitamin 1 tablet p.o. daily. 16. Glade-3 fatty acid 1 capsule p.o. daily. 17. Oxybutynin 15 mg p.o. daily. 18. Prednisone 40 mg daily tapering by 5 mg each week. 19. Nebulized saline twice daily. Medication changes: 1. Hold Plaquenil. 2. Start Mucomyst nebulized solution. 3. Itraconazole x8 weeks. 4. Levaquin x6 days. 5. Prednisone and a tapering dose as described above. HOSPITAL IMAGIN. Chest x-ray shows a small left basilar infiltrate. 2. CTA of the chest shows no PE. There is progressive interstitial fibrosis with increased consolidation at the left lung base. There is a new 1 cm left upper lobe nodule, which is slightly irregular in shape. HOSPITAL COURSE: This is a 67-year-old female chronically followed by Dr. Ocampo for bronchiectasis with a history of COPD, who presented to the emergency department with increased cough with purulent sputum. The patient had been on antibiotics for nearly 6 weeks prior to her hospitalization including a course of Levaquin and doxycycline without improvement at the direction of Dr. Ocampo. Her symptoms continued to progress and she subsequently presented to the emergency department for further evaluation. Dr. Ocampo suggested the time was for admission for IV meropenem. Initial chest x- ray suggested left basilar infiltrate, CTA of the chest was completed due to a mildly elevated D-dimer, which showed some interstitial fibrosis, also with increased consolidation at the left lung base and also 1 cm nodule. The patient was subsequently started on IV meropenem per Dr. Ocampo's recommendations. The patient was afebrile. No leukocytosis and her initial chemistries were really unremarkable. CRP at the time of admission was only mildly elevated at 8.6. Sputum sample isolated Pseudomonas sensitive to quinolones and meropenem. Interestingly, her urine culture also grew Pseudomonas with a similar resistance pattern. The patient completed 7 days of IV meropenem and then was transitioned to oral Levaquin with plans to complete an additional 7 days. The patient improved only slightly in terms of her sputum production and associated dyspnea. There was question as to whether she may have invasive aspergillosis. Infectious Disease specialist, Dr. Andres Ryan was consulted who felt that invasive aspergillosis was less likely, but perhaps an allergic bronchopulmonary response was possible. The patient was treated with corticosteroids, which improved her feelings of dyspnea and also empirically started on voriconazole with recommendations to transition to itraconazole liquid solution at the time of discharge for better absorption. IgE levels were within normal limits and cryptococcus antigen was also noted to be negative. At the time of discharge, the patient was still having a productive cough, mostly with purulent sputum, but introduction of Mucomyst made it easier to clear her secretions. Her dyspnea resolved and she was able to reproduce usual home activities without significant dyspnea or cough. DISPOSITION AND FOLLOWUP PLAN: The patient is being discharged to home with medication changes as outlined above. She requires follow up with her primary care provider as well as Dr. Ocampo and Dr. Ryan. The patient has a scheduled follow up with Dr. Ocampo for November 06 and needs to see Dr. Ryan in approximately 2 weeks. She requires a repeat CT scan for evaluation of a pulmonary nodule in approximately 6 weeks, which will be ordered by Dr. Ocampo. She is to complete an additional 6 days of Levaquin, continue Mucomyst as needed for congestion. She will be treated with a total of 8 weeks of itraconazole and Plaquenil continued to be held until advised to resume by Dr. Ryan. ANNIE MARTINEZ [id number]/[facility] #: [id number] [facility] HOSPITALRema
== END 2017-10-26 13:00 | disposition home or self-care (01) | DRG 196 ==
LOC: ED 14:24 → MED 19:52
PROVIDERS: ADMIT Internal Medicine; ATTEND Internal Medicine
DX: B44.81 Allergic bronchopulmonary aspergillosis (principal); J15.1 Pneumonia due to Pseudomonas; I48.91 Unspecified atrial fibrillation; D80.3 Selective deficiency of immunoglobulin G [IgG] subclasses; J47.0 Bronchiectasis with acute lower respiratory infection; N39.0 Urinary tract infection, site not specified; J47.1 Bronchiectasis with (acute) exacerbation; J44.1 Chronic obstructive pulmonary disease with (acute) exacerbation; K75.4 Autoimmune hepatitis; M06.9 Rheumatoid arthritis, unspecified; G47.33 Obstructive sleep apnea (adult) (pediatric); E03.9 Hypothyroidism, unspecified; E66.9 Obesity, unspecified; F32.9 Major depressive disorder, single episode, unspecified; Z96.643 Presence of artificial hip joint, bilateral; Z96.652 Presence of left artificial knee joint; I73.9 Peripheral vascular disease, unspecified; M19.90 Unspecified osteoarthritis, unspecified site; H26.9 Unspecified cataract; F41.9 Anxiety disorder, unspecified; R40.2412 Glasgow coma scale score 13-15, at arrival to emergency department; R91.1 Solitary pulmonary nodule; B96.5 Pseudomonas (aeruginosa) (mallei) (pseudomallei) as the cause of diseases classified elsewhere; K59.00 Constipation, unspecified; R42 Dizziness and giddiness; Z16.24 Resistance to multiple antibiotics; J84.10 Pulmonary fibrosis, unspecified; Z68.30 Body mass index [BMI] 30.0-30.9, adult; Z88.2 Allergy status to sulfonamides; Z88.1 Allergy status to other antibiotic agents; Z88.8 Allergy status to other drugs, medicaments and biological substances; Z82.3 Family history of stroke; Z82.61 Family history of arthritis; Z83.3 Family history of diabetes mellitus; Z82.49 Family history of ischemic heart disease and other diseases of the circulatory system; Z87.891 Personal history of nicotine dependence; Z87.440 Personal history of urinary (tract) infections; Z87.01 Personal history of pneumonia (recurrent); Z79.82 Long term (current) use of aspirin; R07.9 Chest pain, unspecified; R06.02 Shortness of breath; R05 Cough
CPT/HCPCS: 36415; 71020; 71275; 77067; 77080; 80048; 80053; 81003; 81015; 82550; 82553; 82785; 83605; 83690; 83735; 83880; 84443; 84484; 85025; 85379; 85610; 85730; 86140; 86141; 87040; 87070; 87077; 87086; 87186; 87205; 87899; 93005; 94640; 94660; 94760; A9270-GY; G0202; J1644; J2185; J2270; J2920; J2930; J7512; Q9967

== ENCOUNTER 2017-11-13 13:41 | Emergency (ER) | payer MEDICARE, OTHER ==
--- OUTSIDE RECORDS SUMMARY | 2017-11-13 13:53 | XMS REPORT ---
:1950 External Reference #:[id number] Author Organization [facility] Address [address] [address] Phone [phone] Care Team Providers Name Role Phone Lew Campbell MD Care Team Information Scrip Clerk Unavailable Lew Campbell MD Primary Care Physician Unavailable Payers Type Date Identification Numbers Payment Provider Subscriber Medicare Primary Policy Number: [id number] Medicare Melida Torres PayID: [id number] [address] [place] [address] Commercial Effective: 2017 Policy Number: [id number] La Vinakoko Torres Group Name: [id number] [address] PayID: [id number] [place] [address] Commercial Expires: 2017 Policy Number: Total Care/Juan Carlos Torres [id number] [facility] PayID: [id number] [address] [address] [place] [address] Problems Date Description Provider Status Onset: 02/20/2016 Obstructive sleep apnea syndrome Lisbeth Ocampo MD Active Onset: 02/20/2016 Bronchiolectasis Lisbeth Ocampo MD Active Onset: 02/20/2016 Obesity Lisbeth Ocampo MD Active Onset: 02/20/2016 Asthma without status asthmaticus Lisbeth Ocampo MD Active Onset: 04/27/2016 Acute exacerbation of bronchiectasis Lisbeth Ocampo MD Active Onset: 09/24/2016 Localized, primary osteoarthritis of the Rachel Mead M.D. Active pelvic region and thigh Onset: 01/23/2017 Localized, primary osteoarthritis Rachel Mead M.D. Active Onset: 04/05/2017 Arthroplasty of knee Rachel Boston, M.D. Active Family History Date Family Member(s) Problem(s) Comments General heart, diabetes, cancer General Depression General Hypertension General Stroke General Rheumatoid Arthritis Father due to sudden cardiac () Father Cerebrovascular Accident (CVA) Mother due to sudden cardiac () Mother Rheumatoid Arthritis Siblings 4 Siblings 1 brother- of DM, HTN, CHF (at another brother GERD 1 age 60) sister DM another sister - allergies Social History Type Date Description Comments Marital Status Significant Other Lives With other Lives With Female Partner Occupation Retired Previously worked as [employer] Cigarette Use Former Cigarette Smoker ETOH Use Drinks Alcoholic Beverages 3x per month Occasionally Smoking Patient is a former smoker smoked for 8 years less than 1PPD, quit 25yrs ago Recreational Drug Use Denies Drug Use Daily Caffeine Consumes on average 2 cups of regular coffee per day Exercise Type/Frequency Exercises regularly Exercise Type/Frequency Does aerobics 3 times a week Water aerobics 2x per week. Land aerobics 1x per week Allergies, Adverse Reactions, Alerts Date Description Reaction Status Severity Comments 03/14/2015 Sulfa Antibiotics Urticaria, throat swelling active 05/22/2016 Cipro Urticaria, throat swelling active 10/18/2016 Effexor active Medications Medication Date Status Form Strength Qnty SIG Indications Ordering Provider Itraconazole 11/07 Active Capsules 100mg 120ca 2 cap twice J47.1 Ghulam ps daily Brandon Paredes M.D. Acetylcysteine 10/31 Active Solution 200mg/ml 90ml 1 unit Lisbeth nebulizer, q Damaris, 6hrs prn Mucinex 10/28 Active Tablets ER 600mg 60tab 1200mg Lisbeth /2017 12HR s tablets twice Damaris, daily Albuterol 09/20 Active Nebulizer 0.63mg/3M 225ml 1 unit, nebl, J47.1 Lisbeth Sulfate L every 6 Damaris, hours, as MD needed Nebulizer 09/20 Active Kit 1unit 1 unit J47.1 Lisbeth Kit/Tubing/Mout /2016 s nebulization Damaris, hpiece every 4- 6 MD hours as needed Saline Flush ZR 09/20 Active Solution 0.9% 1000m 5cc flush for Lisbeth l clearance of Damaris, secretions 2 MD times a day as needed Advair HFA 09/20 Active Aerosol 230-21mcg 12uni inhale 1 puff Lisbeth /Act ts by mouth Damaris twice daily Amoxicillin 09/04 Active Capsules 500mg 4caps 4 tablets 1 hour before Boston, dental work M.D. 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 Flutter 02/20/2016 Active Device 1un use as J47 Lisbeth its instructed .9 MD Damaris twice a day Melatonin Active Tablets 30m 2 by mouth at Unknown g bedtime Multivitamins Active Capsules 1 by mouth Unknown every day Escitalopram Oxalate Active Tablets 20m 1 by mouth Unknown g every day Levothyroxine Sodium Active Solution Rec 100 once a day Unknown mcg Calcium 1200 Active Chewtabs 120 1/2 half tab Unknown 0-1 2x per day 000 with food in mg- stomach Uni t Oxybutynin Chloride Active Tablets ER 15m once daily Unknown ER 24HR g Sporanox Active Solution 10m 200mg bid Unknown g/m (CMC DC) l Clonazepam Active Tablets 0.5 take 1 tablet Unknown mg by mouth at bedtime if needed maximum daily dose of 1 Probiotic Active Capsules 1 by mouth Unknown every day Tumeric Active qhs Unknown Prednisone Active Tablets taper Unknown Calcium 1000 + D Active Tablets 120 1 by mouth Unknown 0-8 every day 00m g-U nit Sodium Chloride 11/04/2017 - Hx Nebulizer 0.9 150 1 unit twice Lisbeth 11/05/2017 % 0ml daily MD Damaris Prednisone 10/14/2017 - Hx TBPK 10m 21u 4 tabs day#1, J47 Lisbeth 11/05/2017 g nit 3 tabs day#2, .1 MD Damaris (21 s 2 tabs day#3, ) 1 tab for 7 days Doxycycline Hyclate 10/14/2017 - Hx Capsules 100 20c one tablet J47 Lisbeth 11/05/2017 mg aps twice daily .1 MD Damaris for 10 days. Nebusal 09/20/2017 - Hx Nebulizer 3% 240 1 unit twice J47 Lisbeth 11/05/2017 ml daily for 1 .1 MD Damaris week Hydroxychloroquine 08/30/2017 - Hx Tablets 200 180 take one M05 Zsofia Sulfate 11/05/2017 mg tab tablet by .79 Anatoliy, s mouth twice a PHARMACY CLINICAL SPECIALIST day Levaquin 08/13/2017 - Hx Tablets 750 10t 1 tab by Lisbeth 08/30/2017 mg abs mouth daily MD Damaris for 10 days Guaifenesin ER 07/01/2017 - Hx Tablets ER 120 60t 1 tablet by J47 Lisbeth 11/05/2017 12HR 0mg abs mouth twice .9 MD Damaris daily as needed for mucus Doxycycline Hyclate 05/28/2017 - Hx Tablets 100 10t 1 by mouth a Lisbeth 06/09/2017 mg abs day MD Damaris Guaifenesin 05/15/2017 - Hx Solution 300 500 10-15 ML by Lisbeth 05/17/2017 mg/ ml mouth twice MD Damaris 15M daily L Oxycodone HCL ER 03/24/2017 - Hx Tab ER 12H 10m 20t Take 1 by Rachel 04/05/2017 Abuse-Det g abs mouth every Boston, 12 hours M.D. Macrobid 03/12/2017 - Hx Capsules 100 10c take one tab Rachel 05/28/2017 mg aps twice a day Boston, for 5 days M.D. Coumadin 03/11/2017 - Hx Tablets 2mg 90t take 1-3 tabs Rachel 05/28/2017 abs by mouth at 5 Boston, at night as M.D. directed Senna Plus 03/11/2017 - Hx Tablets 8.6 60t take one tab Rachel 05/28/2017 -50 abs twice a day Boston, mg as needed. M.D. Doxycycline Hyclate 12/21/2016 - Hx Tablets DR 100 14t 1 by mouth a Lisbeth 03/09/2017 mg abs day MD Damaris Compression Stockings 11/07/2016 - Hx Misc 1un M25 Rachel 09/20/2017 its .55 Boston, 2 M.D. Compression Stockings 11/07/2016 - Hx Misc 1un Rachel 09/20/2017 its Veronica Mead Oxycodone-Acetaminoph 10/24/2016 - Hx Tablets 5-3 90t 1 tabs by Rachel en 09/20/2017 25m abs mouth every 6 Boston, g hours as M.D. needed for pain Coumadin 10/24/2016 - Hx Tablets 2mg 60t take 1-3 tabs Rachel 11/25/2016 abs by mouth at 5 Boston, at night as M.D. directed Colace 10/24/2016 - Hx Capsules 100 60c 1 tab by Rachel 12/18/2016 mg aps mouth twice a Boston, day as needed M.D. Cane/Wood/Standard/Bl 10/10/2016 - Hx [facility] 05/25 1un use as needed Rachel ack " 09/20/2017 " its Veronica Mead Azithromycin 09/24/2016 - Hx Tablets 500 7ta 1 tablet by J20 Lisbeth 10/17/2016 mg bs mouth daily .9 MD Damaris for 7 days Meloxicam 09/12/2016 - Hx Tablets 7.5 180 take one tab M05 Yefri 05/28/2017 mg tab twice daily .79 Sandra, s as needed for M.D. pain, avoid other nsaids Z79.899 Plaquenil 05/31/2016 - Hx Tablets 200mg 180tabs Please take 2 Yefri 09/12/2016 by mouth Sandra, daily ongoing M.D. ( Pt states that she is not taking ) Lidocaine 5% 04/27/2016 - Hx apply as Lisbeth 10/23/2016 directed MD Damaris Prednisone 04/27/2016 - Hx Tablets 20mg 30tabs 3 tabs daily J4 Lisbeth 09/03/2016 for 3 days, 2 7. MD Damaris tabs daily 1 for 3 days, 1 tab daily for 7 days, 1/2 tab for 14 days Levofloxacin 04/27/2016 - Hx Tablets 750mg 7tabs 1 by mouth J4 Lisbeth 05/22/2016 every day 7. MD Damaris 1 Ciprofloxacin HCL 04/27/2016 - Hx Tablets 750mg 10tabs 1 by mouth Lisbeth 09/03/2016 twice a day MD Damaris Desoximetasone 04/26/2016 - Hx Cream 0.25% apply twice a Unknown 10/23/2016 day on the rash prn Mupirocin 04/26/2016 - Hx Ointment 2% apply as Unknown 10/23/2016 directed Tylenol Extra 03/16/2016 - Hx Tablets 500mg 2 by mouth Unknown Strength 03/21/2016 twice daily (03/19/16 on hold per pt) Naproxen Sodium 03/16/2016 - Hx Capsules 220mg 3 po twice E5 Unknown 09/12/2016 daily 5. 9 Advair HFA 02/20/2016 - Hx Aerosol 115-21m 36gm 1 puff twice J4 Lisbeth 09/20/2017 cg/Act daily 5. MD Damaris 90 9 Flovent Diskus 02/17/2016 - Hx Aerosol 250mcg/ 1 puff twice Unknown 03/06/2016 Blist a day Clonazepam 02/17/2016 - Hx Tablets 0.5mg as needed/as Unknown 10/23/2016 Dispers directed by mouth Cardizem 10/04/2015 - Hx Tablets 30mg 60tabs 1 by mouth Qutaybeh 10/26/2015 twice a day Francois Jacinto M.D. Aspirin Ec - Hx 325mg Unknown 08/28/2015 Advair Diskus - Hx Unknown 08/29/2015 Levothroid - Hx Tab 100mcg 1 po qd Unknown 05/28/2017 (0.1 mg) Oxybutynin - Hx 20mg Unknown Chloride ER 05/08/2015 Calcium 600 + D3 - Hx Tab 2 tablet Unknown 400Uni 01/19/2016 every third day Probiotic - Hx Unknown 08/28/2015 Flonase Allergy - Hx Suspension 50mcg/A 2 intranasal Unknown Relief 10/23/2016 ct once a day prn Fluoxetine HCL - Hx Capsules 20mg 3 by mouth Unknown 09/12/2016 every day Advair HFA - Hx Aerosol 115-21m 2 puff twice Unknown 11/08/2015 cg/Act a day Azathioprine - Hx Tablets 50mg 1 by mouth Unknown 10/03/2015 every day Clonazepam - Hx Tablets 0.5mg 1 po as Unknown 10/03/2015 needed Omeprazole - Hx Capsules DR 20mg 1 by mouth Unknown 01/19/2016 every day prn Proventil HFA - Hx Aerosol 108(90B 2 puffs by Unknown 10/23/2016 ase) mouth every 4 mcg/Act hours prn Vagifem - Hx Tablets 10mcg by way of Unknown 09/01/2015 vagina 3 times a week (with applicator) Valacyclovir HCL - Hx Tablets 1gm 2 po once Unknown 01/19/2016 daily for 1day repeat for outbreaks prn Probiotic - Hx Capsules 1 by mouth Unknown 01/19/2016 every day prn Myrbetriq - Hx Tablets ER 50mg 1 by mouth Unknown 09/03/2016 24HR every day Metoprolol - Hx Tablets 25mg 30tabs take 1/2 Qutaybeh Tartrate 01/19/2016 tablet twice S. a day Veronica Jacinto Trazodone HCL - Hx Tablets 50mg 1 tablet po Unknown 01/19/2016 daily PM Mucinex - Hx daily Unknown 03/09/2017 Calcium 1000 + D - Hx Tablets 1000-80 once daily Unknown 03/06/2016 0mg-Uni t Magnesium - Hx Capsules 500mg 1 by mouth Unknown 03/06/2016 every day Potassium - Hx 1600mg once daily Unknown 02/17/2016 Vitamin D3 - Hx Capsules [id number] one daily Unknown 09/25/2016 it Premarin - Hx Cream 0.625mg use1 Unknown 07/05/2016 / applicator intavaginal 2x per week Cipro - Hx Tablets 1 by mouth Unknown 03/16/2016 twice a day [place] Calcium - Hx Capsules 2 po daily Unknown Plus 09/25/2016 Probiotic - Hx Capsules 1 by mouth Unknown 03/09/2017 every day Keflex - Hx Capsules 500mg one tablet Unknown 09/12/2016 three times a day onging, prophy Lexapro - Hx Tablets 10mg 1 by mouth Unknown 09/25/2016 every day Calcium + D3 - Hx every day by Unknown 12/18/2016 mouth Keflex - Hx Capsules 500mg one tablet Unknown 11/06/2016 three times a day x 5 days Macrobid - Hx Capsules 100mg 1 tab by Unknown 12/04/2016 mouth twice a day x 7 days Ferrous Sulfate - Hx Tablets 325mg 1 pill daily Unknown 05/28/2017 Myrbetriq - Hx Tablets ER 50mg 1 by mouth Unknown 05/28/2017 24HR every day Senna Plus - Hx Tablets 8.6-50m 1 by mouth Unknown 05/28/2017 g every day Enablex - Hx Tablets ER 15mg 1 po qd Unknown 06/14/2017 24HR Detrol - Hx 15mg Unknown 08/30/2017 Wellness Formula - Hx bid Unknown 11/05/2017 Macrobid - Hx Capsules 100mg 1 tab by Unknown 11/05/2017 mouth twice a day x 7 days Medications Administered in Office Medication Date Status Form Strength Qnty SIG Indications Ordering Provider Influenza,Unspec 08/26/ Administered Injection Unknown ifi2016 Triamcinolone 08/20/ Administered Injection Yefri (Kenalog) 2016 Veronica Flores Triamcinolone 08/20/ Administered Injection Yefri (Kenalog) 2016 Veronica Flores Depomedrol 40MG 01/23/ Administered Injection Rachel 2016 Veronica Mead Triamcinolone 07/05/ Administered Injection Yefri (Kenalog) 2015 Veronica Flores Depomedrol 80MG 09/08/ Administered Injection Mina 2014 Veronica oRmero Depomedrol 80MG 06/07/ Administered Injection Mina 2014 Veronica Romero Depomedrol 80MG 03/14/ Administered Injection Mina 2014 Veronica Romero Immunizations CPT Code Status Date Vaccine Lot # [id number] Given 08/16/2016 Influenza Virus 3Yrs & Over Vital Signs Date Vital Result Comment 11/07/2017 Height 71 inches 5'11" Weight 228.00 lb Heart Rate 67 /min BP Systolic Sitting 128 mmHg BP Diastolic Sitting 72 mmHg Respiratory Rate 14 /min Body Temperature 98.7 F O2 % BldC Oximetry 96 % BMI (Body Mass Index) 31.8 kg/m2 11/06/2017 Height 71 inches 5'11" Weight 227.38 lb Heart Rate 72 /min BP Systolic Sitting 138 mmHg BP Diastolic Sitting 98 mmHg Respiratory Rate 14 /min O2 % BldC Oximetry 96 % BMI (Body Mass Index) 31.7 kg/m2 10/14/2017 Height 71 inches 5'11" Weight 216.00 lb from last visit Heart Rate 94 /min BP Systolic Sitting 134 mmHg Rue reg cuff BP Diastolic Sitting 78 mmHg Rue reg cuff Respiratory Rate 18 /min O2 % BldC Oximetry 96 % On Ra BMI (Body Mass Index) 30.1 kg/m2 09/20/2017 Height 71 inches 5'11" Weight 216.00 lb Heart Rate 66 /min BP Systolic Sitting 128 mmHg Lue reg cuff BP Diastolic Sitting 78 mmHg Lue reg cuff Respiratory Rate 16 /min O2 % BldC Oximetry 96 % On Ra BMI (Body Mass Index) 30.1 kg/m2 08/30/2017 Height 71 inches 5'11" Weight 214.00 lb pt. states Heart Rate 62 /min BP Systolic Sitting 110 mmHg BP Diastolic Sitting 70 mmHg Respiratory Rate 14 /min Pain Level 5 BMI (Body Mass Index) 29.8 kg/m2 08/20/2017 Height 71 inches 5'11" 07/01/2017 Height 71 inches 5'11" Weight 225.00 lb Heart Rate 72 /min BP Systolic Sitting 96 mmHg BP Diastolic Sitting 62 mmHg Respiratory Rate 14 /min O2 % BldC Oximetry 97 % BMI (Body Mass Index) 31.4 kg/m2 06/14/2017 Height 71 inches 5'11" Weight 226.00 lb Heart Rate 64 /min BP Systolic 114 mmHg BP Diastolic 74 mmHg Respiratory Rate 16 /min Pain Level 0 BMI (Body Mass Index) 31.5 kg/m2 06/10/2017 Height 71 inches 5'11" Weight 226.00 lb w/shoes Heart Rate 86 /min BP Systolic Sitting 108 mmHg LA reg cuff BP Diastolic Sitting 62 mmHg LA reg cuff BMI (Body Mass Index) 31.5 kg/m2 Ejection Fraction 61% Echo 03/16/16 05/28/2017 Height 71 inches 5'11" Weight 225.00 lb Heart Rate 71 /min BP Systolic Sitting 116 mmHg BP Diastolic Sitting 58 mmHg Body Temperature 98.6 F Pain Level 3 BMI (Body Mass Index) 31.4 kg/m2 05/03/2017 Height 71 inches 5'11" Weight 235.00 lb Heart Rate 70 /min BP Systolic 132 mmHg BP Diastolic 76 mmHg Respiratory Rate 16 /min Body Temperature 97.6 F Pain Level 2 BMI (Body Mass Index) 32.8 kg/m2 04/05/2017 Height 71 inches 5'11" Weight 235.00 lb Heart Rate 85 /min BP Systolic 99 mmHg BP Diastolic 54 mmHg Body Temperature 98.5 F Pain Level 3 BMI (Body Mass Index) 32.8 kg/m2 03/11/2017 Height 70 inches 5'10" Weight 230.00 lb Heart Rate 68 /min BP Systolic 110 mmHg BP Diastolic 64 mmHg Body Temperature 98.4 F BMI (Body Mass Index) 33.0 kg/m2 02/20/2017 Height 70 inches 5'10" Weight 230.00 lb Heart Rate 71 /min BP Systolic 129 mmHg BP Diastolic 74 mmHg Respiratory Rate 15 /min Body Temperature 97.4 F Pain Level 7 BMI (Body Mass Index) 33.0 kg/m2 01/23/2017 Height 70 inches 5'10" Weight 230.00 lb Heart Rate 75 /min BP Systolic 92 mmHg BP Diastolic 66 mmHg BMI (Body Mass Index) 33.0 kg/m2 12/18/2016 Height 69.5 inches 5'9.50" Weight 180.00 lb Heart Rate 80 /min BP Systolic Sitting 110 mmHg BP Diastolic Sitting 80 mmHg Respiratory Rate 14 /min Body Temperature 96.7 F Pain Level 5 BMI (Body Mass Index) 26.2 kg/m2 12/12/2016 Height 69.5 inches 5'9.50" Heart Rate 73 /min BP Systolic 118 mmHg BP Diastolic 70 mmHg Respiratory Rate 14 /min O2 % BldC Oximetry 97 % 12/05/2016 Height 69.5 inches 5'9.50" Respiratory Rate 16 /min Pain Level 2 11/07/2016 Height 69.5 inches 5'9.50" Heart Rate 83 /min BP Systolic 120 mmHg BP Diastolic 57 mmHg Pain Level 3 10/24/2016 Height 69.5 inches 5'9.50" Weight 247.00 lb Heart Rate 71 /min BP Systolic 126 mmHg BP Diastolic 74 mmHg BMI (Body Mass Index) 35.9 kg/m2 10/18/2016 Height 69.5 inches 5'9.50" Weight 235.00 lb Heart Rate 85 /min BP Systolic Sitting 132 mmHg BP Diastolic Sitting 72 mmHg Respiratory Rate 16 /min O2 % BldC Oximetry 96 % BMI (Body Mass Index) 34.2 kg/m2 09/26/2016 Height 69.5 inches 5'9.50" Weight 235.00 lb per pt Heart Rate 62 /min BP Systolic Sitting 126 mmHg LA reg cuff BP Diastolic Sitting 70 mmHg LA reg cuff BMI (Body Mass Index) 34.2 kg/m2 Ejection Fraction 61% echo 03/16/16 09/24/2016 Height 69.5 inches 5'9.50" Weight 237.00 lb Heart Rate 84 /min BP Systolic 100 mmHg BP Diastolic 64 mmHg Pain Level 0 moving-10 BMI (Body Mass Index) 34.5 kg/m2 09/12/2016 Height 70 inches 5'10" Weight 233.00 lb Heart Rate 74 /min BP Systolic Sitting 130 mmHg BP Diastolic Sitting 80 mmHg Body Temperature 97.6 F Pain Level 6 BMI (Body Mass Index) 33.4 kg/m2 09/04/2016 Height 70 inches 5'10" Weight 222.00 lb Heart Rate 61 /min BP Systolic 104 mmHg BP Diastolic 62 mmHg Respiratory Rate 14 /min O2 % BldC Oximetry 97 % BMI (Body Mass Index) 31.9 kg/m2 07/05/2016 Height 70 inches 5'10" Weight 222.00 lb Heart Rate 80 /min BP Systolic Sitting 90 mmHg BP Diastolic Sitting 62 mmHg Respiratory Rate 14 /min Body Temperature 97.6 F Pain Level 4 BMI (Body Mass Index) 31.9 kg/m2 06/19/2016 Height 70 inches 5'10" Weight 217.00 lb Heart Rate 77 /min BP Systolic 124 mmHg BP Diastolic 78 mmHg Respiratory Rate 14 /min O2 % BldC Oximetry 95 % BMI (Body Mass Index) 31.1 kg/m2 05/31/2016 Height 70 inches 5'10" Weight 217.50 lb Heart Rate 72 /min BP Systolic Sitting 120 mmHg BP Diastolic Sitting 80 mmHg Respiratory Rate 14 /min Body Temperature 98.2 F Pain Level 5 BMI (Body Mass Index) 31.2 kg/m2 05/22/2016 Height 70 inches 5'10" Weight 216.12 lb Heart Rate 72 /min BP Systolic Sitting 122 mmHg BP Diastolic Sitting 82 mmHg Respiratory Rate 14 /min Body Temperature 97.3 F Pain Level 0 BMI (Body Mass Index) 31.0 kg/m2 04/27/2016 Height 70 inches 5'10" Weight 216.00 lb Heart Rate 74 /min BP Systolic Sitting 118 mmHg BP Diastolic Sitting 76 mmHg Respiratory Rate 16 /min O2 % BldC Oximetry 96 % BMI (Body Mass Index) 31.0 kg/m2 03/30/2016 Height 70 inches 5'10" Weight 216.00 lb Heart Rate 76 /min BP Systolic Sitting 112 mmHg LA reg cuff BP Diastolic Sitting 78 mmHg LA reg cuff BP Systolic Standing 110 mmHg LA BP Diastolic Standing 82 mmHg LA Respiratory Rate 14 /min BMI (Body Mass Index) 31.0 kg/m2 Ejection Fraction 61% 03/16/16 03/19/2016 Height 70 inches 5'10" Weight 216.00 lb Heart Rate 69 /min BP Systolic Sitting 118 mmHg BP Diastolic Sitting 76 mmHg Respiratory Rate 16 /min O2 % BldC Oximetry 98 % BMI (Body Mass Index) 31.0 kg/m2 03/07/2016 Height 70 inches 5'10" Weight 216.00 lb w/o shoes Heart Rate 84 /min BP Systolic Sitting 110 mmHg LA reg cuff BP Diastolic Sitting 78 mmHg LA reg cuff BMI (Body Mass Index) 31.0 kg/m2 Ejection Fraction 50-55% Stress Echo 09/21/15 02/20/2016 Height 70 inches 5'10" Weight 221.38 lb Heart Rate 64 /min BP Systolic Sitting 122 mmHg BP Diastolic Sitting 74 mmHg Respiratory Rate 16 /min O2 % BldC Oximetry 98 % BMI (Body Mass Index) 31.8 kg/m2 Neck Circumference in inches 15.5 01/20/2016 Height 50 inches 4'2" Weight 218.75 lb no shoes Heart Rate 56 /min BP Systolic Sitting 118 mmHg LA reg cuff BP Diastolic Sitting 82 mmHg LA reg cuff BP Systolic Standing 120 mmHg BP Diastolic Standing 84 mmHg Respiratory Rate 14 /min BMI (Body Mass Index) 61.5 kg/m2 Ejection Fraction 50-55% 08/21/15 11/29/2015 Height 50 inches 4'2" Weight 220.25 lb with shoes Heart Rate 62 /min BP Systolic Sitting 90 mmHg Ra reg cuff BP Diastolic Sitting 70 mmHg Ra reg cuff Respiratory Rate 17 /min BMI (Body Mass Index) 61.9 kg/m2 11/09/2015 Height 50 inches 4'2" Weight 224.00 lb with shoes Heart Rate 64 /min BP Systolic Sitting 102 mmHg LA reg cuff BP Diastolic Sitting 64 mmHg LA reg cuff BP Systolic Standing 110 mmHg LA reg cuff BP Diastolic Standing 78 mmHg LA reg cuff Respiratory Rate 17 /min BMI (Body Mass Index) 63.0 kg/m2 Ejection Fraction 50-55% date 08/21/15 ECHO 10/18/2015 Height 69 inches 5'9" Weight 225.00 lb Heart Rate 78 /min BP Systolic Sitting 112 mmHg BP Diastolic Sitting 64 mmHg BMI (Body Mass Index) 33.2 kg/m2 Ejection Fraction 50%-55% 08/21/15 echo 10/04/2015 Height 69 inches 5'9" Weight 225.00 lb with shoes Heart Rate 68 /min BP Systolic Sitting 124 mmHg LA reg cuff BP Diastolic Sitting 78 mmHg LA reg cuff Respiratory Rate 16 /min BMI (Body Mass Index) 33.2 kg/m2 09/08/2015 Height 69 inches 5'9" Weight 218.00 lb Pain Level 4 BMI (Body Mass Index) 32.2 kg/m2 09/02/2015 Height 69 inches 5'9" Weight 218.00 lb Heart Rate 62 /min BP Systolic 102 mmHg right arm, reg cuff BP Diastolic 58 mmHg right arm, reg cuff BP Systolic Sitting 108 mmHg left arm, reg cuff BP Diastolic Sitting 60 mmHg left arm, reg cuff BP Systolic Standing 94 mmHg left arm, reg cuff BP Diastolic Standing 58 mmHg left arm, reg cuff BMI (Body Mass Index) 32.2 kg/m2 Ejection Fraction 50-55% 08/21/15 08/29/2015 Height 69 inches 5'9" Weight 205.00 lb Pain Level 7 BMI (Body Mass Index) 30.3 kg/m2 03/14/2015 Height 69 inches 5'9" Weight 205.00 lb Heart Rate 66 /min BP Systolic 112 mmHg BP Diastolic 56 mmHg Body Temperature 98.3 F Pain Level 7 BMI (Body Mass Index) 30.3 kg/m2 Results Test Date Test Result H/L Range Note Sputum Culture & 10/14/2017 Sputum Culture SEE RESULT BELOW 1 Sensitiv Gram Stain Sputum Culture & 09/20/2017 Sputum Culture SEE RESULT BELOW 2 Sensitiv Gram Stain Laboratory test 09/20/2017 Fungal Culture Id See Comment 3 finding CBC Auto Diff 08/30/2017 White Blood Count 6.6 10^3/uL 3.5-10.8 Red Blood Count 4.40 10^6/uL 4.0-5.4 Hemoglobin 11.7 g/dL Low 12.0-16.0 Hematocrit 36 % 35-47 Mean Corpuscular Volume 83 fL 80-97 Mean Corpuscular Hemoglobin 27 pg 27-31 Mean Corpuscular HGB Conc 32 g/dL 31-36 Red Cell Distribution Width 17 % High 10.5-15 Platelet Count 270 10^3/uL 150-450 Mean Platelet Volume 9 um3 7.4-10.4 Abs Neutrophils 4.3 10^3/uL 1.5-7.7 Abs Lymphocytes 1.3 10^3/uL 1.0-4.8 Abs Monocytes 0.5 10^3/uL 0-0.8 Abs Eosinophils 0.4 10^3/uL 0-0.6 Abs Basophils 0 10^3/uL 0-0.2 Abs Nucleated RBC 0 10^3/uL Granulocyte % 65.3 % 38-83 Lymphocyte % 20.3 % Low 25-47 Monocyte % 8.0 % 1-9 Eosinophil % 5.7 % 0-6 Basophil % 0.7 % 0-2 Nucleated Red Blood Cells % 0 Comp Metabolic Panel 08/30/2017 Sodium 137 mmol/L 133-145 Potassium 4.9 mmol/L 3.5-5.0 Chloride 103 mmol/L 101-111 Co2 Carbon Dioxide 31 mmol/L 22-32 Anion Gap 3 mmol/L 2-11 Glucose 72 mg/dL 70-100 Blood Urea Nitrogen 28 mg/dL High 6-24 Creatinine 0.84 mg/dL 0.51-0.95 BUN/Creatinine Ratio 33.3 High 8-20 Calcium 9.7 mg/dL 8.6-10.3 Total Protein 6.5 g/dL 6.4-8.9 Albumin 4.0 g/dL 3.2-5.2 Globulin 2.5 g/dL 2-4 Albumin/Globulin Ratio 1.6 1-3 Total Bilirubin 0.30 mg/dL 0.2-1.0 Alkaline Phosphatase 168 U/L High 34-104 Alt 14 U/L 7-52 Ast 17 U/L 13-39 Egfr Non- 68.3 >60 Egfr 87.8 >60 4 Laboratory test finding 08/30/2017 C Reactive Protein < 1.00 mg/L &lt ; 5.00 5 Erythrocyte Sed Rate 17 mm/Hr 0-30 Cyclic Citrullinated Pep Igg 221.1 U 6 Vitamin D Total 25(Oh) 37.9 ng/mL 20-50 Comp Metabolic Panel 05/28/2017 Sodium 135 mmol/L 133-145 7 Potassium 4.7 mmol/L 3.5-5.0 7 Chloride 101 mmol/L 101-111 7 Co2 Carbon Dioxide 28 mmol/L 22-32 7 Anion Gap 6 mmol/L 2-11 7 Glucose 78 mg/dL 70-100 7 Blood Urea Nitrogen 22 mg/dL 6-24 7 Creatinine 0.82 mg/dL 0.51-0.95 7 BUN/Creatinine Ratio 26.8 High 8-20 7 Calcium 9.8 mg/dL 8.6-10.3 7 Total Protein 6.6 g/dL 6.4-8.9 7 Albumin 4.0 g/dL 3.2-5.2 7 Globulin 2.6 g/dL 2-4 7 Albumin/Globulin Ratio 1.5 1-3 7 Total Bilirubin 0.40 mg/dL 0.2-1.0 7 Alkaline Phosphatase 227 U/L High 34-104 7 Alt 21 U/L 7-52 7 Ast 27 U/L 13-39 7 Egfr Non- 70.2 >60 7 Egfr 90.3 >60 7, 8 Laboratory test finding 05/28/2017 C Reactive Protein 2.98 mg/L < 5.00 7, 9 Erythrocyte Sed Rate 29 mm/Hr 0-30 7 CBC Auto Diff 05/28/2017 White Blood Count 6.7 10^3/uL 3.5-10.8 7 Red Blood Count 4.22 10^6/uL 4.0-5.4 7 Hemoglobin 11.5 g/dL Low 12.0-16.0 7 Hematocrit 36 % 35-47 7 Mean Corpuscular Volume 85 fL 80-97 7 Mean Corpuscular Hemoglobin 27 pg 27-31 7 Mean Corpuscular HGB Conc 32 g/dL 31-36 7 Red Cell Distribution Width 16 % High 10.5-15 7 Platelet Count 244 10^3/uL 150-450 7 Mean Platelet Volume 9 um3 7.4-10.4 7 Abs Neutrophils 4.9 10^3/uL 1.5-7.7 7 Abs Lymphocytes 1.0 10^3/uL 1.0-4.8 7 Abs Monocytes 0.5 10^3/uL 0-0.8 7 Abs Eosinophils 0.2 10^3/uL 0-0.6 7 Abs Basophils 0 10^3/uL 0-0.2 7 Abs Nucleated RBC 0.01 10^3/uL 7 Granulocyte % 74.1 % 38-83 7 Lymphocyte % 15.5 % Low 25-47 7 Monocyte % 7.0 % 1-9 7 Eosinophil % 3.0 % 0-6 7 Basophil % 0.4 % 0-2 7 Nucleated Red Blood Cells % 0.2 7 Laboratory test finding 05/28/2017 Rheumatoid Factor 61 IU/mL <15 7, 10 Cyclic Citrullinated Pep Igg 214.7 U 7, 11 Hla B27 05/28/2017 Hla B27 Negative 7, 12 Hla B27 Interp See Comment 7, 13 Laboratory test 05/28/2017 Nuclear AB (Marilin) <1:80 (Negative) 7, 14 finding By Ifa Igg CBC Auto Diff 03/11/2017 White Blood Count 6.3 10^3/uL 3.5-10.8 Red Blood Count 4.62 10^6/uL 4.0-5.4 Hemoglobin 12.6 g/dL 12.0-16.0 Hematocrit 39 % 35-47 Mean Corpuscular Volume 84 fL 80-97 Mean Corpuscular Hemoglobin 27 pg 27-31 Mean Corpuscular HGB Conc 32 g/dL 31-36 Red Cell Distribution Width 15 % 10.5-15 Platelet Count 253 10^3/uL 150-450 Mean Platelet Volume 8 um3 7.4-10.4 Abs Neutrophils 4.4 10^3/uL 1.5-7.7 Abs Lymphocytes 1.2 10^3/uL 1.0-4.8 Abs Monocytes 0.5 10^3/uL 0-0.8 Abs Eosinophils 0.2 10^3/uL 0-0.6 Abs Basophils 0 10^3/uL 0-0.2 Abs Nucleated RBC 0 10^3/uL Granulocyte % 69.5 % 38-83 Lymphocyte % 18.5 % Low 25-47 Monocyte % 8.0 % 1-9 Eosinophil % 3.5 % 0-6 Basophil % 0.5 % 0-2 Nucleated Red Blood Cells % 0 Comp Metabolic Panel 03/11/2017 Sodium 136 mmol/L 133-145 Potassium 4.4 mmol/L 3.5-5.0 Chloride 101 mmol/L 101-111 Co2 Carbon Dioxide 30 mmol/L 22-32 Anion Gap 5 mmol/L 2-11 Glucose 86 mg/dL 70-100 Blood Urea Nitrogen 18 mg/dL 6-24 Creatinine 0.69 mg/dL 0.51-0.95 BUN/Creatinine Ratio 26.1 High 8-20 Calcium 9.7 mg/dL 8.6-10.3 Total Protein 6.6 g/dL 6.4-8.9 Albumin 3.9 g/dL 3.2-5.2 Globulin 2.7 g/dL 2-4 Albumin/Globulin Ratio 1.4 1-3 Total Bilirubin 0.30 mg/dL 0.2-1.0 Alkaline Phosphatase 144 U/L High 34-104 Alt 18 U/L 7-52 Ast 21 U/L 13-39 Egfr Non- 85.7 >60 Egfr 110.2 >60 15 Urinalysis Profile 03/11/2017 Urine Color Yellow Urine Appearance Cloudy Urine Specific [place] 1.013 1.010-1.030 Urine pH 6.0 5-9 Urine Urobilinogen Negative Negative Urine Ketones Negative Negative Urine Protein Negative Negative Urine Leukocytes 3+ Negative Urine Blood Negative Negative * * Negative 16 Urine Nitrite Positive Negative Urine Bilirubin Negative Negative Urine Glucose Negative Negative Urine White Blood Cell 3+(>20/hpf) Absent Urine Red Blood Cell Absent Absent Urine Bacteria 1+ Absent Urine Squamous Epithelial Cell Present Absent Inr/Protime 03/11/2017 Inr 1.01 0.89-1.11 Laboratory test finding 03/11/2017 Partial Thrombo Time 34.9 seconds 26.0 -36.3 PTT Type & Screen 03/11/2017 Patient Blood Type O Negative Antibody Screen NEGATIVE Urine Culture And 03/11/2017 Urine Culture SEE RESULT BELOW 17 Sensitivities Laboratory test finding 01/03/2017 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 RESULT BELOW 18 Sputum Culture & 12/18/2016 Sputum Culture Gram SEE RESULT BELOW 19 Sensitiv Stain Urinalysis Profile 10/24/2016 Urine Color Yellow 20 Urine Appearance Clear 20 Urine Specific [place] 1.011 1.010-1.030 20 Urine pH 5.0 5-9 20 Urine Urobilinogen Negative Negative 20 Urine Ketones Negative Negative 20 Urine Protein Negative Negative 20 Urine Leukocytes Trace Negative 20 Urine Blood Negative Negative 20 * * Negative 20, 21 Urine Nitrite Negative Negative 20 Urine Bilirubin Negative Negative 20 Urine Glucose Negative Negative 20 Urine White Blood Cell Trace(0-5/hpf) Absent 20 Urine Red Blood Cell Absent Absent 20 Urine Bacteria Absent Absent 20 Urine Squamous Epithelial Cell Present Absent 20 Inr/Protime 10/24/2016 Inr 0.96 0.89-1.11 20 Laboratory test finding 10/24/2016 Partial Thrombo 33.6 seconds 26.0- 36.3 20, 22 Time PTT Type & Screen 10/24/2016 Patient Blood Type O Negative 20 Antibody Screen NEGATIVE 20 Urine Culture And 10/24/2016 Urine Culture SEE RESULT BELOW 20, 23 Sensitivities CBC Auto Diff 10/18/2016 White Blood Count 5.8 10^3/uL 3.5-10.8 Red Blood Count 4.41 10^6/uL 4.0-5.4 Hemoglobin 12.7 g/dL 12.0-16.0 Hematocrit 39 % 35-47 Mean Corpuscular Volume 88 fL 80-97 Mean Corpuscular Hemoglobin 29 pg 27-31 Mean Corpuscular HGB Conc 33 g/dL 31-36 Red Cell Distribution Width 16 % High 10.5-15 Platelet Count 234 10^3/uL 150-450 Mean Platelet Volume 8 um3 7.4-10.4 Abs Neutrophils 3.9 10^3/uL 1.5-7.7 Abs Lymphocytes 1.0 10^3/uL 1.0-4.8 Abs Monocytes 0.6 10^3/uL 0-0.8 Abs Eosinophils 0.2 10^3/uL 0-0.6 Abs Basophils 0 10^3/uL 0-0.2 Abs Nucleated RBC 0 10^3/uL Granulocyte % 67.5 % 38-83 Lymphocyte % 17.0 % Low 25-47 Monocyte % 10.9 % High 1-9 Eosinophil % 4.0 % 0-6 Basophil % 0.6 % 0-2 Nucleated Red Blood Cells % 0 Vitamin D 1,25 And Vitamin 10/18/2016 Vitamin D Total 25(Oh) 34.0 ng/mL 30-50 24 D,2 Vitamin D, 1,25 Dihydroxy 50 pg/mL 18-78 25 Comp Metabolic Panel 10/18/2016 Sodium 137 mmol/L 133-145 Potassium 4.3 mmol/L 3.5-5.0 Chloride 102 mmol/L 101-111 Co2 Carbon Dioxide 31 mmol/L 22-32 Anion Gap 4 mmol/L 2-11 Glucose 98 mg/dL 70-100 Blood Urea Nitrogen 26 mg/dL High 6-24 Creatinine 0.80 mg/dL 0.51-0.95 BUN/Creatinine Ratio 32.5 High 8-20 Calcium 9.4 mg/dL 8.6-10.3 Total Protein 6.5 g/dL 6.4-8.9 Albumin 3.9 g/dL 3.2-5.2 Globulin 2.6 g/dL 2-4 Albumin/Globulin Ratio 1.5 1-3 Total Bilirubin 0.50 mg/dL 0.2-1.0 Alkaline Phosphatase 146 U/L High 34-104 Alt 25 U/L 7-52 Ast 24 U/L 13-39 Egfr Non- 72.2 >60 Egfr 92.9 >60 26 Laboratory test finding 10/18/2016 Erythrocyte Sed Rate 27 mm/Hr 0-30 27 C Reactive Protein 8.43 mg/L High < 5.00 28 Laboratory test finding 05/22/2016 Anti Ssa/Ro <0.2 U 29 Anti SSB LA <0.2 U 30 Creatine Kinase(CK) 124 U/L 10-223 31 Rheumatoid Factor 28 IU/mL <15 32 Erythrocyte Sed Rate 14 mm/Hr 0-30 33 Cyclic Citrullinated Pep Igg 97.1 U 34 Anca AB Ser If 05/22/2016 C-Anca Negative Negative P-Anca Negative Negative 35 Vitamin D 1,25 And Vitamin 05/22/2016 Vitamin D Total 25(Oh) 34.0 ng/mL 30-50 36 D,2 Vitamin D, 1,25 Dihydroxy 57 pg/mL 18-78 37 Laboratory test finding 05/22/2016 TSH (Thyroid Stim Horm) 1.40 ?IU/mL 0.34-5.60 38 Ferritin 35.0 ng/mL 11-307 39 Liver Function Panel 05/22/2016 Total Protein 6.2 g/dL Low 6.4-8.9 Albumin 3.9 g/dL 3.2-5.2 Globulin 2.3 g/dL 2-4 Albumin/Globulin Ratio 1.7 1-3 Total Bilirubin 0.50 mg/dL 0.2-1.0 Direct Bilirubin 0.10 mg/dL 0.03-0.18 Indirect Bilirubin 0.4 mg/dL 0.3-1.0 Alkaline Phosphatase 91 U/L 34-104 Alt 35 U/L 7-52 Ast 28 U/L 13-39 Cath Panel 11/22/2015 Partial Thrombo Time 38.2 seconds High 26.0-36.3 PTT Basic Metabolic Panel 11/22/2015 Sodium 136 mmol/L 133-145 Potassium 4.7 mmol/L 3.5-5.0 Chloride 102 mmol/L 101-111 Co2 Carbon Dioxide 31 mmol/L 22-32 Anion Gap 3 mmol/L 2-11 Glucose 88 mg/dL 70-100 Blood Urea Nitrogen 25 mg/dL High 6-24 Creatinine 0.82 mg/dL 0.51-0.95 BUN/Creatinine Ratio 30.5 High 8-20 Calcium 9.8 mg/dL 8.6-10.3 Egfr Non- 70.4 >60 Egfr 90.6 >60 40 Inr/Protime 11/22/2015 Inr 1.03 0.89-1.11 CBC Auto Diff 11/22/2015 White Blood Count 5.7 10^3/uL 3.5-10.8 Red Blood Count 4.63 10^6/uL 4.0-5.4 Hemoglobin 13.2 g/dL 12.0-16.0 Hematocrit 41 % 35-47 Mean Corpuscular Volume 89 fL 80-97 Mean Corpuscular Hemoglobin 28 pg 27-31 Mean Corpuscular HGB Conc 32 g/dL 31-36 Red Cell Distribution Width 15 % 10.5-15 Platelet Count 206 10^3/uL 150-450 Mean Platelet Volume 8 um3 7.4-10.4 Abs Neutrophils 3.8 10^3/uL 1.5-7.7 Abs Lymphocytes 1.0 10^3/uL 1.0-4.8 Abs Monocytes 0.5 10^3/uL 0-0.8 Abs Eosinophils 0.4 10^3/uL 0-0.6 Abs Basophils 0 10^3/uL 0-0.2 Abs Nucleated RBC 0 10^3/uL Granulocyte % 65.8 % 38-83 Lymphocyte % 17.6 % Low 25-47 Monocyte % 9.6 % High 1-9 Eosinophil % 6.5 % High 0-6 Basophil % 0.5 % 0-2 Nucleated Red Blood Cells % 0 1 SEE RESULT BELOW Name: MELIDA TORRES : [address]: Lisbeth Ocampo MD Acct: [id number] Unit: [id number] AGE: 67 Location: [facility] Re10/14/17 SEX: F Status: REG REF SPEC: [id number] ADDISON: 10/14/17-[address] [facility] [address]: Lisbeth Ocampo MD REQ: [id number] RECD: 10/14/17-289 STATUS: COMP _ SOURCE: SPUTUM,EXP SPDESC: ORDERED: Sputum Cult/GS Procedure Result Reported Site Sputum Smear Final 10/14/17- 1715 ML 4+ Neutrophils 1+ Epithelial Cells 2+ Gram Positive Cocci in Clusters, resembling Staph 1+ Gram Positive Cocci in Chains, resembling Strep 1+ Gram Positive Bacilli 1+ Gram Negative Bacilli Sputum Culture Final 10/16/17- 0958 ML Organism 1 PSEUDOMONAS AERUGINOSA Quantity 3+ NO NORMAL JUAN MANUEL 1. PSEUDOMONAS AERUGINOSA M.I.C. RX --------- ------ Ampicillin >=32 R Cefazolin >=64 R Cefepime <=1 S Ceftriaxone >=64 R Ciprofloxacin <=0.25 S Gentamicin <=1 S Levofloxacin 0.25 S Meropenem <=0.25 S Nitrofurantoin >=512 R Tetracycline R CONTINUED ON NEXT PAGE * ML=Testing performed at Main Lab DEPARTMENT OF PATHOLOGY, [address] [place] [address] Randy Gomez M.D. Director [facility] # [id number] Patient: MELIDA TORRES [id number] (Continued) Specimen: [id number] Collected: 10/14/17-1230 Received: 10/14/17 (Continued) Procedure Result Reported Site Sputum Culture Final (continued) 10/16/17957 1. PSEUDOMONAS AERUGINOSA (continued) M.I.C. RX --------- ------ Pipercillin/Tazobactam <=4 S Trimethoprim/Sulfamethoxazole R Amoxicillin/Clavulanic Acid >=32 R Contact the Microbiology Department for any additional antibiotic reporting. * ML - MAIN LAB ([facility]) . END OF REPORT * ML=Testing performed at Main Lab DEPARTMENT OF PATHOLOGY, [address] [place] [address] Randy Gomez M.D. Director [facility] # [id number] 2 SEE RESULT BELOW Name: MELIDA TORRES : [address]: Lisbeth Ocampo MD Acct: [id number] Unit: [id number] AGE: 67 Location: [facility] Re09/20/17 SEX: F Status: REG REF SPEC: [id number] ADDISON: 09/20/17-[address]: Lisbeth Ocampo MD REQ: [id number] RECD: 09/20/17 STATUS: COMP _ SOURCE: SPUTUM SPDESC: ORDERED: Sputum Cult/GS COMMENTS: Verbal to FALGUNI QUIÑONES RN. by [email or web address] at 0915 on 09/23/17. Results read back accurately. Procedure Result Reported Site Sputum Smear Final 09/20/17- 1730 ML 2+ Epithelial Cells 3+ Neutrophils 1+ Gram Positive Cocci 1+ Gram Positive Bacilli Sputum Culture Final 09/28/17- 0745 ML Organism 1 MOLD Quantity 1+ Referred Specimen Isolate sent to [facility] for Identification Organism 2 NORMAL JUAN MANUEL Quantity 2+ * ML - MAIN LAB ([facility]) . END OF REPORT * ML=Testing performed at Main Lab DEPARTMENT OF PATHOLOGY, [address] [place] [address] Randy Gomez M.D. Director [facility] # [id number] 3 SOURCE: SPUTUM CULTURE REFERRED FOR ID, FUNGUS FINAL ASPERGILLUS FUMIGATUS Test Performed by: [place] [address] 4 Because ethnic data is not always readily available, this report includes an eGFR for both -Americans and non- Americans. The National Kidney Disease Education Program (NKDEP) does not endorse the use of the MDRD equation for patients that are not between the ages of 18 and 70, are , have extremes of body size, muscle mass, or nutritional status, or are non- or non-. According to the National Kidney Foundation, irrespective of diagnosis, the stage of the disease is based on the level of kidney function: Stage Description GFR(mL/min/1.73 m(2)) 1 Kidney damage with normal or decreased GFR 90 2 Kidney damage with mild decrease in GFR 60-89 3 Moderate decrease in GFR 30-59 4 Severe decrease in GFR 15-29 5 Kidney failure <15 (or dialysis) 5 Acute inflammation: >10.00 6 Interpretation: Strong Positive (>=60.0) REFERENCE VALUE <20.0 (Negative) Test Performed by: [address] [address] 7 she had TKA on 03/21/17 8 Because ethnic data is not always readily available, this report includes an eGFR for both -Americans and non- Americans. The National Kidney Disease Education Program (NKDEP) does not endorse the use of the MDRD equation for patients that are not between the ages of 18 and 70, are , have extremes of body size, muscle mass, or nutritional status, or are non- or non-. According to the National Kidney Foundation, irrespective of diagnosis, the stage of the disease is based on the level of kidney function: Stage Description GFR(mL/min/1.73 m(2)) 1 Kidney damage with normal or decreased GFR 90 2 Kidney damage with mild decrease in GFR 60-89 3 Moderate decrease in GFR 30-59 4 Severe decrease in GFR 15-29 5 Kidney failure <15 (or dialysis) 9 Acute inflammation: >10.00 10 Test Performed by: [address] [address] 11 Interpretation: Strong Positive (>=60.0) REFERENCE VALUE <20.0 (Negative) Test Performed by: [address] [address] 12 REFERENCE VALUE Not Applicable 13 RESULT: HLA-B27 antigen was not detected. ADDITIONAL INFORMATION Method: Flow Cytometry Performing Laboratory CLIA# [id number] Test Performed by: [facility] [address] [place] [address] 14 <1:80 (Negative) REFERENCE VALUE <1:80 (Negative) Test Performed by: [address] [address] 15 Because ethnic data is not always readily available, this report includes an eGFR for both -Americans and non- Americans. The National Kidney Disease Education Program (NKDEP) does not endorse the use of the MDRD equation for patients that are not between the ages of 18 and 70, are , have extremes of body size, muscle mass, or nutritional status, or are non- or non-. According to the National Kidney Foundation, irrespective of diagnosis, the stage of the disease is based on the level of kidney function: Stage Description GFR(mL/min/1.73 m(2)) 1 Kidney damage with normal or decreased GFR 90 2 Kidney damage with mild decrease in GFR 60-89 3 Moderate decrease in GFR 30-59 4 Severe decrease in GFR 15-29 5 Kidney failure <15 (or dialysis) 16 *Ascorbic acid is present which may interfere with detection of blood. 17 SEE RESULT BELOW Name: MELIDA TORRES : [address]: Rachel Mead MD Acct: [id number] Unit: [id number] AGE: 66 Location: [facility] Re03/11/17 SEX: F Status: REG REF SPEC: [id number] ADDISON: 03/11/17-[address] [facility] [address]: Rachel Mead MD REQ: [id number] RECD: 03/11/171401 STATUS: COMP [facility] DR: Lew Campbell MD _ SOURCE: URINE SPDESC: ORDERED: Urine Culture QUERIES: Urine Source: Clean Catch Procedure Result Reported Site Urine Culture Final 03/13/17- 0742 ML Organism 1 KLEBSIELLA PNEUMONIAE Forbes Count >100,000 (Many) CFU/ML 1. KLEBSIELLA PNEUMONIAE M.I.C. RX --------- ------ Ampicillin >=32 R Cefazolin <=4 S Cefepime <=1 S Ceftriaxone <=1 S Ciprofloxacin <=0.25 S Gentamicin <=1 S Levofloxacin <=0.12 S Meropenem <=0.25 S Nitrofurantoin 64 I Tetracycline >=16 R Pipercillin/Tazobactam <=4 S Trimethoprim/Sulfamethoxazole <=20 S Amoxicillin/Clavulanic Acid <=2 S Aztreonam <=1 S Contact the Microbiology Department for any additional antibiotic reporting. * ML - MAIN LAB ([facility]) . END OF REPORT * ML=Testing performed at Main Lab DEPARTMENT OF PATHOLOGY, [address] [place] [address] Randy Gomez M.D. Director [facility] # [id number] 18 SEE RESULT BELOW Name: MELIDA TORRES : [address]: Luis Jo MD Acct: [id number] Unit: [id number] AGE: 66 Location: THYROID Re01/03/17 SEX: F Status: REG REF SPEC: [id number] ADDISON: 01/03/17-[address] [facility] [address]: Gurvinder Guillen MD REQ: [id number] RECD: 01/03/17 STATUS: BASIM SHANN[facility] DR: Luis Campbell MD _ ORDERED: FN ASP DEEP, FNA Imme St Add, FNA IMMEDIATE S FINAL DIAGNOSIS Thyroid, isthmus, Ultrasound guided, fine needle aspiration: --Benign thyroid nodule- colloid/hyperplastic type ([place] Class II). The specimen demonstrates moderate watery colloid, a moderate amount of benign appearing follicular epithelium arranged in uniform sheets, medium sized follicles and only occasional small groups. No features of papillary carcinoma are seen. In this clinical setting the risk of malignancy is less than 3%. Clinical management of this thyroid nodule should be based on clinical and radiographic features as well as the above. THYROID ISTHMUS - US GUIDED FINE NEEDLE ASPIRATION ISTHMUS CLINICAL HISTORY Isthmus thyroid nodule 1.5 x 0.7 x 1.1cm IMMEDIATE INTERPRETATION Pass 1 2-inadequate, pass 3-adequate CONTINUED ON NEXT PAGE * ML=Testing performed at Main Lab DEPARTMENT OF PATHOLOGY, [address] [place] [address] Randy Gomez M.D. Director [facility] # [id number] RUN DATE: 01/03/17 [facility] LAB LIVE PAGE 2 Patient: MELIDA TORRES [id number] (Continued) GROSS DESCRIPTION (Continued) GROSS DESCRIPTION 10- alcohol fixed slide(s) 3- passes Signed (signature on file) Shima Zhu MD 1129 END OF REPORT * ML=Testing performed at Main Lab DEPARTMENT OF PATHOLOGY, [address] [place] [address] Randy Gomez M.D. Director [facility] # [id number] 19 SEE RESULT BELOW Name: MARYMELIDA : [address]: Lisbeth Ocampo MD Acct: [id number] Unit: [id number] AGE: 66 Location: [facility] Re12/18/16 SEX: F Status: REG REF SPEC: [id number] ADDISON: 12/18/[address]: Lisbeth Ocampo MD REQ: [id number] RECD: 12/18/16167 STATUS: COMP _ SOURCE: SPUTUM,EXP SPDESC: ORDERED: Sputum Cult/GS Procedure Result Reported Site Sputum Smear Final 12/18/16- 1506 ML 3+ Neutrophils 2+ Epithelial Cells 3+ Gram Negative Bacilli 2+ Gram Positive Cocci 1+ Gram Positive Bacilli Sputum Culture Final 12/21/16- 0842 ML Organism 1 GRAM NEGATIVE BACILLI Quantity 2+ Organism 2 NORMAL JUAN MANUEL Quantity 2+ GRAM NEGATIVE BACILLI IDENTIFIED BORDETELLA BRONCHISEPTICA 1. GRAM NEGATIVE BACILLI M.I.C. RX --------- ------ Ampicillin >=32 R Cefazolin >=64 R Ceftriaxone >=64 R Ciprofloxacin <=0.25 S Gentamicin 2 S Levofloxacin 0.5 S Meropenem 1 S Nitrofurantoin 256 R Tetracycline <=1 S CONTINUED ON NEXT PAGE * ML=Testing performed at Main Lab DEPARTMENT OF PATHOLOGY, [address] [place] [address] Randy Gomez M.D. Director [facility] # [id number] Patient: MELIDA TORRES [id number] (Continued) Specimen: [id number] Collected: 12/18/16 Received: 12/18/16 (Continued) Procedure Result Reported Site Sputum Culture Final (continued) 12/21/16841 1. GRAM NEGATIVE BACILLI (continued) M.I.C. RX --------- ------ Pipercillin/Tazobactam <=4 S Trimethoprim/Sulfamethoxazole <=20 S Amoxicillin/Clavulanic Acid 4 S Aztreonam >=64 R Contact the Microbiology Department for any additional antibiotic reporting. * ML - MAIN LAB ([facility]) . END OF REPORT * ML=Testing performed at Main Lab DEPARTMENT OF PATHOLOGY, [address] [place] [address] Randy Gomez M.D. Director [facility] # [id number] 20 10/26 21 *Ascorbic acid is present which may interfere with detection of blood. 22 10/26 23 SEE RESULT BELOW Name: MELIDA TORRES : [address]: Rachel Mead MD Acct: [id number] Unit: [id number] AGE: 66 Location: [facility] Re10/24/16 SEX: F Status: REG REF SPEC: [id number] ADDISON: 10/24/16-[address] [facility] [address]: Rachel Mead MD REQ: [id number] RECD: 10/24/165363 STATUS: COMP _ SOURCE: URINE SPDESC: ORDERED: Urine Culture COMMENTS: 10/26 QUERIES: Urine Source: Clean Catch Procedure Result Reported Site Urine Culture Final 10/25/16- 1308 ML No Growth (<1,000 CFU/mL) * ML - MAIN LAB ([facility]) . END OF REPORT * ML=Testing performed at Main Lab DEPARTMENT OF PATHOLOGY, [address] [place] [address] Randy Gomez M.D. Director [facility] # [id number] 24 Please check 2 days before the visit 25 ADDITIONAL INFORMATION This test was developed and its performance characteristics determined by [facility] in a manner consistent with CLIA requirements. This test has not been cleared or approved by the U.S. Food and Drug Administration. Test Performed by: [address] [address] Headline Writer: Delbert Aguillon II, M.D., Ph.D. 26 Because ethnic data is not always readily available, this report includes an eGFR for both -Americans and non- Americans. The National Kidney Disease Education Program (NKDEP) does not endorse the use of the MDRD equation for patients that are not between the ages of 18 and 70, are , have extremes of body size, muscle mass, or nutritional status, or are non- or non-. According to the National Kidney Foundation, irrespective of diagnosis, the stage of the disease is based on the level of kidney function: Stage Description GFR(mL/min/1.73 m(2)) 1 Kidney damage with normal or decreased GFR 90 2 Kidney damage with mild decrease in GFR 60-89 3 Moderate decrease in GFR 30-59 4 Severe decrease in GFR 15-29 5 Kidney failure <15 (or dialysis) 27 Please check 2 days before the visit 28 Acute inflammation: >10.00 29 REFERENCE VALUE <1.0 (Negative) Test Performed by: [place] [address] Headline Writer: Delbert Aguillon II, M.D., Ph.D. 30 REFERENCE VALUE <1.0 (Negative) Test Performed by: [place] [address] Headline Writer: Delbert Aguillon II, M.D., Ph.D. 31 Please check this week 32 Test Performed by: [place] [address] Headline Writer: Delbert Aguillon II, M.D., Ph.D. 33 Please check this week 34 Interpretation: Strong Positive (>=60.0) REFERENCE VALUE <20.0 (Negative) Test Performed by: [place] [address] Headline Writer: Delbert Aguillon II, M.D., Ph.D. 35 Negative for cANCA and pANCA patterns by immunofluorescence. Test Performed by: [place] [address] Headline Writer: Delbert Aguillon II, M.D., Ph.D. 36 Please check this week 37 Test Performed by: [place] [address] Headline Writer: Delbert Aguillon II, M.D., Ph.D. 38 Please check this week 39 Please check this week 40 Because ethnic data is not always readily available, this report includes an eGFR for both -Americans and non- Americans. The National Kidney Disease Education Program (NKDEP) does not endorse the use of the MDRD equation for patients that are not between the ages of 18 and 70, are , have extremes of body size, muscle mass, or nutritional status, or are non- or non-. According to the National Kidney Foundation, irrespective of diagnosis, the stage of the disease is based on the level of kidney function: Stage Description GFR(mL/min/1.73 m(2)) 1 Kidney damage with normal or decreased GFR 90 2 Kidney damage with mild decrease in GFR 60-89 3 Moderate decrease in GFR 30-59 4 Severe decrease in GFR 15-29 5 Kidney failure <15 (or dialysis) Procedures Date CPT Code Description Status Comment 08/20/201789291 Inject/Drain Joint/Bursa Completed Major 06/10/2017 87285 EKG Tracing & Completed Interpretation 03/21/2017 58268 TKR Total Knee Replacement Completed 03/21/2017 44159 TKR Total Knee Replacement Completed 03/11/2017 52113 EKG, Interpretation Only Completed 01/23/201730973 Inject/Drain Joint/Bursa Completed Major 10/26/2016 05344 THR Total Hip Replacement Completed 10/26/2016 06384 THR Total Hip Replacement Completed 09/26/2016 09729 EKG Tracing & Completed Interpretation 08/01/2016 Diabetic Retinal Eye Exam Completed Document: 08/01/16 - Consult Ophthalmology - Lilian 07/05/201635001 Inject/Drain Joint/Bursa Completed Major 03/07/2016 38260 EKG Tracing & Completed Interpretation 02/27/2016 81586 Polysomnography Sleep Staging Completed 4+ Parameters W/Cpap 01/20/2016 69944 EKG Tracing & Completed Interpretation 01/20/2016 32527 EKG Tracing & Completed Interpretation 12/30/2015 60325 EKG Tracing & Completed Interpretation 11/25/2015 29056 Left Heart Cath. Incl S/I Completed Coronaries, Angio S/I V Gram If Done 11/09/2015 77799 EKG Tracing & Completed Interpretation 10/26/2015 27954 Treadmill Interp/Report Only Completed 10/26/2015 62453 Stress Test Supervsn W/Out Completed I/R 10/18/2015 20071 EKG Tracing & Completed Interpretation 10/04/2015 04354 EKG Tracing & Completed Interpretation 09/21/2015 47214 ECHO Stress Test Incl Perf Completed Contiuous ekg Monitoring W/Phys Superv 09/08/2015 74301 Holter Monitor Review (24 Completed hr)dr review & interp only 09/08/2015 63260 ECG Monitor/Recording Completed W/Visual Superimposition Scanning 09/08/2015 48777 Inject/Drain Joint/Bursa Completed Major 09/07/2015 04965 Holter Monitor Review (24 Completed hr)dr review & interp only 09/07/2015 86573 ECG Monitor/Recording Completed W/Visual Superimposition Scanning 09/07/2015 60690 Holter Monitoring 24 HR New Completed 09/02/2015 89147 EKG Tracing & Completed Interpretation 08/21/2015 16711 ECHO Transthorasic Realtime Completed 2D W Doppler & Color Flow Hosp 06/07/2015 07681 Inject/Drain Joint/Bursa Completed Major 03/14/2015 45198 Inject/Drain Joint/Bursa Completed Major Encounters Type Date Location Provider CPT E/M Dx Office Visit 11/06/2017 [facility] [place] [address] J15.1 7:15a Services Of Medication Administration Professional J47.9 G47.33 Office Visit 10/25/2017 10:31a [facility] [place] [address] J15.1 Services Of Medication Administration Professional N39.0 B96.5 J47.9 Office Visit 10/24/2017 1:50p [facility] Ghulam Paredes, 05282 J47.9 Infectious Diseases M.DJose Rafael R05 Office Visit 10/24/2017 9:10a [facility] [place] [address] J15.1 Services Of Medication Administration Professional J47.1 N39.0 Office Visit 10/23/2017 3:38p [facility] [place] [address] J15.1 Services Of Medication Administration Professional J47.1 N39.0 Office Visit 10/22/2017 9:59a [facility] [place] [address] J15.1 Services Of Medication Administration Professional B96.5 J47.1 Office Visit 10/21/2017 2:18p [facility] [place] [address] J47.1 Services Of Medication Administration Professional J15.1 B96.5 Office Visit 10/18/2017 2:20p [facility] [place] [address] B96.5 Services Of Medication Administration Professional J47.1 J15.1 Office Visit 10/14/2017 12:45p [facility] [place] [address] J47.1 Services Of Medication Administration Professional G47.33 Office Visit 09/20/2017 11:30a [facility] [place] [address] J47.1 Services Of Medication Administration Professional G47.33 Office Visit 08/30/2017 10:00a Rheumatology Services MARCIA Barron 76120 M05.79 Of [facility] M25.512 R76.8 J47.9 M25.522 Z79.899 M85.9 Office Visit 08/20/2017 10:00a Rheumatology Services Yefri Flores 54975 M25.512 Of [facility] M.D. M19.012 M05.79 R76.0 Z79.899 Office Visit 07/01/2017 1:45p [facility] [place] [address] J47.9 Services Of Medication Administration Professional G47.33 Office Visit 06/10/2017 3:20p [facility] Shari Jacinto, 69118 I49.3 M.DJose Rafael I25.10 E66.9 R94.31 Office Visit 05/28/2017 11:30a Rheumatology Services Jose Cope PHARMACY CLINICAL SPECIALIST 23180 M05.79 Of [facility] Z96.652 Z79.899 Office Visit 03/24/2017 2:20p [facility], 05096 J45.909 Assoc,[facility] [place] [facility] Z96.652 E03.9 G47.33 Office Visit 03/23/2017 2:19p [facility], 09281 Z96.652 [facility]oc,[facility] [place] [facility] J45.909 E03.9 G47.33 Office Visit 03/22/2017 2:18p [facility] [place], 71070 Z96.652 [facility]oc,[facility] [place] Hospital[facility] J45.909 E03.9 G47.33 Office Visit 03/21/2017 2:17p [facility] Bharathi [place], 30927 Z96.652 Assoc,pc Hospitalists N.P. J45.909 E03.9 G47.33 Office Visit 02/20/2017 8:15a [facility] Of Rachel Mead M.D. 33026 M25.562 C.M.A. M25.462 M17.12 M21.062 Office Visit 01/23/2017 9:00a [facility] Of Rachel Mead M.D. 42473 M25.562 C.M.A. Z47.1 M25.462 M17.12 Z96.642 Office Visit 12/18/2016 10:20a Rheumatology Services Yefri Flores 69284 M05.79 Of Amy Martin M15.0 E55.9 Z79.899 Office Visit 12/12/2016 11:15a [facility] [place] [address] J47.9 Services Of [facility] G47.33 E66.09 Office Visit 10/30/2016 1:55p [facility] [address] R50.9 Hospitalists Z96.642 N39.0 Office Visit 10/29/2016 1:55p [facility], [place] [address] R50.9 Hospitalists Z96.642 N39.0 Office Visit 10/28/2016 1:54p [facility], Kenia eHrnandez N.P. 16571 R50.9 Hospitalists Z96.642 N39.0 Office Visit 10/18/2016 8:30a [facility] [place] [address] J47.9 Services Of Medication Administration Professional G47.33 Office Visit 09/26/2016 2:00p [facility] KokoJose Rafael Reginahiwotmichell, 59483 Z01.810 M.D. M16.12 I49.3 E66.9 Z68.34 Z87.891 Office Visit 09/24/2016 9:45a [facility] Of Rachel Mead M.D. 36313 M25.552 C.M.A. M16.12 Office Visit 09/12/2016 8:40a Rheumatology Services Yefri Flores 75027 M05.79 Of Medication Administration Professional M.D. M15.0 E55.9 Z79.1 Office Visit 09/04/2016 8:30a [facility] [place] [address] J47.9 Services Of Medication Administration Professional G47.33 Office Visit 07/05/2016 9:40a Rheumatology Services Yefri Flores 56580 M05.79 Of Medication Administration Professional M.D. Z79.899 M17.12 Office Visit 06/19/2016 8:30a [facility] [place] [address] J47.9 Services Of Medication Administration Professional G47.33 J45.909 Office Visit 05/31/2016 9:40a Rheumatology Services Yefri Flores 12366 M05.79 Of Medication Administration Professional M.D. M15.0 Z79.899 Z79.1 E55.9 Office Visit 05/22/2016 8:00a Rheumatology Services Of Yefri Flores 59896 R76.0 Medication Administration Professional M.D. J47.1 E55.9 M15.0 R74.8 Office Visit 04/27/2016 9:00a [facility] [place] [address] G47.33 Services Of Medication Administration Professional J47.1 J45.909 Office Visit 03/30/2016 3:30p [facility] ANNIE Foote 64555CRR R55 I49.3 G47.33 Office Visit 03/19/2016 8:00a [facility] [place] [address] G47.33 Services Of Medication Administration Professional J47.9 Office Visit 03/07/2016 4:00p [facility] Qutaybeh S. Maghaydah, 35209 G47.33 M.D. R00.2 I49.3 Office Visit 02/20/2016 8:45a [facility] [place] [address] G47.33 Services Of Medication Administration Professional J47.9 E66.09 J45.909 Office Visit 01/20/2016 9:15a [facility] ANNIE Foote 96585 R42 I49.3 Office Visit 11/29/2015 1:40p [facility] Katietaybeh SJose Rafael Jacinto, 44667 I49.3 M.DJose Rafael I25.10 Office Visit 11/09/2015 3:40p [facility] Of Shari Dyson. 50564 R07.9 Amy Jacinto M.D. R06.02 I49.3 Office Visit 10/26/2015 9:04a [facility], [place] [address] R07.9 Hospitalists R06.02 R00.2 Office Visit 10/26/2015 2:17p [facility] Of Qasim New M.D., 13074 R07.89 [facility] At [facility] R06.02 I49.3 Office Visit 10/25/2015 9:03a [facility], [place] [address] R07.9 Hospitalists R06.02 R00.2 Office Visit 10/18/2015 1:20p [facility] Qutaybeh S. Reginaydah, 84577 R94.31 M.DJose Rafael I49.3 I35.1 Office Visit 10/04/2015 1:20p [facility] Qutaybeh S. Reginaydmichell, 96302 R94.31 M.D. I49.3 I35.1 Office Visit 09/08/2015 9:30a Orthopedic Services Mina Romero M.D. 83405 M19.012 Of C.M.A. Office Visit 09/02/2015 9:00a [facility] Shari DysonJose Rafael 13679 R55 Veronica Jacinto E03.9 E86.0 R01.1 R94.31 I49.3 Office Visit 08/29/2015 2:00p [facility] Of Riley Dempsey M.D. 32219 M16.12 C.M.A. M25.552 Office Visit 08/21/2015 1:27p [facility] Digna aMrrero 85401 R55 Hospitalists Veronica N39.0 E03.9 K75.4 Office Visit 08/19/2015 1:26p [facility] Viktoria Merida N.P. 58994 R55 Hospitalists E86.0 N39.0 J45.30 Office Visit 03/14/2015 10:30a [facility] Of Mina Romero M.D. 79974 715.91 C.M.A. Plan of Care Future Appointment(s):12/16/2017 1:40 pm - Ghulam Paredes M.D. at [facility]/29/2018 11:30 am - Lisbeth Ocampo MD at [facility] Of [facility]11/25/2017 2:30 pm - ANNIE Foote at [facility] 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
--- OUTSIDE RECORDS SUMMARY | 2017-11-13 13:55 | XMS REPORT ---
:1950 External Reference #:[id number] Author Organization [facility] Address [address] [address] Phone [phone] Care Team Providers Name Role Phone Lew Campbell MD Care Team Information Help Desk Administrator Unavailable Lew Campbell MD Primary Care Physician Unavailable Payers Type Date Identification Numbers Payment Provider Subscriber Medicare Primary Policy Number: [id number] Medicare Melida Torres PayID: [id number] [address] [place] [address] Commercial Effective: 2017 Policy Number: [id number] [place] Torres Group Name: [id number] [address] PayID: [id number] [place] [address] Commercial Expires: 2017 Policy Number: Total Care/Juan Carlos Torres [id number] [facility] PayID: [id number] [address] [address] [place] [address] Problems Date Description Provider Status Onset: 02/20/2016 Obstructive sleep apnea syndrome Lisbeth Ocampo MD Active Onset: 02/20/2016 Bronchiolectasis Lisbeth Ocampo MD Active Onset: 02/20/2016 Obesity Lisbeth Ocampo MD Active Onset: 02/20/2016 Asthma without status asthmaticus Lisbeth Ocampo MD Active Onset: 04/27/2016 Acute exacerbation of bronchiectasis Lisbeht Ocampo MD Active Onset: 09/24/2016 Localized, primary [...] Female Partner Occupation Retired Previously worked as [employer] IN [employer] Cigarette Use Former Cigarette Smoker ETOH Use [...] Reaction Status Severity Comments 03/14/2015 Sulfa Antibiotics active 05/22/2016 Cipro active 10/18/2016 Effexor active Medications Medication Date Status Form Strength Qnty SIG Indications Ordering Provider Acetylcysteine 10/31 Active Solution 200mg/ml 90ml 1 unit nebulizer, q Damaris, 6hrs prn Mucinex 10/28 Active Tablets ER 600mg 60tab 1200mg 12HR s tablets twice Damaris, daily Albuterol 09/20 Active Nebulizer 0.63mg/3M 225ml 1 unit, daina, J47.1 Lisbeth Sulfate L every 6 Damaris, hours, as MD needed Nebulizer 09/20 Active Kit 1unit 1 unit J47.1 Lisbeth Kit/Tubing/Mout s nebulization Damaris, hpiece every 4- 6 MD hours as needed Advair HFA 09/20 Active Aerosol 230-21mcg 12gm inhale 1 puff /Act by mouth Damaris, twice daily MD Saline Flush ZR 09/20 Active Solution 0.9% 1000m 5cc flush for l clearance of Damaris, secretions 2 MD times a day as needed Amoxicillin 09/04 Active Capsules 500mg 4caps 4 tablets 1 hour before [place], dental work M.D. Aspirin 06/09 Active 81mg 1 by mouth Unknown daily Meloxicam 05/28 Active Tablets 15mg 180ta 7.5mg by M05.79 Zsofi bs mouth two Anatoliy, times daily CL[employer] as needed Z79.899 Mucus Relief 05/17/2017 Active Tablets 400mg 60tabs 1 tablet by Lisbeth mouth twice Damaris, daily as MD needed [place] 3 10/17/2016 Active Capsules 1 by mouth Unknown qd. Flutter 02/20/2016 Active Device 1units use as Sunita Bob instructed 4 Damaris, twice a day 7 MD . 9 Melatonin Active Tablets 30mg 2 by mouth Unknown at bedtime Multivitamins Active Capsules 1 by mouth Unknown every day Escitalopram Oxalate Active Tablets 20mg 1 by mouth Unknown every day Levothyroxine Sodium Active Solution 100mcg once a day Unknown Rec Calcium 1200 Active Chewtabs 1200-10 1/2 half Unknown 00mg-Un tab 2x per it day with food in stomach Oxybutynin Chloride Active Tablets ER 15mg Unknown ER 24HR Sporanox Active Solution 10mg/ml 200mg bid Unknown (CMC DC) Clonazepam Active Tablets 0.5mg take 1 Unknown tablet by mouth at bedtime if needed maximum daily dose of 1 Probiotic Active Capsules 1 by mouth Unknown every day Tumeric Active qhs Unknown Prednisone Active Tablets taper Unknown Sodium Chloride 11/04/2017 - Hx Nebulizer 0.9% 1500ml 1 unit Lisbeth 11/05/2017 twice daily MD Damaris Prednisone 10/14/2017 - Hx TBPK 10mg 21units 4 tabs Sunita Bob 11/05/2017 (21) day#1, 3 4 Damaris, tabs day#2, 7 MD 2 tabs . day#3, 1 1 tab for 7 days Doxycycline Hyclate 10/14/2017 - Hx Capsules 100mg 20caps one tablet Sunita Bob 11/05/2017 twice daily 4 Damaris, for 10 7 MD days. . 1 Nebusal 09/20/2017 - Hx Nebulizer 3% 240ml 1 unit J Lisbeth 11/05/2017 twice daily 4 Damaris, for 1 week 7 . 1 Hydroxychloroquine 08/30/2017 - Hx Tablets 200mg 180tabs take one M Zsofia Sulfate 11/05/2017 tablet by 0 Anatoliy, mouth twice 5 [employer] a day . 7 9 Levaquin 08/13/2017 - Hx Tablets 750mg 10tabs 1 tab by Lisbeth 08/30/2017 mouth daily Damaris, for 10 days MD Gentileaifenesin ER 07/01/2017 - Hx Tablets ER 1200mg 60tabs 1 tablet by Sunita Bob 11/05/2017 12HR mouth twice 4 Damaris, daily as 7 MD needed for . mucus 9 Doxycycline Hyclate 05/28/2017 - Hx Tablets 100mg 10tabs 1 by mouth Lisbeth 06/09/2017 a day MD Johnny Ocampofentanika 05/15/2017 - Hx Solution 300mg/1 500ml 10-15 ML by Lisbeth 05/17/2017 5ML mouth twice Damaris, daily Oxycodone HCL ER 03/24/2017 - Hx Tab ER 12H 10mg 20tabs Take 1 by Rachel 04/05/2017 Abuse-Det mouth every [place], 12 hours M.D. Macrobid 03/12/2017 - Hx Capsules 100mg 10caps take one Rachel 05/28/2017 tab twice a [place], day for 5 M.D. days Coumadin 03/11/2017 - Hx Tablets 2mg 90tabs take 1-3 Rachel 05/28/2017 tabs by [place], mouth at 5 M.D. at night as directed Senna Plus 03/11/2017 - Hx Tablets 8.6-50m 60tabs take one Rachel 05/28/2017 g tab twice a [place], day as M.D. needed. Doxycycline Hyclate 12/21/2016 - Hx Tablets DR 100mg 14tabs 1 by mouth Lisbeth 03/09/2017 a day MD Damaris Compression 11/07/2016 - Hx Misc 1units 20/30 M Rachel Stockings 09/20/2017 2 [place], 5 M.D. . 5 5 2 Compression 11/07/2016 - Hx Misc 1units 20/30 Rachel Stockings 09/20/2017 Veronica Mead Oxycodone-Acetaminop 10/24/2016 - Hx Tablets 5-325mg 90tabs 1 tabs by Rachel hen 09/20/2017 mouth every [place], 6 hours as M.D. needed for pain Coumadin 10/24/2016 - Hx Tablets 2mg 60tabs take 1-3 Rachel 11/25/2016 tabs by [place], mouth at 5 M.D. at night as directed Colace 10/24/2016 - Hx Capsules 100mg 60caps 1 tab by Rachel 12/18/2016 mouth twice [place], a day as M.D. needed Cane/Wood/Standard/B 10/10/2016 - Hx Misc 05/25" 1units use as Rachel lack " 09/20/2017 needed Veronica Mead Azithromycin 09/24/2016 - Hx Tablets 500mg 7tabs 1 tablet by Sunita Bob 10/17/2016 mouth daily 2 Damaris, for 7 days 0 . 9 Meloxicam 09/12/2016 - Hx Tablets 7.5mg 180tabs take one M Yefri 05/28/2017 tab twice 0 Sandra, daily as 5 M.D. needed for . pain, avoid 7 other 9 nsaids Z79.899 Plaquenil 05/31/2016 - Hx Tablets [...] Unknown 02/17/2016 Vitamin D3 - Hx Capsules [id number] one daily Unknown 09/25/2016 it Premarin - [...] Form Strength Qnty SIG Indications Ordering Provider Triamcinolone 08/20/ Administered Injection Yefri (Kenalog) 2016 Veronica Flores Triamcinolone 08/20/ Administered Injection Yefri (Kenalog) 2016 Veronica Flores Depomedrol 40MG 01/23/ Administered Injection Rachel 2016 Veronica Mead Triamcinolone 07/05/ Administered Injection Yefri (Kenalog) 2015 Veronica Flores Depomedrol 80MG 09/08/ Administered Injection Mina 2014 Veronica Romero Depomedrol 80MG 06/07/ Administered Injection Mina 2014 Veronica Romero Depomedrol 80MG 03/14/ Administered Injection Mina Romero M.D. Immunizations CPT Code Status Date Vaccine Lot # [id number] Given 08/16/2016 Influenza Virus 3Yrs & Over Vital Signs Date Vital Result Comment 11/06/2017 Height 71 inches 5'11" Weight 227.38 [...] Color Yellow Urine Appearance Cloudy Urine Specific [place] 1.013 1.010-1.030 Urine pH 6.0 5-9 Urine [...] 17 Sensitivities Laboratory test finding 01/03/2017 Cytology Non-Jewel Waxer SEE RESULT BELOW 18 Sputum Culture & 12/18/2016 Sputum Culture Gram SEE RESULT BELOW 19 Sensitiv Stain Urinalysis Profile 10/24/2016 Urine Color Yellow 20 Urine Appearance Clear 20 Urine Specific [place] 1.011 1.010-1.030 20 Urine pH 5.0 5-9 [...] [address]: Lisbeth Ocampo MD Acct: [id number] Unit: [id number] AGE: 67 Location: [facility] Re10/14/17 SEX: F Status: REG REF SPEC: [id number] ADDISON: 10/14/17-[address] [facility] [address]: Lisbeth Ocampo MD REQ: [id number] RECD: 10/14/17 STATUS: COMP _ SOURCE: SPUTUM,EXP SPDESC: ORDERED: [...] performed at Main Lab DEPARTMENT OF PATHOLOGY, [address] [place] [address] Randy Gomez M.D. Director [facility] # [id number] Patient: MELIDA TORRES [id number] (Continued) Specimen: [id number] Collected: 10/14/17-1230 Received: 10/14/17-1532 (Continued) Procedure Result Reported Site Sputum Culture Final (continued) 10/16/17957 1. PSEUDOMONAS AERUGINOSA (continued) M.I.C. RX --------- ------ Pipercillin/Tazobactam <=4 S Trimethoprim/Sulfamethoxazole R Amoxicillin/Clavulanic Acid >=32 R Contact the Microbiology Department for any additional antibiotic reporting. * ML - MAIN LAB ([facility]) . END OF REPORT * ML=Testing performed at Main Lab DEPARTMENT OF PATHOLOGY, [address] [place] [address] Randy Gomez M.D. Director [facility] # [id number] 2 SEE RESULT BELOW Name: MELIDA TORRES : [address]: Lisbeth Ocampo MD Acct: [id number] Unit: [id number] AGE: 67 Location: [facility] Re09/20/17 SEX: F Status: REG REF SPEC: [id number] ADDISON: 09/20/[address] [facility] [address]: Lisbeth Ocampo MD REQ: [id number] RECD: 09/20/17 STATUS: COMP _ SOURCE: SPUTUM SPDESC: ORDERED: Sputum Cult/GS COMMENTS: Verbal to FALGUNI QUIÑONES RN. by [id number] at 0915 on 09/23/17. Results read back accurately. Procedure Result Reported Site Sputum Smear Final 09/20/17- 1730 ML 2+ Epithelial Cells 3+ Neutrophils 1+ Gram Positive Cocci 1+ Gram Positive Bacilli Sputum Culture Final 09/28/17- 0745 ML Organism 1 MOLD Quantity 1+ Referred Specimen Isolate sent to [facility] for Identification Organism 2 NORMAL JUAN MANUEL Quantity 2+ * ML - [facility] ([facility]) . END OF REPORT * ML=Testing performed at Main Lab DEPARTMENT OF PATHOLOGY, [address] [place] [address] Randy Gomez M.D. Director [facility] # [id number] 3 SOURCE: SPUTUM CULTURE REFERRED FOR ID, FUNGUS FINAL ASPERGILLUS FUMIGATUS Test Performed by: [address] [address] 4 Because ethnic data is not always [...] REFERENCE VALUE <20.0 (Negative) Test Performed by: [facility] [address] [place] [address] 7 she had TKA on 03/21/17 8 [...] Acute inflammation: >10.00 10 Test Performed by: [place] [address] 11 Interpretation: Strong Positive (>=60.0) REFERENCE VALUE <20.0 (Negative) Test Performed by: [place] [address] 12 REFERENCE VALUE Not Applicable 13 RESULT: HLA-B27 antigen was not detected. ADDITIONAL INFORMATION Method: Flow Cytometry Performing Laboratory CLIA# [id number] Test Performed by: [place] [address] 14 <1:80 (Negative) REFERENCE VALUE <1:80 (Negative) Test Performed by: [place] [address] 15 Because ethnic data is not always [...] [address]: Rachel Mead MD Acct: [id number] Unit: [id number] AGE: 66 Location: [facility] Re03/11/17 SEX: F Status: REG REF SPEC: [id number] ADDISON: 03/11/17-[address] [facility] [address]: Rachel Mead MD REQ: [id number] RECD: 03/11/17-1401 STATUS: COMP [facility] DR: Lew Campbell MD _ SOURCE: URINE SPDESC: ORDERED: Urine Culture QUERIES: Urine Source: Clean Catch Procedure Result Reported Site Urine Culture Final 03/13/17- 0742 ML Organism 1 KLEBSIELLA PNEUMONIAE Newell Count >100,000 (Many) CFU/ML 1. KLEBSIELLA PNEUMONIAE [...] antibiotic reporting. * ML - MAIN LAB ([facility]) . END OF REPORT * ML=Testing performed at Main Lab DEPARTMENT OF PATHOLOGY, [address] [place] [address] Randy Gomez M.D. Director [facility] # [id number] 18 SEE RESULT BELOW Name: MELIDA TORRES : [address]: Luis Jo MD Acct: [id number] Unit: [id number] AGE: 66 Location: THYROID Re01/03/17 SEX: F Status: REG REF SPEC: [id number] ADDISON: 01/03/17-[address] [facility] [address]: Gurvinder Guillen MD REQ: [id number] RECD: 01/03/17 STATUS: [facility]IM [facility]ANN[facility] DR: Luis Campbell MD _ ORDERED: FN ASP DEEP, FNA Imme St Add, FNA IMMEDIATE S FINAL DIAGNOSIS Thyroid, isthmus, Ultrasound guided, fine needle aspiration: --Benign thyroid nodule- colloid/hyperplastic type ([place] Class II). The specimen demonstrates moderate watery [...] performed at Main Lab DEPARTMENT OF PATHOLOGY, [address] [place] [address] Randy Gomez M.D. Director [facility] # [id number] RUN DATE: 01/03/17 [facility] LAB LIVE PAGE 2 Patient: URSULA TORRESISSA [id number] (Continued) GROSS DESCRIPTION (Continued) GROSS DESCRIPTION 10- alcohol fixed slide(s) 3- passes Signed (signature on file) Shima Zhu MD 1129 END OF REPORT * ML=Testing performed at Main Lab DEPARTMENT OF PATHOLOGY, [address] [place] [address] Randy Gomez M.D. Director [facility] # [id number] 19 SEE RESULT BELOW Name: MELIDA TORRES : [address]: Lisbeth Ocampo MD Acct: [id number] Unit: [id number] AGE: 66 Location: [facility] Re12/18/16 SEX: F Status: REG REF SPEC: [id number] ADDISON: 12/18/16-[address] [facility] [address]: Lisbeth Ocampo MD REQ: [id number] RECD: 12/18/16 STATUS: COMP _ SOURCE: SPUTUM,EXP SPDESC: ORDERED: [...] performed at Main Lab DEPARTMENT OF PATHOLOGY, [address] [place] [address] Randy Gomez M.D. Director [facility] # [id number] Patient: MELIDA TORRES [id number] (Continued) Specimen: [id number] Collected: 12/18/16 Received: 12/18/16-115 (Continued) Procedure Result Reported Site Sputum Culture Final (continued) 12/21/16841 1. GRAM NEGATIVE BACILLI (continued) M.I.C. RX --------- ------ Pipercillin/Tazobactam <=4 S Trimethoprim/Sulfamethoxazole <=20 S Amoxicillin/Clavulanic Acid 4 S Aztreonam >=64 R Contact the Microbiology Department for any additional antibiotic reporting. * ML - MAIN LAB ([facility]) . END OF REPORT * ML=Testing performed at Main Lab DEPARTMENT OF PATHOLOGY, [address] [place] [address] Randy Gomez M.D. Director [facility] # [id number] 20 10/26 21 *Ascorbic acid is present which may interfere with detection of blood. 22 AA 10/26 23 SEE RESULT BELOW Name: MELIDA TORRES : [address]: Rachel Mead MD Acct: [id number] Unit: [id number] AGE: 66 Location: PAT Re10/24/16 SEX: F Status: REG REF SPEC: [id number] ADDISON: 10/24/16-[address]: Rachel Mead MD REQ: [id number] RECD: 10/24/168787 STATUS: COMP _ SOURCE: URINE SPDESC: ORDERED: Urine Culture COMMENTS: AA 10/26 QUERIES: Urine Source: Clean Catch Procedure Result Reported Site Urine Culture Final 10/25/16- 1308 ML No Growth (<1,000 CFU/mL) * ML - MAIN LAB ([facility]) . END OF REPORT * ML=Testing performed at Main Lab DEPARTMENT OF PATHOLOGY, [address] [place] [address] Randy Gomez M.D. Director [facility] # [id number] 24 Please check 2 days before the visit 25 ADDITIONAL INFORMATION This test was developed and its performance characteristics determined by [facility] in a manner consistent with CLIA requirements. This test has not been cleared or approved by the U.S. Food and Drug Administration. Test Performed by: [facility] - [address] [address] Product/Industry Consultant: Delbert Aguillon II, M.D., Ph.D. 26 Because [...] REFERENCE VALUE <1.0 (Negative) Test Performed by: [place] [address] Product/Industry Consultant: Delbert Aguillon II, M.D., Ph.D. 30 REFERENCE VALUE <1.0 (Negative) Test Performed by: [place] [address] Product/Industry Consultant: Delbert Aguillon II, M.D., Ph.D. 31 Please check this week 32 Test Performed by: [place] [address] Product/Industry Consultant: Delbert Aguillon II, M.D., Ph.D. 33 Please check this week 34 Interpretation: Strong Positive (>=60.0) REFERENCE VALUE <20.0 (Negative) Test Performed by: [place] [address] Product/Industry Consultant: Delbert Aguillon II, M.D., Ph.D. 35 Negative for cANCA and pANCA patterns by immunofluorescence. Test Performed by: [place] [address] Product/Industry Consultant: Delbert Aguillon II, M.D., Ph.D. 36 Please check this week 37 Test Performed by: [place] [address] Product/Industry Consultant: Delbert Aguillon II, M.D., Ph.D. 38 Please [...] Procedures Date CPT Code Description Status Comment 08/20/201756252 Inject/Drain Joint/Bursa Completed Major 06/10/2017 27127 EKG Tracing & Completed Interpretation 03/21/2017 03019 TKR Total Knee Replacement Completed 03/21/2017 27867 TKR Total Knee Replacement Completed 03/11/2017 71717 EKG, Interpretation Only Completed 01/23/201761607 Inject/Drain Joint/Bursa Completed Major 10/26/2016 28573 THR Total Hip Replacement Completed 10/26/2016 34708 THR Total Hip Replacement Completed 09/26/2016 24137 EKG Tracing & Completed Interpretation 08/01/2016 Diabetic Retinal Eye Exam Completed Document: 08/01/16 - Consult Ophthalmology - Lilian 07/05/201690412 Inject/Drain Joint/Bursa Completed Major 03/07/2016 34333 EKG Tracing & Completed Interpretation 02/27/2016 02448 Polysomnography Sleep Staging Completed 4+ Parameters W/Cpap 01/20/2016 72091 EKG Tracing & Completed Interpretation 01/20/2016 93296 EKG Tracing & Completed Interpretation 12/30/2015 73959 EKG Tracing & Completed Interpretation 11/25/2015 75982 Left Heart Cath. Incl S/I Completed Coronaries, Angio S/I V Gram If Done 11/09/2015 13863 EKG Tracing & Completed Interpretation 10/26/2015 21057 Treadmill Interp/Report Only Completed 10/26/2015 08739 Stress Test Supervsn W/Out Completed I/R 10/18/2015 89452 EKG Tracing & Completed Interpretation 10/04/2015 97499 EKG Tracing & Completed Interpretation 09/21/2015 96989 ECHO Stress Test Incl Perf Completed Contiuous ekg Monitoring W/Phys Superv 09/08/2015 73574 Holter Monitor Review (24 Completed hr)dr review & interp only 09/08/2015 66329 ECG Monitor/Recording Completed W/Visual Superimposition Scanning 09/08/2015 47872 Inject/Drain Joint/Bursa Completed Major 09/07/2015 26720 Holter Monitor Review (24 Completed hr)dr review & interp only 09/07/2015 57498 ECG Monitor/Recording Completed W/Visual Superimposition Scanning 09/07/2015 77973 Holter Monitoring 24 HR New Completed 09/02/2015 65669 EKG Tracing & Completed Interpretation 08/21/2015 54448 ECHO Transthorasic Realtime Completed 2D W Doppler & Color Flow Hosp 06/07/2015 28181 Inject/Drain Joint/Bursa Completed Major 03/14/2015 19543 Inject/Drain Joint/Bursa Completed Major Encounters Type Date Location Provider CPT E/M Dx Office Visit 10/25/2017 Pulmonology [place] [address] J15.1 10:31a Services Of [facility] N39.0 B96.5 J47.9 Office Visit 10/24/2017 1:50p [facility] Ghulam Paredes, 24855 J47.9 Infectious Diseases Veronica R05 Office Visit 10/24/2017 9:10a Pulmonology [place] [address] J15.1 Services Of [facility] J47.1 N39.0 Office Visit 10/23/2017 3:38p Pulmonology [place] [address] J15.1 Services Of [employer] J47.1 N39.0 Office Visit 10/22/2017 9:59a Pulmonology [place] [address] J15.1 Services Of [facility] [employer] B96.5 J47.1 Office Visit 10/18/2017 2:20p Pulmonology [place] [address] B96.5 Services Of [facility] J47.1 J15.1 Office Visit 10/14/2017 12:45p Pulmonology [place] [address] J47.1 Services Of [employer] G47.33 Office Visit 09/20/2017 11:30a Pulmonology [place] [address] J47.1 Services Of [employer] G47.33 Office Visit 08/30/2017 10:00a Rheumatology Services MARCIA Barron 27468 M05.79 Of [facility] M25.512 R76.8 J47.9 M25.522 Z79.899 M85.9 Office Visit 08/20/2017 10:00a Rheumatology Services Yefri Flores 02152 M25.512 Of [facility] M.Brandon M19.012 M05.79 R76.0 Z79.899 Office Visit 07/01/2017 1:45p Pulmonology [place] [address] J47.9 Services Of [employer] G47.33 Office Visit 06/10/2017 3:20p [facility] Justo Francois Jacinto, 13017 I49.3 M.DJose Rafael I25.10 E66.9 R94.31 Office Visit 05/28/2017 11:30a Rheumatology Services Jose Cope, [employer] HAND 18959 M05.79 Of [facility] Z96.652 Z79.899 Office Visit 03/24/2017 2:20p [facility]Juan Carlos, 15517 J45.909 Assoc,pc PA Hospitalists Z96.652 E03.9 G47.33 Office Visit 03/23/2017 2:19p [facility] [place], 15086 Z96.652 Assoc,pc PA Hospitalists J45.909 E03.9 G47.33 Office Visit 03/22/2017 2:18p [facility] Mtmarta Kor[place], 04717 Z96.652 Assoc,pc PA Hospitalists J45.909 E03.9 G47.33 Office Visit 03/21/2017 2:17p [facility] 57323 Z96.652 Assoc, Hospitalists N.P. J45.909 E03.9 G47.33 Office Visit 02/20/2017 8:15a Orthopedic Services Of Rachel Mead M.D. 09809 M25.562 C.M.A. M25.462 M17.12 M21.062 Office Visit 01/23/2017 9:00a [facility] Services Of Rachel Mead M.D. 91977 M25.562 C.M.A. Z47.1 M25.462 M17.12 Z96.642 Office Visit 12/18/2016 10:20a Rheumatology Services Yefri Flores, 29270 M05.79 Of Amy Martin M15.0 E55.9 Z79.899 Office Visit 12/12/2016 11:15a Pulmonology [place] [address] J47.9 Services Of [facility] G47.33 E66.09 Office Visit 10/30/2016 1:55p [facility], [place] [address] R50.9 Hospitalists Z96.642 N39.0 Office Visit 10/29/2016 1:55p [facility], [place] [address] R50.9 Hospitalists Z96.642 N39.0 Office Visit 10/28/2016 1:[facility]p [facility] Kenia Hernandez N.Pauline 48298 R50.9 Hospitalists Z96.642 N39.0 Office Visit 10/18/2016 8:30a Pulmonology [place] [address] J47.9 Services Of [facility] G47.33 Office Visit 09/26/2016 2:00p [facility] Shari Jacinto, 52512 Z01.810 Veronica M16.12 I49.3 E66.9 Z68.34 Z87.891 Office Visit 09/24/2016 9:45a Orthopedic Services Of Rachel Mead M.D. 57944 M25.552 C.M.A. M16.12 Office Visit 09/12/2016 8:40a Rheumatology Services Yefri Flores 28164 M05.79 Of [employer] M.D. M15.0 E55.9 Z79.1 Office Visit 09/04/2016 8:30a Pulmonology [place] [address] J47.9 Services Of [employer] G47.33 Office Visit 07/05/2016 9:40a Rheumatology Services Yefri Flores 57180 M05.79 Of [employer] M.D. Z79.899 M17.12 Office Visit 06/19/2016 8:30a Pulmonology [place] [address] J47.9 Services Of [employer] G47.33 J45.909 Office Visit 05/31/2016 9:40a Rheumatology Services Yefri Flores 40403 M05.79 Of [employer] M.D. M15.0 Z79.899 Z79.1 E55.9 Office Visit 05/22/2016 8:00a Rheumatology Services Of Yefri Flores 10042 R76.0 [employer] M.D. J47.1 E55.9 M15.0 R74.8 Office Visit 04/27/2016 9:00a Pulmonology [place] [address] G47.33 Services Of [employer] J47.1 J45.909 Office Visit 03/30/2016 3:30p [facility] ANNEI Foote 76345HFW R55 I49.3 G47.33 Office Visit 03/19/2016 8:00a Pulmonology [place] [address] G47.33 Services Of [facility] [employer] J47.9 Office Visit 03/07/2016 4:00p [facility] Shari Jacinto 61849 G47.33 M.D. R00.2 I49.3 Office Visit 02/20/2016 8:45a Pulmonology [place] [address] G47.33 Services Of [employer] J47.9 E66.09 J45.909 Office Visit 01/20/2016 9:15a [facility] Of [facility] ANNIE Foote 12537 R42 I49.3 Office Visit 11/29/2015 1:40p [facility] Katietaamanda Jacinto, 39155 I49.3 Veronica I25.10 Office Visit 11/09/2015 3:40p [facility] Of Shari S. 18705 R07.9 Amy Jacinto M.D. R06.02 I49.3 Office Visit 10/26/2015 9:04a [facility], Casandra Smith, DONN 05430 R07.9 Hospitalists R06.02 R00.2 Office Visit 10/26/2015 2:17p [facility] Of Qasim New M.D., 03644 R07.89 [facility] R06.02 I49.3 Office Visit 10/25/2015 9:03a [facility], [place] [address] R07.9 Hospitalists R06.02 R00.2 Office Visit 10/18/2015 1:20p [facility] Katietaamanda Jacinto, 07065 R94.31 Veronica I49.3 I35.1 Office Visit 10/04/2015 1:20p [facility] Katietaamanda Dyson. Ophelia, 20604 R94.31 Veronica I49.3 I35.1 Office Visit 09/08/2015 9:30a Orthopedic Services Mina Romero M.D. 29509 M19.012 Of C.M.A. Office Visit 09/02/2015 9:00a [facility] Shari S. 41032 R55 Veronica Jacinto E03.9 E86.0 R01.1 R94.31 I49.3 Office Visit 08/29/2015 2:00p [facility] M.D. 00447 M16.12 C.M.A. M25.552 Office Visit 08/21/2015 1:27p [facility], Digna Marrero [id number] R55 Hospitalists Veronica N39.0 E03.9 K75.4 Office Visit 08/19/2015 1:26p [facility], Viktoria Merida N.P. 42126 R55 Hospitalists E86.0 N39.0 J45.30 Office Visit 03/14/2015 10:30a [facility] Romero M.D. 37937 715.91 C.M.A. Plan of Care Future Appointment(s):12/16/2017 11:30 am - Lisbeth Ocampo MD at [facility]11/07/2017 2:40 pm - Ghulam Paredes M.D. at [facility]15/08/2018 2:30 pm - ANNIE Foote [facility]/2018 10:00 am - MARCIA Barron at [facility]01/01/2018 10:30 am - Lisbeth Ocampo MD at [facility]11/06/2017 - iLsbeth Ocampo MDJ15.1 Pneumonia due to PseudomonasNew Xrays:CT Chest W/OFollow up:1 month , CT chest [id number] Bronchiectasis, [id number] Obstructive sleep apnea (adult) (pediatric)
[2017-11-13 14:01] VITALS: BP 144/62
--- NOTE | 2017-11-13 15:30 | RAD ---
INDICATION: Cough, yellow sputum, recent pneumonia. COMPARISON: Comparison is made with a prior chest x-ray study from October 17, 2017. TECHNIQUE: Dual-energy PA and lateral views of the chest were obtained. FINDINGS: The heart is within normal limits in size. Mediastinal and hilar contours appear within normal limits. There is a small left lower lobe infiltrate which appears similar to the prior exam. There is also subsegmental atelectasis at both lung bases. No pleural effusion is seen. IMPRESSION: SMALL LEFT LOWER LOBE INFILTRATES SUGGESTIVE OF PNEUMONIA, UNCHANGED. RECOMMEND FOLLOW-UP CHEST X-RAYS TO RESOLUTION.
--- NOTE | 2017-11-13 15:43 | ED ---
Respiratory - HPI Summary HPI Summary: 67 YO F WITH C/O DYSPNEA AND INCREASED SPUTUM PRODUCTION. NO FEVER. NO EDEMA. NO CHEST PAIN OR CALF PAIN. RECENT PNEUMONIA DX; FOLLOWED BY INFECTIOUS DISEASE, DR HAGAN, AND PULMONARY , DR GOLDSMITH. FINISHED LEVAQUIN 750MG QD ONE WEEK AGO AND THEN STARTED WORSENING. DOES NOT WISH TO GO TO THE EMERGENCY DEPARTMENT SO, CAME TO URGENT CARE. - History of Current Complaint Chief Complaint: UCRespiratory Stated Complaint: CONGESTION COUGH Time Seen by Provider: 11/13/17 14:50 Hx Obtained From: Patient Onset/Duration: Lasting Days Timing: Constant Initial Severity: Mild Current Severity: Mild Character: Cough (Productive) - YELLOW SPUTUM Sputum Amount: Small Sputum Color: Yellow Aggravating Factor(s): Movement, Recumbent Position Associated Signs and Symptoms: SOB - Risk Factors Pseudomonas Risk Factors: Repeated Antibiotics Past 3 Months - Allergy/Home Medications Allergies/Adverse Reactions: Allergies Allergy/AdvReac Type Severity Reaction Status Date / Time Venlafaxine [From Effexor] Allergy Severe suicidal Verified 10/17/17 14:27 Ciprofloxacin Allergy Unknown oral rash, Verified 10/17/17 14:27 shortness of breath Sulfa Antibiotics Allergy Hives, Verified 10/17/17 14:27 shortness of breath seasonal Allergy Mild Congestion Uncoded 10/17/17 14:27 Home Medications: Home Medications clonazePAM TAB(*) [Klonopin TAB(*)] 0.5 mg PO PRN 11/13/17 [History] predniSONE TAB* [Deltasone TAB*] 30 mg PO SEE INSTRUCTIONS 11/13/17 [History Confirmed 11/13/17] PMH/Surg Hx/FS Hx/Imm Hx Previously Healthy: No Endocrine/Hematology History: Reports: Hx Thyroid Disease - HYPOTHYROIDISM Denies: Hx Diabetes, Hx Anemia Cardiovascular History: Reports: Hx Angina, Hx Peripheral Vascular Disease, Hx Syncope, Hx Valvular Heart Disease - "a couple of valve insufficiencies"., Other Cardiovascular Problems/Disorders - CARDIAC ABLASION 2 YRS AGO Denies: Hx Coronary Artery Disease, Hx Hypercholesterolemia, Hx Hypertension , Hx Myocardial Infarction Respiratory History: Reports: Hx Asthma, Hx Pneumonia, Hx Sleep Apnea, Other Respiratory Problems/Disorders - atelectasis - chronic Denies: Hx Chronic Obstructive Pulmonary Disease (COPD) GI History: Denies: Hx Jaundice, Hx Ulcer History: Reports: Other Problems/Disorders - E.COLI UTI Denies: Hx Renal Disease Musculoskeletal History: Reports: Hx Arthritis - RA, OA, Other Musculoskeletal History - RIGHT HIP REPLACEMENT & ORIF LEFT ANKLE Denies: Hx Osteoporosis Sensory History: Reports: Hx Cataracts - mild, Hx Contacts or Glasses, Hx Hearing Aid - doesn't wear Denies: Hx Glaucoma Opthamlomology History: Reports: Hx Cataracts - mild, Hx Contacts or Glasses Denies: Hx Glaucoma Psychiatric History: Reports: Hx Anxiety, Hx Depression - Cancer History Hx Chemotherapy: No Hx Radiation Therapy: No - Surgical History Surgery Procedure, Year, and Place: RIGHT HIP REPLACEMENT. LEFT ANKLE ORIF. 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 NASAL SWAB Denies: Hx Clostridium Difficile, Hx Human Immunodeficiency Virus (HIV), Hx Shingles, Hx Tuberculosis, Hx Known/Suspected VRE, Hx Known/Suspected VRSA, History Other Infectious Disease, Traveled Outside the in Last 30 Days - Family History Known Family History: Negative: Blood Disorder - Social History Alcohol Use: Occasionally Alcohol Amount: 1-2 DRINKS A MONTH AT MOST Substance Use Type: Reports: None Smoking Status (MU): Former Smoker Type: Cigarettes Amount Used/How Often: 1PPD FOR SEVEN YEARS Have You Smoked in the Last Year: No Review of Systems Positive: Other - COUGH Eyes: Negative ENT: Negative Negative: Chest Pain Positive: Shortness Of Breath, Cough Gastrointestinal: Negative Genitourinary: Other - ON AMOX FOR UTI Musculoskeletal: Negative Skin: Negative Neurological: Negative Psychological: Normal All Other Systems Reviewed And Are Negative: Yes Physical Exam Triage Information Reviewed: Yes Vital Signs On Initial Exam: Initial Vitals Temp Pulse Resp BP Pulse Ox 98.6 F 78 18 144/62 94 11/13/17 13:54 11/13/17 13:54 11/13/17 13:54 11/13/17 13:54 11/13/17 13:54 Vital Signs Reviewed: Yes Appearance: Positive: Well-Appearing, No Pain Distress Skin: Positive: Warm, Skin Color Reflects Adequate Perfusion Head/Face: Positive: Normal Head/Face Inspection Eyes: Positive: Normal, EOMI, DYLAN ENT: Positive: Normal ENT inspection Neck: Positive: Supple Respiratory/Lung Sounds: Positive: Rhonchi Cardiovascular: Positive: Normal Abdomen Description: Positive: Nontender Bowel Sounds: Positive: Present Musculoskeletal: Positive: Normal Neurological: Positive: Normal Psychiatric: Positive: Normal AVPU Assessment: Alert Diagnostics - Vital Signs Vital Signs Temp Pulse Resp BP Pulse Ox 11/13/17 13:54 98.6 F 78 18 144/62 94 - Laboratory Lab Statement: Any lab studies that have been ordered have been reviewed, and results considered in the medical decision making process. Disposition - Course Course Of Treatment: WILL RESTART THE LEVAQUIN 750MG PO QD X 7 DAYS. SPUTUM CX AND SENSITIVITY PENDING. PATIENT DENIED C/O CARDIAC CAUSE OF SOB; SHE DECLINED GOING TO THE EMERGENCY DEPARTMENT FOR HER PRESENT SX. F/U WITH INFECTIOUS DX AND PULMONARY. GO TO ED IF WORSE. - Diagnoses Provider Diagnoses: Pneumonia Discharge - Discharge Plan Condition: Stable Disposition: HOME Prescriptions: Levofloxacin TAB* [Levaquin TAB*] 750 mg PO DAILY #7 tab Patient Education Materials: Dyspnea (ED), Pneumonia (ED) Referrals: Shelby CLARK,Ghulam Taylor [Medical Doctor] - Lisbeth Goldsmith MD [Medical Doctor] - Lew Campbell MD [Primary Care Provider] - Additional Instructions: FOLLOW UP WITH YOUR PRIMARY CARE DOCTOR AND DR.S VALLADARES. GO TO THE EMERGENCY DEPARTMENT FOR ANY WORSENING OF YOUR CONDITION OR QUESTIONS OR CONCERNS.
--- NOTE | 2017-11-14 20:41 | UC ---
- Progress Note Progress Note: + pseudomonas on sputum Pt on Levaquin await sensitivity - no changes [facility] 11/14/2017 Course/Dx - Course Course Of Treatment: WILL RESTART THE LEVAQUIN 750MG PO QD X 7 DAYS. SPUTUM CX AND SENSITIVITY PENDING. PATIENT DENIED C/O CARDIAC CAUSE OF SOB; SHE DECLINED GOING TO THE EMERGENCY DEPARTMENT FOR HER PRESENT SX. F/U WITH INFECTIOUS DX AND PULMONARY. GO TO ED IF WORSE. - Diagnoses Provider Diagnoses: Pneumonia
== END 2017-11-13 15:59 | disposition home or self-care (01) ==
LOC: UCEAST 13:41
DX: J18.9 Pneumonia, unspecified organism (principal); J45.909 Unspecified asthma, uncomplicated; I10 Essential (primary) hypertension; Z88.8 Allergy status to other drugs, medicaments and biological substances; Z88.1 Allergy status to other antibiotic agents; Z88.2 Allergy status to sulfonamides; Z91.048 Other nonmedicinal substance allergy status; Z87.891 Personal history of nicotine dependence
CPT/HCPCS: 71020; 87070; 87077; 87186; 87205; 99212; G0463

== ENCOUNTER 2018-05-09 20:19 | Emergency (ER) | payer MEDICARE ==
[2018-05-09 20:39] VITALS: BP 122/65
--- NOTE | 2018-05-09 21:25 | UC ---
Laceration HPI - HPI Summary HPI Summary: states she was cutting chicken this evening with a new knife and she cut her left thumb with it. It initially bled profusely but she controlled with compression. States she is up to date with tetanus vaccination. She states she is currently taking a cephalosporin IV through a port due to recurrent pseudomonas pneumonia. 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 She also states she is on Holter Monitor currently due to PVC's. - History Of Current Complaint Chief Complaint: UCLaceration Stated Complaint: THUMB LACERATION Time Seen by Provider: 05/09/18 20:28 Hx Obtained From: Patient Laceration Location: Finger Mechanism Of Injury: Sharp Trauma Onset/Duration: Sudden Onset, Lasting Hours Severity: Mild Pain Intensity: 5 - Allergies/Home Medications Allergies/Adverse Reactions: Allergies Allergy/AdvReac Type Severity Reaction Status Date / Time ciprofloxacin [From Cipro] Allergy See Comment Verified 05/09/18 20:40 Sulfa (Sulfonamide Allergy Hives Verified 05/09/18 20:40 Antibiotics) venlafaxine [From Effexor] Allergy See Comment Verified 05/09/18 20:40 seasonal Allergy Mild Congestion Uncoded 05/09/18 20:40 Home Medications: Home Medications Acetaminophen [Acetaminophen Extra Strength] 1,000 mg PO 05/09/18 [History] PMH/Surg Hx/FS Hx/Imm Hx - Additional Past Medical History Additional PMH: common variant immune deficiency Endocrine History: Hypothyroidism Cardiovascular History: Atrial Fibrillation Psychological History: Depression - Surgical History Surgical History: Yes Surgery Procedure, Year, and Place: RIGHT HIP REPLACEMENT. LEFT ANKLE ORIF. CARDIAC ABLATION. LEFT HIP REPLACEMENT 10/2016. LEFT KNEE REPLACEMENT 03/2017 - Family History Known Family History: Negative: Blood Disorder - Social History Alcohol Use: Occasionally Alcohol Amount: 1-2 DRINKS A MONTH AT MOST Substance Use Type: None Smoking Status (MU): Former Smoker Type: Cigarettes Amount Used/How Often: 1PPD FOR SEVEN YEARS Have You Smoked in the Last Year: No When Did the Patient Quit Smoking/Using Tobacco: 1991 - Immunization History Most Recent Influenza Vaccination: 2016 Most Recent Tetanus Shot: Unknown Most Recent Pneumonia Vaccination: 2010 Review of Systems Constitutional: Negative All Other Systems Reviewed And Are Negative: Yes Physical Exam Triage Information Reviewed: Yes Appearance: Well-Appearing, No Pain Distress, Obese Vital Signs: Initial Vital Signs Temp 98.0 F 05/09/18 20:34 Pulse 88 05/09/18 20:34 Resp 18 05/09/18 20:34 BP 122/65 05/09/18 20:34 Pulse Ox 97 05/09/18 20:34 Vital Signs Reviewed: Yes Eyes: Positive: Conjunctiva Clear ENT: Positive: Hearing grossly normal, Pharynx normal Neck: Positive: Supple Respiratory: Positive: No respiratory distress Cardiovascular: Positive: Pulses Normal, Brisk Capillary Refill Skin Exam: Other - linear superficial laceration on left thumb, radial aspect of finger perpendicular to nail without laceration of nail Laceration Repair - Laceration Repair 1 Description: Linear Laceration Size After Repair: Length (cm) - 1cm Modified For Repair: No Cleansing Completed Via Routine Prep: Yes Closure Material: Skin Adhesive Closure Method: Single Layer Suture Of: Skin Laceration Course/Dx - Course/Dx Course Of Treatment: skin adhessive applied, no complications. Instructions of care given to patient - Differential Dx - Laceration/Wound Provider Diagnoses: finger laceration Discharge - Sign-Out/Discharge Documenting (check all that apply): Discharge/Admit/Transfer - Discharge Plan Condition: Stable Disposition: HOME Patient Education Materials: Skin Adhesive Care (ED), Finger Laceration (ED) Referrals: Lew Campbell MD [Primary Care Provider] - - Billing Disposition and Condition Condition: STABLE Disposition: Home
== END 2018-05-09 21:20 | disposition home or self-care (01) ==
LOC: UCEAST 20:19
DX: S61.012A Laceration without foreign body of left thumb without damage to nail, initial encounter (principal); W26.0XXA Contact with knife, initial encounter; Y93.G1 Activity, food preparation and clean up; Y92.9 Unspecified place or not applicable; I49.3 Ventricular premature depolarization; D83.9 Common variable immunodeficiency, unspecified; E03.9 Hypothyroidism, unspecified; I48.91 Unspecified atrial fibrillation; F32.9 Major depressive disorder, single episode, unspecified; Z96.643 Presence of artificial hip joint, bilateral; Z96.652 Presence of left artificial knee joint; Z88.1 Allergy status to other antibiotic agents; Z88.2 Allergy status to sulfonamides; Z88.8 Allergy status to other drugs, medicaments and biological substances; Z87.891 Personal history of nicotine dependence
CPT/HCPCS: 12001; 99212; G0463

== ENCOUNTER 2018-05-22 14:02 | Emergency (ER) | payer MEDICARE ==
[2018-05-22 14:15] VITALS: BP 117/66
[2018-05-22] MEDS ORDERED: Lidocaine 2% PF * 5 ML VIAL INJ ONE (14:45)
--- NOTE | 2018-05-22 15:37 | UC ---
Fatuma Guardado Rebecca, scribed for Kate Deng MD on 05/22/18 at 1432 . Bite Injury/Animal HPI - HPI Summary HPI Summary: Pt is a 67 y/o F who presents to [facility] c/o laceration s/p dog bite. 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 This dog has never bit her before and she did not clean the wound. Dog is UTD with its vaccinations. 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 Pt did not take cleanse wound HOT TOP LINER HELPER. pt does have an immunodeficiency disease. Pt does get recurrent lung infections. She is currently getting home PICC infusioins for Cefepime. Additionally notes that her thumb feels "weird" described as "hot and heavy" and was tingling immediately after the bite. Tetanus UTD and is right hand dominant. Pt is not on antcoagulation. PMHx common variable immune deficiency for which she receives Gamunex and is on Cefepime for Pseudomonas. Pt's medications reviewed this visit - History of Current Complaint Chief Complaint: UCBiteInjury Stated Complaint: DOG BITE Hx Obtained From: Patient Severity Initially: Moderate Pain Intensity: 4 Pain Scale Used: 0-10 Numeric Onset/Duration: Still Present Type of Bite: Pet - Dog Has Animal Been Immunized?: Yes Aggravating Factor(s): Nothing Alleviating Factor(s): Nothing Associated Signs And Symptoms: Positive: Numbness/Tingling - R thumb tingling - Allergies/Home Medications Allergies/Adverse Reactions: Allergies Allergy/AdvReac Type Severity Reaction Status Date / Time ciprofloxacin [From Cipro] Allergy See Comment Verified 05/22/18 14:15 Sulfa (Sulfonamide Allergy Hives Verified 05/22/18 14:15 Antibiotics) venlafaxine [From Effexor] Allergy See Comment Verified 05/22/18 14:15 seasonal Allergy Mild Congestion Uncoded 05/22/18 14:15 Home Medications: Home Medications ALPRAZolam [Alprazolam] 0.25 mg PO QPM PRN 05/22/18 [History Confirmed 05/22/18] Cefepime(*) [Maxipime(*)] 1 gm IV Q12H 05/22/18 [History Confirmed 05/22/18] Gamunex Iv 05/22/18 [History] Hydroxychloroquine TAB* [Plaquenil TAB*] 400 mg PO DAILY 05/22/18 [History Confirmed 05/22/18] L.acidoph,Paracasei, B.lactis [Probiotic] 1 each PO DAILY 05/22/18 [History Confirmed 05/22/18] Magnesium Citrate 400 mg PO BID 05/22/18 [History Confirmed 05/22/18] Mirabegron (NF) [Myrbetriq (NF)] 50 mg PO DAILY 05/22/18 [History Confirmed 04/04] Senna TAB* [Senokot TAB*] 1 tab PO DAILY 05/22/18 [History Confirmed 05/22/18] Tumeric 1 tab PO QPM 05/22/18 [History Confirmed 05/22/18] diPHENhydraMINE PO* [Benadryl PO 50 MG CAP*] 1 cap PO QPM PRN 05/22/18 [History Confirmed 05/22/18] PMH/Surg Hx/FS Hx/Imm Hx - Additional Past Medical History Additional PMH: PMHx: Common variable immune deficiency Previously Healthy: No Endocrine History: Thyroid Disease - Hypothyroid Cardiovascular History: Atrial Fibrillation Respiratory History: COPD - Surgical History Surgical History: Yes Surgery Procedure, Year, and Place: RIGHT HIP REPLACEMENT. LEFT ANKLE ORIF. CARDIAC ABLATION. LEFT HIP REPLACEMENT 10/2016. LEFT KNEE REPLACEMENT 03/2017 - Family History Known Family History: Positive: Diabetes Negative: Blood Disorder - Social History Occupation: Retired Lives: Alone Alcohol Use: Occasionally Alcohol Amount: 1-2 DRINKS A MONTH AT MOST Substance Use Type: None Smoking Status (MU): Former Smoker Type: Cigarettes Amount Used/How Often: 1PPD FOR SEVEN YEARS Have You Smoked in the Last Year: No When Did the Patient Quit Smoking/Using Tobacco: 1991 - Immunization History Most Recent Influenza Vaccination: 2017 Most Recent Tetanus Shot: 7 Most Recent Pneumonia Vaccination: 2010 Review of Systems Constitutional: Negative Skin: Other - R hand laceration Eyes: Negative ENT: Negative Respiratory: Negative Cardiovascular: Negative Gastrointestinal: Negative Genitourinary: Negative Motor: Negative Neurovascular: Negative Musculoskeletal: Negative Neurological: Other - R thumb tingling, "hot and heavy" sensation Psychological: Negative All Other Systems Reviewed And Are Negative: Yes Physical Exam - Summary Physical Exam Summary: Vital Signs Reviewed: Yes A+Ox3, no distress Eyes: Conjunctiva Clear ENT: Hearing grossly normal neck: supple Respiratory: Positive: No respiratory distress, No accessory muscle use Cardiovascular: skin color reflect adequate perfusion Musculoskeletal Exam: ROBERTSON x 4 without difficulty + flex/ext right elbow + flex/ ext wrist + pronate/supinate. Pt with full AROM all digits at MCP, DIP,PIP against resistance Pt with full AROM thumb against resistance. RUQ: PICC Neurological: Positive: Alert, ambulatory without difficulty + thumb up, a ok, finger spead, finger cross + gross sensation throughout hand Psychological: Positive: Normal Response To Family Skin: Positive: no rash, no ecchymosis Pt with 3 lacerations to dorsum right hand. surrrounding ecchymosis- see diagram Triage Information Reviewed: Yes Vital Signs: Initial Vital Signs Temp 98.5 F 05/22/18 14:10 Pulse 73 05/22/18 14:10 Resp 16 05/22/18 14:10 BP 117/66 05/22/18 14:10 Pulse Ox 96 05/22/18 14:10 Procedures - Procedure Summary Procedure Summary: Patient gave verbal consent for wound care Timeout conducted with are at bedside Wounds prepped in sterile fashion per usual protocol Wounds copiously irrigated As close as described below Discussed with patient in detail the wound to be closed loosely given that they were bites. However, given the size of the flap, felt patient should have some sutures to place flap and appropriate approximation. Patient tolerated well Wounds bandaged Reviewed signs and symptoms in wound care with patient - Laceration/Wound Repair 1 Location: upper extremity - Right hand Description: Linear - copious irrigation > 250ml Anesthesia: 2.0%, Lido Betadine Prep?: No Closure: Single Layer Debridement: minimal Suture Type: Prolene - 5-0 Number of Sutures: 5 - Simple interrupted Layer Closure?: No Sterile Dressing Applied?: Yes 2 Location: upper extremity - Right hand Description: Linear Anesthesia: 2.0%, Lido Irrigated w/ Saline (ccs): 100 Laceration/Wound Explored: clean Closure: Single Layer Debridement: minimal Suture Type: Prolene - 5-0 Number of Sutures: 1 - Simple interrupted Layer Closure?: No Sterile Dressing Applied?: Yes Re-Evaluation - Re-Evaluation First Eval Re-Evaluation Time: 14:50 Comment: Suture repair Bite Injury Course/Dx - Course Course Of Treatment: Patient's medications reviewed this visit. Allergies reviewed. Patient presents with bite wounds to her right, dominant dorsum hand. Pt was bitten by her dog. Patient states it was her pets vaccinations are up-to-date. Patient's tetanus is up-to-date. Patient with 3 distinct lesions on her right hand. 2 of the 3 suture for approximation. Wounds were closed loosely. Discussed carefully with patient signs and symptoms of infection. d/w pt wound care. Patient's wounds were covered with Vaseline gauze sterile dressing. Patient was also placed in a hand splint for comfort and support, applied by RN. Patient is currently receiving IV cefepime for recurrent Pseudomonas infections. Discussed with patient antibiotics regarding the dog bite. Patient will continue with the cefepime. However, patient states that the pain may be discontinued this weekend in which case patient was also given a prescription for Augmentin. Discussed with patient C. difficile precautions. 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 difficile in the past. Patient is taking probiotics as well as yogurt. Patient states she'll continue with this treatment regimen. Patient will contact primary for recheck on Saturday or Saturday. Patient is to elevate the patent arm for pain and swelling. Patient also to take Tylenol for discomfort. Wound forms completed and sent to [facility]. She is questions answered. Sutures out in 8-10 days. - Differential Dx/Diagnosis Provider Diagnoses: dog bite to right hand Discharge - Sign-Out/Discharge Documenting (check all that apply): Discharge/Admit/Transfer - Discharge - Discharge Plan Condition: Stable Disposition: HOME Prescriptions: Amoxicillin/Clavulanate TAB* [Augmentin TAB 875*] 875 mg PO BID #14 tab Patient Education Materials: Animal Bite (ED) Referrals: Lew Campbell MD [Primary Care Provider] - Additional Instructions: - - your stitches should come out in 8-10 days - you can return here, go to your Doctor or any urgent care center - okay to take tylenol every 6 hours as needed for pain -Anticipate increased discomfort over the next several hours as the numbing medication wears off -Keep your wound clean and dry - no soaking for 24 hours. Then, okay for wound to get wet - pat dry, don't rub -apply a thin layer of antibiotic ointment (neosporin, polysporin) 2-3 times a day - wear splint as much as possible over the next several days to help with swelling and pain - elevate your arm to help decrease swelling and pain - keep your wound clean - monitor for signs of infection - reddness, red streaking, odor, green drainage. - If you continue with IV antibiotics, you do NOT need to start the Augmentin. If the Cefepime is discontinued, then it is recommended you take the Augmentin. It is recommendended you take probiotics and eat yogurrt to try to prevent .C. Diff. - You should anticipate a call from the [facility] Department to verify the vaccination record - Contact your doctor for a wound recheck tomorrow. Contact your doctor, return here, or go to the emergency department wtih questions or concerns with questions or concerns - Billing Disposition and Condition Condition: STABLE Disposition: Home Images Hands: 1 - 3 sided flap lacertion - each side 2 cm - 2 - 1.5cm laceration 3 - 1cm laceration The documentation as recorded by the Fatuma vasquez Rebecca accurately reflects the service I personally performed and the decisions made by , Kate Deng MD.
== END 2018-05-22 15:53 | disposition home or self-care (01) ==
LOC: UCEAST 14:02
DX: S61.411A Laceration without foreign body of right hand, initial encounter (principal); W54.0XXA Bitten by dog, initial encounter; Y93.89 Activity, other specified; Y92.009 Unspecified place in unspecified non-institutional (private) residence as the place of occurrence of the external cause; D83.9 Common variable immunodeficiency, unspecified; E03.9 Hypothyroidism, unspecified; I48.91 Unspecified atrial fibrillation; J44.9 Chronic obstructive pulmonary disease, unspecified; Z96.643 Presence of artificial hip joint, bilateral; Z96.652 Presence of left artificial knee joint; Z88.1 Allergy status to other antibiotic agents; Z88.2 Allergy status to sulfonamides; Z83.3 Family history of diabetes mellitus; Z87.891 Personal history of nicotine dependence
CPT/HCPCS: 12004; 99212; G0463

== ENCOUNTER 2018-05-31 13:37 | Emergency (ER) | payer MEDICARE ==
[2018-05-31 13:51] VITALS: BP 129/69
--- NOTE | 2018-05-31 14:13 | UC ---
Skin Complaint HPI - HPI Summary HPI Summary: Pt is a 67 y/o F w/ swelling, erythema and pain at right hand. She was at [facility] on 05/22/18 for a dog bite and received stitches. Sx onset noted at stitched area sometime in past few days. On triage, pain is rated 6/10. - History of Current Complaint Chief Complaint: UCSkin Time Seen by Provider: 05/31/18 13:48 Stated Complaint: SOFT TISSUE Hx Obtained From: Patient Onset/Duration: Lasting Days - a few days ago Timing: Constant Current Severity: Moderate Pain Intensity: 6 Pain Scale Used: 0-10 Numeric - 6/10 Location: Hand (Right) Character: Swelling, Redness Aggravating Factor(s): Nothing Alleviating Factor(s): Nothing - Allergy/Home Medications Allergies/Adverse Reactions: Allergies Allergy/AdvReac Type Severity Reaction Status Date / Time ciprofloxacin [From Cipro] Allergy See Comment Verified 05/31/18 13:49 Sulfa (Sulfonamide Allergy Hives Verified 05/31/18 13:49 Antibiotics) venlafaxine [From Effexor] Allergy See Comment Verified 05/31/18 13:49 seasonal Allergy Mild Congestion Uncoded 05/31/18 13:49 Home Medications: Home Medications Meropenem 1 GM PREMIX(*) [Merrem 1 GM PREMIX(*)] 1 inj IV 05/31/18 [History] predniSONE TAB* [Deltasone 10 MG TAB*] 30 mg PO DAILY 05/31/18 [History Confirmed 05/31/18] Review of Systems Constitutional: Other - NEGATIVE: fever Skin: Other - POSITIVE: right-handed pain, erythema, swelling All Other Systems Reviewed And Are Negative: Yes PMH/Surg Hx/FS Hx/Imm Hx Endocrine History: Hypothyroidism Respiratory History: Asthma, Other Other Respiratory History: NEGATIVE: COPD - Surgical History Surgical History: Yes Surgery Procedure, Year, and Place: RIGHT HIP REPLACEMENT. LEFT ANKLE ORIF. CARDIAC ABLATION. LEFT HIP REPLACEMENT 10/2016. LEFT KNEE REPLACEMENT 03/2017 - Family History Known Family History: Positive: Diabetes Negative: Blood Disorder - Social History Alcohol Use: Occasionally Alcohol Amount: 1-2 DRINKS A MONTH AT MOST Substance Use Type: None Smoking Status (MU): Former Smoker Type: Cigarettes Amount Used/How Often: 1PPD FOR SEVEN YEARS Have You Smoked in the Last Year: No When Did the Patient Quit Smoking/Using Tobacco: 1991 - Immunization History Most Recent Influenza Vaccination: 2017 Most Recent Tetanus Shot: 7 Most Recent Pneumonia Vaccination: 2010 Physical Exam - Summary Physical Exam Summary: General: well-appearing, no pain distress Skin: warm, color reflects adequate perfusion, dry; in room, suture removal was performed, 6 sutures removed; a skin flap is present at right dorsum of hand; minimal erythema is present, no drainage. Head: normal Eyes: EOMI, DYLAN ENT: normal Neck: supple, nontender Respiratory: CTA, breath sounds present Cardiovascular: RRR Abdomen: soft, nontender Bowel: present Musculoskeletal: normal, strength/ROM intact Neurological: sensory/motor intact, A&O x3 Psychological: affect/mood appropriate Triage Information Reviewed: Yes Vital Signs: Initial Vital Signs Temp 98.3 F 05/31/18 13:46 Pulse 97 05/31/18 13:46 Resp 18 05/31/18 13:46 BP 129/69 05/31/18 13:46 Pulse Ox 98 05/31/18 13:46 Vital Signs Reviewed: Yes Course/Dx - Course Course Of Treatment: NO PUS DRAINAGE FROM THE DOG BITE. THE FLAP IS MILDLY SWOLLEN. F/U ORTHO/HAND; RECHECK SOONER IF WORSE. - Diagnoses Provider Diagnoses: SUTURE REMOVAL Discharge - Sign-Out/Discharge Documenting (check all that apply): Patient Departure - Discharge Plan Condition: Stable Disposition: HOME Prescriptions: Mupirocin 1 applic TOPICAL BID #22 gm Patient Education Materials: Stitches Removal (ED) Referrals: [facility] [Outside] Lew Campbell MD [Primary Care Provider] - Additional Instructions: FOLLOW UP WITH YOUR DOCTOR. GET RECHECKED FOR ANY WORSENING OF YOUR CONDITION OR QUESTIONS OR CONCERNS. - Billing Disposition and Condition Condition: STABLE Disposition: Home
== END 2018-05-31 14:39 | disposition home or self-care (01) ==
LOC: UCEAST 13:37
DX: S61.411D Laceration without foreign body of right hand, subsequent encounter (principal); W54.0XXD Bitten by dog, subsequent encounter; E03.9 Hypothyroidism, unspecified; J45.909 Unspecified asthma, uncomplicated; Z88.1 Allergy status to other antibiotic agents; Z88.2 Allergy status to sulfonamides; Z88.8 Allergy status to other drugs, medicaments and biological substances; Z96.643 Presence of artificial hip joint, bilateral; Z96.652 Presence of left artificial knee joint; Z83.3 Family history of diabetes mellitus; Z87.891 Personal history of nicotine dependence

== ENCOUNTER 2018-06-25 13:17 | Day surgery (SDC) | payer MEDICARE ==
[~2018-06-25 13:17] MED LIST: Buffered Lidocaine 0.9% SYRIN* 5 ML/SYR SYRINGE INTRADERM ONE; Famotidine IV* 10 MG/ML 2 ML (20 mg) IV ONE
[2018-06-25] MEDS ORDERED: Famotidine IV* 10 MG/ML 2 ML (20 mg) ONE (13:34)
[2018-06-25] MEDS ORDERED: Acetaminophen TAB* 325 MG PO PRN (15:29)
[2018-06-25] MEDS ORDERED: DiMENhydriNATE IV* 50 MG/ML VIAL IV PUSH PRN (15:29)
[2018-06-25] MEDS ORDERED: Levalbuterol 0.63MG/3ML NEB* UNIT OF USE INH PRN (15:29)
[2018-06-25] MEDS ORDERED: Naloxone* 0.4 MG/ML 1 ML VIAL IV PRN (15:29)
[2018-06-25] MEDS ORDERED: Midazolam* 1 MG/ML 5 ML VIAL (5 MG) ONE (15:36)
[2018-06-25] MEDS ORDERED: fentaNYL* 50 MCG/ML 2 ML VIAL (100 MCG VIAL) ONE ×2 (16:08→16:36)
[2018-06-25] MEDS ORDERED: Ondansetron INJ* 2 MG/ML VIAL ONE (16:32)
[2018-06-25] MEDS ORDERED: Lidocaine 2% PF * 5 ML VIAL ONE (16:32)
[2018-06-25] MEDS ORDERED: Dexamethasone IV* 4 MG/ML 1 ML (4 MG) ONE (16:32)
[2018-06-25] MEDS ORDERED: Succinylcholine* 20 MG/ML 10 ML VIAL ONE (16:32)
[2018-06-25] MEDS ORDERED: Propofol* 10 MG/ML 20 ML BTL IV PUSH ONE (16:32)
[2018-06-25 18:15] VITALS: BP 139/77
--- NOTE | 2018-06-26 04:09 | PRO ---
BRONCHOSCOPY REPORT: DATE OF PROCEDURE: 06/25/18 PROCEDURE PERFORMED BY: Lisbeth Ocampo MD ANESTHESIA: General anesthesia. ANESTHESIOLOGIST: Dr. Kelley. PROCEDURE PERFORMED: Bronchoscopy with bronchoalveolar lavage from left lower lobe. DESCRIPTION OF PROCEDURE: Informed consent was obtained from the patient prior to the procedure after all the risks and benefits were thoroughly explained. The patient has been having recurrent pneumonias and the sputum culture is positive for Pseudomonas. Bronchoscopy was on schedule for airway inspection and also for cultures. Appropriate time-out was agreed on by attending staff prior to the procedure. A flexible Olympus bronchoscope was inserted through the ET tube. ET tube positioning was confirmed to be 3 cm above the level of jelani. The patient noted to have thick white secretions in the lungs starting from the trachea down into the bronchi. Secretions were suctioned out. Bronchoscope was then advanced into the right bronchial tree. Thick white secretions were suctioned out from the right bronchus. No endobronchial lesions were noted. The patient noted to have evidence of bronchomalacia. Bronchoscope was then advanced into the left bronchial tree, which was then inspected. The patient noted to have thick white to light yellow secretions and were suctioned out. The patient noted to have lot of thick secretions emanating from left lower lobe bronchus. Evidence of bronchomalacia was also seen. All the secretions were cleared out. Bronchoalveolar lavage was obtained from the left lower lobe. Specimen was sent for microbiological testing. The bronchoscope was then withdrawn. The patient was extubated and seen in Recovery in optimal condition. The patient tolerated the procedure well. [id number]/CPS #: [id number] MTDD
== END 2018-06-25 18:15 | disposition home or self-care (01) ==
LOC: OR 13:17
PROVIDERS: ATTEND Internal Medicine
DX: J47.9 Bronchiectasis, uncomplicated (principal); J98.4 Other disorders of lung; G47.33 Obstructive sleep apnea (adult) (pediatric); Z87.891 Personal history of nicotine dependence; J98.09 Other diseases of bronchus, not elsewhere classified; F41.8 Other specified anxiety disorders
CPT/HCPCS: 87070; 87077; 87102; 87116; 87186; 87205; 87206; J0330; J1100; J2250; J2405; J2704; J3010

== ENCOUNTER 2018-10-25 12:28 | Emergency (ER) | payer MEDICARE ==
--- OUTSIDE RECORDS SUMMARY | 2018-10-25 12:36 | XMS REPORT | Continuity of Care Document ---
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 Onset: 12/04/2017 Pneumonia due to Pseudomonas Kumar Epps MD Active Onset: 01/01/2018 Viremia Kumar Epps MD Active Onset: 01/15/2018 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 Onset: 01/15/2018 Allergic rhinitis Kumar Epps MD Active Onset: 02/05/2018 Candidiasis of mouth Kumar Epps MD Active Onset: 05/30/2018 Exacerbation of moderate persistent Kumar Epps MD Active asthma Family History Date Family Member(s) Problem(s) Comments General Rheumatoid Arthritis Social History Type Date Description Comments Sex Unknown Home Environment Has central air Home Environment The basement is dry Home Environment Uses a dehumidifier Home Environment There are no draperies in the home Home Environment The floors are carpeted Home Environment The floors are tile Home Environment The floors are wood Home Environment Uses propane gas heating Smoke-Free Home is smoke-free Pets 2 dogs Pets 1 cat Pets Animals sleep in bedroom Tobacco Use Start: Unknown Patient has never smoked Tobacco Use Start: Unknown No Second Hand Smoke Exposure Smoking Status Reviewed: 10/01/18 No Second Hand Smoke Exposure Allergies, Adverse Reactions, Alerts Date Description Reaction Status Severity Comments 11/27/2017 Ciprofloxacin Active 11/27/2017 Sulfa Antibiotics Active 11/27/2017 Venlafaxine Active 07/16/2018 Levaquin advervse reaction Active Ruputed flexor tendon Medications Medication Date Status Form Strength Qnty SIG Indications Ordering Provider Clotrimazole 06/18 Active Parviz 10mg 35uni dissolve D83.8 ts one Dick Epps MD parviz in mouth 5x per day x7 days Meropenem 05/30 Active Solution 1gm 1gm via Rec midline Dick Epps MD Q8hrs x 7 days Prednisone 05/30 Active Tablets 5mg 60tab 6 tablets D80.6 s (30 mg) Dick Epps MD by mouth twice a day x 5 days Advair Diskus 04/16 Active Aerosol 250-50mcg 60uni inhale 1 /Dose ts puff by Dick Epps MD inhalatio n route 2 times per day in the morning and evening approxima tely 12 hours apart Gamunex-C 02/20 Active Solution 50GM/ 500 50Grams ML IV Dick Epps MD monthly Albuterol 01/01 Active Nebulizer (2.5mg/3M 150ml 1 vial L) 0.083% every 4h Dick Epps MD as needed Clonazepam 00/00 Active Tablets 0.5mg take 1 Unknown /0000 tablet by mouth at bedtime if needed maximum daily dose of 1 Levothyroxine 0000 Active Tablets 100mcg 1 tab PO Unknown Sodium /0000 daily Ventolin HFA Active Aerosol 108(90Bas inhale 2 Unknown /0000 e) puffs by mcg/Act mouth every 4 hours Calcium 1000 + D Active Tablets 1200-800m Unknown /0000 g-Unit Loperamide HCL Active Capsules 2mg 1 tab PO Unknown /0000 prn Melatonin Active Capsules 10mg 3 by Unknown /0000 mouth every night at bedtime Mucinex Active Tablets ER 600mg Unknown /0000 12HR Multi For Her Active Capsules Unknown /0000 Wbdba-[id number]-Mxfb Active Capsules 1gm 1 by Unknown Ethyl Esters /0000 mouth every day Probiotic Active Capsules Unknown / Tumeric Active Tablets Unknown /0000 Valacyclovir HCL Active Tablets 1gm Unknown /0000 Senna S Active Tablets 8.6-50mg 3 tab PO Unknown /0000 daily Myrbetriq Active Tablets ER 50mg 1 tab PO Unknown /0000 24HR daily Oxybutynin Active Tablets ER 25mg 90tab 1 by Unknown Chloride ER /0000 24HR s mouth every day Tylenol 8 Hour Active Tablets ER 650mg 1 by Unknown /0000 mouth three times a day as needed for pain/feve r Plaquenil Active Tablets 200mg 1 by Unknown /0000 mouth every day for 1 week then 2 by mouth daily ongoing Escitalopram Active Tablets 20mg 2 by Unknown Oxalate /0000 mouth every day Sajan Podhaler Active Capsules 28mg Unknown /0000 Cefepime HCL 05/14 Hx Solution 2gm inject 2 Rec GM Dick Epps MD - 05/30 Azithromycin 03/12 Hx Tablets 250mg 6tabs 2 tabs by D83.8 mouth Dick Epps MD - today. 1 03/18 tab by /2017 mouth on days 2, 3, 4 and 5. Breo Ellipta 02/20 Hx Aerosol 200-25mcg 180un inhale /Inh its one puff Dick Epps MD - once a Clotrimazole 02/05 Hx Parviz 10mg 35uni dissolve D83.8 ts one Dick Epps MD - parviz in 03/12 mouth per day x7 days Cefepime HCL 01/24 Hx Solution 2gm iv Rec infusion Dick Epps MD - q12 hours 03/12 Zithromax Z-Anam 01/22 Hx Tablets 250mg 6tabs take as directed Dick Epps MD - 01/26 Prednisone 01/15 Hx Tablets 5mg 100ta to be bs used in Dick Epps MD - conjuncti 03/12 on 1mg tablets for following taper 11mg x 7 days, 10mg x 7days, 9mg x 7days, and 8mg x7days Prednisone 12/20 Hx Tablets 1mg 100ta to be D83.8 bs used in Dick Epps MD - conjuncti 03/18 on 5mg tablets for following taper 11mg x 7 days, 10mg x 7days, 9mg x 7days, and 8mg x7days Amoxicillin 12/20 Hx Tablets 875mg 28tab 1 tab D83.8 s twice Dick Epps MD - daily x 12/30 14 Cefepime HCL 12/04 Hx Solution 2gm iv Rec infusion Dick Epps MD - q12 hours 12/30 Advair HFA 00 Hx Aerosol 230-21mcg Inhale 1 Unknown /0000 /Act puff By - Mouth 01/16 Twice Day Escitalopram Hx Tablets 20mg take 1 Unknown Oxalate /0000 tablet by - mouth 01/26 daily Itraconazole 00 Hx Capsules 100mg take 2 Unknown /0000 capsules - by mouth 12/24 twice day Oxybutynin 00 Hx Tablets ER 15mg Unknown Chloride ER /0000 24HR - 12/24 Acetylcysteine Hx Solution 200mg/ml Damaris, / MD Lisbeth - 05/14 Prednisone 0000 Hx Tablets 15mg take 4 Unknown /0000 tablets - by mouth 12/25 daily for 2 days Levofloxacin Hx Tablets 750mg take 1 Unknown /0000 tablet by - mouth 12/11 daily Naproxen 00/00 Hx Tablets 220mg Unknown /0000 - 01/15 Desvenlafaxine 00 Hx Tablets ER 25mg Unknown Succinate ER /0000 24HR - 05/14 Hydroxychloroqui Hx Tablets 200mg take Unknown ne Sulfate 0000 twice a - day 05/14 Pristiq 00 Hx Tablets ER 50mg Unknown /0000 24HR - 04/02 Medications Administered in Office Medication Date Status Form Strength Qnty SIG Indications Ordering Provider Injection 09/19 Administered Injection Christopher Gamunex Dick Epps MD Nonlyophilized 500 MG Injection 09/19 Administered Injection Infusion Gamunex Nonlyophilized 500 MG IV Infusion For 09/19 Administered Injection Christopher Therapy, Dick Epps MD axis Or Diagnosis Additional Hour IV Infusion For 09/19 Administered Injection Infusion Therapy, axis Or Diagnosis Additional Hour IV Infusion For 09/19 Administered Injection Christopher Therapy, Dick Epps MD axis Or Diagnosis Init Up To 1 HR IV Infusion For 09/19 Administered Injection Infusion Therapy, axis Or Diagnosis Init Up To 1 HR Injection 08/22 Administered Injection Christopher Gamunex Dick Epps MD Nonlyophilized 500 MG Injection 08/22 Administered Injection Infusion Gamunex Nonlyophilized 500 MG IV Infusion For 08/22 Administered Injection Christopher Therapy, Dick Epps MD axis Or Diagnosis Additional Hour IV Infusion For 08/22 Administered Injection Infusion Therapy, axis Or Diagnosis Additional Hour IV Infusion For 08/22 Administered Injection Christopher Therapy, Dick Epps MD axis Or Diagnosis Init Up To 1 HR IV Infusion For 08/22 Administered Injection Infusion Therapy, axis Or Diagnosis Init Up To 1 HR Injection 07/25 Administered Injection Christopher Gamunex IV Dick Epps MD Nonlyophilized 500 MG Injection 07/25 Administered Injection Infusion Gamunex IV Nonlyophilized 500 MG IV Infusion For 07/25 Administered Injection Christopher Therapy, Dick Epps MD axis Or Diagnosis Additional Hour IV Infusion For 07/25 Administered Injection Infusion Therapy, axis Or Diagnosis Additional Hour IV Infusion For 07/25 Administered Injection Christopher Therapy, Dick Epps MD axis Or Diagnosis Init Up To 1 HR IV Infusion For 07/25 Administered Injection Infusion Therapy, axis Or Diagnosis Init Up To 1 HR Injection 04/21 Administered Injection Christopher Gamunex IV Dick Epps MD Nonlyophilized 500 MG Injection 04/21 Administered Injection Infusion Gamunex IV Nonlyophilized 500 MG IV Infusion For 04/21 Administered Injection Christopher Therapy, Dick Epps MD axis Or Diagnosis Additional Hour IV Infusion For 04/21 Administered Injection Infusion Therapy, axis Or Diagnosis Additional Hour IV Infusion For 04/21 Administered Injection Christopher Therapy, Dick Epps MD axis Or Diagnosis Init Up To 1 HR IV Infusion For 04/21 Administered Injection Infusion Therapy, axis Or Diagnosis Init Up To 1 HR Injection 03/19 Administered Injection Christopher Gamunex Dick Epps MD Nonlyophilized 500 MG Injection 03/19 Administered Injection Infusion Gamunex Nonlyophilized 500 MG IV Infusion For 03/19 Administered Injection Christopher Therapy, Dick Epps MD axis Or Diagnosis Additional Hour IV Infusion For 03/19 Administered Injection Infusion Therapy, vee Or Diagnosis Additional Hour IV Infusion For 03/19 Administered Injection Christopher Therapy, Dick Epps MD axis Or Diagnosis Init Up To 1 HR IV Infusion For 03/19 Administered Injection Infusion Therapy, axis Or Diagnosis Init Up To 1 HR Injection 02/20 Administered Injection Christopher Gamunex Dick Epps MD Nonlyophilized 500 MG Injection 02/20 Administered Injection Infusion Gamunex Nonlyophilized 500 MG IV Infusion For 02/20 Administered Injection Christopher Therapy, MD vee Sher Or Diagnosis Additional Hour IV Infusion For 02/20 Administered Injection Infusion Therapy, axis Or Diagnosis Additional Hour IV Infusion For 02/20 Administered Injection Christopher Therapy, Dick Epps MD axis Or Diagnosis Init Up To 1 HR IV Infusion For 02/20 Administered Injection Infusion Therapy, axis Or Diagnosis Init Up To 1 HR Immunizations CPT Code Status Date Vaccine Lot # [id number] Given 11/27/2017 Pneumococcal Vaccine 2Yrs Or Older [id number] Vital Signs Date Vital Result Comment 09/19/2018 9:15am BP Systolic 122 mmHg BP Diastolic 68 mmHg Height 70 inches 5'10" Weight 240.00 lb BMI (Body Mass Index) 34.4 kg/m2 Heart Rate 68 /min Respiratory Rate 22 /min Body Temperature 98.3 F O2 % BldC Oximetry 96 % 08/22/2018 9:15am BP Systolic 104 mmHg BP Diastolic 68 mmHg Height 70 inches 5'10" Weight 242.00 lb BMI (Body Mass Index) 34.7 kg/m2 Heart Rate 78 /min Respiratory Rate 20 /min Body Temperature 98.0 F O2 % BldC Oximetry 95 % 07/25/2018 10:39am BP Systolic 110 mmHg BP Diastolic 61 mmHg Height 70 inches 5'10" Weight 241.00 lb BMI (Body Mass Index) 34.6 kg/m2 Heart Rate 68 /min Respiratory Rate 22 /min Body Temperature 98.3 F O2 % BldC Oximetry 98 % 07/16/2018 11:36am BP Systolic 98 mmHg BP Diastolic 62 mmHg Height 70 inches 5'10" Weight 167.44 lb BMI (Body Mass Index) 24.0 kg/m2 Heart Rate 82 /min Respiratory Rate 18 /min Body Temperature 98.3 F O2 % BldC Oximetry 95 % 06/06/2018 11:06am BP Systolic 122 mmHg BP Diastolic 64 mmHg Height 70 inches 5'10" Weight 230.00 lb BMI (Body Mass Index) 33.0 kg/m2 Heart Rate 68 /min Respiratory Rate 16 /min Body Temperature 97.0 F O2 % BldC Oximetry 96 % 05/30/2018 3:22pm Height 70 inches 5'10" Weight 230.00 lb BMI (Body Mass Index) 33.0 kg/m2 Heart Rate 72 /min Respiratory Rate 16 /min Body Temperature 96.1 F O2 % BldC Oximetry 98 % 05/14/2018 11:50am BP Systolic 120 mmHg BP Diastolic 68 mmHg Height 70 inches 5'10" Weight 230.00 lb BMI (Body Mass Index) 33.0 kg/m2 Heart Rate 69 /min Body Temperature 97.6 F O2 % BldC Oximetry 95 % 04/21/2018 9:33am BP Systolic 133 mmHg BP Diastolic 75 mmHg Height 70 inches 5'10" Weight 230.00 lb BMI (Body Mass Index) 33.0 kg/m2 Heart Rate 65 /min Respiratory Rate 18 /min Body Temperature 97.1 F O2 % BldC Oximetry 95 % 04/16/2018 11:02am BP Systolic 118 mmHg BP Diastolic 72 mmHg Height 70 inches 5'10" Weight 238.00 lb BMI (Body Mass Index) 34.1 kg/m2 Heart Rate 72 /min Respiratory Rate 16 /min Body Temperature 96.6 F O2 % BldC Oximetry 95 % 04/02/2018 8:34am BP Systolic 130 mmHg BP Diastolic 72 mmHg Height 70 inches 5'10" Weight 238.00 lb BMI (Body Mass Index) 34.1 kg/m2 Heart Rate 74 /min Respiratory Rate 18 /min Body Temperature 97.0 F O2 % BldC Oximetry 95 % 03/19/2018 12:23pm BP Systolic 128 mmHg BP Diastolic 69 mmHg Height 70 inches 5'10" Weight 235.00 lb BMI (Body Mass Index) 33.7 kg/m2 Heart Rate 68 /min Respiratory Rate 16 /min Body Temperature 97.8 F O2 % BldC Oximetry 95 % 03/12/2018 2:49pm BP Systolic 106 mmHg BP Diastolic 68 mmHg Height 70 inches 5'10" Heart Rate 91 /min Body Temperature 98.0 F O2 % BldC Oximetry 95 % 02/20/2018 7:06pm BP Systolic 117 mmHg BP Diastolic 63 mmHg Height 70 inches 5'10" Weight 230.00 lb BMI (Body Mass Index) 33.0 kg/m2 Heart Rate 82 /min Respiratory Rate 16 /min Body Temperature 98.5 F O2 % BldC Oximetry 94 % 02/05/2018 10:52am BP Systolic 124 mmHg BP Diastolic 70 mmHg Height 70 inches 5'10" Weight 238.00 lb BMI (Body Mass Index) 34.1 kg/m2 Heart Rate 84 /min Respiratory Rate 16 /min Body Temperature 96.2 F O2 % BldC Oximetry 95 % 01/31/2018 11:34am BP Systolic 122 mmHg BP Diastolic 76 mmHg Height 70 inches 5'10" Weight 238.00 lb BMI (Body Mass Index) 34.1 kg/m2 Heart Rate 72 /min Respiratory Rate 16 /min Body Temperature 96.5 F O2 % BldC Oximetry 97 % 01/15/2018 8:51am Height 70 inches 5'10" Weight 238.00 lb BMI (Body Mass Index) 34.1 kg/m2 01/01/2018 8:23am BP Systolic 132 mmHg BP Diastolic 74 mmHg Height 70 inches 5'10" Weight 242.00 lb BMI (Body Mass Index) 34.7 kg/m2 Heart Rate 72 /min Respiratory Rate 16 /min Body Temperature 95.6 F O2 % BldC Oximetry 98 % 12/25/2017 9:11am Height 70 inches 5'10" Weight 242.00 lb BMI (Body Mass Index) 34.7 kg/m2 Heart Rate 68 /min Respiratory Rate 16 /min Body Temperature 96.7 F O2 % BldC Oximetry 97 % 12/20/2017 9:29am BP Systolic 142 mmHg BP Diastolic 74 mmHg Height 70 inches 5'10" Weight 247.00 lb BMI (Body Mass Index) 35.4 kg/m2 Heart Rate 96 /min Respiratory Rate 28 /min Body Temperature 95.7 F O2 % BldC Oximetry 98 % 12/11/2017 2:25pm BP Systolic 136 mmHg BP Diastolic 82 mmHg Height 70 inches 5'10" Weight 230.00 lb BMI (Body Mass Index) 33.0 kg/m2 Heart Rate 110 /min Body Temperature 97.8 F O2 % BldC Oximetry 95 % 12/04/2017 11:41am Height 70 inches 5'10" Weight 230.00 lb BMI (Body Mass Index) 33.0 kg/m2 Heart Rate 71 /min Respiratory Rate 16 /min Body Temperature 97.1 F O2 % BldC Oximetry 95 % 11/27/2017 10:26am BP Systolic 114 mmHg BP Diastolic 68 mmHg Height 70 inches 5'10" Weight 230.00 lb BMI (Body Mass Index) 33.0 kg/m2 Heart Rate 78 /min Respiratory Rate 16 /min Body Temperature 96.9 F O2 % BldC Oximetry 97 % Results Description No Information Available Procedures Date Code Description Status 09/19/2018 00957 IV Infusion For Therapy,Prophylaxis Or Diagnosis Completed Additional Hour 09/19/2018 85253 IV Infusion For Therapy,Prophylaxis Or Diagnosis Completed Additional Hour 09/19/2018 14100 IV Infusion For Therapy,Prophylaxis Or Diagnosis Init Up Completed To 1 HR 09/19/2018 03481 IV Infusion For Therapy,Prophylaxis Or Diagnosis Init Up Completed To 1 HR 08/22/2018 95729 IV Infusion For Therapy,Prophylaxis Or Diagnosis Completed Additional Hour 08/22/2018 72605 IV Infusion For Therapy,Prophylaxis Or Diagnosis Completed Additional Hour 08/22/2018 29792 IV Infusion For Therapy,Prophylaxis Or Diagnosis Init Up Completed To 1 HR 08/22/2018 95709 IV Infusion For Therapy,Prophylaxis Or Diagnosis Init Up Completed To 1 HR 07/25/2018 51592 IV Infusion For Therapy,Prophylaxis Or Diagnosis Completed Additional Hour 07/25/2018 05073 IV Infusion For Therapy,Prophylaxis Or Diagnosis Completed Additional Hour 07/25/2018 55358 IV Infusion For Therapy,Prophylaxis Or Diagnosis Init Up Completed To 1 HR 07/25/2018 38278 IV Infusion For Therapy,Prophylaxis Or Diagnosis Init Up Completed To 1 HR 04/21/2018 03714 IV Infusion For Therapy,Prophylaxis Or Diagnosis Init Up Completed To 1 HR 04/21/2018 27408 IV Infusion For Therapy,Prophylaxis Or Diagnosis Init Up Completed To 1 HR 04/21/2018 88123 IV Infusion For Therapy,Prophylaxis Or Diagnosis Completed Additional Hour 04/21/2018 78949 IV Infusion For Therapy,Prophylaxis Or Diagnosis Completed Additional Hour 03/19/2018 47998 IV Infusion For Therapy,Prophylaxis Or Diagnosis Completed Additional Hour 03/19/2018 93798 IV Infusion For Therapy,Prophylaxis Or Diagnosis Completed Additional Hour 03/19/2018 77627 IV Infusion For Therapy,Prophylaxis Or Diagnosis Init Up Completed To 1 HR 03/19/2018 68863 IV Infusion For Therapy,Prophylaxis Or Diagnosis Init Up Completed To 1 HR 02/20/2018 85581 IV Infusion For Therapy,Prophylaxis Or Diagnosis Completed Additional Hour 02/20/2018 37844 IV Infusion For Therapy,Prophylaxis Or Diagnosis Completed Additional Hour 02/20/2018 95289 IV Infusion For Therapy,Prophylaxis Or Diagnosis Init Up Completed To 1 HR 02/20/2018 01877 IV Infusion For Therapy,Prophylaxis Or Diagnosis Init Up Completed To 1 HR Encounters Type Date Location Provider Dx Diagnosis Office Visit 07/16/2018 Ajit Jennings 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 11:30a [place] 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 Office Visit 06/06/2018 11:00a Ajit Epps J15.1 Pneumonia due to Pseudomonas 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 immunodeficiencies Office Visit 05/30/2018 4:00p Ajit Barron0.6 Antibody defic w [place] near-norm immunoglob or w hyperimmunoglob 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 immunodeficiencies J15.1 Pneumonia due to Pseudomonas J45.41 Moderate persistent asthma with (acute) exacerbation Office Visit 05/14/2018 11:45a Ajit Jennings 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 defic w [place] near-norm immunoglob or w hyperimmunoglob 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 immunodeficiencies J15.1 Pneumonia due to Pseudomonas Office Visit 04/16/2018 11:00a Ajit Jennings 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 [place] 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 Office Visit 04/02/2018 8:30a Ajit Jennings 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 [place] 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 Office Visit 03/12/2018 2:30p ANNIE Easley 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 Office Visit 02/05/2018 10:30a Ajit Jennings 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 [place] 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 B37.0 Candidal stomatitis Office Visit 01/31/2018 11:30a Ajit Epps, J15.1 Pneumonia due to Pseudomonas 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 Office Visit 01/15/2018 8:45a Ajit Jennings 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 [place] 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 Office Visit 01/01/2018 8:15a Ajit Jennings 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 [place] immunodeficiencies 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 B34.9 Viral infection, unspecified Office Visit 12/25/2017 9:00a Ajit Jennings 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 [place] immunodeficiencies 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 J15.1 Pneumonia due to Pseudomonas Office Visit 12/20/2017 9:30a Ajit Jennings 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 [place] immunodeficiencies 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 J15.1 Pneumonia due to Pseudomonas Office Visit 12/11/2017 2:30p Ajit Jennings 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 [place] immunodeficiencies 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
--- OUTSIDE RECORDS SUMMARY | 2018-10-25 12:36 | XMS REPORT | Continuity of Care Document ---
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 Lew Campbell MD Primary Care Physician Unavailable Payers Type Date Identification Numbers Payment Provider Subscriber Policy Number: [id number] [place] Carlee Torres PayID: [id number] [address] [place] [address] Effective: 2018 Policy Number: [id number] [facility] Carlee Torres PayID: [id number] [address] [place] [address] Expires: 2018 Policy Number: [id number] Medicaid [place] Carlee Torres PayID: [id number] [address] [place] [address] Advance Directives Description No Information Available Problems Date Description Provider Status Onset: 11/27/2017 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 Onset: 12/04/2017 Pneumonia due to Pseudomonas Kumar pEps MD Active Onset: 01/01/2018 Viremia Kumar Epps [...] Form Strength Qnty SIG Indications Ordering Provider Augmentin 10/03 Active Tablets 875-125mg Maria Fernanda DONN Aguero Clotrimazole 06/18 Active Parviz 10mg 35uni dissolve [...] needed maximum daily dose of 1 Levothyroxine Active Tablets 100mcg 1 tab PO Unknown [...] Multi For Her Active Capsules Unknown /0000 Mstek-2-Rtak Active Capsules 1gm 1 by Unknown Ethyl [...] Sajan Podhaler Active Capsules 28mg Unknown /0000 Augmentin 10/03 Hx Tablets 875-125mg 20tab take one s table by DONN Aguero - mouth 10/03 twice daily Cefepime HCL 05/14 Hx Solution 2gm inject [...] Dick Epps MD - daily x 12/30 Cefepime HCL 12/04 Hx Solution 2gm iv Rec infusion Dick Epps MD - q12 hours 12/30 Advair HFA Hx Aerosol 230-21mcg Inhale 1 Unknown /0000 /Act puff By - Mouth 01/16 Twice Day Escitalopram Hx Tablets 20mg take 1 Unknown Oxalate /0000 tablet by - mouth 01/26 daily Itraconazole Hx Capsules 100mg take 2 Unknown /0000 capsules - by mouth 12/24 twice day Oxybutynin Hx Tablets ER 15mg Unknown Chloride ER /0000 24HR - 12/24 Acetylcysteine Hx Solution 200mg/ml Damaris, / MD Lisbeth - 05/14 Prednisone Hx Tablets 15mg take 4 Unknown /0000 tablets - by mouth 12/25 daily for 2 days Levofloxacin Hx Tablets 750mg take 1 Unknown /0000 tablet by - mouth 12/11 daily Naproxen Hx Tablets 220mg Unknown /0000 - 01/15 Desvenlafaxine Hx Tablets ER 25mg Unknown Succinate ER /0000 24HR - 05/14 Hydroxychloroqui Hx Tablets 200mg take Unknown ne Sulfate /0000 twice a - day 05/14 Pristiq Hx Tablets ER 50mg Unknown /0000 24HR [...] HR Injection 07/25 Administered Injection Christopher Gamunex Dick Epps MD Nonlyophilized 500 MG Injection 07/25 Administered Injection Infusion Gamunex Nonlyophilized 500 MG IV Infusion For 07/25 Administered Injection Christopher Therapy, Dick Epps MD axis Or Diagnosis Additional Hour IV Infusion For 07/25 Administered Injection Infusion Therapy,Prophyl axis Or Diagnosis Additional Hour IV Infusion [...] HR Injection 03/19 Administered Injection Christopher Gamunex IV Dick Epps MD Nonlyophilized 500 MG Injection 03/19 Administered Injection Infusion Gamunex IV Nonlyophilized 500 MG IV Infusion For 03/19 [...] HR Injection 02/20 Administered Injection Christopher Gamunex IV Dick Epps MD Nonlyophilized 500 MG Injection 02/20 Administered Injection Infusion Gamunex IV Nonlyophilized 500 MG IV Infusion For 02/20 [...] CPT Code Status Date Vaccine Lot # [id number] Given 11/27/2017 Pneumococcal Vaccine 2Yrs Or Older [id number] Vital Signs Date Vital Result Comment 10/17/2018 10:32am BP Systolic 94 mmHg BP Diastolic 59 mmHg Weight 245.25 lb Heart Rate 76 /min Respiratory Rate 16 /min Body Temperature 98.2 F O2 % BldC Oximetry 97 % 09/19/2018 9:15am BP Systolic 122 mmHg BP [...] Available Procedures Date Code Description Status 09/19/2018 54620 IV Infusion For Therapy,Prophylaxis Or Diagnosis Completed Additional Hour 09/19/2018 01170 IV Infusion For Therapy,Prophylaxis Or Diagnosis Completed Additional Hour 09/19/2018 87376 IV Infusion For Therapy,Prophylaxis Or Diagnosis Init Up Completed To 1 HR 09/19/2018 73530 IV Infusion For Therapy,Prophylaxis Or Diagnosis Init Up Completed To 1 HR 08/22/2018 83540 IV Infusion For Therapy,Prophylaxis Or Diagnosis Completed Additional Hour 08/22/2018 83232 IV Infusion For Therapy,Prophylaxis Or Diagnosis Completed Additional Hour 08/22/2018 38823 IV Infusion For Therapy,Prophylaxis Or Diagnosis Init Up Completed To 1 HR 08/22/2018 00450 IV Infusion For Therapy,Prophylaxis Or Diagnosis Init Up Completed To 1 HR 07/25/2018 36406 IV Infusion For Therapy,Prophylaxis Or Diagnosis Completed Additional Hour 07/25/2018 67714 IV Infusion For Therapy,Prophylaxis Or Diagnosis Completed Additional Hour 07/25/2018 30808 IV Infusion For Therapy,Prophylaxis Or Diagnosis Init Up Completed To 1 HR 07/25/2018 43740 IV Infusion For Therapy,Prophylaxis Or Diagnosis Init Up Completed To 1 HR 04/21/2018 25591 IV Infusion For Therapy,Prophylaxis Or Diagnosis Init Up Completed To 1 HR 04/21/2018 16173 IV Infusion For Therapy,Prophylaxis Or Diagnosis Init Up Completed To 1 HR 04/21/2018 76916 IV Infusion For Therapy,Prophylaxis Or Diagnosis Completed Additional Hour 04/21/2018 02075 IV Infusion For Therapy,Prophylaxis Or Diagnosis Completed Additional Hour 03/19/2018 53961 IV Infusion For Therapy,Prophylaxis Or Diagnosis Completed Additional Hour 03/19/2018 77027 IV Infusion For Therapy,Prophylaxis Or Diagnosis Completed Additional Hour 03/19/2018 16431 IV Infusion For Therapy,Prophylaxis Or Diagnosis Init Up Completed To 1 HR 03/19/2018 13665 IV Infusion For Therapy,Prophylaxis Or Diagnosis Init Up Completed To 1 HR 02/20/2018 75965 IV Infusion For Therapy,Prophylaxis Or Diagnosis Completed Additional Hour 02/20/2018 00553 IV Infusion For Therapy,Prophylaxis Or Diagnosis Completed Additional Hour 02/20/2018 88384 IV Infusion For Therapy,Prophylaxis Or Diagnosis Init Up Completed To 1 HR 02/20/2018 61822 IV Infusion For Therapy,Prophylaxis Or Diagnosis Init Up Completed To 1 HR Encounters Type Date Location Provider Dx Diagnosis Office Visit 10/01/2018 Ajit Jennings 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
--- OUTSIDE RECORDS SUMMARY | 2018-10-25 12:36 | XMS REPORT | Continuity of Care Document ---
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 Lew Campbell MD Primary Care Physician Unavailable Payers Type Date Identification Numbers Payment Provider Subscriber Policy Number: [id number] Medicare [facility] Carlee Torres PayID: [id number] [address] [place] [address] Effective: 2018 Policy Number: [id number] [facility] Carlee Torres PayID: [id number] [address] [place] [address] Expires: 2018 Policy Number: [id number] Medicaid [place] Carlee Torres PayID: [id number] [address] [place] [address] Advance Directives Description No Information Available Problems [...] Multi For Her Active Capsules Unknown /0000 Aqjcd-5-Lcfs Active Capsules 1gm 1 by Unknown Ethyl Esters /0000 mouth every day Probiotic Active Capsules Unknown /0000 Tumeric Active Tablets Unknown /0000 Valacyclovir HCL [...] mouth Dick Epps MD - today. 1 / tab by /2017 mouth on days 2, [...] - 12/24 Acetylcysteine Hx Solution 200mg/ml Damaris, /0000 MD Lisbeth - 05/14 Prednisone Hx Tablets [...] IV Infusion For 08/22 Administered Injection Infusion Therapy,Prophyl axis Or Diagnosis [...] CPT Code Status Date Vaccine Lot # [id number] Given 11/27/2017 Pneumococcal Vaccine 2Yrs Or Older [id number] Vital Signs Date Vital Result Comment 09/19/2018 [...] Available Procedures Date Code Description Status 09/19/2018 94093 IV Infusion For Therapy,Prophylaxis Or Diagnosis Completed Additional Hour 09/19/2018 03714 IV Infusion For Therapy,Prophylaxis Or Diagnosis Completed Additional Hour 09/19/2018 86248 IV Infusion For Therapy,Prophylaxis Or Diagnosis Init Up Completed To 1 HR 09/19/2018 03079 IV Infusion For Therapy,Prophylaxis Or Diagnosis Init Up Completed To 1 HR 08/22/2018 02717 IV Infusion For Therapy,Prophylaxis Or Diagnosis Completed Additional Hour 08/22/2018 45300 IV Infusion For Therapy,Prophylaxis Or Diagnosis Completed Additional Hour 08/22/2018 60782 IV Infusion For Therapy,Prophylaxis Or Diagnosis Init Up Completed To 1 HR 08/22/2018 35989 IV Infusion For Therapy,Prophylaxis Or Diagnosis Init Up Completed To 1 HR 07/25/2018 82460 IV Infusion For Therapy,Prophylaxis Or Diagnosis Completed Additional Hour 07/25/2018 90822 IV Infusion For Therapy,Prophylaxis Or Diagnosis Completed Additional Hour 07/25/2018 23590 IV Infusion For Therapy,Prophylaxis Or Diagnosis Init Up Completed To 1 HR 07/25/2018 60909 IV Infusion For Therapy,Prophylaxis Or Diagnosis Init Up Completed To 1 HR 04/21/2018 85216 IV Infusion For Therapy,Prophylaxis Or Diagnosis Init Up Completed To 1 HR 04/21/2018 54178 IV Infusion For Therapy,Prophylaxis Or Diagnosis Init Up Completed To 1 HR 04/21/2018 69986 IV Infusion For Therapy,Prophylaxis Or Diagnosis Completed Additional Hour 04/21/2018 48491 IV Infusion For Therapy,Prophylaxis Or Diagnosis Completed Additional Hour 03/19/2018 21771 IV Infusion For Therapy,Prophylaxis Or Diagnosis Completed Additional Hour 03/19/2018 65150 IV Infusion For Therapy,Prophylaxis Or Diagnosis Completed Additional Hour 03/19/2018 62125 IV Infusion For Therapy,Prophylaxis Or Diagnosis Init Up Completed To 1 HR 03/19/2018 80886 IV Infusion For Therapy,Prophylaxis Or Diagnosis Init Up Completed To 1 HR 02/20/2018 69268 IV Infusion For Therapy,Prophylaxis Or Diagnosis Completed Additional Hour 02/20/2018 33521 IV Infusion For Therapy,Prophylaxis Or Diagnosis Completed Additional Hour 02/20/2018 56228 IV Infusion For Therapy,Prophylaxis Or Diagnosis Init Up Completed To 1 HR 02/20/2018 49044 IV Infusion For Therapy,Prophylaxis Or Diagnosis Init [...] [place] immunodeficiencies Plan of Treatment Future Appointment(s):10/06/2018 11:30 am - AUREA Palmer at B[facility]2101/02/2019 8:45 am - Kumar Epps MD at Mwgodo0411/14/2018 9:00 am - Infusion at Ffxype9410/17/2018 9:00 am - Infusion at Qnqzjf7010/03/2018 - Maria Fernanda Aguero 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 Sensitivities to the fluoroquinolones however the patient does not tolerate these medications. All other medications that are sensitive her in IV form. The patient is going to trial Augmentin 875 mg twice daily for 10 days however as discussed this is not the best medication to treat the sputum culture results. The patient did not wish to have IV medications at this time, therefore she wanted to trial the Augmentin which closely can be compared to the piperacillin, tazobactam, but would not be effective in treating pseudomonas aeruginosa. The patient wanted totake it over the weekend. I told the patient that if her symptoms worsen over the weekend, that she would need to go to the emergency department for IV antibiotics. She did verbalize understanding of my discussion and the plan. Patient will be contacted we will have close follow-up Saturday in the office to evaluate her overall symptomatology. Jaguar require IV meropenem 1 g 3 times a day for 10 days this may need to be arranged on an outpatient basis with possible otherwise she would be requiredto go to the emergency department in the hospital for admission. At 1600 p.m. 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 We have sent a prescription to [facility] for a midline catheter to be placed, and the patient will also be on meropenem 1 g every 8 hours for 7 days which has been sent to [facility] health delivery system. Jyoti has begin the process of performing these tasks and I have asked the patient to follow-up Saturday as previously scheduled.
--- OUTSIDE RECORDS SUMMARY | 2018-10-25 12:36 | XMS REPORT | Continuity of Care Document ---
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 Lew Campbell MD Primary Care Physician Unavailable Payers Type Date Identification Numbers Payment Provider Subscriber Policy Number: [id number] Medicare [facility] Carlee Torres PayID: [id number] [address] [place] [address] Effective: 2018 Policy Number: [id number] [facility] Carlee Torres PayID: [id number] [address] [place] [address] Expires: 2018 Policy Number: [id number] Medicaid [place] Carlee Torres PayID: [id number] [address] [place] [address] Advance Directives Description No Information Available Problems [...] Ordering Provider Augmentin 10/03 Active Tablets 875-125mg DONN Aguero Clotrimazole 06/18 Active Parviz 10mg [...] Multi For Her Active Capsules Unknown /0000 Jvhyf-8-Eaaf Active Capsules 1gm 1 by Unknown Ethyl Esters /0000 mouth every day Probiotic Active Capsules Unknown / Tumeric Active Tablets Unknown /0000 Valacyclovir HCL Active Tablets 1gm Unknown /0000 Senna S Active Tablets 8.6-50mg 3 tab PO Unknown /0000 daily Myrbetriq Active Tablets ER 50mg 1 tab PO Unknown / 24HR daily Oxybutynin Active Tablets ER 25mg [...] 10/03 Hx Tablets 875-125mg 20tab take one Maria Fernanda s table by DONN Aguero - mouth [...] 5mg 100ta to be bs used in MD Jody Sher conjuncti 03/12 on 1mg tablets for following [...] HR Injection 04/21 Administered Injection Christopher Gamunex Dick Epps MD [...] CPT Code Status Date Vaccine Lot # [id number] Given 11/27/2017 Pneumococcal Vaccine 2Yrs Or Older [id number] Vital Signs Date Vital Result Comment 09/19/2018 [...] Available Procedures Date Code Description Status 09/19/2018 35036 IV Infusion For Therapy,Prophylaxis Or Diagnosis Completed Additional Hour 09/19/2018 31712 IV Infusion For Therapy,Prophylaxis Or Diagnosis Completed Additional Hour 09/19/2018 85782 IV Infusion For Therapy,Prophylaxis Or Diagnosis Init Up Completed To 1 HR 09/19/2018 34471 IV Infusion For Therapy,Prophylaxis Or Diagnosis Init Up Completed To 1 HR 08/22/2018 70955 IV Infusion For Therapy,Prophylaxis Or Diagnosis Completed Additional Hour 08/22/2018 98930 IV Infusion For Therapy,Prophylaxis Or Diagnosis Completed Additional Hour 08/22/2018 05900 IV Infusion For Therapy,Prophylaxis Or Diagnosis Init Up Completed To 1 HR 08/22/2018 15492 IV Infusion For Therapy,Prophylaxis Or Diagnosis Init Up Completed To 1 HR 07/25/2018 25649 IV Infusion For Therapy,Prophylaxis Or Diagnosis Completed Additional Hour 07/25/2018 76402 IV Infusion For Therapy,Prophylaxis Or Diagnosis Completed Additional Hour 07/25/2018 12683 IV Infusion For Therapy,Prophylaxis Or Diagnosis Init Up Completed To 1 HR 07/25/2018 20093 IV Infusion For Therapy,Prophylaxis Or Diagnosis Init Up Completed To 1 HR 04/21/2018 09134 IV Infusion For Therapy,Prophylaxis Or Diagnosis Init Up Completed To 1 HR 04/21/2018 22284 IV Infusion For Therapy,Prophylaxis Or Diagnosis Init Up Completed To 1 HR 04/21/2018 76801 IV Infusion For Therapy,Prophylaxis Or Diagnosis Completed Additional Hour 04/21/2018 75638 IV Infusion For Therapy,Prophylaxis Or Diagnosis Completed Additional Hour 03/19/2018 96673 IV Infusion For Therapy,Prophylaxis Or Diagnosis Completed Additional Hour 03/19/2018 86547 IV Infusion For Therapy,Prophylaxis Or Diagnosis Completed Additional Hour 03/19/2018 92870 IV Infusion For Therapy,Prophylaxis Or Diagnosis Init Up Completed To 1 HR 03/19/2018 35504 IV Infusion For Therapy,Prophylaxis Or Diagnosis Init Up Completed To 1 HR 02/20/2018 32203 IV Infusion For Therapy,Prophylaxis Or Diagnosis Completed Additional Hour 02/20/2018 26130 IV Infusion For Therapy,Prophylaxis Or Diagnosis Completed Additional Hour 02/20/2018 84008 IV Infusion For Therapy,Prophylaxis Or Diagnosis Init Up Completed To 1 HR 02/20/2018 29282 IV Infusion For Therapy,Prophylaxis Or Diagnosis Init [...] 8:45 am - Kumar Epps MD at [id number] 9:00 am - Infusion at Rjttpd8210/17/2018 9:00 am - Infusion at [id number] - Maria Fernanda Aguero 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
--- OUTSIDE RECORDS SUMMARY | 2018-10-25 12:36 | XMS REPORT ---
:1950 Author Organization [facility] Team Providers Name Role Phone Rhonda Moncada Unavailable Unavailable PROBLEMS Unknown Problems ALLERGIES Substance Reaction Event Type Date Status Cipro Unknown Non Drug Allergy Sep, Active Effexor Unknown Non Drug Allergy Sep, Active Sulfa Unknown Non Drug Allergy Sep, Active ENCOUNTERS Encounter Location Date Diagnosis [place] [facility] [address] [place], [place] [address] [place] [facility] [address] [place], [place] [address] [place] [facility] [address] [place] [address] [place] [facility] [address] [place] [address] [place] [facility] [address] [place] [address] [place] [facility] [address] [place] [address] [place] [facility] [address] [place] [address] [place] [facility] [address] [place] [address] [place] [facility] [address] [place] [address] [place] [facility] [address] [place] [address] [place] [facility] [address] [place] [address] [place] [facility] [address] [place] [address] [place] [facility] [address] [place] [address] [place] [facility] [address] [place], [place] [address] [place] [facility] [address] [place], [place] [address] [place] [facility] [address] [place], [place] [address]04.[address] [place] [address] [facility] [address] [facility] [place], [place] [address] [facility] [address] [facility] [place], [place] [address] Facilitated Enrollment - [address] [facility] [place], [place] [address] IMMUNIZATIONS No Known Immunizations SOCIAL HISTORY Never Assessed REASON FOR REFERRAL FUNCTIONAL STATUS PLAN OF CARE Activity Details Follow Up 6 Months Reason:prophy/exp VITAL SIGNS MEDICATIONS Medication Instructions Dosage Frequency Start Date End Date Duration Status Oxybutynin Active Tumersaid Active Melatonin Active PredniSONE Not-Taking Clonazepam Active Magnesium Active Omeprazole Active Breo Ellipta Active Pristiq Not-Taking Probiotic Active Advair HFA Not-Taking Lexapro Not-Taking Breo Ellipta Active Plaquenil Active Ranitidine HCl Active Levothyroxine Active Sodium Meloxicam Not-Taking PROCEDURES Procedure Date Ordered Result Body Site PROPHYLAXIS - ADULT 13yrs and older Sep 22, 2018 RESULTS No Results REASON FOR VISIT cleaning Insurance Providers [facility] Member Patient Patient Patient Patient Patient Subscriber Subscriber Subscriber Group Insurance Plan Plan Plan Plan ID Relationship Address Phone Name Date of ID Name Date of No Type Insurance Insurance Insurance Coverage to Subscriber Address Phone Name Dates Case [phone] Case self Carlee [id number] Management [place] Management [facility] [id number] [facility] [place] [phone] Rangel self Carlee [id number] Healthcare [id number] [address] [facility] [place] [address] [place] [phone] [place] self Carlee [id number] [address] [address] [place] [address] MEDICAL (GENERAL) HISTORY Type Description Date Medical History heart murmur 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
[2018-10-25 13:03] VITALS: BP 116/60
--- NOTE | 2018-10-25 14:16 | UC ---
Lower Extremity/Ankle HPI - HPI Summary HPI Summary: 68-year-old woman comes to clinic today with a chief complaint of left ankle pain. Yesterday she tripped and fell and rolled her ankle. Back in 1987 she fractured this ankle and had a plate placed. Pains been constant ever since the injury. It's worse with any kind of weightbearing. She has been able to bear weight. There is some swelling. No skin break. - History of Current Complaint Chief Complaint: UCLowerExtremity Stated Complaint: ANKLE INJURY Time Seen by Provider: 10/25/18 14:08 Pain Intensity: 10 - Allergies/Home Medications Allergies/Adverse Reactions: Allergies Allergy/AdvReac Type Severity Reaction Status Date / Time ciprofloxacin [From Cipro] Allergy Severe See Comment Verified 10/25/18 13:03 Sulfa (Sulfonamide Allergy Severe Hives Verified 10/25/18 13:03 Antibiotics) venlafaxine [From Effexor] Allergy Severe See Comment Verified 10/25/18 13:03 levofloxacin [From Levaquin] AdvReac Severe achilles Verified 10/25/18 13:03 tendon rupture seasonal Allergy Mild Congestion Uncoded 10/25/18 13:03 Home Medications: Home Medications Acetylcysteine INH SEAN* [Acetylcysteine] INH Q4H PRN 10/25/18 [History] Fluticasone-Salmeterol 250-50* [Advair Diskus 250-50*] 1 puff INH BID 10/25/18 [ History Confirmed 10/25/18] Gammunex 1 dose IV MONTHLY 10/25/18 [History Confirmed 10/25/18] Omeprazole CAP* [Prilosec CAP* 20 MG] 20 mg PO DAILY 10/25/18 [History Confirmed 10/25/18] Ranitidine TAB (NF) [Zantac TAB (NF)] 150 mg PO BEDTIME 10/25/18 [History Confirmed 10/25/18] PMH/Surg Hx/FS Hx/Imm Hx Endocrine History: Hypothyroidism Respiratory History: COPD, Asthma GI/ History: Gastroesophageal Reflux - Surgical History Surgical History: Yes Surgery Procedure, Year, and Place: RIGHT HIP REPLACEMENT. LEFT ANKLE ORIF. CARDIAC ABLATION. LEFT HIP REPLACEMENT 10/2016. LEFT KNEE REPLACEMENT 03/2017. bilat varicose vein stripping. tonsillectomy/adenoidectomy. bladder suspension - Family History Known Family History: Positive: Diabetes Negative: Blood Disorder - Social History Alcohol Use: Occasionally Alcohol Amount: 1-2 DRINKS A MONTH AT MOST Substance Use Type: None Smoking Status (MU): Former Smoker Type: Cigarettes Amount Used/How Often: 1/2 PPD FOR eight YEARS Have You Smoked in the Last Year: No When Did the Patient Quit Smoking/Using Tobacco: 1991 - Immunization History Most Recent Influenza Vaccination: 2016 Most Recent Tetanus Shot: 7 Most Recent Pneumonia Vaccination: 2010 Review of Systems All Other Systems Reviewed And Are Negative: Yes Constitutional: Positive: Negative Skin: Positive: Negative Eyes: Positive: Negative ENT: Positive: Negative Respiratory: Positive: Negative Cardiovascular: Positive: Negative Gastrointestinal: Positive: Negative Motor: Positive: Negative Neurovascular: Positive: Negative Musculoskeletal: Positive: Other: - SEE HPI Neurological: Positive: Negative Psychological: Positive: Negative Is Patient Immunocompromised?: No Physical Exam Triage Information Reviewed: Yes Appearance: Well-Appearing, No Pain Distress, Well-Nourished Vital Signs: Initial Vital Signs Temp 97.8 F 10/25/18 12:58 Pulse 79 10/25/18 12:58 Resp 17 10/25/18 12:58 BP 116/60 10/25/18 12:58 Pulse Ox 99 10/25/18 12:58 Vital Signs Reviewed: Yes Eye Exam: Normal Eyes: Positive: Conjunctiva Clear Neck exam: Normal Neck: Positive: Supple Respiratory: Positive: No respiratory distress Musculoskeletal: Positive: Other: - Left ankle has swelling both medially and laterally. It's tender to palpation on the distal lateral fibula over the lateral malleolus. Normal capillary refill normal pulses no sensation deficit. Ankle full range of motion with pain. Neurological Exam: Normal Neurological: Positive: Alert, Muscle Tone Normal Psychological Exam: Normal Psychological: Positive: Age Appropriate Behavior Skin: Positive: Other - ECCYMOSIS LEFT ANKLE Lower Extremity Course/Dx - Course Course Of Treatment: Order Information: ANKLE LEFT 3+VWS. Accession Number: [id number]. CPT: 62943. INDICATION: Lateral left ankle pain since a fall the previous night. COMPARISON: None. TECHNIQUE: 3 views of the left ankle were obtained. FINDINGS: There is a plate and screw fixator overlying the distal left fibula. A minimally. displaced fracture is visible. The remaining visualized bones are intact and appropriately. aligned. An enthesophyte is noted at the origin of the plantar fascia. IMPRESSION: INTACT AND ANATOMICALLY ALIGN PLATE AND SCREW FIXATOR SPANNING A DISTAL LEFT. FIBULAR FRACTURE. THERE IS NO RADIOGRAPHICALLY APPARENT NEW FRACTURE OR DISLOCATION. If the patient's symptoms persist, follow-up imaging is recommended. . <Electronically signed by Gurvinder Guillen MD in OV> 10/25/18 3907. I discussed the x-ray report with patient. No new fracture was seen. Plan is a cam boot. Patient's taken oxycodone 10 mg on a regular basis in the past and requests the same for pain medication. She has a walker at home that she will use to minimize weightbearing. Due to the prior injury and the pain with weightbearing the plan will be to follow-up with orthopedics. - Differential Dx/Diagnosis Provider Diagnosis: Left ankle sprain Discharge - Sign-Out/Discharge Documenting (check all that apply): Patient Departure All imaging exams completed and their final reports reviewed: Yes - Discharge Plan Condition: Stable Disposition: HOME Prescriptions: oxyCODONE TAB* [Roxycodone TAB 5 mg*] 10 mg PO Q6H PRN #30 tab MDD 8 PRN Reason: Pain Patient Education Materials: Ankle Sprain (ED) Referrals: Lew Campbell MD [Primary Care Provider] - Rachel Mead MD [Medical Doctor] - Additional Instructions: FOLLOW UP WITH ORTHOPEDICS. GET RECHECKED FOR ANY WORSENING OF YOUR CONDITION OR QUESTIONS OR CONCERNS. - Billing Disposition and Condition Condition: STABLE Disposition: Home
== END 2018-10-25 15:21 | disposition home or self-care (01) ==
LOC: UCEAST 12:28
DX: S93.402A Sprain of unspecified ligament of left ankle, initial encounter (principal); W01.0XXA Fall on same level from slipping, tripping and stumbling without subsequent striking against object, initial encounter; Y92.9 Unspecified place or not applicable; Z88.2 Allergy status to sulfonamides; Z88.8 Allergy status to other drugs, medicaments and biological substances; Z88.1 Allergy status to other antibiotic agents; Z87.891 Personal history of nicotine dependence
CPT/HCPCS: 99213; G0463

== ENCOUNTER 2019-07-05 11:06 | Emergency (ER) | payer MEDICARE ==
[2019-07-05] MEDS ORDERED: Aspirin 81 mg CHEW TAB* 81 MG TAB.CHEW PO ONE (11:28)
--- NOTE | 2019-07-05 11:42 | ED ---
HPI Chest Pain - HPI Summary HPI Summary: This pt is a 68 Y/O F presenting to [facility] with a CC of intermittent mid-sternal CP for the past 3 weeks. She stated that the pain radiates to her back. She stated that the CP does not occur with any exertion or palpation. She stated that she had 2 episodes yesterday. She states that when she has the pain she becomes SOB and states that when the pain subsides she has issues with deep breaths. She stated that the episodes occur for about 30 minutes. She denies any N/V, headaches, dizziness, fevers, and chills. She stated that she has a PMHx of PVCs and cardiac ablations around 4 years ago. She also stated that she quit smoking 25 years ago. - History of Current Complaint Chief Complaint: EDChestPainROMI Time Seen by Provider: 07/05/19 11:26 Hx Obtained From: Patient Onset/Duration: Started Weeks Ago - 3, Still Present Timing: Intermittent, Lasting Minutes - 30 Initial Severity: Moderate Current Severity: None Pain Intensity: 0 Pain Scale Used: 0-10 Numeric Chest Pain Location: Mid Sternal Chest Pain Radiates: Yes Chest Pain Radiates To:: Back Aggravating Factor(s): Nothing Alleviating Factor(s): Nothing Associated Signs and Symptoms: Positive: Negative - headaches, Chest Pain - mid- sternal, Shortness of Breath - during episodes, Other: - POSITIVE: issues with deep breaths. Negative: Headaches, Dizziness, Fever, Chills, Nausea, Vomiting - Additional Pertinent History Primary Care Physician: [id number] - Allergy/Home Medications Allergies/Adverse Reactions: Allergies Allergy/AdvReac Type Severity Reaction Status Date / Time ciprofloxacin [From Cipro] Allergy Severe See Comment Verified 07/05/19 11:23 Sulfa (Sulfonamide Allergy Severe Hives Verified 07/05/19 11:23 Antibiotics) venlafaxine [From Effexor] Allergy Severe See Comment Verified 07/05/19 11:23 levofloxacin [From Levaquin] AdvReac Severe achilles Verified 07/05/19 11:23 tendon rupture seasonal Allergy Mild Congestion Uncoded 11/06/18 16:57 Home Medications: Home Medications ARIPiprazole [Aripiprazole] 2 mg PO DAILY 07/05/19 [History Confirmed 07/05/19] Mucinex 1,200 mg PO Q12HR 07/05/19 [History Confirmed 07/05/19] PMH/Surg Hx/FS Hx/Imm Hx Previously Healthy: Yes Endocrine/Hematology History: Reports: Hx Thyroid Disease - hypo Denies: Hx Diabetes, Hx Anemia Cardiovascular History: Reports: Hx Angina, Hx Coronary Artery Disease, Hx Peripheral Vascular Disease, Hx Syncope, Hx Valvular Heart Disease - "a couple of valve insufficiencies"., Other Cardiovascular Problems/Disorders - cardiac ablation for erratic heart issues- resolved Denies: Hx Hypercholesterolemia, Hx Hypertension, Hx Myocardial Infarction, Hx Pacemaker/ICD Respiratory History: Reports: Hx Asthma - w/o status asmaticus, Hx Pneumonia, Hx Sleep Apnea, Other Respiratory Problems/Disorders - pseudomonas pneumonia since March, allergic pulmonary aspergilosis Denies: Hx Chronic Obstructive Pulmonary Disease (COPD) GI History: Reports: 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 Denies: Hx Jaundice, Hx Ulcer History: Reports: Other Problems/Disorders - E.COLI UTI Denies: Hx Renal Disease Musculoskeletal History: Reports: Hx Arthritis - osteo and RA, Hx Rheumatoid Arthritis, Other Musculoskeletal History - RIGHT HIP REPLACEMENT & ORIF LEFT ANKLE Denies: Hx Osteoporosis Sensory History: Reports: Hx Cataracts - mild, Hx Contacts or Glasses - glasses Denies: Hx Glaucoma, Hx Hearing Aid Opthamlomology History: Reports: Hx Cataracts - mild, Hx Contacts or Glasses - glasses Denies: Hx Glaucoma Neurological History: Reports: Hx Nerve Disease - RA Psychiatric History: Reports: Hx Anxiety - MANAGED BY MEDICATIONS, Hx Depression Denies: Hx Panic Disorder - Cancer History Hx Chemotherapy: No Hx Radiation Therapy: No - Surgical History Surgery Procedure, Year, and Place: RIGHT HIP REPLACEMENT. LEFT ANKLE ORIF. CARDIAC ABLATION. LEFT HIP REPLACEMENT 10/2016. LEFT KNEE REPLACEMENT 03/2017. bilat varicose vein stripping. tonsillectomy/adenoidectomy. bladder suspension Hx Anesthesia Reactions: No Infectious Disease History: No Infectious Disease History: Reports: Hx Hepatitis - autoimmune hepatitis, Hx of Known/Suspected MRSA - 2011. NASAL SWAB Denies: Hx Clostridium Difficile, Hx Human Immunodeficiency Virus (HIV), Hx Shingles, Hx Tuberculosis, Hx Known/Suspected VRE, Hx Known/Suspected VRSA, History Other Infectious Disease, Traveled Outside the [place] in Last 30 Days - Family History Known Family History: Positive: Diabetes Negative: Blood Disorder - Social History Alcohol Use: None Alcohol Amount: 1-2 DRINKS A MONTH AT MOST Substance Use Type: Reports: None Smoking Status (MU): Former Smoker Type: Cigarettes Amount Used/How Often: 1/2 PPD FOR eight YEARS Have You Smoked in the Last Year: No Review of Systems Negative: Fever, Chills Positive: Chest Pain - mid-sternal Positive: Shortness Of Breath - during episodes only, Other - Issues with deep breaths Negative: Vomiting, Nausea Neurological: Negative - dizziness Negative: Headache All Other Systems Reviewed And Are Negative: Yes Physical Exam - Summary Physical Exam Summary: VITAL SIGNS: Reviewed. GENERAL: Patient is a well-developed and nourished female who is lying comfortable in the stretcher. Patient is not in any acute respiratory distress. HEAD AND FACE: No signs of trauma. No ecchymosis, hematomas or skull depressions. No sinus tenderness. EYES: PERRLA, EOMI x 2, No injected conjunctiva, no nystagmus. EARS: Hearing grossly intact. Ear canals and tympanic membranes are within normal limits. MOUTH: Oropharynx within normal limits. NECK: Supple, trachea is midline, no adenopathy, no JVD, no carotid bruit, no c- spine tenderness, neck with full ROM. CHEST: Symmetric, no tenderness at palpation LUNGS: Clear to auscultation bilaterally. No wheezing or crackles. CVS: Regular rate and rhythm, S1 and S2 present, no murmurs or gallops appreciated. ABDOMEN: Soft, non-tender. No signs of distention. No rebound no guarding, and no masses palpated. Bowel sounds are normal. EXTREMITIES: FROM in all major joints, no edema, no cyanosis or clubbing. NEURO: Alert and oriented x 3. No acute neurological deficits. Speech is normal and follows commands. SKIN: Dry and warm Triage Information Reviewed: Yes Vital Signs On Initial Exam: Initial Vitals Temp Pulse Resp BP Pulse Ox 97.9 F 74 16 135/62 97 07/05/19 11:11 07/05/19 11:11 07/05/19 11:11 07/05/19 11:11 07/05/19 11:11 Vital Signs Reviewed: Yes Diagnostics - Vital Signs Vital Signs Temp Pulse Resp BP Pulse Ox 07/05/19 11:11 97.9 F 74 16 135/62 97 - Laboratory Result Diagrams: 07/05/19 11:58 07/05/19 11:57 Lab Statement: Any lab studies that have been ordered have been reviewed, and results considered in the medical decision making process. - Radiology CXR Radiology Interpretation Completed By: Radiologist Summary of Radiographic Findings: NO ACTIVE CARDIOPULMONARY DISEASE. ED physician has reviewed this report. - EKG 1110 Cardiac Rate: NL - 77 BPM EKG Rhythm: Sinus Rhythm ST Segment: Normal Summary of EKG Findings: NSR at [address] elevations and Q waves in lead 3. Similar to 10/17/2017. Interpreted by Dr. Saldivar at 1112 07/05/19. Chest Pain Course/Dx - Course Assessment/Plan: This pt is a 68 Y/O F presenting to [facility] with a CC of intermittent mid-sternal CP for the past 3 weeks. She stated that the pain radiates to her back. She stated that the CP does not occur with any exertion or palpation. She stated that she had 2 episodes yesterday. She states that when she has the pain she becomes SOB and states that when the pain subsides she has issues with deep breaths. She stated that the episodes occur for about 30 minutes. She denies any N/V, headaches, dizziness, fevers, and chills. She stated that she has a PMHx of PVCs and cardiac ablations around 4 years ago. She also stated that she quit smoking 25 years ago. Blood work without any significant abnormality except for sodium of 132, alkaline phosphatase 155, troponin is 0.00. Chest x-ray impression: no active cardiopulmonary disease. In the ED course the patient continues to be stable. She has no chest pain. Patient is not tachycardic or hypoxic therefore have no suspicion for PE. Second troponin is 0.00. The patient continues to be asymptomatic. I discussed all the findings and test results with the patient. Patient was instructed to return to the emergency room immediately if any of the symptoms return worsens. Plan of care was discussed with the patient and understands and agrees. All questions were answered at patient satisfaction. There were no further complaints or concerns. Lung exam before discharge: CTA B/L. Good air exchange. No wheezing or crackles heard. CVS: S1 and S2 present. No murmurs appreciated. Patient is alert and oriented x 3. Patient is hemodynamically stable. Patient will be discharged home with follow up PCP in the next 2-3 days - Diagnoses Provider Diagnoses: Atypical chest pain Discharge - Sign-Out/Discharge Documenting (check all that apply): Patient Departure - discharge Patient Received Moderate/Deep Sedation with Procedure: No - Discharge Plan Condition: Stable Disposition: HOME Patient Education Materials: Angina (ED) Referrals: Lew Campbell MD [Primary Care Provider] - 2 Days Additional Instructions: FOLLOW UP WITH YOUR PRIMARY CARE PROVIDER WITHIN ONE WEEK FOR HIGH BLOOD PRESSURE NOTED TODAY. RETURN TO THE ED FOR ANY WORSENING OR NEW SYMPTOMS. - Billing Disposition and Condition Condition: STABLE Disposition: Home - Attestation Statements Document Initiated by Titoibe: Yes Documenting Scribe: Alli Trevino Provider For Whom Titoibe is Documenting (Include Credential): Tod Saldivar MD Scribe Attestation: Alli Guardado scribed for Tod Saldivar MD on 07/05/19 at 1623. Scribe Documentation Reviewed: Yes Provider Attestation: The documentation as recorded by the Alli vasquez accurately reflects the service I personally performed and the decisions made by Tod napoles MD Status of Scribe Document: Viewed
--- OUTSIDE RECORDS SUMMARY | 2019-07-05 11:51 | XMS REPORT | Continuity of Care Document ---
:1950 Author Name Residential Insurance Inspector, System Address Unavailable Unavailable , Care Team Providers Name Role Phone Shannan CLARK, Lew Roberts Unavailable Problems No Problem Information Available Allergies and Adverse Reactions No Allergy Information Available Medications No Medication Information Available Social History No Social History Information Available Unknown if ever smoked Female Plan of Treatment Medical; CHEST X-RAY - Script faxed to [facility] 06/24/19 Start: 23-Jul-2019 12:00 Appointment Request Pulmonary [facility] [place], [facility]; PRE AND POST PFT - pp, sats, feno Start: 23-Jul-2019 12:45 Appointment Request Pulmonary [facility] [place] Nurse Box, YOUTH ASSOCIATE Medical; NEW PATIENT CONSULT - Asthma, GERARDO, Pneumonia, Transfer Start: 2018 13:00 Appointment Request Pulmonary [facility] Office MD [address] Results No Known Results No Result Information Available Vital Signs No Vital Observation Information Available Advance Directives HIPAA - Patient specified Unknown. Payers Medicare [place] [address] [place], [place] [phone] Group Number: [id number] tel: Carlee Torres [address] [facility] [id number] tel:
--- OUTSIDE RECORDS SUMMARY | 2019-07-05 11:51 | XMS REPORT | Continuity of Care Document ---
:1950 Author Name Agricultural Education Instructor, System Address Unavailable Unavailable , Care Team Providers Name Role Phone Lew Campbell MD Unavailable Problems No Problem Information Available Allergies and Adverse Reactions No Allergy Information Available Medications No Medication Information Available Social History No Social History Information Available Unknown if ever smoked Female Results No Known Results No Result Information Available Vital Signs No Vital Observation Information Available Advance Directives HIPAA - Patient specified Unknown. Payers Medicare [place] [address] [place] [address] [place] Group Number: [id number] tel: Carlee Torres [address] [place] [id number] tel:
[2019-07-05 12:11] LABS: ABS Eosinophils 0.1 10^3/ul (0-0.6); ABS Lymphocytes 0.9 10^3/ul (1.0-4.8); ABS Monocytes 0.5 10^3/ul (0-0.8); ABS Neutrophils 2.8 10^3/ul (1.5-7.7); Eosinophil % 1.8 %; Hematocrit 38 % (35-47); Hemoglobin 12.6 g/dL (12.0-16.0); Mean Corpuscular HGB Conc 34 g/dL (31-36); Mean Corpuscular Hemoglobin 32 pg (27-31); Mean Corpuscular Volume 95 fL (80-97); Mean Platelet Volume 6.8 fL (7.4-10.4); Platelet Count 236 10^3/uL (150-450); Red Blood Count 3.98 10^6 /uL (3.70-4.87); Red Cell Distribution Width 15 % (10-15); White Blood Count 4.3 10^3/uL (3.5-10.8)
[2019-07-05 12:25] LABS: Albumin 4.1 g/dL (3.2-5.2); Albumin/Globulin Ratio 1.2 (1-3); Calcium 9.8 mg/dL (8.6-10.3); EGFR African American 98.1 (>60); Globulin 3.5 g/dL (2-4); Potassium 4.3 mmol/L (3.5-5.0); Total Bilirubin 0.4 mg/dL (0.2-1.0); Total Protein 7.6 g/dL (6.4-8.9)
[2019-07-05 12:30] LABS: CKMB ng/mL 2.4 ng/mL (0.6-6.3)
[2019-07-05 12:40] LABS: TSH (Thyroid Stimulating Horm) 2.38 mcIU/mL (0.34-5.60)
[2019-07-05 15:43] VITALS: BP 135/80
== END 2019-07-05 15:43 | disposition home or self-care (01) ==
LOC: ED 11:06
DX: R07.89 Other chest pain (principal); R06.02 Shortness of breath; F41.9 Anxiety disorder, unspecified; Z96.643 Presence of artificial hip joint, bilateral; Z96.652 Presence of left artificial knee joint; Z98.890 Other specified postprocedural states; Z88.1 Allergy status to other antibiotic agents; Z88.2 Allergy status to sulfonamides; Z87.891 Personal history of nicotine dependence
CPT/HCPCS: 36415; 71045; 80053; 82550; 82553; 83735; 83880; 84443; 84484; 85025; 85610; 93005; 99284; A9270-GY

== ENCOUNTER 2019-08-01 09:05 | Emergency (ER) | payer MEDICARE ==
--- OUTSIDE RECORDS SUMMARY | 2019-08-01 10:01 | XMS REPORT | Continuity of Care Document ---
:1950 Author Name Senior Windows Engineer, System Address Unavailable Unavailable , Care Team Providers Name Role Phone Lew Campbell MD Unavailable Problems No Problem Information Available Allergies and Adverse Reactions No Allergy Information Available Medications No Medication Information Available Social History No Social History Information Available Unknown if ever smoked Female Plan of Treatment Medical; CHEST X-RAY - Script faxed to [facility] 06/24/19 Start: 23-Jul-2019 12:00 Appointment Request [facility]RAY [place], XR Medical; PRE AND POST PFT - pp, sats, feno Start: 23-Jul-2019 12:45 Appointment Request [facility] [place] Nurse Box, OPERATION MANAGER Results No Known Results No Result Information Available Vital Signs No Vital Observation Information Available Advance Directives HIPAA - Patient specified Unknown. Payers Medicare [place] [address] [place] [phone] [place] Group Number: [id number] tel: Carlee Torres [address] [facility] [id number] tel:
--- OUTSIDE RECORDS SUMMARY | 2019-08-01 10:01 | XMS REPORT | Continuity of Care Document ---
:1950 Author Name Manager Product Design, System Address Unavailable Unavailable , Care Team Providers Name Role Phone Lew Campbell MD Unavailable Lew Campbell MD Unavailable Dr. Kilo Tran MD Unavailable Kumar Epps MD Unavailable Dr. Shari Jacinto MD Unavailable Dr. 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 as of 23-Jul-2019 ASTHMA (J45.909) (493.90) MD Kilo Tran Dr. ATOPIC STATE (Z88.9) (V15.09) MD Kilo Tran Comments: immunotherapy for Prognosis: She follows closely with Dr Epps, who manages her IV infusions and IV antibiotics as of 23-Jul-2019 a few years in her 40's AUTOIMMUNE HEPATITIS (K75.4) (571.42) MD Kilo Tran Dr. BRONCHIECTASIS (J47.9) (494.0) MD Kilo Tran Prognosis: She would like to get her bronchiectasis care delivered here. Curiously, her bronchiectasis is so localized it is difficult to imagine it is a result of an immune deficiency per se. It is also unclear how much joint involvement, if any, her RA is responsible for...the patient has never been on DMARD other than Planquenil, and this is for "lab abnormalities "(as per patient).Will decrease her inhaler s to once a day (FeNO and PFT normal), stop inhalers in a month, and re evaluate her in 8 weeks time. as of 23-Jul-2019 DEPRESSION (F32.9) (311) MD Kilo Tran Dr. FH: ALPHA 1 ANTITRYPSIN DEFICIENCY (Z83.49) (V18.19) MD Kilo Tran Prognosis: She does not know her genetics. as of 23-Jul-2019 GERD (GASTROESOPHAGEAL REFLUX DISEASE) (K21.9) (530.81) MD Kilo Tran Dr. HYPOTHYROID (E03.9) (244.9) MD Kilo Tran Dr. OBESITY (E66.9) (278.00) MD Kilo Tran Prognosis: Certainly weight loss can be helpful in managment of sleep apnea. as of 23-Jul-2019 OSTEOPENIA (M85.80) (733.90) MD Kilo Tran Dr. PSEUDOMONAS AERUGINOSA COLONIZATION (Z22.39) (V02.59) MD Kilo Tran Dr. RA (RHEUMATOID ARTHRITIS) (M06.9) (714.0) MD Kilo Tran Dr. SLEEP APNEA (G47.30) (780.57) MD Kilo Tran Comments: vendor [facility] ; Prognosis: She is up to date on her BIPAP supplies, is very adherent and compliant, and clearly benefitting from it's use. as of 23-Jul-2019 nasal mask and chin strap Allergies and Adverse Reactions Cipro *FLUOROQUINOLONES* (Allergy) Reaction: Difficulty breathing, Rash Comments: sob Levaquin *FLUOROQUINOLONES* (Allergy) Sulfa Drugs (Allergy) Reaction: Difficulty breathing, Rash Comments: sob Medications Abilify 5 MG Oral Tablet; 1 daily (5 MG) Advair HFA 230-21 MCG/ACT Inhalation Aerosol; 2 two times daily (230-21 MCG/ACT) afflovest; 30 minutes daily Albuterol Sulfate (2.5 MG/3ML) 0.083% Comments: Medication taken as needed. Inhalation Nebulization Solution; 1 four times daily, as needed ((2.5 MG/3ML) 0.083%) ALPRAZolam 0.25 MG Oral Tablet; 1 daily, as Comments: Medication taken as needed. needed (0.25 MG) Aspirin 81 MG Oral Tablet Delayed Release; 1 daily (81 MG) BIPAP ( Device) (Free Text); at bedtime Calcium "900" w/D; 1 daily clonazePAM 0.5 MG Oral Tablet; 1 daily, as Comments: Medication taken as needed. needed (0.5 MG) Escitalopram Oxalate 20 MG Oral Tablet; 2 daily (20 MG) Gabapentin 300 MG Oral Capsule; 1 daily (300 MG) gammunex IV; 1 every three weeks Hydroxychloroquine Sulfate 200 MG Oral Tablet; 2 daily (200 MG) Levothyroxine Sodium 100 MCG Oral Tablet; 1 daily (100 MCG) Magnesium Oxide; 1 two times daily Melatonin 10 MG Oral Capsule; 3 at bedtime (10 MG) Mucinex Maximum Strength 1200 MG Oral Tablet Extended Release 12 Hour; 1 two times daily (1200 MG) Multivitamins Oral Capsule; 1 daily Myrbetriq 50 MG Oral Tablet Extended Release 24 Hour; 1 daily (50 MG) Ewing 3; 1 daily Omeprazole 20 MG Oral Capsule Delayed Release; 1 daily (20 MG) Oxybutynin Chloride ER 10 MG Oral Tablet Extended Release 24 Hour; 2 at bedtime (10 MG) Probiotic-10; 1 two times daily raNITIdine HCl 150 MG Oral Capsule; 1 daily (150 MG) Senna 8.6 MG Oral Capsule; 1 two times daily (8.6 MG) Procedures EXHALED NITRIC OXIDE MEASUREMENT (60689) Status: Completed 23-Jul-2019 REST/ EXERCISE OXIMETRY (53619) Status: Completed 23-Jul-2019 PRE AND POST (40537) Status: Completed 23-Jul-2019 Adenoidectomy Status: Completed 1961 Bronchoscopy Status: Completed Jun-2018 Comments: Abnormal. [place]; Pseudomonas (resistant to most antibiotics, sensitive to genta) Chest X-ray Status: Completed 05-Jul-2019 Comments: Normal. Chest X-ray Status: Completed 23-Jul-2019 Comments: Abnormal. persistent streaking at the left base CT Scan of Chest Status: Completed 02-Mar-2019 Comments: Abnormal. bilateral bronchiectasis; L>R FeNO Status: Completed 23-Jul-2019 Comments: Normal. 23 ppb Flu Vaccine Status: Completed Aug-2018 PFT Status: Completed 23-Jul-2019 Comments: Normal. No Obstruction. No Restriction. Tonsillectomy Status: Completed 1961 Total Hip Replacement - Left Status: Completed Oct-2007 Total Hip Replacement - Right Status: Completed 1999 Total Knee Replacement - Right Status: Completed Mar-2017 [place] Sleepiness ScaleResult: [Situation] Sitting and Status: Completed Jul-2019 Readin = Slight chance of dozing; Watching Television: 0 = Would never doze; Sitting inactive in a public place (theatre, meeting): 0 = Would never doze; As a passenger in a car for an hour without a break: 1 = Slight chance of dozing; Lying down to rest in the afternoon: 2 = Moderate chance of dozing; Sitting and talking to someone: 0 = Would never doze; Sitting quietly after lunch without alcohol: 0 = Would never doze; In a car, while stopping for a few minutes in traffic: 0 = Would never doze [Total] Score: 4 Family History Father Status: Active Comments: . Sudden . Heart disease. Completed Stroke. Diabetes mellitus, Type II. age 72 Mother Status: Active Comments: . Sudden . Heart disease. Rheumatoid Arthritis. 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 No alcohol use No drug use Tobacco use: Former smoker. Remotely quit Comments: smoked 1 PPD for 8 years (quit tobacco use. 1997) Former smoker Female Plan of Treatment EXHALED GAS NITRIC OXIDE MEASUREMENT (MOLES/VOLUME) (36308) Start: 22-Sep-2019 Intent Medical; PRE AND POST PFT - FENO ONLY!! Start: 25-Sep-2019 11:30 Appointment Request [facility] Pulmonary [facility] Office Resp Therapy [facility]; FOLLOW UP 30 - 2 mnth f/u, , FeNo Start: 25-Sep-2019 12:30 Appointment Request [facility] Pulmonary [facility] Office [facility] [place] Results No Known Results No Result Information Available Vital Signs 23-Jul-2019 12:40 Comments: Resting Room Air SaO2 - 98%Exertional Room Air SaO2 - 97% Temperature 97.6 f Comments: Method: Tympanic Pulse 82 /min Comments: Pattern: Regular Respiration Rate 14 /min Comments: Pattern: Unlabored O2 SAT 98 % Comments: Room air BP Systolic 118 mm[Hg] Comments: Patient Position: Sitting; Cuff Location: Left Arm; Cuff Size: Large BP Diastolic 80 mm[Hg] Comments: Patient Position: Sitting; Cuff Location: Left Arm; Cuff Size: Large Weight 232 lb Height 70 in BMI 33.29 kg/m2 BSA 2.22 m2 Advance Directives HIPAA - Effective on 07/23/2019. Expiration date unspecified Effective: 2018 Encounters Historical Summary 23-Jul-2019 13:00 To 23-Jul-2019 12:55 Pulmonary [facility] Office Historical Summary 23-Jul-2019 13:00 To 20-Jul-2019 15:17 Pulmonary [facility] Office Office Visit 23-Jul-2019 13:00 To 23-Jul-2019 13:55 Encounter Reason: Alpha 1 Antitrypsin Deficiency - The Gold Classification is Stage 0: At Risk. The patient is not currently being treated for this problem. Tested in [facility], she doesn't know the results. , [facility] Office [ADDITIONAL REASON] Bronchiectasis - The primary physician is Dr. Lew Campbell MD in [facility]. Symptoms include cough and copious sputum, while symptoms do not include purulent sputum, fatigue, dyspn ea, chest pain, hemoptysis or wheezing. Onset was gradual year(s) ago (2016). There is no known event that preceded symptom onset. The symptoms occur constantly. The episodes occur daily. The patient de scribes this as moderate in severity and worsening. Symptoms are relieved by rest. Associated symptoms do not include fever. Current treatment includes activity modification, inhaled beta-2 agonists and CPAP ([facility]). By report there is good compliance with treatment, good tolerance of treatment and fair symptom control. Initial presentation included multiple episodes of pneumonia, cough, dyspnea, co pious sputum and purulent sputum. Since diagnosis the disease has been unchanged (vexing persistent symptoms). Recently the disease has been worsening. 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 Disease complications do not include recurrent pu lmonary infections, lung abscess, brain abscess, atelectasis, massive hemoptysis or right heart failure. Pertinent medical history includes hypogammaglobulinemia (infusions since 2018; Ephraim Epps MD in [facility]), while pertinent medical history does not include Marfan syndrome, Esthela-Danlos syndrome, non-pulmonary tuberculosis, childhood pneumonia, connective tissue disease or ulcerative colitis. R isk factors include gastroesophageal reflux disease, recurrent pneumonia and impaired immunity, while risk factors do not include retained foreign body, transplant rejection or chronic aspiration. Khloe sheriffjoel family history does not include cystic fibrosis, Marfan syndrome, Kartagener syndrome, inflammatory bowel disease or asthma. Encounter Diagnosis: BRONCHIECTASIS, ATOPIC STATE, SLEEP APNEA, OBESITY, ALLERGIC BRONCHOPULMONARY ASPERGILLOSIS, PSEUDOMONAS AERUGINOSA COLONIZATION, FH: ALPHA 1 ANTITRYPSIN DEFICIENCY Historical Summary 23-Jul-2019 13:00 To 23-Jul-2019 12:51 [facility] [place] Payers [place] [address] [facility] [address] [place] Group Number: NONE tel: [facility] [address] [facility] [address] [place] Group Number: NONE tel: Carlee Torres [address] [facility] [address] [place] tel:
--- OUTSIDE RECORDS SUMMARY | 2019-08-01 10:01 | XMS REPORT | Continuity of Care Document ---
:1950 Author Name Edi Specialist, System Address Unavailable Unavailable , Care Team Providers Name Role Phone Lew Campbell MD Unavailable Problems No Problem Information Available Allergies and Adverse Reactions No Allergy Information Available Medications No Medication Information Available Social History No Social History Information Available Unknown if ever smoked Female Plan of Treatment Medical; CHEST X-RAY - [facility] Start: 23-Jul-2019 12:00 Appointment Request Pulmonary [facility] Office XRAY [place], XR Medical; PRE AND POST PFT - pp, sats, feno Start: 23-Jul-2019 12:45 Appointment Request [facility] [place] 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 Payers Medicare [place] [address] [place] [id number] [place] Group Number: NONE tel: Carlee Torres [address] [facility] [address] tel:
--- OUTSIDE RECORDS SUMMARY | 2019-08-01 10:01 | XMS REPORT | Continuity of Care Document ---
:1950 External Reference #:[id number] Author Name Heidi Puga Care Team Providers Name Role Phone Lew Campbell MD - Family Medicine Care Team Information Typewriter Ribbon Winder Kumar Epps MD - Allergy & Care Team Information Typewriter Ribbon Winder [phone] Immunology Problems Active Problems Provider Date Obstructive sleep apnea syndrome Lisbeth Ocampo MD Onset: 02/20/2016 Bronchiolectasis Lisbeth Ocampo MD Onset: 02/20/2016 Obesity Lisbeth Ocampo MD Onset: 02/20/2016 Asthma without status asthmaticus Lisbeth Ocampo MD Onset: 02/20/2016 Acute exacerbation of bronchiectasis Lisbeth Ocampo MD Onset: 04/27/2016 Localized, primary osteoarthritis of the pelvic Rachel Mead M.D. Onset: 05/2016 region and thigh Localized, primary osteoarthritis Rachel Mead M.D. Onset: 01/23/2017 Arthroplasty of knee Rachel Mead M.D. Onset: 04/05/2017 Achilles bursitis Niraj Perales MD Onset: 12/31/2017 Edema Niraj Perales MD Onset: 03/05/2018 Rupture of gastrocnemius tendon Niraj Perales MD Onset: 03/05/2018 Closed fracture of lateral malleolus Niraj Perales MD Onset: 10/28/2018 Cellulitis of left lower limb Niraj Perales MD Onset: 10/28/2018 Sprain of medial collateral ligament of knee Niraj Perales MD Onset: 2018 Social History Type Date Description Comments Sex Unknown Tobacco Use Start: Unknown End: Former Cigarette Unknown Smoker Smoking Status Reviewed: 05/07/19 Former Cigarette Smoker ETOH Use consumes 1-2 glasses of wine per day Tobacco Use Start: Unknown End: Patient is a former smoked for 8 years Unknown smoker less than 1PPD, quit 25yrs ago Recreational Drug Use Denies Drug Use Exercise Type/Frequency walks daily recumbent bike couple times weekly Allergies, Adverse Reactions, Alerts Active Allergies Reaction Severity Comments Date Sulfa Antibiotics Urticaria, throat swelling 03/14/2015 Cipro Urticaria, throat swelling 05/22/2016 Effexor 10/18/2016 Levaquin ruptured achilles tendon 11/04/2018 Medications Active Medications SIG Qnty Indications Ordering Date Provider Cayla 1 inhalation by 252ml J47.9 Javon Tapiadee, 04/01/2019 75mg Solution Rec mouth three MD times a day (Has not started 05/01/19) Aerochamber Plus Nagi-Vu Use as 1unbonita Bob 08/01/2018 W/Mask instructed MD Damaris Misc Ventolin HFA inhale two puffs 54gm Viktoria S. 06/16/2018 108(90Base) by mouth every 6 Foster, N.PJose Rafael mcg/Act Aerosol hours as needed for shortness of breath Magnesium Oxide 3 po qd 100tabs Qutaybeh S. 05/05/2018 400mg Tablets Veronica Jacinto Hydroxychloroquine take one tablet 180tabs M05.79 Zsofibushra Cope, 2017 Sulfate by mouth twice a NETEZZA DEVELOPER 200mg Tablets day Z79.899 Mucinex 1200mg tablets twice 60tabs Lisbeth Ocampo, 10/28/2017 600mg Tablets ER daily 12HR Albuterol Sulfate 1 unit, nebl, every 6 225ml Sunita47.1 Lisbeth Ocampo, 2016 hours, as needed 0.63mg/3ML Nebulizer Nebulizer 1 unit nebulization 1units Sunita47.1 Lisbeth Ocampo, 09/20/2017 Kit/Tubing/Mouthpiece every 4- 6 hours as Kit needed Amoxicillin 4 tablets 1 hour 4caps Rachel Mead, 09/04/2017 500mg Capsules before dental work MAly Aspirin 1 by mouth daily Unknown 06/09/2017 81mg [place] 3 one capsule daily Unknown 10/17/2016 Capsules Flutter use as instructed 1unbonita Dorsey47.9 Lisbeth Ocampo, 02/20/2016 Device twice a day Cefepime HCL IV every 12 hours Unknown 2GM/100ML Solution Advair (230/21) 1 inhalation Unknown 2x daily Multi For Her once a day Unknown Tablets Benadryl Allergy 1 qhs Unknown 25mg Capsules Ranitidine HCL one capsule daily Munira Dailey 150mg MD Anny Capsules Omeprazole take 1 capsule by Unknown 20mg Capsules DR mouth once daily Before Breakfast Acetaminophen 3 tabs by mouth twice Unknown 500mg daily Escitalopram Oxalate 2 tab by mouth once Unknown 20mg daily Tablets Bipap for use while sleeping Unknown Device Gamunex-C 50 g IV every three Unknown 10GM/100ML weeks Solution Turmeric take one Unknown Capsules capsule/tablet daily by mouth Myrbetriq 1 by mouth every day Unknown 50mg Tablets ER 24HR Senna-Tabs 2 tabs by mouth daily Unknown 8.6mg Tablets Alprazolam 1/2-1 tab po prn Unknown 0.25mg Tablets Calcium 1000 + D 1 by mouth every day Unknown [id number] Tablets Probiotic 1 by mouth daily Unknown 20mg Capsules Clonazepam take 1 tablet by mouth Unknown 0.5mg Tablets if needed maximum daily dose of 1 Oxybutynin Chloride ER once daily Unknown 25mg Tablets ER 24HR Levothyroxine Sodium once a day Unknown 100mcg Solution Rec Melatonin 3 by mouth at bedtime Unknown 10mg Tablets History Medications [place] 1 inhalation by 252ml J47.9 Javon Aggarwal MD 03/31/2019 - 75mg mouth three times a 04/01/2019 Solution Rec day Medications Administered in Office Medication SIG Qnty Indications Ordering Provider Date Triamcinolone (Kenalog) José Miguel Menjivar MD 05/07/2019 Injection Triamcinolone (Kenalog) José Miguel Menjivar MD 05/07/2019 Injection Hyalagan Or Supartz, For José Miguel Menjivar MD 02/17/2019 Intra-Articular Inject Per Dose Injection Hyalagan Or Supartz, For José Miguel Menjivar MD 02/17/2019 Intra-Articular Inject Per Dose Injection Hyalagan Or Supartz, For José Miguel Menjivar MD 02/10/2019 Intra-Articular Inject Per Dose Injection Hyalagan Or Supartz, For José Miguel Menjivar MD 02/10/2019 Intra-Articular Inject Per Dose Injection Hyalagan Or Supartz, For José Miguel Menjivar MD 02/03/2019 Intra-Articular Inject Per Dose Injection Hyalagan Or Supartz, For José Miguel Menjivar MD 02/03/2019 Intra-Articular Inject Per Dose Injection Hyalagan Or Supartz, For Rachel Garcia PA-C 01/27/2019 Intra-Articular Inject Per Dose Injection Hyalagan Or Supartz, For Rachel Garcia PA-C 01/27/2019 Intra-Articular Inject Per Dose Injection Hyalagan Or Supartz, For José Miguel Menjivar MD 01/20/2019 Intra-Articular Inject Per Dose Injection Hyalagan Or Supartz, For José Miguel Menjivar MD 01/20/2019 Intra-Articular Inject Per Dose Injection Triamcinolone (Kenalog) José Miguel Menjivar MD 09/05/2018 Injection Hyalagan Or Supartz, For José Miguel Menjivar MD 06/27/2018 Intra-Articular Inject Per Dose Injection Hyalagan Or Supartz, For José Miguel Menjivar MD 06/27/2018 Intra-Articular Inject Per Dose Injection Hyalagan Or Supartz, For José Miguel Menjivar MD 06/20/2018 Intra-Articular Inject Per Dose Injection Hyalagan Or Supartz, For José Miguel Menjivar MD 06/20/2018 Intra-Articular Inject Per Dose Injection Hyalagan Or Supartz, For José Miguel Menjivar MD 06/13/2018 Intra-Articular Inject Per Dose Injection Hyalagan Or Supartz, For José Miguel Menjivar MD 06/13/2018 Intra-Articular Inject Per Dose Injection Hyalagan Or Supartz, For Rachel Garcia PA-C 06/06/2018 Intra-Articular Inject Per Dose Injection Hyalagan Or Supartz, For Rachel Garcia PA-C 06/06/2018 Intra-Articular Inject Per Dose Injection Hyalagan Or Supartz, For Rachel Garcia PA-C 05/30/2018 Intra-Articular Inject Per Dose Injection Hyalagan Or Supartz, For Rachel Garcia PA-C 05/30/2018 Intra-Articular Inject Per Dose Injection Triamcinolone (Kenalog) Yefri Flores M.D. 03/21/2018 Injection Triamcinolone (Kenalog) Yefri Flores M.D. 03/21/2018 Injection Influenza,Unspecified Unknown 08/26/2017 Injection Triamcinolone (Kenalog) Yefri Flores M.D. 08/20/2017 Injection Triamcinolone (Kenalog) Yefri Flores M.D. 08/20/2017 Injection Depomedrol 40MG Rachel Mead M.D. 01/23/2017 Injection Triamcinolone (Kenalog) Yefri Flores M.D. 07/05/2016 Injection Depomedrol 80MG Mina Romero M.D. 09/08/2015 Injection Depomedrol 80MG Mina Romero M.D. 06/07/2015 Injection Depomedrol 80MG Mina Romero M.D. 03/14/2015 Injection Immunizations CPT Code Status Date Vaccine Lot # [id number] Given 08/16/2016 Influenza Virus 3Yrs & Over Vital Signs Date Vital Result Comment 05/07/2019 2:24pm Height 70 inches 5'10" Heart Rate 68 /min BP Systolic Sitting 132 mmHg BP Diastolic Sitting 84 mmHg Body Temperature 98.1 F Pain Level 7 05/01/2019 3:14pm Height 70 inches 5'10" Weight 226.00 lb with shoes Heart Rate 104 /min radial, regular BP Systolic Sitting 112 mmHg LA, reg cuff BP Diastolic Sitting 70 mmHg LA, reg cuff BP Systolic Standing 114 mmHg LA, reg cuff BP Diastolic Standing 72 mmHg LA, reg cuff BMI (Body Mass Index) 32.4 kg/m2 Ejection Fraction 60-65% Echocardiogram 05/14/2018 Results Test Date Facility Test Result H/L Range Note Sputum Culture & 04/09/2019 [facility] Sputum Culture SEE RESULT 1, [address] [address] [phone] Sputum Culture & 02/23/2019 [facility] Sputum Culture SEE RESULT 3, 4 [facility] [address] [facility] [place] [address] [phone] Basic Metabolic 02/10/2019 [facility] Sodium 134 mmol/L Low 135-145 Panel [address] [place] [address] [phone] Potassium 5.0 mmol/L Normal 3.5-5.0 Chloride 98 mmol/L Low 101-111 Co2 Carbon Dioxide 30 mmol/L Normal 22-32 Anion Gap 6 mmol/L Normal 2-11 Glucose 92 mg/dL Normal 70-100 Blood Urea Nitrogen 27 mg/dL High 6-24 Creatinine 0.80 mg/dL Normal 0.51-0.95 BUN/Creatinine Ratio 33.8 High 8-20 Calcium 10.1 mg/dL Normal 8.6-10.3 Egfr Non- 71.8 >60 Egfr 86.8 >60 5 Laboratory test 02/10/2019 [facility] Magnesium 2.0 mg/dL Normal 1.9-2.7 finding [address] [place] [address] [phone] Xray 01/20/2019 [employer] In House Inj/Aspir <pending> Major JT Or Beverly W/ US 1 CC: DR AGGARWAL [phone] [id number] 2 SEE RESULT BELOW Name: MARYMELIDA : [address]: Kumar Epps MD Acct: [id number] Unit: [id number] AGE: 68 Location: [facility] Re04/09/19 SEX: F Status: REG REF SPEC: [id number] ADDISON: 04/09/[address] [facility] [address]: Kumar Epps MD REQ: [id number] RECD: 04/09/19 EXPLICIT FAX#: [id number] STATUS: [facility] DR: Javon Aggarwal MD _ SOURCE: SPUTUM SPDESC: ORDERED: Sputum Cult/GS COMMENTS: CC: DR AGGARWAL [phone] [id number] Procedure Result Reported Site Sputum Smear Final 04/10/19- 14 ML 4+ Neutrophils 3+ Epithelial Cells 3+ Gram Positive Cocci 3+ Gram Positive Bacilli Sputum Culture Final 04/12/19- 924 ML Organism 1 PSEUDOMONAS AERUGINOSA Quantity 2+ Organism 2 NORMAL JUAN MANUEL Quantity 3+ 1. PSEUDOMONAS AERUGINOSA M.I.C. RX --------- ------ Cefazolin >=64 R Cefepime 8 S Ciprofloxacin <=0.25 S Gentamicin 4 S Levofloxacin 0.5 S Meropenem <=0.25 S Pipercillin/Tazobactam <=4 S Contact the Microbiology Department for any additional antibiotic reporting. * ML - Main Lab . END OF REPORT DEPARTMENT OF PATHOLOGY, [address] [place] [address] Randy Gomez M.D. Director [facility] # [id number] 3 [id number] 4 SEE RESULT BELOW Name: MELIDA TORRES : [address]: Javon Aggarwal MD Acct: [id number] Unit: [id number] AGE: 68 Location: [facility] Re02/23/19 SEX: F Status: REG REF SPEC: [id number] ADDISON: 02/23/19-[address]: Javon Aggarwal MD REQ: [id number] RECD: 02/23/19 STATUS: COMP _ SOURCE: SPUTUM SPDESC: ORDERED: Sputum Cult/GS COMMENTS: [id number] Procedure Result Reported Site Sputum Smear Final 02/24/19- 824 ML 4+ Neutrophils 1+ Epithelial Cells 4+ Gram Positive Cocci 2+ Gram Negative Bacilli 2+ Gram Positive Bacilli Sputum Culture Final 02/25/19- 954 ML Organism 1 PSEUDOMONAS AERUGINOSA Quantity 3+ 1. PSEUDOMONAS AERUGINOSA M.I.C. RX --------- ------ Cefazolin >=64 R Cefepime 8 S Ciprofloxacin <=0.25 S Gentamicin 4 S Levofloxacin 1 S Meropenem <=0.25 S Pipercillin/Tazobactam <=4 S Contact the Microbiology Department for any additional antibiotic reporting. * ML - Main Lab . END OF REPORT DEPARTMENT OF PATHOLOGY, [address] [place] [address] Randy Gomez M.D. Director [facility] # [id number] 5 Because ethnic data is not always readily [...] Kidney failure <15 (or dialysis) Procedures Date Code Description Status 05/07/2019 Inj/Aspir Major JT Or Bursa W/ US Completed 05/01/2019 47108 EKG Tracing & Interpretation Completed 03/12/2019 83056 Diffusing Capacity Completed 03/12/2019 46238 Plethysmography Determination Lung Volumes & Per Completed Airway Resist 03/12/2019 43022 Pulmonary Function><Bronchodil Completed 02/17/201948361 Inj/Aspir Major JT Or Bursa W/ US Completed 02/10/201903247 Inj/Aspir Major JT Or Bursa W/ US Completed 02/03/201909879 Inj/Aspir Major JT Or Bursa W/ US Completed 01/27/2019 Inj/Aspir Major JT Or Bursa W/ US Completed 01/20/201993844 Inj/Aspir Major JT Or Bursa W/ US Completed 03/03/2018 [id number] Diabetic Retinal Eye Exam Completed 08/01/2016 905762079 Diabetic Retinal Eye Exam Completed Medical Devices Description No Information Available Encounters Type Date Location Provider Dx Diagnosis Office Visit 05/01/2019 [facility] Qutafatimah S. 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 05/01/2019 E66.9 Obesity, unspecified Shari Jacinto M.D. 05/01/2019 I77.810 Thoracic aortic ectasia Shari Jacinto M.D. 05/01/2019 R94.31 Abnormal electrocardiogram [ECG] [EKG] Shari Jacinto M.D. 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, NETEZZA DEVELOPER factor of multiple site 03/19/2019 D83.9 Common variable immunodeficiency, Zsofia Anatoliy, NETEZZA DEVELOPER unspecified 03/19/2019 M25.549 Pain in joints of unspecified hand Jermanofibushra Cope, NETEZZA DEVELOPER 03/19/2019 Z79.899 Other snf (current) drug therapy Jermanofia Anatoliy, NETEZZA DEVELOPER 03/12/2019 J47.9 Bronchiectasis, uncomplicated Lisbeth Ocampo MD 02/17/2019 M19.012 Primary osteoarthritis, left shoulder José Miguel Menjivar MD 02/17/2019 M19.011 Primary osteoarthritis, right shoulder José Miguel Menjivar MD 02/10/2019 M19.012 Primary osteoarthritis, left shoulder José Miguel Menjivar MD 02/10/2019 J47.9 Bronchiectasis, uncomplicated Javon Aggarwal MD 02/10/2019 M19.011 Primary osteoarthritis, right seng Menjivar MD 02/03/2019 M19.012 Primary osteoarthritis, left shoulder José Miguel Menjivar MD 02/03/2019 M19.011 Primary osteoarthritis, right shoulder José Miguel Menjivar MD 01/27/2019 M19.012 Primary osteoarthritis, left shoulder Rachel Radha, ANNIE-C 01/27/2019 M19.011 Primary osteoarthritis, right shoulder Rachel Radha , SYDC 01/20/2019 M19.012 Primary osteoarthritis, left shoulder José Miguel Menjivar MD 01/20/2019 M19.011 Primary osteoarthritis, right shoulder José Miguel Menjivar MD Plan of Treatment Future Appointment(s):07/28/2019 10:00 am - José Miguel Menjivar MD at [facility].08/25/2019 3:30 pm - José Miguel Menjivar MD at [facility].08/18/2019 3:15 pm - José Miguel Menjivar MD at [facility].08/11/2019 3:15 pm - José Miguel Menjivar MD at [facility]. 3:15 pm - José Miguel Menjivar MD at [facility].09/24/2019 11:00 am - MARCIA Barron at [facility]05/07/2019 - José Miguel Menjivar MDM19.012 Primary osteoarthritis, left shoulderNew Xrays:Inj/ Aspir Major JT Or Bursa W/ US, Ordered: 05/07/19Follow up:Follow up: Pt will call in June to set up appointment and get pre-approval for Hyalgan tnkntsoacA66.011 Primary osteoarthritis, right shoulder Functional Status Description No Information Available Mental Status Description No Information Available Referrals Description No Information Available
--- OUTSIDE RECORDS SUMMARY | 2019-08-01 10:01 | XMS REPORT | Continuity of Care Document ---
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 [facility] ; Prognosis: She is up to date [...] Release 24 Hour; 1 daily (50 MG) [place] 3; 1 daily Omeprazole 20 MG Oral Capsule Delayed Release; 1 daily (20 MG) Oxybutynin Chloride ER 10 MG Oral Tablet Extended Release 24 Hour; 2 at bedtime (10 MG) Probiotic-10; 1 two times daily raNITIdine HCl 150 MG Oral Capsule; 1 daily (150 MG) Senna 8.6 MG Oral Capsule; 1 two times daily (8.6 MG) Procedures EXHALED NITRIC OXIDE MEASUREMENT (98134) Status: Completed 23-Jul-2019 REST/ EXERCISE OXIMETRY (27407) Status: Completed 23-Jul-2019 PRE AND POST (68709) Status: Completed 23-Jul-2019 Adenoidectomy Status: Completed 1959 [...] Knee Replacement - Right Status: Completed Mar-2017 Mcdonald Sleepiness ScaleResult: [Situation] Sitting and Status: Completed [...] Caffeine use 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 No alcohol use No drug use Tobacco use: Former smoker. Remotely quit Comments: smoked 1 PPD for 8 years (quit tobacco use. 1997) Former smoker Female Plan of Treatment EXHALED GAS NITRIC OXIDE MEASUREMENT (MOLES/VOLUME) (22144) Start: 22-Sep-2019 Intent Medical; PRE AND POST PFT - FENO ONLY!! Start: 25-Sep-2019 11:30 Appointment Request [facility] Pulmonary [facility] Office Resp Therapy [facility]; FOLLOW UP 30 - 2 mnth f/u, , FeNo Start: 25-Sep-2019 12:30 Appointment Request [facility] Pulmonary [facility] Office Shyann [facility] [place] Results No Known Results No Result Information [...] Summary 23-Jul-2019 13:00 To 23-Jul-2019 12:55 Pulmonary [facility] Office Historical Summary 23-Jul-2019 13:00 To 20-Jul-2019 15:17 [facility] Office Office Visit 23-Jul-2019 13:00 To 23-Jul-2019 13:55 Encounter Reason: Alpha 1 Antitrypsin Deficiency - The Gold Classification is Stage 0: At Risk. The patient is not currently being treated for this problem. Tested in [facility], she doesn't know the results. , [facility] Office [ADDITIONAL REASON] Bronchiectasis - The primary physician is Dr. Lew Campbell MD in [facility]. Symptoms include cough and copious sputum, while [...] (infusions since 2018; Ephraim Epps MD in [facility]), while pertinent medical history does not include [...] 23-Jul-2019 13:00 To 23-Jul-2019 12:51 [facility] [place] Office Payers [place] [address] [facility] [place] [address] [place] Group Number: [id number] tel: [facility] [address] [facility] [address] [place] Group Number: NONE tel: Carlee Torres [address] [facility] [address] [place] tel:
--- OUTSIDE RECORDS SUMMARY | 2019-08-01 10:01 | XMS REPORT | Continuity of Care Document ---
:1950 External Reference #:[id number] Author Name Kumar Epps MD Address [address] [place] [address] Care Team Providers Name Role Phone Lew Campbell MD - Family Care Team Information Manager [place] [phone] Medicine Yefri Florse MD - Rheumatology Care Team Information Manager [place] Lisbeth Ocampo MD - Pulmonary Care Team Information Manager [place] [phone] Disease Munira Dailey MD - Pulmonary Care Team Information Manager [place] Unavailable Disease Tien Paul JR, MD - Care Team Information Manager [place] [phone] Infectious Disease Jhon Morales MD Care Team Information Manager [place] [phone] Problems Active Problems Provider Date 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 Pneumonia due to Pseudomonas Kumar Epps MD Onset: 12/04/2017 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 Allergic rhinitis Kumar Epps MD Onset: 01/15/2018 Candidiasis of mouth Kumar Epps MD Onset: 02/05/2018 Exacerbation of moderate persistent asthma Kumar Epps MD Onset: Uncomplicated moderate persistent asthma Maria Fernanda Aguero NP Onset: 05/08/2019 Social History Type Date Description Comments Sex Unknown Tobacco Use Start: Unknown Patient has never smoked Tobacco Use Start: Unknown No Second Hand Smoke Exposure Smoking Status Reviewed: 01/14/19 No Second Hand Smoke Exposure Allergies, Adverse Reactions, Alerts Active Allergies Reaction Severity Comments Date Ciprofloxacin 11/27/2017 Sulfa Antibiotics 11/27/2017 Venlafaxine 11/27/2017 Levaquin advervse reaction Ruputed flexor tendon 07/16/2018 Medications Active Medications SIG Qnty Indications Ordering Date Provider Clotrimazole dissolve one 35units D83.8 [facility]. 10mg Parviz parviz in mouth [facility] 9 5x per day x7 days Syringe/Luer use as directed 90units [facility] A. Lock/3ML/25G X 5/8" once daily for [facility] 9 25G X inhalation 5/8" 3 ML Misc Gamunex-C 50 grams every 3 10ml [facility]. 1GM/10ML Solution weeks IV [facility] 9 Albuterol Sulfate 1 vial every 4h 150ml [facility] A. (2.5mg/3ML) as needed [facility] 8 0.083% Nebulizer Abilify Unknown 5mg Tablets 0 Cefepime HCL Unknown 1GM/50ML 0 Solution Magnesium 1200 MG Unknown 0 Hydroxychloroquine twice per day Unknown Sulfate 0 200mg Tablets Eq Acetaminophen Extra three times per Unknown Strength day 0 500mg Tablets Valved Holding Chamber use as directed Unknown 0 Device Ranitidine HCL Unknown 150mg Capsules 0 Omeprazole Unknown [address] C[address] 0 Aspirin 81 Low Dose Unknown 81mg 0 Chewtabs Escitalopram Oxalate 2 by mouth every Unknown 20mg day 0 Tablets Oxybutynin Chloride ER 1 by mouth every 90tabs Unknown 25mg day 0 Tablets ER 24HR Myrbetriq 1 tab PO daily Unknown 50mg Tablets ER 0 24HR Senna S 3 tab PO daily Unknown 8.6-50mg Tablets 0 Tumeric Unknown 00/00/000 Tablets 0 Probiotic Unknown Capsules 0 [id number] Ethyl 1 by mouth every Unknown Esters day 0 1gm Capsules Multi For Her Unknown Capsules 0 Mucinex twice per day Unknown 600mg Tablets ER 12HR 0 Melatonin 3 by mouth every Unknown 10mg Capsules night at bedtime 0 Calcium 1000 + D Unknown 0 [id number] Tablets Ventolin HFA inhale 2 puffs Unknown 108(90Base) by mouth every 4 0 mcg/Act Aerosol hours Levothyroxine Sodium 1 tab PO daily Unknown 100mcg 0 Tablets History Medications Prednisone take one tablet 10tabs J45.40 Maria Fernanda Aguero NP 05/08/2019 - 20mg twice daily x 5 07/15/2019 Tablets days Sodium Chloride Use once a day as 100units Kumar Jennings 01/23/2019 - needed for [facility] [place] 04/16/2019 0.9% Nebulizer inhalation Ciprofloxacin 5ml in nebulizer 150ml Tien Smith 01/20/2019 - onq RPA-C 02/16/2019 500mg/5ML (10%) Suspension Rec Gentamicin Sulfate 2 milliliters via 100ml Tien Smith 01/20/2019 - nebulizer once RPA-C 04/16/2019 40mg/ml Solution daily Medications Administered in Office Medication SIG Qnty Indications Ordering Provider Date Injection Gamunex IV Kumar Epps MD 07/03/2019 Nonlyophilized 500 MG Injection Injection Gamunex IV Infusion 07/03/2019 Nonlyophilized 500 MG Injection IV Infusion For Kumar Epps MD 07/03/2019 Therapy,Prophylaxis Or Diagnosis Additional Hour Injection IV Infusion For Infusion 07/03/2019 Therapy,Prophylaxis Or Diagnosis Additional Hour Injection IV Infusion For Kumar Epps MD 07/03/2019 Therapy,Prophylaxis Or Diagnosis Init Up To 1 HR Injection IV Infusion For Infusion 07/03/2019 Therapy,Prophylaxis Or Diagnosis Init Up To 1 HR Injection Injection Gamunex IV Kumar Epps MD 06/08/2019 Nonlyophilized 500 MG Injection Injection Gamunex IV Infusion 06/08/2019 Nonlyophilized 500 MG Injection IV Infusion For Kumar Epps MD 06/08/2019 Therapy,Prophylaxis Or Diagnosis Additional Hour Injection IV Infusion For Infusion 06/08/2019 Therapy,Prophylaxis Or Diagnosis Additional Hour Injection IV Infusion For Kumar Epps MD 06/08/2019 Therapy,Prophylaxis Or Diagnosis Init Up To 1 HR Injection IV Infusion For Infusion 06/08/2019 Therapy,Prophylaxis Or Diagnosis Init Up To 1 HR Injection Injection Gamunex IV Kumar Epps MD 05/18/2019 Nonlyophilized 500 MG Injection Injection Gamunex IV Infusion 05/18/2019 Nonlyophilized 500 MG Injection IV Infusion For Kumar Epps MD 05/18/2019 Therapy,Prophylaxis Or Diagnosis Additional Hour Injection IV Infusion For Infusion 05/18/2019 Therapy,Prophylaxis Or Diagnosis Additional Hour Injection IV Infusion For Kumar Epps MD 05/18/2019 Therapy,Prophylaxis Or Diagnosis Init Up To 1 HR Injection IV Infusion For Infusion 05/18/2019 Therapy,Prophylaxis Or Diagnosis Init Up To 1 HR Injection Injection Gamunex IV Kumar Epps MD 04/27/2019 Nonlyophilized 500 MG Injection Injection Gamunex IV Infusion 04/27/2019 Nonlyophilized 500 MG Injection IV Infusion For Kumar Epps MD 04/27/2019 Therapy,Prophylaxis Or Diagnosis Additional Hour Injection IV Infusion For Infusion 04/27/2019 Therapy,Prophylaxis Or Diagnosis Additional Hour Injection IV Infusion For Kumar Epps MD 04/27/2019 Therapy,Prophylaxis Or Diagnosis Init Up To 1 HR Injection IV Infusion For Infusion 04/27/2019 Therapy,Prophylaxis Or Diagnosis Init Up To 1 HR Injection Injection Gamunex IV Kumar Epps MD 04/06/2019 Nonlyophilized 500 MG Injection Injection Gamunex IV Infusion 04/06/2019 Nonlyophilized 500 MG Injection IV Infusion For Kumar Epps MD 04/06/2019 Therapy,Prophylaxis Or Diagnosis Additional Hour Injection IV Infusion For Infusion 04/06/2019 Therapy,Prophylaxis Or Diagnosis Additional Hour Injection IV Infusion For Kumar Epps MD 04/06/2019 Therapy,Prophylaxis Or Diagnosis Init Up To 1 HR Injection IV Infusion For Infusion 04/06/2019 Therapy,Prophylaxis Or Diagnosis Init Up To 1 HR Injection Injection Gamunex IV Kumar Epps MD 03/16/2019 Nonlyophilized 500 MG Injection Injection Gamunex IV Infusion 03/16/2019 Nonlyophilized 500 MG Injection IV Infusion For Kumar Epps MD 03/16/2019 Therapy,Prophylaxis Or Diagnosis Additional Hour Injection IV Infusion For Infusion 03/16/2019 Therapy,Prophylaxis Or Diagnosis Additional Hour Injection IV Infusion For Kumar Epps MD 03/16/2019 Therapy,Prophylaxis Or Diagnosis Init Up To 1 HR Injection IV Infusion For Infusion 03/16/2019 Therapy,Prophylaxis Or Diagnosis Init Up To 1 HR Injection Injection Gamunex IV Kumar Epps MD 02/23/2019 Nonlyophilized 500 MG Injection Injection Gamunex IV Infusion 02/23/2019 Nonlyophilized 500 MG Injection IV Infusion For Kumar Epps MD 02/23/2019 Therapy,Prophylaxis Or Diagnosis Additional Hour Injection IV Infusion For Infusion 02/23/2019 Therapy,Prophylaxis Or Diagnosis Additional Hour Injection IV Infusion For Kumar Epps MD 02/23/2019 Therapy,Prophylaxis Or Diagnosis Init Up To 1 HR Injection IV Infusion For Infusion 02/23/2019 Therapy,Prophylaxis Or Diagnosis Init Up To 1 HR Injection Injection Gamunex IV Kumar Epps MD 02/02/2019 Nonlyophilized 500 MG Injection Injection Gamunex IV Infusion 02/02/2019 Nonlyophilized 500 MG Injection IV Infusion For Kumar Epps MD 02/02/2019 Therapy,Prophylaxis Or Diagnosis Additional Hour Injection IV Infusion For Infusion 02/02/2019 Therapy,Prophylaxis Or Diagnosis Additional Hour Injection IV Infusion For Kumar Epps MD 02/02/2019 Therapy,Prophylaxis Or Diagnosis Init Up To 1 HR Injection IV Infusion For Infusion 02/02/2019 Therapy,Prophylaxis Or Diagnosis Init Up To 1 HR Injection Injection Gamunex IV Kumar Epps MD 01/12/2019 Nonlyophilized 500 MG Injection Injection Gamunex IV Infusion 01/12/2019 Nonlyophilized 500 MG Injection IV Infusion For Kumar Epps MD 01/12/2019 Therapy,Prophylaxis Or Diagnosis Additional Hour Injection IV Infusion For Infusion 01/12/2019 Therapy,Prophylaxis Or Diagnosis Additional Hour Injection IV Infusion For Kumar Epps MD 01/12/2019 Therapy,Prophylaxis Or Diagnosis Init Up To 1 HR Injection IV Infusion For Infusion 01/12/2019 Therapy,Prophylaxis Or Diagnosis Init Up To 1 HR Injection Injection Gamunex IV Kumar Epps MD 12/19/2018 Nonlyophilized 500 MG Injection Injection Gamunex IV Infusion 12/19/2018 Nonlyophilized 500 MG Injection IV Infusion For Kumar Epps MD 12/19/2018 Therapy,Prophylaxis Or Diagnosis Additional Hour Injection IV Infusion For Infusion 12/19/2018 Therapy,Prophylaxis Or Diagnosis Additional Hour Injection IV Infusion For Kumar Epps MD 12/19/2018 Therapy,Prophylaxis Or Diagnosis Init Up To 1 HR Injection IV Infusion For Infusion 12/19/2018 Therapy,Prophylaxis Or Diagnosis Init Up To 1 HR Injection Injection Gamunex IV Kumar Epps MD 11/05/2018 Nonlyophilized 500 MG Injection Injection Gamunex IV Infusion 11/05/2018 Nonlyophilized 500 MG Injection IV Infusion For Kumar Epps MD 11/05/2018 Therapy,Prophylaxis Or Diagnosis Additional Hour Injection IV Infusion For Infusion 11/05/2018 Therapy,Prophylaxis Or Diagnosis Additional Hour Injection IV Infusion For Kumar Epps MD 11/05/2018 Therapy,Prophylaxis Or Diagnosis Init Up To 1 HR Injection IV Infusion For Infusion 11/05/2018 Therapy,Prophylaxis Or Diagnosis Init Up To 1 HR Injection Injection Gamunex IV Kumar Epps MD 10/17/2018 Nonlyophilized 500 MG Injection Injection Gamunex IV Infusion 10/17/2018 Nonlyophilized 500 MG Injection IV Infusion For Kumar Epps MD 10/17/2018 Therapy,Prophylaxis Or Diagnosis Additional Hour Injection IV Infusion For Infusion 10/17/2018 Therapy,Prophylaxis Or Diagnosis Additional Hour Injection IV Infusion For Kumar Epps MD 10/17/2018 Therapy,Prophylaxis Or Diagnosis Init Up To 1 HR Injection IV Infusion For Infusion 10/17/2018 Therapy,Prophylaxis Or Diagnosis Init Up To 1 HR Injection Injection Gamunex IV Kumar Epps MD 09/19/2018 Nonlyophilized 500 MG Injection Injection Gamunex IV Infusion 09/19/2018 Nonlyophilized 500 MG Injection IV Infusion For Kumar Epps MD 09/19/2018 Therapy,Prophylaxis Or Diagnosis Additional Hour Injection IV Infusion For Infusion 09/19/2018 Therapy,Prophylaxis Or Diagnosis Additional Hour Injection IV Infusion For Kumar Epps MD 09/19/2018 Therapy,Prophylaxis Or Diagnosis Init Up To 1 HR Injection IV Infusion For Infusion 09/19/2018 Therapy,Prophylaxis Or Diagnosis Init Up To 1 HR Injection Injection Gamunex IV Kumar Epps MD 08/22/2018 Nonlyophilized 500 MG Injection Injection Gamunex IV Infusion 08/22/2018 Nonlyophilized 500 MG Injection IV Infusion For Kumar Epps MD 08/22/2018 Therapy,Prophylaxis Or Diagnosis Additional Hour Injection IV Infusion For Infusion 08/22/2018 Therapy,Prophylaxis Or Diagnosis Additional Hour Injection IV Infusion For Kumar Epps MD 08/22/2018 Therapy,Prophylaxis Or Diagnosis Init Up To 1 HR Injection IV Infusion For Infusion 08/22/2018 Therapy,Prophylaxis Or Diagnosis Init Up To 1 HR Injection Injection Gamunex IV Kumar Epps MD 07/25/2018 Nonlyophilized 500 MG Injection Injection Gamunex IV Infusion 07/25/2018 Nonlyophilized 500 MG Injection IV Infusion For Kumar Epps MD 07/25/2018 Therapy,Prophylaxis Or Diagnosis Additional Hour Injection IV Infusion For Infusion 07/25/2018 Therapy,Prophylaxis Or Diagnosis Additional Hour Injection IV Infusion For Kumar Epps MD 07/25/2018 Therapy,Prophylaxis Or Diagnosis Init Up To 1 HR Injection IV Infusion For Infusion 07/25/2018 Therapy,Prophylaxis Or Diagnosis Init Up To 1 HR Injection Injection Gamunex IV Kumar Epps MD 04/21/2018 Nonlyophilized 500 MG Injection Injection Gamunex IV Infusion 04/21/2018 Nonlyophilized 500 MG Injection IV Infusion For Kumar Epps MD 04/21/2018 Therapy,Prophylaxis Or Diagnosis Additional Hour Injection IV Infusion For Infusion 04/21/2018 Therapy,Prophylaxis Or Diagnosis Additional Hour Injection IV Infusion For Kumar Epps MD 04/21/2018 Therapy,Prophylaxis Or Diagnosis Init Up To 1 HR Injection IV Infusion For Infusion 04/21/2018 Therapy,Prophylaxis Or Diagnosis Init Up To 1 HR Injection Injection Gamunex IV Kumar Epps MD 03/19/2018 Nonlyophilized 500 MG Injection Injection Gamunex IV Infusion 03/19/2018 Nonlyophilized 500 MG Injection IV Infusion For Kumar Epps MD 03/19/2018 Therapy,Prophylaxis Or Diagnosis Additional Hour Injection IV Infusion For Infusion 03/19/2018 Therapy,Prophylaxis Or Diagnosis Additional Hour Injection IV Infusion For Kumar Epps MD 03/19/2018 Therapy,Prophylaxis Or Diagnosis Init Up To 1 HR Injection IV Infusion For Infusion 03/19/2018 Therapy,Prophylaxis Or Diagnosis Init Up To 1 HR Injection Injection Gamunex IV Kumar Epps MD 02/20/2018 Nonlyophilized 500 MG Injection Injection Gamunex IV Infusion 02/20/2018 Nonlyophilized 500 MG Injection IV Infusion For Kumar Epps MD 02/20/2018 Therapy,Prophylaxis Or Diagnosis Additional Hour Injection IV Infusion For Infusion 02/20/2018 Therapy,Prophylaxis Or Diagnosis Additional Hour Injection IV Infusion For Kumar Epps MD 02/20/2018 Therapy,Prophylaxis Or Diagnosis Init Up To 1 HR Injection IV Infusion For Infusion 02/20/2018 Therapy,Prophylaxis Or Diagnosis Init Up To 1 HR Injection Immunizations CPT Code Status Date Vaccine Lot # [id number] Given 11/27/2017 Pneumococcal Vaccine 2Yrs Or Older [id number] Vital Signs Date Vital Result Comment 07/15/2019 8:44am BP Systolic 124 mmHg BP Diastolic 70 mmHg Height 70 inches 5'10" Weight 220.00 lb BMI (Body Mass Index) 31.6 kg/m2 Heart Rate 80 /min Respiratory Rate 18 /min O2 % BldC Oximetry 98 % 07/03/2019 2:45pm BP Systolic 102 mmHg BP Diastolic 60 mmHg Height 70 inches 5'10" Heart Rate 81 /min Respiratory Rate 16 /min Body Temperature 96.0 F O2 % BldC Oximetry 96 % Results Test Date Facility Test Result H/L Range Note Immunoglobulins 07/03/2019 [facility] Immunoglobulin A 42 mg/dL Normal 20-320 [phone] Immunoglobulin G 1221 mg/dL Normal 600-1540 Immunoglobulin M 53 mg/dL Normal 50-300 Hepatic 07/03/2019 [facility] Protein, Total 7.0 g/dL Normal 6.1- 8.1 1 Function Panel [phone] Albumin 4.3 g/dL Normal 3.6-5.1 Globulin 2.7 g/dL(calc) Normal 1.9-3.7 Albumin/Globulin Ratio 1.6 (calc) Normal 1.0-2.5 Alkaline Phosphatase 148 U/L High 33-130 Alt 26 U/L Normal 6-29 Ast TNP U/L 2 Laboratory test 07/03/2019 [facility] Enhanced PDF SEE IMAGE finding [phone] Report [id number] Immunoglobulins 04/06/2019 [facility] Immunoglobulin A 57 mg/dL Low 81-4 [phone] Immunoglobulin G 1450 mg/dL Normal 694-1618 Immunoglobulin M 69 mg/dL Normal 48-271 Hepatic 04/06/2019 [facility] Protein, Total 7.0 g/dL Normal 6.1- 8.1 Function Panel [phone] Albumin 4.3 g/dL Normal 3.6-5.1 Globulin 2.7 g/dL(calc) Normal 1.9-3.7 Albumin/Globulin Ratio 1.6 (calc) Normal 1.0-2.5 Bilirubin, Total 0.4 mg/dL Normal 0.2-1.2 Bilirubin, Direct 0.1 mg/dL Normal < Or = 0.2 Bilirubin, Indirect 0.3 mg/dL(calc) Normal 0.2-1.2 Alkaline Phosphatase 136 U/L High 33-130 Ast 26 U/L Normal 10-35 Alt 21 U/L Normal 6-29 Laboratory test 04/06/2019 [facility] Enhanced PDF Report SEE IMAGE finding [phone] [id number] Results slightly increased due to hemolysis. 2 TEST(S) NOT PERFORMED: BILIRUBIN, TOTAL BILIRUBIN, DIRECT BILIRUBIN, INDIRECT AST Test not performed. Specimen unsuitable for testing due to hemolysis. Procedures Date Code Description Status 07/03/2019 83402 IV Infusion For Therapy,Prophylaxis Or Diagnosis Completed Additional Hour 07/03/2019 68906 IV Infusion For Therapy,Prophylaxis Or Diagnosis Completed Additional Hour 07/03/2019 05422 IV Infusion For Therapy,Prophylaxis Or Diagnosis Init Up Completed To 1 HR 07/03/2019 65526 IV Infusion For Therapy,Prophylaxis Or Diagnosis Init Up Completed To 1 HR 06/08/2019 08351 IV Infusion For Therapy,Prophylaxis Or Diagnosis Completed Additional Hour 06/08/2019 64193 IV Infusion For Therapy,Prophylaxis Or Diagnosis Completed Additional Hour 06/08/2019 93731 IV Infusion For Therapy,Prophylaxis Or Diagnosis Init Up Completed To 1 HR 06/08/2019 81184 IV Infusion For Therapy,Prophylaxis Or Diagnosis Init Up Completed To 1 HR 05/18/2019 22619 IV Infusion For Therapy,Prophylaxis Or Diagnosis Init Up Completed To 1 HR 05/18/2019 30792 IV Infusion For Therapy,Prophylaxis Or Diagnosis Init Up Completed To 1 HR 05/18/2019 95100 IV Infusion For Therapy,Prophylaxis Or Diagnosis Completed Additional Hour 05/18/2019 80306 IV Infusion For Therapy,Prophylaxis Or Diagnosis Completed Additional Hour 04/27/2019 38221 IV Infusion For Therapy,Prophylaxis Or Diagnosis Completed Additional Hour 04/27/2019 41078 IV Infusion For Therapy,Prophylaxis Or Diagnosis Completed Additional Hour 04/27/2019 82397 IV Infusion For Therapy,Prophylaxis Or Diagnosis Init Up Completed To 1 HR 04/27/2019 80605 IV Infusion For Therapy,Prophylaxis Or Diagnosis Init Up Completed To 1 HR 04/06/2019 80646 IV Infusion For Therapy,Prophylaxis Or Diagnosis Init Up Completed To 1 HR 04/06/2019 94957 IV Infusion For Therapy,Prophylaxis Or Diagnosis Init Up Completed To 1 HR 04/06/2019 62961 IV Infusion For Therapy,Prophylaxis Or Diagnosis Completed Additional Hour 04/06/2019 33092 IV Infusion For Therapy,Prophylaxis Or Diagnosis Completed Additional Hour 03/16/2019 55570 IV Infusion For Therapy,Prophylaxis Or Diagnosis Completed Additional Hour 03/16/2019 35208 IV Infusion For Therapy,Prophylaxis Or Diagnosis Completed Additional Hour 03/16/2019 62631 IV Infusion For Therapy,Prophylaxis Or Diagnosis Init Up Completed To 1 HR 03/16/2019 11630 IV Infusion For Therapy,Prophylaxis Or Diagnosis Init Up Completed To 1 HR 02/23/2019 40024 IV Infusion For Therapy,Prophylaxis Or Diagnosis Completed Additional Hour 02/23/2019 94429 IV Infusion For Therapy,Prophylaxis Or Diagnosis Completed Additional Hour 02/23/2019 09673 IV Infusion For Therapy,Prophylaxis Or Diagnosis Init Up Completed To 1 HR 02/23/2019 98829 IV Infusion For Therapy,Prophylaxis Or Diagnosis Init Up Completed To 1 HR 02/02/2019 36910 IV Infusion For Therapy,Prophylaxis Or Diagnosis Completed Additional Hour 02/02/2019 86777 IV Infusion For Therapy,Prophylaxis Or Diagnosis Completed Additional Hour 02/02/2019 82336 IV Infusion For Therapy,Prophylaxis Or Diagnosis Init Up Completed To 1 HR 02/02/2019 60168 IV Infusion For Therapy,Prophylaxis Or Diagnosis Init Up Completed To 1 HR Medical Devices Description No Information Available Encounters Type Date Location Provider Dx Diagnosis Office Visit 05/08/2019 Ajit Aguero NP J45.40 Moderate persistent 4:00p asthma, uncomplicated Office Visit 04/24/2019 Ajit Aguero NP J15.1 Pneumonia due to 11:30a Pseudomonas 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 immunodeficiencies Office Visit 04/15/2019 3:15p Ajit Jennings 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 [facility] immunodeficiencies J15.1 Pneumonia due to Pseudomonas Office Visit 04/10/2019 4:30p Ajit Aguero 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 [employer] immunodeficiencies J45.41 Moderate persistent asthma with (acute) exacerbation Assessments Date Code Description Provider 07/15/2019 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 immunodeficiencies Kumar Epps MD 07/15/2019 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 07/03/2019 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 immunodeficiencies Kumar Epps MD 07/03/2019 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 immunodeficiencies Infusion 06/08/2019 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 immunodeficiencies Kumar Epps MD 06/08/2019 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 immunodeficiencies Infusion 05/18/2019 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 immunodeficiencies Kumar Epps MD 05/18/2019 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 immunodeficiencies Infusion 05/08/2019 J45.40 Moderate persistent asthma, uncomplicated Kumar Epps MD 05/08/2019 J45.40 Moderate persistent asthma, uncomplicated Maria Fernanda Aguero NP 04/27/2019 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 immunodeficiencies Kumar Epps MD 04/27/2019 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 immunodeficiencies Infusion 04/24/2019 J15.1 Pneumonia due to Pseudomonas Kumar Epps MD 04/24/2019 J15.1 Pneumonia due to Pseudomonas Maria Fernanda Aguero NP 04/24/2019 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 immunodeficiencies Kumar Epps MD 04/24/2019 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 immunodeficiencies Maria Fernanda Aguero, DONN 04/15/2019 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 immunodeficiencies Kumar Epps MD 04/15/2019 J15.1 Pneumonia due to Pseudomonas Kumar Epps MD 04/10/2019 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 immunodeficiencies Kumar Epps MD 04/10/2019 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 immunodeficiencies Maria Fernanda Aguero, DONN 04/10/2019 J45.41 Moderate persistent asthma with (acute) Kumar Epps MD exacerbation 04/10/2019 J45.41 Moderate persistent asthma with (acute) Maria Fernanda Aguero NP exacerbation 04/06/2019 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 immunodeficiencies Kumar Epps MD 04/06/2019 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 immunodeficiencies Infusion 03/16/2019 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 immunodeficiencies Kumar Epps MD 03/16/2019 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 immunodeficiencies Infusion 02/23/2019 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 immunodeficiencies Kumar Epps MD 02/23/2019 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 immunodeficiencies Infusion 02/02/2019 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 immunodeficiencies Kumar Epps MD 02/02/2019 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 immunodeficiencies Infusion Plan of Treatment Future Appointment(s):10/14/2019 11:00 am - [facility] at [id number]/24/2019 12:30 pm - Infusion at [id number]/15/2019 - Kumar Epps , MD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 [id number] 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
--- OUTSIDE RECORDS SUMMARY | 2019-08-01 10:02 | XMS REPORT | Continuity of Care Document ---
:1950 External Reference #:[id number] Author Name Kumar Epps MD (transmitted by agent of provider Vero Vaughn) Address [address] [place] [address] Care Team Providers Name Role Phone Lew Campbell MD - Family Care Team Information Voice Network Engineer [phone] Medicine Yefri Flores MD - Rheumatology Care Team Information Voice Network Engineer Lisbeth Ocampo MD - Pulmonary Care Team Information Voice Network Engineer Disease Munira Dailey MD - Pulmonary Care Team Information Voice Network Engineer Unavailable Disease Tien Paul JR, MD - Care Team Information Voice Network Engineer [phone] Infectious Disease Jhon Morales MD Care Team Information Voice Network Engineer [phone] Problems Active Problems Provider Date Common variable [...] Date Provider Clotrimazole dissolve [facility] 10mg Parviz parviz in mouth [facility] 9 5x per day x7 days Syringe/Luer [facility] as [facility] Lock/3ML/25G X 5/8" once daily for MD [facility] 9 25G X inhalation 5/8" 3 ML Misc Gamunex-C 50 grams every 3 10ml [place] A. 1GM/10ML Solution weeks IV MD iMch 9 Albuterol Sulfate 1 vial every 4h 150ml [facility] (2.5mg/3ML) as needed [facility] 8 [...] daily Unknown 8.6-50mg Tablets 0 Tumeric Unknown Tablets 0 Probiotic Unknown Capsules 0 [id number] Ethyl 1 by mouth every Unknown Esters day 0 1gm Capsules Multi For Her Unknown Capsules 0 Mucinex twice per day Unknown 600mg Tablets ER 12HR 0 Melatonin 3 by mouth every Unknown 10mg Capsules night at bedtime 0 Calcium 1000 + D Unknown 0 [id number] Tablets Ventolin HFA inhale 2 puffs Unknown [...] Additional Hour Injection IV Infusion For Kumar Epsp MD 08/22/2018 Therapy,Prophylaxis Or Diagnosis Init Up [...] CPT Code Status Date Vaccine Lot # [id number] Given 11/27/2017 Pneumococcal Vaccine 2Yrs Or Older [id number] Vital Signs Date Vital Result Comment 07/15/2019 [...] Lab Immunoglobulin A 42 mg/dL Normal 20-320 [phone] Immunoglobulin G 1221 mg/dL Normal 600-1540 Immunoglobulin M 53 mg/dL Normal 50-300 Hepatic 07/03/2019 [facility] Protein, Total 7.0 g/dL Normal 6.1- 8.1 1 Function Panel [phone] Albumin 4.3 g/dL Normal 3.6-5.1 Globulin 2.7 g/dL(calc) Normal 1.9-3.7 Albumin/Globulin Ratio 1.6 (calc) Normal 1.0-2.5 Alkaline Phosphatase 148 U/L High 33-130 Alt 26 U/L Normal 6-29 Ast TNP U/L 2 Laboratory test 07/03/2019 [facility] Enhanced PDF SEE IMAGE finding [phone] Report [id number] Immunoglobulins 04/06/2019 [facility] Immunoglobulin A 57 mg/dL Low 81-4 [phone] Immunoglobulin G 1450 mg/dL Normal 694-1618 Immunoglobulin M 69 mg/dL Normal 48-271 Hepatic 04/06/2019 [facility] Protein, Total 7.0 g/dL Normal 6.1- 8.1 Function Panel [phone] Albumin 4.3 g/dL Normal 3.6-5.1 Globulin 2.7 g/dL(calc) Normal 1.9-3.7 Albumin/Globulin Ratio 1.6 (calc) Normal 1.0-2.5 Bilirubin, Total 0.4 mg/dL Normal 0.2-1.2 Bilirubin, Direct 0.1 mg/dL Normal < Or = 0.2 Bilirubin, Indirect 0.3 mg/dL(calc) Normal 0.2-1.2 Alkaline Phosphatase 136 U/L High 33-130 Ast 26 U/L Normal 10-35 Alt 21 U/L Normal 6-29 Laboratory test 04/06/2019 [facility] Enhanced PDF Report SEE IMAGE finding [phone] [id number] 1 Results slightly increased due to hemolysis. 2 TEST(S) NOT PERFORMED: BILIRUBIN, TOTAL BILIRUBIN, DIRECT BILIRUBIN, INDIRECT AST Test not performed. Specimen unsuitable for testing due to hemolysis. Procedures Date Code Description Status 07/03/2019 59950 IV Infusion For Therapy,Prophylaxis Or Diagnosis Completed Additional Hour 07/03/2019 87225 IV Infusion For Therapy,Prophylaxis Or Diagnosis Completed Additional Hour 07/03/2019 33171 IV Infusion For Therapy,Prophylaxis Or Diagnosis Init Up Completed To 1 HR 07/03/2019 32478 IV Infusion For Therapy,Prophylaxis Or Diagnosis Init Up Completed To 1 HR 06/08/2019 26171 IV Infusion For Therapy,Prophylaxis Or Diagnosis Completed Additional Hour 06/08/2019 53107 IV Infusion For Therapy,Prophylaxis Or Diagnosis Completed Additional Hour 06/08/2019 09178 IV Infusion For Therapy,Prophylaxis Or Diagnosis Init Up Completed To 1 HR 06/08/2019 48051 IV Infusion For Therapy,Prophylaxis Or Diagnosis Init Up Completed To 1 HR 05/18/2019 38439 IV Infusion For Therapy,Prophylaxis Or Diagnosis Init Up Completed To 1 HR 05/18/2019 44040 IV Infusion For Therapy,Prophylaxis Or Diagnosis Init Up Completed To 1 HR 05/18/2019 65050 IV Infusion For Therapy,Prophylaxis Or Diagnosis Completed Additional Hour 05/18/2019 41963 IV Infusion For Therapy,Prophylaxis Or Diagnosis Completed Additional Hour 04/27/2019 96081 IV Infusion For Therapy,Prophylaxis Or Diagnosis Completed Additional Hour 04/27/2019 16214 IV Infusion For Therapy,Prophylaxis Or Diagnosis Completed Additional Hour 04/27/2019 09086 IV Infusion For Therapy,Prophylaxis Or Diagnosis Init Up Completed To 1 HR 04/27/2019 34394 IV Infusion For Therapy,Prophylaxis Or Diagnosis Init Up Completed To 1 HR 04/06/2019 71383 IV Infusion For Therapy,Prophylaxis Or Diagnosis Init Up Completed To 1 HR 04/06/2019 10910 IV Infusion For Therapy,Prophylaxis Or Diagnosis Init Up Completed To 1 HR 04/06/2019 66705 IV Infusion For Therapy,Prophylaxis Or Diagnosis Completed Additional Hour 04/06/2019 12944 IV Infusion For Therapy,Prophylaxis Or Diagnosis Completed Additional Hour 03/16/2019 31777 IV Infusion For Therapy,Prophylaxis Or Diagnosis Completed Additional Hour 03/16/2019 26857 IV Infusion For Therapy,Prophylaxis Or Diagnosis Completed Additional Hour 03/16/2019 00223 IV Infusion For Therapy,Prophylaxis Or Diagnosis Init Up Completed To 1 HR 03/16/2019 17838 IV Infusion For Therapy,Prophylaxis Or Diagnosis Init Up Completed To 1 HR 02/23/2019 00891 IV Infusion For Therapy,Prophylaxis Or Diagnosis Completed Additional Hour 02/23/2019 13917 IV Infusion For Therapy,Prophylaxis Or Diagnosis Completed Additional Hour 02/23/2019 66617 IV Infusion For Therapy,Prophylaxis Or Diagnosis Init Up Completed To 1 HR 02/23/2019 08665 IV Infusion For Therapy,Prophylaxis Or Diagnosis Init Up Completed To 1 HR 02/02/2019 70491 IV Infusion For Therapy,Prophylaxis Or Diagnosis Completed Additional Hour 02/02/2019 96844 IV Infusion For Therapy,Prophylaxis Or Diagnosis Completed Additional Hour 02/02/2019 26043 IV Infusion For Therapy,Prophylaxis Or Diagnosis Init Up Completed To 1 HR 02/02/2019 47532 IV Infusion For Therapy,Prophylaxis Or Diagnosis Init [...] 4:30p Ajit Aguero 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 J45.41 Moderate persistent asthma with (acute) exacerbation Assessments Date Code Description Provider 07/03/2019 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
--- OUTSIDE RECORDS SUMMARY | 2019-08-01 10:02 | XMS REPORT | Continuity of Care Document ---
:1950 Author Name Manager [employer], System Address Unavailable Unavailable , Care Team Providers Name Role Phone Shannan CLARK, Lew Roberts Unavailable Problems No Problem Information Available Allergies and Adverse Reactions No Allergy Information Available Medications No Medication Information Available Social History No Social History Information Available Unknown if ever smoked Female Plan of Treatment Medical; CHEST X-RAY - Script faxed to [facility] 06/24/19 Start: 23-Jul-2019 12:00 Appointment Request Pulmonary [facility]; PRE AND POST PFT - pp, sats, feno Start: 23-Jul-2019 12:45 Appointment Request [facility] [place] Nurse [facility], [facility]; NEW PATIENT CONSULT - Asthma, GERARDO, Pneumonia, Transfer Start: 2018 13:00 Appointment Request Pulmonary [facility] MD [address] Results No Known Results No Result Information Available Vital Signs No Vital Observation Information Available Advance Directives HIPAA - Patient specified Unknown. Payers Medicare [place] [address] [place], [place] [id number] Group Number: [id number] tel: Carlee Torres [address] [facility] [address] tel:
[2019-08-01 10:06] VITALS: BP 143/75
--- NOTE | 2019-08-01 10:24 | UC ---
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 no concern of rabies -no f/c/rigors. -there was no redness last nighta nd since then has purulent dc and erythema. - History of Current Complaint Chief Complaint: UCBiteInjury Time Seen by Provider: 08/01/19 10:15 Stated Complaint: CAT BITE Pain Intensity: 0 - Allergy/Home Medications Allergies/Adverse Reactions: Allergies Allergy/AdvReac Type Severity Reaction Status Date / Time ciprofloxacin [From Cipro] Allergy Severe See Comment Verified 08/01/19 10:07 Sulfa (Sulfonamide Allergy Severe Hives Verified 08/01/19 10:07 Antibiotics) venlafaxine [From Effexor] Allergy Severe See Comment Verified 08/01/19 10:07 levofloxacin [From Levaquin] AdvReac Severe achilles Verified 08/01/19 10:07 tendon rupture seasonal Allergy Mild Congestion Uncoded 08/01/19 10:07 PMH/Surg Hx/FS Hx/Imm Hx Previously Healthy: Yes Endocrine History: Thyroid Disease - Surgical History Surgical History: Yes Surgery Procedure, Year, and Place: RIGHT HIP REPLACEMENT. LEFT ANKLE ORIF. CARDIAC ABLATION. LEFT HIP REPLACEMENT 10/2016. LEFT KNEE REPLACEMENT 03/2017. bilat varicose vein stripping. tonsillectomy/adenoidectomy. bladder suspension - Family History Known Family History: Positive: Diabetes Negative: Blood Disorder - Social History Alcohol Use: None Alcohol Amount: 1-2 DRINKS A MONTH AT MOST Substance Use Type: None Smoking Status (MU): Former Smoker Type: Cigarettes Amount Used/How Often: 1/2 PPD FOR eight YEARS Have You Smoked in the Last Year: No When Did the Patient Quit Smoking/Using Tobacco: 1991 - Immunization History Most Recent Influenza Vaccination: 2016 Most Recent Tetanus Shot: 2017 Most Recent Pneumonia Vaccination: 2010 Review of Systems All Other Systems Reviewed And Are Negative: Yes Constitutional: Positive: Negative, Fatigue. Negative: Fever, Chills Skin: Positive: Other - see above Eyes: Positive: Negative ENT: Positive: Negative Respiratory: Positive: Negative - no more than baseline Cardiovascular: Positive: Negative Gastrointestinal: Positive: Negative Genitourinary: Positive: Negative. Negative: Dysuria Motor: Positive: Negative Neurovascular: Positive: Negative Musculoskeletal: Positive: Negative Neurological: Positive: Negative Psychological: Positive: Negative Is Patient Immunocompromised?: No Physical Exam Triage Information Reviewed: Yes Appearance: Well-Appearing, No Pain Distress, Well-Nourished - good historian Vital Signs: Initial Vital Signs Temp 98.4 F 08/01/19 10:01 Pulse 70 08/01/19 10:01 Resp 16 08/01/19 10:01 BP 143/75 08/01/19 10:01 Pulse Ox 99 08/01/19 10:01 Vital Signs Reviewed: Yes Eye Exam: Normal ENT Exam: Normal Neck exam: Normal Respiratory Exam: Normal Respiratory: Positive: Lungs clear, Normal breath sounds, No respiratory distress, No accessory muscle use Cardiovascular Exam: Normal Cardiovascular: Positive: RRR Abdominal Exam: Normal Musculoskeletal Exam: Normal Neurological Exam: Normal Psychological Exam: Normal Skin: Positive: Other - left extensor forearm w/ light/mod erythema 6x7cm w/ central opening w mild purulent dc. slightly warm to touh. no streaks. has marked outer edge with pen. Course/Dx - Course Course Of Treatment: Cellultis w/ car bite -augmentin -keep clean probiotic - Differential Diagnoses - Skin Complaint Differential Diagnoses: Cellulitis - Diagnoses Provider Diagnosis: Cellulitis, Cat bite of forearm Discharge ED - Sign-Out/Discharge Documenting (check all that apply): Patient Departure All imaging exams completed and their final reports reviewed: No Studies - Discharge Plan Condition: Stable Disposition: HOME Prescriptions: Amoxicillin/Clavulanate TAB* [Augmentin TAB 875*] 875 mg PO BID #20 tab Patient Education Materials: Animal Bite (ED), Cellulitis (ED) Referrals: Lew Campbell MD [Primary Care Provider] - 3 Days Additional Instructions: -It is recommended that you take a priobiotic daily while you are on antibiotics. A few common brands that you can buy over the counter are colon health, align and florastor. These can help prevent a colon infection called c diff that can be associated with antibiotic use. -Please go to the ER with any fevers/chills/shaking/feeling worse or worsening rash - Billing Disposition and Condition Condition: STABLE Disposition: Home
== END 2019-08-01 10:36 | disposition home or self-care (01) ==
LOC: UCCORT 09:05
DX: S51.832A Puncture wound without foreign body of left forearm, initial encounter (principal); L03.114 Cellulitis of left upper limb; W55.01XA Bitten by cat, initial encounter; Y92.9 Unspecified place or not applicable; Z88.1 Allergy status to other antibiotic agents; Z88.2 Allergy status to sulfonamides; Z96.643 Presence of artificial hip joint, bilateral; Z96.652 Presence of left artificial knee joint; Z87.891 Personal history of nicotine dependence
CPT/HCPCS: 99212; G0463

== ENCOUNTER 2020-03-17 07:48 | Day surgery (SDC) | payer MEDICARE, OTHER ==
[~2020-03-17 07:48] MED LIST changes: -Buffered Lidocaine 0.9% SYRIN* 5 ML/SYR SYRINGE INTRADERM ONE; +Buffered Lidocaine 1% SYRIN 1 ml INTRADERM ONE; +Famotidine IV 10 MG/ML 2 ml VIAL (20 mg) IV ONE; -Famotidine IV* 10 MG/ML 2 ML (20 mg) IV ONE; +Lactated Ringers 1000 ml BAG 1,000 ML IV SCH
[2020-03-17] MEDS ORDERED: Famotidine IV 10 MG/ML 2 ml VIAL (20 mg) ONE (08:10)
[2020-03-17] MEDS ORDERED: Buffered Lidocaine 1% SYRIN 1 ml INTRADERM ONE (08:10)
[2020-03-17] MEDS ORDERED: fentaNYL 100 mcg/2 ml 50 MCG/ML VIAL ONE (08:25)
[2020-03-17] MEDS ORDERED: Dexamethasone IV 4 MG/ML VIAL 1 ml VIAL ONE (08:25)
[2020-03-17] MEDS ORDERED: Ondansetron 4 mg VIAL 2 MG/ML 2 ml VIAL ONE (08:25)
[2020-03-17] MEDS ORDERED: Succinylcholine 200 mg VIAL 20 mg/ml 10 ml VIAL (200 mg) ONE (08:25)
[2020-03-17] MEDS ORDERED: Propofol 10 MG/ML 20 ML BTL ONE (08:25)
[2020-03-17] MEDS ORDERED: Midazolam 5 mg/5 ml VIAL 1 mg/ml 5 ml VIAL (5 mg) ONE (08:25)
[2020-03-17] MEDS ORDERED: Lidocaine 2% PF 5 ML VIAL ONE (08:25)
[2020-03-17] MEDS ORDERED: EPHEDrine (Pressors) 50 MG/ML VIAL ONE (09:56)
[2020-03-17] MEDS ORDERED: Naloxone 0.4 mg VIAL 0.4 mg/ml 1 ml VIAL IV PRN (11:00)
[2020-03-17] MEDS ORDERED: DiMENhydriNATE IV 50 mg/ml 1 ml VIAL IV PUSH PRN (11:00)
[2020-03-17 11:09] VITALS: BP 136/102
== END 2020-03-17 11:30 | disposition home or self-care (01) ==
LOC: OR 07:48
PROVIDERS: ATTEND Internal Medicine Gastroenterology

== ENCOUNTER 2021-11-10 12:00 | Inpatient (IN) ==
[2021-11-10 12:38] LABS: ABS Eosinophils 0.1 10^3/ul (0-0.6); ABS Lymphocytes 0.8 10^3/ul (1.0-4.8); ABS Monocytes 0.7 10^3/ul (0-0.8); Eosinophil % 0.9 %; Hematocrit 35 % (35-47); Hemoglobin 11.3 g/dL (12.0-16.0); Lymphocyte % 8.2 %; Mean Corpuscular HGB Conc 33 g/dL (31-36); Mean Corpuscular Hemoglobin 30 pg (27-31); Mean Corpuscular Volume 91 fL (80-97); Mean Platelet Volume 7.2 fL (7.4-10.4); Platelet Count 222 10^3/uL (150-450); Red Blood Count 3.79 10^6 /uL (3.70-4.87); Red Cell Distribution Width 16 % (10-15); White Blood Count 9.6 10^3/uL (3.5-10.8)
[2021-11-10 12:48] LABS: Activated Partial Thrombo Time 34.9 seconds (26.0-38.0); INR 1.12 (0.86-1.15)
[2021-11-10 13:00] LABS: Albumin 3.5 g/dL (3.2-5.2); C Reactive Protein 13.56 mg/L (<8.01); Calcium 9.6 mg/dL (8.6-10.3); Globulin 3.5 g/dL (2-4); Potassium 4.2 mmol/L (3.5-5.0); Total Bilirubin 0.3 mg/dL (0.2-1.0); eGFR CKD-EPI 93.6 (>60)
[2021-11-10] MEDS ORDERED: Iohexol 350 (CONTRAST) 500 ML MDV IV ONE (13:11)
[2021-11-10 13:56] LABS: Urine Appearance Cloudy; Urine Bilirubin Negative (Negative); Urine Blood 1+ (Negative); Urine Color Yellow; Urine Glucose Negative (Negative); Urine Ketones Negative (Negative); Urine Nitrite Positive (Negative); Urine Protein Negative (Negative); Urine Specific Gravity 1.013 (1.002-1.030); Urine Urobilinogen Negative (Negative)
[2021-11-10 14:02] LABS: Urine Bacteria 1+ (Absent); Urine Red Blood Cell Trace(0-2/hpf) (Absent); Urine Squamous Epithelial Cell Present (Absent); Urine White Blood Cell 2+(11-20/hpf) (Absent)
[2021-11-10] MEDS ORDERED: cefTRIAXone 1 gm/50 mL NS BAG 1 GM/50 ML BAG IV ONE (14:38)
[2021-11-10] MEDS ORDERED: Azithromycin 500 mg/250 ml NS 500 MG/250 ML BAG IVPB ONE (16:26)
[2021-11-10] MEDS ORDERED: Senna TAB 8.6 mg TAB PO PRN (17:04)
[2021-11-10] MEDS: Heparin 5000 UNITS/ML 1 mL VIAL SUBCUT SCH (23:21)
[2021-11-11] MEDS: Heparin 5000 UNITS/ML 1 mL VIAL SUBCUT SCH ×4 (00:20→21:03)
[2021-11-11] MEDS: NF: Trospium 20 mg TAB (NF) PO SCH ×3 (00:57→20:11)
[2021-11-11] MEDS: PTO: Pancrelipase 36,000 units (NF) PO SCH ×5 (04:12→20:09)
[2021-11-11 04:25] LABS: ABS Eosinophils 0.1 10^3/ul (0-0.6); ABS Lymphocytes 1.2 10^3/ul (1.0-4.8); ABS Monocytes 0.4 10^3/ul (0-0.8); ABS Neutrophils 3.5 10^3/ul (1.5-7.7); Eosinophil % 1.6 %; Hematocrit 33 % (35-47); Hemoglobin 10.6 g/dL (12.0-16.0); Lymphocyte % 23.9 %; Mean Corpuscular HGB Conc 33 g/dL (31-36); Mean Corpuscular Hemoglobin 30 pg (27-31); Mean Corpuscular Volume 91 fL (80-97); Mean Platelet Volume 7.4 fL (7.4-10.4); Platelet Count 194 10^3/uL (150-450); Red Blood Count 3.57 10^6 /uL (3.70-4.87); Red Cell Distribution Width 16 % (10-15); White Blood Count 5.2 10^3/uL (3.5-10.8)
[2021-11-11 04:44] LABS: C Reactive Protein 22.81 mg/L (<8.01); Calcium 9.5 mg/dL (8.6-10.3); Potassium 4.1 mmol/L (3.5-5.0); eGFR CKD-EPI 86.1 (>60)
[2021-11-11] MEDS: Mometasone/Formoter 200/5 MDI INH SCH ×2 (07:30→19:54)
[2021-11-11] MEDS: Aspirin EC 81 mg TAB.EC (enteric coated) PO SCH (08:36)
[2021-11-11] MEDS: Multivitamins/Minerals TAB PO SCH (08:36)
[2021-11-11] MEDS: Calcium/Vitamin D TAB 250/125 TAB PO SCH (08:38)
[2021-11-11] MEDS: CMCS: Darifenacin 15 mg ER TAB (NF) PO SCH (08:39)
[2021-11-11] MEDS ORDERED: Nystatin SUSPENSION 100,000 UNITS/ML UDC SCH (09:00)
[2021-11-11] MEDS: Nystatin SUSPENSION 100,000 UNITS/ML UDC SWISH SWAL SCH ×4 (09:11→20:07)
[2021-11-11] MEDS ORDERED: CMCS: Solifenacin 5 mg TAB (NF) PO SCH (10:00)
[2021-11-11] MEDS: NF: Mirabegron 50 mg ER TAB (NF) PO SCH (11:30)
[2021-11-11] MEDS ORDERED: cefTRIAXone 1 gm/50 mL NS BAG 1 GM/50 ML BAG IVPB SCH (16:00)
[2021-11-11] MEDS: Cefepime 1 GM in Dextrose 1 GM/50 ML BAG IV SCH (16:30)
[2021-11-12] MEDS: Cefepime 1 GM in Dextrose 1 GM/50 ML BAG IV SCH ×2 (02:31→15:25)
[2021-11-12] MEDS: Heparin 5000 UNITS/ML 1 mL VIAL SUBCUT SCH ×3 (06:23→21:18)
[2021-11-12] MEDS: PTO: Pancrelipase 36,000 units (NF) PO SCH ×4 (07:50→21:18)
[2021-11-12] MEDS: CMCS: Darifenacin 15 mg ER TAB (NF) PO SCH (07:51)
[2021-11-12] MEDS: Aspirin EC 81 mg TAB.EC (enteric coated) PO SCH (07:51)
[2021-11-12] MEDS: Calcium/Vitamin D TAB 250/125 TAB PO SCH (07:55)
[2021-11-12] MEDS: Multivitamins/Minerals TAB PO SCH (07:56)
[2021-11-12] MEDS: Nystatin SUSPENSION 100,000 UNITS/ML UDC SWISH SWAL SCH ×4 (07:59→21:17)
[2021-11-12] MEDS: NF: Mirabegron 50 mg ER TAB (NF) PO SCH (08:03)
[2021-11-12] MEDS: NF: Trospium 20 mg TAB (NF) PO SCH (08:05)
[2021-11-12] MEDS: Mometasone/Formoter 200/5 MDI INH SCH ×2 (08:17→19:51)
[2021-11-12 09:44] LABS: ABS Eosinophils 0.1 10^3/ul (0-0.6); ABS Lymphocytes 0.6 10^3/ul (1.0-4.8); ABS Monocytes 0.3 10^3/ul (0-0.8); ABS Neutrophils 3.6 10^3/ul (1.5-7.7); Eosinophil % 2.4 %; Hematocrit 37 % (35-47); Hemoglobin 12.2 g/dL (12.0-16.0); Lymphocyte % 13.5 %; Mean Corpuscular HGB Conc 33 g/dL (31-36); Mean Corpuscular Hemoglobin 30 pg (27-31); Mean Corpuscular Volume 92 fL (80-97); Mean Platelet Volume 7.3 fL (7.4-10.4); Platelet Count 211 10^3/uL (150-450); Red Blood Count 4.04 10^6 /uL (3.70-4.87); Red Cell Distribution Width 17 % (10-15); White Blood Count 4.8 10^3/uL (3.5-10.8)
[2021-11-12 10:03] LABS: Potassium 3.9 mmol/L (3.5-5.0); eGFR CKD-EPI 93.9 (>60)
[2021-11-13] MEDS: Cefepime 1 GM in Dextrose 1 GM/50 ML BAG IV SCH (02:51)
[2021-11-13] MEDS: Heparin 5000 UNITS/ML 1 mL VIAL SUBCUT SCH (05:32)
[2021-11-13] MEDS: Mometasone/Formoter 200/5 MDI INH SCH (07:30)
[2021-11-13 08:30] VITALS: BP 118/76
[2021-11-13] MEDS ORDERED: Pancrelipase 5,000 units CAP PO ONE ×2 (09:00→13:00)
[2021-11-13] MEDS: Aspirin EC 81 mg TAB.EC (enteric coated) PO SCH (09:13)
[2021-11-13] MEDS: Calcium/Vitamin D TAB 250/125 TAB PO SCH (09:13)
[2021-11-13] MEDS: Multivitamins/Minerals TAB PO SCH (09:14)
[2021-11-13] MEDS: Nystatin SUSPENSION 100,000 UNITS/ML UDC SWISH SWAL SCH (09:14)
[2021-11-13] MEDS: PTO: Pancrelipase 36,000 units (NF) PO SCH (10:08)
[2021-11-13] MEDS: CMCS: Darifenacin 15 mg ER TAB (NF) PO SCH (10:23)
[2021-11-13] MEDS ORDERED: CMCS: Darifenacin 15 mg ER TAB (NF) PO SCH (12:00)
== END 2021-11-13 13:25 | disposition home or self-care (01) | DRG 191 ==
LOC: EDHOLD 12:00 → ED 12:00 → SUATTDRO 17:02 → MEDTELE 22:10
PROVIDERS: ADMIT Student in an Organized Health Care Education/Training Program; ATTEND Student in an Organized Health Care Education/Training Program

== ENCOUNTER 2023-10-28 18:38 | Observation (INO) ==
[2023-10-28] MEDS ORDERED: Iodixanol (CONTRAST) 320 MG/ML 100 ML SDV IV ONE (18:59)
[2023-10-28 19:10] LABS: Activated Partial Thrombo Time 37.8 seconds (26.0-38.0); INR 1.07 (0.83-1.13)
[2023-10-28 19:19] LABS: ABS Eosinophils 0.1 10^3/uL (0.0-0.5); ABS Monocytes 0.5 10^3/uL (0.0-0.9); ABS Neutrophils 5.6 10^3/uL (1.5-7.6); Eosinophil % 1.3 %; Hematocrit 38.9 % (35-45); Lymphocyte % 13.5 %; Mean Corpuscular Hemoglobin 30.2 pg (27-33); Mean Corpuscular Hgb Conc 33.3 g/dL (31-36); Mean Corpuscular Volume 90.7 fL (80-97); Mean Platelet Volume 8.2 fL (7.5-11.2); Platelet Count 216 10^3/uL (150-450); Red Blood Count 4.29 10^6/uL (3.63-4.92); Red Cell Distribution Width 14.5 % (12-17); White Blood Count 7.1 10^3/uL (3.8-11.8)
[2023-10-28 19:23] LABS: Albumin 4.4 g/dL (3.2-5.2); Albumin/Globulin Ratio 1.3 (1-3); Calcium 10.2 mg/dL (8.6-10.3); Creatinine, Serum 0.94 mg/dL (0.51-0.95); Globulin 3.5 g/dL (2-4); HDL Cholesterol 80.2 mg/dL; Indirect Bilirubin 0.3 mg/dL (0.3-1.0); Potassium 4.5 mmol/L (3.5-5.0); Total Bilirubin 0.3 mg/dL (0.2-1.0); Total Protein 7.9 g/dL (6.4-8.9); eGFR CKD-EPI 64.9 (>60)
[2023-10-28] MEDS ORDERED: Enoxaparin 40 MG/0.4 ML SYR SUBCUT SCH (23:00)
[2023-10-29 00:03] LABS: Urine Appearance Clear; Urine Bilirubin Negative (Negative); Urine Blood Negative (Negative); Urine Color Yellow; Urine Glucose Negative (Negative); Urine Ketones Negative (Negative); Urine Nitrite Negative (Negative); Urine Protein Negative (Negative); Urine Specific Gravity 1.024 (1.002-1.030); Urine Urobilinogen Negative (Negative)
[2023-10-29] MEDS ORDERED: Enoxaparin 40 MG/0.4 ML SYR SUBCUT SCH (01:00)
[2023-10-29] MEDS ORDERED: CMCS:Darifenacin 15 mg ER TAB (NF) PO SCH (09:00)
[2023-10-29] MEDS: PTO:Pancrelipase 24,000 units (NF) PO SCH ×2 (10:01→12:19)
[2023-10-29 13:43] VITALS: BP 124/77
[2023-10-29] MEDS ORDERED: NF:Vibegron 75 MG TAB (NF) PO SCH (21:00)
== END 2023-10-29 13:43 | disposition home or self-care (01) ==
LOC: ED 18:38 → EDHOLD 21:15 → SUATTDRO 21:15 → INTOOBSV 21:15 → EDHOLD 10-29 13:42
PROVIDERS: ADMIT Internal Medicine; ATTEND Internal Medicine

== ENCOUNTER 2024-02-02 16:36 | Inpatient (IN) ==
[2024-02-02] MEDS: Lactated Ringers 1000 ml BAG 1,000 ML IV ONE ×2 (18:03→20:11)
[2024-02-02 18:10] LABS: ABS Lymphocytes 0.4 10^3/uL (1.0-4.8); ABS Monocytes 0.7 10^3/uL (0.0-0.9); ABS Neutrophils 14.4 10^3/uL (1.5-7.6); ABS Nucleated RBC 0.01 10^3/ul; Eosinophil % 0.1 %; Hematocrit 40.9 % (35-45); Hemoglobin 13.7 g/dL (11.5-14.3); Lymphocyte % 2.8 %; Mean Corpuscular Hgb Conc 33.6 g/dL (31-36); Mean Corpuscular Volume 92.5 fL (80-97); Mean Platelet Volume 8.4 fL (7.5-11.2); Platelet Count 218 10^3/uL (150-450); Red Blood Count 4.42 10^6/uL (3.63-4.92); Red Cell Distribution Width 14.9 % (12-17); White Blood Count 15.6 10^3/uL (3.8-11.8)
[2024-02-02] MEDS: Ondansetron 4 mg VIAL 2 MG/ML 2 ml VIAL IV ONE (18:13)
[2024-02-02 18:52] LABS: Albumin 3.8 g/dL (3.2-5.2); Albumin/Globulin Ratio 1.1 (1-3); C Reactive Protein 425.33 mg/L (<8.01); Creatinine, Serum 1.22 mg/dL (0.51-0.95); Globulin 3.4 g/dL (2-4); Potassium 3.9 mmol/L (3.5-5.0); Total Bilirubin 0.6 mg/dL (0.2-1.0); Total Protein 7.2 g/dL (6.4-8.9); eGFR CKD-EPI 47.4 (>60)
[2024-02-02] MEDS: Pantoprazole VIAL 40 MG VIAL IV ONE (19:27)
[2024-02-02] MEDS: Iodixanol (CONTRAST) 320 MG/ML 100 ML SDV IV ONE (19:52)
[2024-02-02] MEDS: Piperacillin/Tazobac 3.375 BAG 3.375 GM/100 ML BAG IV ONE (21:10)
[2024-02-02 21:37] LABS: Urine Appearance Clear; Urine Bacteria 1+ /HPF (Absent); Urine Bilirubin Negative (Negative); Urine Blood 2+ (Negative); Urine Color Yellow; Urine Glucose Negative (Negative); Urine Ketones 1+ (Negative); Urine Nitrite Negative (Negative); Urine Protein 1+ (>=30 mg/dL) (Negative); Urine Red Blood Cell 3+(>10/hpf) /HPF (0-Trace); Urine Specific Gravity >1.050 (1.002-1.030); Urine Squamous Epithelial Cell Present /HPF (Absent); Urine Urobilinogen Negative (Negative); Urine White Blood Cell 3+(>20/hpf) /HPF (0-Trace); Urine pH 5.5 (5.0-8.0)
[2024-02-02] MEDS ORDERED: fentaNYL 100 mcg/2 ml 50 MCG/ML VIAL IV PRN (22:33)
[2024-02-02] MEDS ORDERED: Metoclopramide 5 MG/ML VIAL (10 mg) IV PRN (22:33)
[2024-02-02] MEDS ORDERED: Naloxone 0.4 mg VIAL 0.4 mg/ml 1 ml VIAL IV PRN (22:33)
[2024-02-02] MEDS ORDERED: Ondansetron 4 mg VIAL 2 MG/ML 2 ml VIAL IV PRN (22:33)
[2024-02-02] MEDS ORDERED: HYDROmorphone 1 MG/1 ML SYRINGE IV PRN (22:33)
[2024-02-02] MEDS ORDERED: Propofol 10 MG/ML 20 ML BTL ONE (22:38)
[2024-02-02] MEDS ORDERED: Ondansetron 4 mg VIAL 2 MG/ML 2 ml VIAL ONE (22:38)
[2024-02-02] MEDS ORDERED: fentaNYL 250 mcg/5 ml 50 MCG/ML 5 ml VIAL (250 MCG) ONE (22:38)
[2024-02-02] MEDS ORDERED: Dexamethasone IV 4 MG/ML VIAL 1 ml VIAL ONE (22:38)
[2024-02-02] MEDS ORDERED: Midazolam 2 mg/2 ml VIAL 1 mg/ml 2 ml VIAL (2 mg) ONE (22:38)
[2024-02-02] MEDS ORDERED: Succinylcholine 200 mg VIAL 20 mg/ml 10 ml VIAL (200 mg) ONE (22:38)
[2024-02-02] MEDS ORDERED: Bupivacaine 0.5% SDV PF 30ML VIAL ONE (23:06)
[2024-02-02] MEDS ORDERED: Lidocaine 1% w EPI 1:100,000 MDV 20 ML VIAL ONE (23:06)
[2024-02-02] MEDS: Lactated Ringers 1000 ml BAG 1,000 ML IV SCH (23:30)
[2024-02-02] MEDS ORDERED: Rocuronium 50 mg VIAL 10 mg/ml 5 ml VIAL (50 mg) ONE (23:58)
[2024-02-03] MEDS ORDERED: Desflurane 240 ML INH ONE (01:20)
[2024-02-03] MEDS: Buffered Lidocaine 1% SYRIN 1 ml INTRADERM ONE (02:05)
[2024-02-03] MEDS ORDERED: Zosyn per Pharmacy NOTE FOLLOW UP SCH (03:00)
[2024-02-03] MEDS: ZOSYN 3.375 GM x ONE DOSE over 30 miuntes IV (04:46)
[2024-02-03 06:26] LABS: ABS Lymphocytes 0.1 10^3/uL (1.0-4.8); ABS Monocytes 0.3 10^3/uL (0.0-0.9); ABS Neutrophils 6.1 10^3/uL (1.5-7.6); Hematocrit 35.3 % (35-45); Hemoglobin 11.9 g/dL (11.5-14.3); Lymphocyte % 2.1 %; Mean Corpuscular Hgb Conc 33.8 g/dL (31-36); Mean Corpuscular Volume 91.8 fL (80-97); Mean Platelet Volume 8.4 fL (7.5-11.2); Platelet Count 152 10^3/uL (150-450); Red Blood Count 3.85 10^6/uL (3.63-4.92); Red Cell Distribution Width 14.6 % (12-17); White Blood Count 6.5 10^3/uL (3.8-11.8)
[2024-02-03] MEDS: Sodium Citrate/Citric Acid LIQ 15 ML UDC PO ONE (06:33)
[2024-02-03 06:46] LABS: Calcium 8.7 mg/dL (8.6-10.3); Creatinine, Serum 0.74 mg/dL (0.51-0.95); Magnesium 1.7 mg/dL (1.9-2.7); Potassium 3.7 mmol/L (3.5-5.0); eGFR CKD-EPI 86.4 (>60)
[2024-02-03] MEDS: Acetaminophen IV 1 GM/100ML 1,000 MG/100 ML BAG IV SCH (08:36)
[2024-02-03] MEDS: ZOSYN 3.375 GM Q8H per EXTENDED INFUSION IV SCH (09:00)
[2024-02-03] MEDS: Morphine 2 MG/ML SYRINGE IV PRN (10:55)
[2024-02-03] MEDS: NS 0.9% 1000 ml BAG 1,000 ML IV SCH (12:28)
[2024-02-03] MEDS: Magnesium Sulfate 2 gm BAG 2 GM/50 ML BAG IVPB ONE (13:22)
[2024-02-03] MEDS: DARIFENACIN 15 MG PO SCH (21:23)
[2024-02-03] MEDS: DEUTETRABENAZINE 24 MG PO SCH (21:23)
[2024-02-03] MEDS: Heparin 5000 UNITS/ML 1 mL VIAL SUBCUT SCH (23:49)
[2024-02-04] MEDS: Albuterol HFA INHALER 8 gm MDI INH PRN (04:21)
[2024-02-04 06:28] LABS: ABS Lymphocytes 0.5 10^3/uL (1.0-4.8); ABS Monocytes 0.6 10^3/uL (0.0-0.9); ABS Neutrophils 3.7 10^3/uL (1.5-7.6); Eosinophil % 0.2 %; Hematocrit 33.3 % (35-45); Hemoglobin 11.2 g/dL (11.5-14.3); Lymphocyte % 10.8 %; Mean Corpuscular Hemoglobin 31.1 pg (27-33); Mean Corpuscular Hgb Conc 33.7 g/dL (31-36); Mean Corpuscular Volume 92.3 fL (80-97); Mean Platelet Volume 8.2 fL (7.5-11.2); Platelet Count 166 10^3/uL (150-450); Red Blood Count 3.61 10^6/uL (3.63-4.92); Red Cell Distribution Width 14.5 % (12-17); White Blood Count 4.7 10^3/uL (3.8-11.8)
[2024-02-04 06:47] LABS: Calcium 8.6 mg/dL (8.6-10.3); Creatinine, Serum 0.62 mg/dL (0.51-0.95); Magnesium 2.1 mg/dL (1.9-2.7); Potassium 3.6 mmol/L (3.5-5.0); eGFR CKD-EPI 95.1 (>60)
[2024-02-04] MEDS: Sodium Chloride(INHALANT) 3% 4 ML NEB.SOLN INH SCH (11:27)
[2024-02-04] MEDS: Levothyroxine 100 MCG/5 ML VIAL IV ONE (22:11)
[2024-02-05 05:44] LABS: ABS Eosinophils 0.1 10^3/uL (0.0-0.5); ABS Lymphocytes 0.7 10^3/uL (1.0-4.8); ABS Monocytes 0.6 10^3/uL (0.0-0.9); ABS Neutrophils 4.2 10^3/uL (1.5-7.6); ABS Nucleated RBC 0.01 10^3/ul; Lymphocyte % 12.2 %; Mean Corpuscular Hgb Conc 33.3 g/dL (31-36); Mean Platelet Volume 7.3 fL (7.5-11.2); Nucleated Red Blood Cells % 0.2 %/100WBC (0.0-0.8); Platelet Count 154 10^3/uL (150-450); Red Blood Count 3.87 10^6/uL (3.63-4.92); White Blood Count 5.6 10^3/uL (3.8-11.8)
[2024-02-05 06:47] LABS: Calcium 8.1 mg/dL (8.6-10.3); Creatinine, Serum 0.44 mg/dL (0.51-0.95); Magnesium 1.5 mg/dL (1.9-2.7); Potassium 3.2 mmol/L (3.5-5.0); eGFR CKD-EPI 103.3 (>60)
[2024-02-05] MEDS: Dextrose 25% PED SYRINGE 10ml IV ONE (11:55)
[2024-02-05] MEDS: Magnesium Sulfate 2 gm BAG 2 GM/50 ML BAG IVPB ONE (11:56)
[2024-02-05] MEDS: D5W NS 0.9% 20Meq KCL 1000 ml 1,000 ML IV SCH (11:57)
[2024-02-05] MEDS: KCL 20 MEQ/100 ML IVPREMIX 20 MEQ/100 ML BAG IV SCH (13:10)
[2024-02-05] MEDS: NS 0.9% 1000 ml BAG 1,000 ML IV SCH (15:05)
[2024-02-05] MEDS: Magnesium Sulfate IV 1GM/100ML 1 GM/100 ML BAG IV ONE (15:39)
[2024-02-05] MEDS: KCL 20 MEQ/100 ML IVPREMIX 20 MEQ/100 ML BAG ONE (22:05)
[2024-02-06] MEDS: Levothyroxine 100 MCG/5 ML VIAL IV SCH (06:02)
[2024-02-06 06:35] LABS: Calcium 8.5 mg/dL (8.6-10.3); Creatinine, Serum 0.51 mg/dL (0.51-0.95); Magnesium 1.8 mg/dL (1.9-2.7); eGFR CKD-EPI 99.7 (>60)
[2024-02-06] MEDS: D5W NS 0.9% 20Meq KCL 1000 ml 1,000 ML IV SCH ×2 (08:21→17:26)
[2024-02-06] MEDS: Magnesium Sulfate 2 gm BAG 2 GM/50 ML BAG IVPB ONE (09:21)
[2024-02-06] MEDS: Droperidol 5 MG/2 ML 2 ML VIAL IV ONE (23:26)
[2024-02-07 06:22] LABS: Hematocrit 36.2 % (35-45); Mean Corpuscular Hemoglobin 30.6 pg (27-33); Mean Corpuscular Hgb Conc 33.3 g/dL (31-36); Mean Corpuscular Volume 92.2 fL (80-97); Mean Platelet Volume 7.3 fL (7.5-11.2); Platelet Count 272 10^3/uL (150-450); Red Blood Count 3.92 10^6/uL (3.63-4.92); Red Cell Distribution Width 14.9 % (12-17); White Blood Count 7.2 10^3/uL (3.8-11.8)
[2024-02-07 06:43] LABS: Calcium 8.8 mg/dL (8.6-10.3); Creatinine, Serum 0.54 mg/dL (0.51-0.95); Magnesium 1.8 mg/dL (1.9-2.7); Potassium 3.8 mmol/L (3.5-5.0); eGFR CKD-EPI 98.4 (>60)
[2024-02-07] MEDS ORDERED: Prochlorperazine 5 mg/ml 2 ml VIAL (10 mg) IV PRN (09:02)
[2024-02-07] MEDS: D5W NS 0.9% 20Meq KCL 1000 ml 1,000 ML IV SCH (09:03)
[2024-02-07] MEDS: Sodium Chloride(INHALANT) 3% 4 ML NEB.SOLN INH SCH (19:54)
[2024-02-08 06:19] LABS: ABS Basophils 0.1 10^3/uL (0.0-0.1); ABS Eosinophils 0.2 10^3/uL (0.0-0.5); ABS Monocytes 0.5 10^3/uL (0.0-0.9); ABS Neutrophils 4.7 10^3/uL (1.5-7.6); Eosinophil % 3.1 %; Hematocrit 39.5 % (35-45); Mean Corpuscular Hemoglobin 30.5 pg (27-33); Mean Corpuscular Hgb Conc 32.8 g/dL (31-36); Mean Corpuscular Volume 93.1 fL (80-97); Mean Platelet Volume 7.3 fL (7.5-11.2); Platelet Count 314 10^3/uL (150-450); Red Blood Count 4.24 10^6/uL (3.63-4.92); Red Cell Distribution Width 14.9 % (12-17); White Blood Count 6.5 10^3/uL (3.8-11.8)
[2024-02-08 06:35] LABS: Albumin/Globulin Ratio 1.1 (1-3); Calcium 8.7 mg/dL (8.6-10.3); Creatinine, Serum 0.52 mg/dL (0.51-0.95); Globulin 2.8 g/dL (2-4); Magnesium 1.6 mg/dL (1.9-2.7); Potassium 4.6 mmol/L (3.5-5.0); Total Bilirubin 0.4 mg/dL (0.2-1.0); Total Protein 5.8 g/dL (6.4-8.9); eGFR CKD-EPI 99.3 (>60)
[2024-02-08] MEDS: Magnesium Sulfate 2 gm BAG 2 GM/50 ML BAG IVPB ONE (14:31)
[2024-02-09] MEDS: D5W NS 0.9% 20Meq KCL 1000 ml 1,000 ML IV SCH (11:50)
[2024-02-09] MEDS: Acetaminophen IV 1 GM/100ML 1,000 MG/100 ML BAG IV SCH (11:50)
[2024-02-10 06:32] LABS: Calcium 8.2 mg/dL (8.6-10.3); Creatinine, Serum 0.43 mg/dL (0.51-0.95); Magnesium 1.7 mg/dL (1.9-2.7); Phosphorus 2.8 mg/dL (2.5-5.0); Potassium 4.3 mmol/L (3.5-5.0); eGFR CKD-EPI 103.9 (>60)
[2024-02-10 07:01] LABS: ABS Eosinophils 0.2 10^3/uL (0.0-0.5); ABS Lymphocytes 1.1 10^3/uL (1.0-4.8); ABS Monocytes 0.4 10^3/uL (0.0-0.9); ABS Neutrophils 3.1 10^3/uL (1.5-7.6); Eosinophil % 3.4 %; Hematocrit 34.3 % (35-45); Hemoglobin 11.4 g/dL (11.5-14.3); Lymphocyte % 22.1 %; Mean Corpuscular Hemoglobin 30.6 pg (27-33); Mean Corpuscular Hgb Conc 33.3 g/dL (31-36); Mean Corpuscular Volume 91.9 fL (80-97); Mean Platelet Volume 7.2 fL (7.5-11.2); Platelet Count 282 10^3/uL (150-450); Red Blood Count 3.74 10^6/uL (3.63-4.92); Red Cell Distribution Width 14.8 % (12-17); White Blood Count 4.8 10^3/uL (3.8-11.8)
[2024-02-10] MEDS: Magnesium Sulfate 2 gm BAG 2 GM/50 ML BAG IVPB ONE (12:09)
[2024-02-10] MEDS: Iohexol 300 (CONTRAST) 10 ML SDV IV ONE ×2 (13:55→17:21)
[2024-02-10] MEDS ORDERED: PPN (PERIPHERAL) 24 HR with D10W 1000 ml BAG 1,000 ML, Amino Acid Infusion 10% 850 ML, ... IV SCH (17:00)
[2024-02-11 07:01] LABS: Albumin 2.6 g/dL (3.2-5.2); Albumin/Globulin Ratio 1.1 (1-3); Calcium 8.4 mg/dL (8.6-10.3); Creatinine, Serum 0.44 mg/dL (0.51-0.95); Globulin 2.3 g/dL (2-4); Magnesium 1.9 mg/dL (1.9-2.7); Phosphorus 3.1 mg/dL (2.5-5.0); Potassium 4.3 mmol/L (3.5-5.0); Total Bilirubin 0.3 mg/dL (0.2-1.0); Total Protein 4.9 g/dL (6.4-8.9); eGFR CKD-EPI 103.3 (>60)
[2024-02-11] MEDS: Acetaminophen IV 1 GM/100ML 1,000 MG/100 ML BAG IV SCH (14:38)
[2024-02-11] MEDS: Sodium Chloride(INHALANT) 3% 4 ML NEB.SOLN INH SCH (20:50)
[2024-02-12 08:31] LABS: Calcium 8.6 mg/dL (8.6-10.3); Creatinine, Serum 0.54 mg/dL (0.51-0.95); Magnesium 1.7 mg/dL (1.9-2.7); Potassium 4.3 mmol/L (3.5-5.0); eGFR CKD-EPI 98.4 (>60)
[2024-02-12] MEDS: PTO:Pancrelipase 24,000 units (NF) PO SCH (10:50)
[2024-02-13 09:49] VITALS: BP 120/63
[2024-02-13 11:34] LABS: Creatinine, Serum 0.6 mg/dL (0.51-0.95); Magnesium 1.7 mg/dL (1.9-2.7); Potassium 4.2 mmol/L (3.5-5.0); eGFR CKD-EPI 95.9 (>60)
== END 2024-02-13 13:18 | disposition home or self-care (01) | DRG 398 ==
LOC: ED 16:36 → SUATTDRO 22:37 → AA 22:37 → SSU 02-03 03:38
PROVIDERS: ADMIT Internal Medicine; ATTEND Internal Medicine

== ENCOUNTER 2024-02-16 02:33 | Inpatient (IN) ==
[2024-02-16 03:34] LABS: ABS Basophils 0.1 10^3/uL (0.0-0.1); ABS Eosinophils 0.1 10^3/uL (0.0-0.5); ABS Monocytes 0.8 10^3/uL (0.0-0.9); ABS Neutrophils 9.7 10^3/uL (1.5-7.6); ABS Nucleated RBC 0.01 10^3/ul; Eosinophil % 0.6 %; Hemoglobin 12.2 g/dL (11.5-14.3); Lymphocyte % 8.4 %; Mean Corpuscular Hemoglobin 30.8 pg (27-33); Mean Corpuscular Hgb Conc 33.8 g/dL (31-36); Mean Platelet Volume 7.8 fL (7.5-11.2); Nucleated Red Blood Cells % 0.1 %/100WBC (0.0-0.8); Platelet Count 393 10^3/uL (150-450); Red Blood Count 3.96 10^6/uL (3.63-4.92); Red Cell Distribution Width 15.5 % (12-17); White Blood Count 11.6 10^3/uL (3.8-11.8)
[2024-02-16] MEDS: NS 0.9% 500 ml BAG 500 ML IV ONE (03:48)
[2024-02-16] MEDS: Ondansetron 4 mg VIAL 2 MG/ML 2 ml VIAL IV ONE ×2 (03:49→04:42)
[2024-02-16] MEDS: Morphine 4 MG/ML VIAL (1 ml) IV ONE (03:49)
[2024-02-16 04:04] LABS: ALT 29 U/L (7-52); Albumin 3.7 g/dL (3.2-5.2); Albumin/Globulin Ratio 1.1 (1-3); Alkaline Phosphatase 172 U/L (35-149); Anion Gap 1 mmol/L (2-16); Blood Urea Nitrogen 16 mg/dL (6-24); C Reactive Protein 6.83 mg/L (<8.01); CO2 Carbon Dioxide 28 mmol/L (22-32); Calcium 9.2 mg/dL (8.6-10.3); Chloride 100 mmol/L (101-111); Creatinine, Serum 0.57 mg/dL (0.51-0.95); Globulin 3.3 g/dL (2-4); Glucose 131 mg/dL (70-100); Lipase 73 U/L (11.0-82.0); Sodium 129 mmol/L (135-145); Total Bilirubin 0.5 mg/dL (0.2-1.0); eGFR CKD-EPI 97.1 (>60)
[2024-02-16] MEDS: Iohexol 300 (CONTRAST) 10 ML SDV IV ONE (05:07)
[2024-02-16 05:23] LABS: Anion Gap 5 mmol/L (2-16); Blood Urea Nitrogen 15 mg/dL (6-24); CO2 Carbon Dioxide 30 mmol/L (22-32); Calcium 9.1 mg/dL (8.6-10.3); Chloride 101 mmol/L (101-111); Creatinine, Serum 0.48 mg/dL (0.51-0.95); Glucose 111 mg/dL (70-100); Sodium 136 mmol/L (135-145); eGFR CKD-EPI 101.2 (>60)
[2024-02-16 06:45] LABS: Potassium Redraw 4.1 mmol/L (3.5-5.0)
[2024-02-16 07:03] LABS: Urine Appearance Clear; Urine Bilirubin Negative (Negative); Urine Blood Negative (Negative); Urine Color Light-Yellow; Urine Glucose Negative (Negative); Urine Ketones Negative (Negative); Urine Nitrite Negative (Negative); Urine Protein Negative (Negative); Urine Specific Gravity 1.036 (1.002-1.030); Urine Urobilinogen Negative (Negative)
[2024-02-16] MEDS ORDERED: Albuterol 2.5mg/3 ml (0.083%) NEB.SOLN INH PRN (09:15)
[2024-02-16] MEDS: Lactated Ringers 1000 ml BAG 1,000 ML IV SCH (11:26)
[2024-02-16] MEDS: Enoxaparin 40 MG/0.4 ML SYR SUBCUT SCH (11:26)
[2024-02-16] MEDS: Diatrizoate Meg/Sod(CONTRAST) 30 ML ORAL.SOLN PO ONE (11:40)
[2024-02-16] MEDS: Levothyroxine 100 MCG/5 ML VIAL IV SCH (21:11)
[2024-02-16] MEDS: Sodium Chloride(INHALANT) 3% 4 ML NEB.SOLN INH SCH (21:33)
[2024-02-16] MEDS ORDERED: Heparin 5000 UNITS/ML 1 mL VIAL SUBCUT ONE (22:00)
[2024-02-17 05:58] LABS: ABS Eosinophils 0.1 10^3/uL (0.0-0.5); ABS Lymphocytes 1.2 10^3/uL (1.0-4.8); ABS Monocytes 0.7 10^3/uL (0.0-0.9); ABS Neutrophils 5.1 10^3/uL (1.5-7.6); Hematocrit 30.6 % (35-45); Hemoglobin 10.3 g/dL (11.5-14.3); Lymphocyte % 16.4 %; Mean Corpuscular Hemoglobin 30.7 pg (27-33); Mean Corpuscular Hgb Conc 33.6 g/dL (31-36); Mean Corpuscular Volume 91.3 fL (80-97); Mean Platelet Volume 7.2 fL (7.5-11.2); Platelet Count 291 10^3/uL (150-450); Red Blood Count 3.36 10^6/uL (3.63-4.92); Red Cell Distribution Width 14.9 % (12-17); White Blood Count 7.1 10^3/uL (3.8-11.8)
[2024-02-17 06:25] LABS: Calcium 8.8 mg/dL (8.6-10.3); Creatinine, Serum 0.51 mg/dL (0.51-0.95); Magnesium 1.7 mg/dL (1.9-2.7); Potassium 4.6 mmol/L (3.5-5.0); eGFR CKD-EPI 99.7 (>60)
[2024-02-17] MEDS: Lidocaine 2% JELLY 6 ML Topical TOPICAL ONE (07:23)
[2024-02-17] MEDS: Magnesium Sulfate 2 gm BAG 2 GM/50 ML BAG IVPB ONE (08:14)
[2024-02-17] MEDS: HYDROmorphone 1 MG/1 ML SYRINGE IV SLOW PU PRN (11:37)
[2024-02-17] MEDS: VIBEGRON 75 MG PO SCH (13:58)
[2024-02-17] MEDS: PTO:Pancrelipase 24,000 units (NF) PO SCH (14:01)
[2024-02-17] MEDS: Sodium Chloride(INHALANT) 3% 4 ML NEB.SOLN INH SCH (14:19)
[2024-02-17] MEDS: Ondansetron 4 mg VIAL 2 MG/ML 2 ml VIAL IV PRN (21:39)
[2024-02-17] MEDS: DEUTETRABENAZINE 24 MG PO SCH (22:31)
[2024-02-18] MEDS: Acetaminophen IV 1 GM/100ML 1,000 MG/100 ML BAG IV PRN (01:13)
[2024-02-18] MEDS: DARIFENACIN 15 MG PO SCH (02:33)
[2024-02-18] MEDS: CMCS:Darifenacin 15 mg ER TAB (NF) PO ONE (02:48)
[2024-02-18 05:28] LABS: ABS Eosinophils 0.2 10^3/uL (0.0-0.5); ABS Lymphocytes 1.1 10^3/uL (1.0-4.8); ABS Monocytes 0.6 10^3/uL (0.0-0.9); ABS Neutrophils 4.8 10^3/uL (1.5-7.6); ABS Nucleated RBC 0.01 10^3/ul; Eosinophil % 2.5 %; Hematocrit 29.2 % (35-45); Hemoglobin 9.8 g/dL (11.5-14.3); Lymphocyte % 16.3 %; Mean Corpuscular Hgb Conc 33.7 g/dL (31-36); Mean Platelet Volume 7.6 fL (7.5-11.2); Nucleated Red Blood Cells % 0.1 %/100WBC (0.0-0.8); Platelet Count 283 10^3/uL (150-450); Red Blood Count 3.17 10^6/uL (3.63-4.92); Red Cell Distribution Width 14.9 % (12-17); White Blood Count 6.7 10^3/uL (3.8-11.8)
[2024-02-18 05:43] LABS: Calcium 8.9 mg/dL (8.6-10.3); Creatinine, Serum 0.57 mg/dL (0.51-0.95); Magnesium 1.9 mg/dL (1.9-2.7); Potassium 4.7 mmol/L (3.5-5.0); eGFR CKD-EPI 97.1 (>60)
[2024-02-19 13:34] LABS: Urine Appearance Clear; Urine Bilirubin Negative (Negative); Urine Blood Negative (Negative); Urine Color Light-Yellow; Urine Glucose Negative (Negative); Urine Ketones Negative (Negative); Urine Nitrite Negative (Negative); Urine Protein Negative (Negative); Urine Specific Gravity 1.012 (1.002-1.030); Urine Urobilinogen Negative (Negative); Urine pH 7.5 (5.0-8.0)
[2024-02-19 13:41] LABS: Urine Bacteria 1+ /HPF (Absent); Urine Red Blood Cell 1+(3-5/hpf) /HPF (0-Trace); Urine White Blood Cell 2+(11-20/hpf) /HPF (0-Trace)
[2024-02-20 09:36] LABS: Calcium 9.3 mg/dL (8.6-10.3); Creatinine, Serum 0.6 mg/dL (0.51-0.95); Magnesium 1.8 mg/dL (1.9-2.7); Potassium 4.6 mmol/L (3.5-5.0); eGFR CKD-EPI 95.9 (>60)
[2024-02-21 06:41] LABS: Creatinine, Serum 0.58 mg/dL (0.51-0.95); Magnesium 1.9 mg/dL (1.9-2.7); Potassium 4.5 mmol/L (3.5-5.0); eGFR CKD-EPI 96.7 (>60)
[2024-02-21 10:01] VITALS: BP 124/59
== END 2024-02-21 13:20 | disposition home or self-care (01) | DRG 394 ==
LOC: ED 02:33 → EDHOLD 02:33 → SSU 09:30
PROVIDERS: ADMIT Surgery Surgical Critical Care; ATTEND Surgery

== ENCOUNTER 2024-03-05 12:58 | Inpatient (IN) ==
[2024-03-05] MEDS: Droperidol 5 MG/2 ML 2 ML VIAL IV ONE (13:40)
[2024-03-05] MEDS: Lactated Ringers 1000 ml BAG 1,000 ML IV ONE (13:41)
[2024-03-05 13:58] LABS: ABS Lymphocytes 0.6 10^3/uL (1.0-4.8); ABS Monocytes 0.6 10^3/uL (0.0-0.9); ABS Neutrophils 9.6 10^3/uL (1.5-7.6); Eosinophil % 0.2 %; Hematocrit 36.4 % (35-45); Hemoglobin 12.3 g/dL (11.5-14.3); Lymphocyte % 5.3 %; Mean Corpuscular Hemoglobin 30.9 pg (27-33); Mean Corpuscular Hgb Conc 33.9 g/dL (31-36); Mean Corpuscular Volume 91.2 fL (80-97); Platelet Count 394 10^3/uL (150-450); Red Blood Count 3.99 10^6/uL (3.63-4.92); Red Cell Distribution Width 14.8 % (12-17); White Blood Count 10.8 10^3/uL (3.8-11.8)
[2024-03-05 14:36] LABS: Albumin 4.1 g/dL (3.2-5.2); Albumin/Globulin Ratio 1.4 (1-3); C Reactive Protein 68.97 mg/L (<8.01); Calcium 10.2 mg/dL (8.6-10.3); Creatinine, Serum 1.15 mg/dL (0.51-0.95); Globulin 2.9 g/dL (2-4); Potassium 4.7 mmol/L (3.5-5.0); Total Bilirubin 0.4 mg/dL (0.2-1.0); eGFR CKD-EPI 50.9 (>60)
[2024-03-05] MEDS: Iodixanol (CONTRAST) 320 MG/ML 100 ML SDV IV ONE (14:56)
[2024-03-05] MEDS: cefTRIAXone 1 gm/50 mL D5W 1 GM/50 ML BAG IV ONE (16:01)
[2024-03-05] MEDS ORDERED: Ondansetron 4 mg VIAL 2 MG/ML 2 ml VIAL IV PRN (16:43)
[2024-03-05] MEDS: Lactated Ringers 1000 ml BAG 1,000 ML IV SCH ×2 (17:02→19:15)
[2024-03-05] MEDS: Azithromycin 500 mg/250 ml NS 500 MG/250 ML BAG IVPB ONE (17:02)
[2024-03-05] MEDS: Sodium Chloride(INHALANT) 3% 4 ML NEB.SOLN INH SCH (21:17)
[2024-03-05] MEDS: Mineral Oil ENEMA 118 ML/BOTTLE BOTTLE PR ONE (22:50)
[2024-03-05] MEDS: Diatrizoate Meg/Sod(CONTRAST) 30 ML ORAL.SOLN PO ONE (23:59)
[2024-03-06 06:11] LABS: ABS Eosinophils 0.2 10^3/uL (0.0-0.5); ABS Lymphocytes 0.9 10^3/uL (1.0-4.8); ABS Monocytes 0.6 10^3/uL (0.0-0.9); ABS Neutrophils 3.6 10^3/uL (1.5-7.6); ABS Nucleated RBC 0.01 10^3/ul; Eosinophil % 4.3 %; Hematocrit 31.8 % (35-45); Hemoglobin 10.7 g/dL (11.5-14.3); Lymphocyte % 16.9 %; Mean Corpuscular Hemoglobin 30.7 pg (27-33); Mean Corpuscular Hgb Conc 33.6 g/dL (31-36); Mean Corpuscular Volume 91.2 fL (80-97); Mean Platelet Volume 7.8 fL (7.5-11.2); Nucleated Red Blood Cells % 0.2 %/100WBC (0.0-0.8); Platelet Count 314 10^3/uL (150-450); Red Blood Count 3.48 10^6/uL (3.63-4.92); Red Cell Distribution Width 14.9 % (12-17); White Blood Count 5.3 10^3/uL (3.8-11.8)
[2024-03-06] MEDS: Levothyroxine 100 MCG/5 ML VIAL IV SCH (06:18)
[2024-03-06 06:24] LABS: Calcium 9.7 mg/dL (8.6-10.3); Creatinine, Serum 0.78 mg/dL (0.51-0.95); Potassium 4.5 mmol/L (3.5-5.0); eGFR CKD-EPI 81.2 (>60)
[2024-03-06] MEDS: VIBEGRON 75 MG PO SCH (08:40)
[2024-03-06] MEDS: Enoxaparin 40 MG/0.4 ML SYR SUBCUT SCH (08:40)
[2024-03-06] MEDS ORDERED: DEUTETRABENAZINE 24 MG PO SCH (09:00)
[2024-03-06] MEDS ORDERED: DARIFENACIN 15 MG PO SCH (09:00)
[2024-03-06] MEDS: cefTRIAXone 1 gm/50 mL D5W 1 GM/50 ML BAG IV SCH (15:34)
[2024-03-06] MEDS: Azithromycin 500 mg/250 ml NS 500 MG/250 ML BAG IVPB SCH (16:26)
[2024-03-06] MEDS: DARIFENACIN 15 MG PO SCH (20:59)
[2024-03-06] MEDS: DEUTETRABENAZINE 24 MG PO SCH (21:00)
[2024-03-07] MEDS: Pancrelipase 5,000 units CAP PO SCH (11:09)
[2024-03-07] MEDS: Magnesium Hydroxide LIQ 30 ML UDC PO SCH (21:19)
[2024-03-09 05:53] LABS: ABS Eosinophils 0.2 10^3/uL (0.0-0.5); ABS Lymphocytes 0.9 10^3/uL (1.0-4.8); ABS Monocytes 0.4 10^3/uL (0.0-0.9); ABS Neutrophils 2.8 10^3/uL (1.5-7.6); Eosinophil % 4.4 %; Hematocrit 29.6 % (35-45); Hemoglobin 9.9 g/dL (11.5-14.3); Lymphocyte % 21.6 %; Mean Corpuscular Hemoglobin 30.3 pg (27-33); Mean Corpuscular Hgb Conc 33.4 g/dL (31-36); Mean Corpuscular Volume 90.7 fL (80-97); Mean Platelet Volume 7.6 fL (7.5-11.2); Nucleated Red Blood Cells % 0.1 %/100WBC (0.0-0.8); Platelet Count 253 10^3/uL (150-450); Red Blood Count 3.27 10^6/uL (3.63-4.92); Red Cell Distribution Width 14.4 % (12-17); White Blood Count 4.4 10^3/uL (3.8-11.8)
[2024-03-09 06:11] LABS: Albumin 3.1 g/dL (3.2-5.2); Albumin/Globulin Ratio 1.4 (1-3); Creatinine, Serum 0.56 mg/dL (0.51-0.95); Globulin 2.2 g/dL (2-4); Potassium 4.5 mmol/L (3.5-5.0); Total Bilirubin 0.2 mg/dL (0.2-1.0); Total Protein 5.3 g/dL (6.4-8.9); eGFR CKD-EPI 97.5 (>60)
[2024-03-09] MEDS: cefTRIAXone 1 GM Q24H (ADVAN) IVPB ONE (16:10)
[2024-03-10] MEDS: cefTRIAXone 1 gm/50 mL D5W 1 GM/50 ML BAG IV SCH (16:07)
[2024-03-11 17:37] LABS: ABS Basophils 0.1 10^3/uL (0.0-0.1); ABS Eosinophils 0.2 10^3/uL (0.0-0.5); ABS Lymphocytes 0.8 10^3/uL (1.0-4.8); ABS Monocytes 0.3 10^3/uL (0.0-0.9); Eosinophil % 2.9 %; Hematocrit 33.3 % (35-45); Hemoglobin 11.2 g/dL (11.5-14.3); Lymphocyte % 12.6 %; Mean Corpuscular Hemoglobin 30.4 pg (27-33); Mean Corpuscular Hgb Conc 33.5 g/dL (31-36); Mean Corpuscular Volume 90.7 fL (80-97); Mean Platelet Volume 7.6 fL (7.5-11.2); Nucleated Red Blood Cells % 0.1 %/100WBC (0.0-0.8); Platelet Count 315 10^3/uL (150-450); Red Blood Count 3.67 10^6/uL (3.63-4.92); White Blood Count 6.4 10^3/uL (3.8-11.8)
[2024-03-11 18:06] VITALS: BP 122/63
[2024-03-11 18:17] LABS: C Reactive Protein 6.22 mg/L (<8.01); Calcium 9.6 mg/dL (8.6-10.3); Creatinine, Serum 0.61 mg/dL (0.51-0.95); Potassium 5.8 mmol/L (3.5-5.0); eGFR CKD-EPI 95.5 (>60)
== END 2024-03-11 18:30 | disposition home or self-care (01) | DRG 388 ==
LOC: EDHOLD 12:58 → ED 12:58 → SSU 19:39
PROVIDERS: ADMIT Surgery Surgical Critical Care; ATTEND Surgery

== ENCOUNTER 2024-10-01 08:30 | Observation (INO) ==
[~2024-10-01 08:30] MED LIST changes: -Buffered Lidocaine 1% SYRIN 1 ml INTRADERM ONE; -Famotidine IV 10 MG/ML 2 ml VIAL (20 mg) IV ONE; -Lactated Ringers 1000 ml BAG 1,000 ML IV SCH; +Naloxone 0.4 mg VIAL 0.4 mg/ml 1 ml VIAL IV PRN; +Ondansetron 4 mg VIAL 2 MG/ML 2 ml VIAL IV PRN
[2024-10-01 09:10] LABS: Hematocrit 37.3 % (35-45); Hemoglobin 12.5 g/dL (11.5-14.3); Mean Corpuscular Hemoglobin 31.4 pg (27-33); Mean Corpuscular Hgb Conc 33.4 g/dL (31-36); Mean Corpuscular Volume 93.9 fL (80-97); Mean Platelet Volume 7.7 fL (7.5-11.2); Platelet Count 210 10^3/uL (150-450); Red Blood Count 3.97 10^6/uL (3.63-4.92); Red Cell Distribution Width 14.8 % (12-17); White Blood Count 3.5 10^3/uL (3.8-11.8)
[2024-10-01] MEDS ORDERED: ceFAZolin 2 GM PREMIX 2 GM/50 ML BAG ONE (09:11)
[2024-10-01 09:22] LABS: Rapid COVID-19 Molecular Undetected (Undetected)
[2024-10-01 09:46] LABS: Calcium 9.8 mg/dL (8.6-10.3); Creatinine, Serum 0.62 mg/dL (0.51-0.95); Potassium 4.4 mmol/L (3.5-5.0); eGFR CKD-EPI 94.6 (>60)
[2024-10-01] MEDS ORDERED: Midazolam 2 mg/2 ml VIAL 1 mg/ml 2 ml VIAL (2 mg) ONE ×2 (10:07→11:06)
[2024-10-01] MEDS ORDERED: Dexamethasone IV 4 MG/ML VIAL 1 ml VIAL ONE (10:07)
[2024-10-01] MEDS ORDERED: ROPIVACAINE 5 MG/ML 30 ML BTL (0.5%) ONE ×3 (10:08→10:45)
[2024-10-01] MEDS ORDERED: Rocuronium 50 mg VIAL 10 mg/ml 5 ml VIAL (50 mg) ONE ×2 (11:04→13:14)
[2024-10-01] MEDS ORDERED: fentaNYL 100 mcg/2 ml 50 MCG/ML VIAL ONE ×2 (11:05→14:47)
[2024-10-01] MEDS ORDERED: HYDROmorphone 0.5 MG/0.5 ML SYRINGE ONE ×2 (11:53→12:09)
[2024-10-01] MEDS ORDERED: Lactulose 30 ml UDC PO PRN (14:00)
[2024-10-01] MEDS ORDERED: Magnesium Hydroxide LIQ 30 ML UDC PO PRN (14:00)
[2024-10-01] MEDS ORDERED: Ondansetron 4 mg VIAL 2 MG/ML 2 ml VIAL IV PRN (14:00)
[2024-10-01] MEDS ORDERED: Morphine 2 MG/ML SYRINGE IV PRN (14:00)
[2024-10-01] MEDS ORDERED: Ondansetron ODT 4 mg TAB 4 MG TAB PO PRN (14:00)
[2024-10-01] MEDS ORDERED: Calcium Carb (TUMS) 500 mg CHEW TAB PO PRN (14:00)
[2024-10-01] MEDS: fentaNYL 100 mcg/2 ml 50 MCG/ML VIAL IV PRN (14:49)
[2024-10-01] MEDS: Buffered Lidocaine 1% SYRIN 1 ml INTRADERM ONE (16:09)
[2024-10-01] MEDS: Lactated Ringers 1000 ml BAG 1,000 ML IV SCH ×2 (16:09→16:39)
[2024-10-01] MEDS: DEUTETRABENAZINE 6 MG PO SCH (17:29)
[2024-10-01] MEDS: VIBEGRON 75 MG PO SCH (20:03)
[2024-10-01] MEDS: [UNRECOGNIZED DRUG - REMARK] PO SCH (20:03)
[2024-10-01] MEDS: ceFAZolin 2 GM PREMIX 2 GM/50 ML BAG IV SCH (20:04)
[2024-10-01] MEDS: Magnesium Hydroxide LIQ 30 ML UDC PO SCH (20:37)
[2024-10-01] MEDS: [UNRECOGNIZED DRUG - REMARK] PO SCH (21:31)
[2024-10-01] MEDS: Benzocaine/Menthol LOZ PO PRN (22:39)
[2024-10-02] MEDS: PTO: Linaclotide 290 mcg CAP (NF) PO SCH (05:31)
[2024-10-02 06:08] LABS: Hematocrit 31.2 % (35-45); Hemoglobin 10.3 g/dL (11.5-14.3); Mean Platelet Volume 7.5 fL (7.5-11.2); Platelet Count 209 10^3/uL (150-450)
[2024-10-02 06:43] LABS: Calcium 9.2 mg/dL (8.6-10.3); Creatinine, Serum 0.75 mg/dL (0.51-0.95); Potassium 4.5 mmol/L (3.5-5.0); eGFR CKD-EPI 84.5 (>60)
[2024-10-02] MEDS: Vitamin THERAPEUTIC TAB PO SCH (07:50)
[2024-10-02 10:34] VITALS: BP 126/63
[2024-10-03] MEDS ORDERED: DEUTETRABENAZINE 6 MG PO SCH (09:00)
== END 2024-10-02 13:10 | disposition home or self-care (01) ==
LOC: SSU 08:30 → OR 08:30
PROVIDERS: ADMIT Orthopaedic Surgery Adult Reconstructive Orthopaedic Surgery; ATTEND Orthopaedic Surgery Adult Reconstructive Orthopaedic Surgery